=== PATIENT | male | born 1925 | race Caucasian/White ===

== ENCOUNTER 2016-10-04 18:08 | Emergency (ER) | payer MEDICARE, OTHER ==
[~2016-10-04] VITALS: Ht 182.9 cm; Wt 86.2 kg
[~2016-10-04 18:08] MED LIST: AML5T; AMLO10TA PO; ASP325T PO; CELE200C PO; CLOP75TA PO; HYDR-3816 PO; LASARTAN; LEVO125T6 PO; LEVO200T6 PO; LOSA100T7 PO; LVT.05T PO; MULT-608 PO; NTR.4SL SL; OMEG1CAP51 PO; Oxygen; SIMV40TA4 PO; TMSL.4C; TMSL.4C PO
[2016-10-04] MEDS ORDERED: CLOP75TA69 PO (18:25)
--- NOTE | 2016-10-04 18:35 | ED General ---
General Chief Complaint: Cough/Cold/Flu Symptoms Stated Complaint: COUGH/ACHING Nursing Triage Note: Ambulatory to ED 3 with reports of cough and congestion for the past several days to weeks. Nursing Sepsis Screen: No Definite Risk Source of Information: Patient, Family Exam Limitations: No Limitations History of Present Illness Time Seen by Provider: 18:10 Initial Comments This pleasant 89-year-old gentleman presents to the emergency room with 1-2 weeks of productive cough, congestion, and body aches. He denies any shortness of breath or chest pain. He has been taking Coricidin which makes him tired. He and his are concerned about this prolonged illness in the context of a surgery scheduled for early October on his knee. He has a history of coronary artery disease and CABG. He is afebrile on assessment. Irregular heartbeat is noted on auscultation. EKG demonstrated atrial fibrillation. Patient had a recent stress test in June 2016 showing no ischemia or infarct. Ejection fraction was 47 percent. No prior documentation of atrial fibrillation could be found in his chart. Prior EKGs were sinus rhythm. Allergies and Home Medications Allergies Coded Allergies: No Known Drug Allergies (Verified , 09/24/07) Home Medications Amlodipine Besylate 10 Mg Tablet 10 MG PO HS (Reported) Apixaban 2.5 Mg Tablet #60 2.5 MG PO BID Prescribed by: DELMY JOHNS on 10/04/162023 Clopidogrel Bisulfate 75 Mg Tablet 75 MG PO DAILY (Reported) Docosahexanoic Acid/Epa 1 Cap Capsule 1,000 MG PO HS (Reported) Hydrocodone/Acetaminophen 1 Each Tablet #30 1 EACH PO Q6H PRN PRN PAIN Prescribed by: NERY ESCOBAR on 06/19/15 1059 Levothyroxine Sodium 200 Mcg Tablet 200 MCG PO DAILY (Reported) TAKES ALONG WITH 50MCG TABLET Levothyroxine Sodium 50 Mcg Tablet 50 MCG PO DAILY (Reported) TAKES ALONG WITH 200MCG TABLET Losartan Potassium 100 Mg Tablet 100 MG PO HS (Reported) Multivitamins 1 Tab Tablet 1 TAB PO HS (Reported) Nitroglycerin 0.4 Mg Subl 0.4 MG SL UD PRN PRN CHEST PAIN (Reported) PLACE 1 TABLET UNDER TONGUE EVERY 5 MINUTES X 3 DOSES NEEDED FOR CHEST PAIN Simvastatin 40 Mg Tablet 20 MG PO DAILY (Reported) TAKES 1/2 (40MG) TABLET Tamsulosin Hcl 0.4 Mg Cap 0.4 MG PO HS (Reported) Constitutional: malaise EENTM: nose congestion Respiratory: see HPI Cardiovascular: see HPI Gastrointestinal: no symptoms reported Genitourinary: no symptoms reported Musculoskeletal: no symptoms reported Skin: no symptoms reported Psychiatric/Neurological: No Symptoms Reported Hematologic/Lymphatic: No Symptoms Reported Past Eojxbev-Pninlv-Ffdpbl Hx Patient Social History Alcohol Use: Denies Use Recreational Drug Use: No Smoking Status: Never a Smoker Recent Foreign Travel: No Contact w/Someone Who Travel: No Recent Infectious Disease Expo: No Recent Hopitalizations: No Physical Abuse Screen: No Sexual Abuse: No Immunizations Up To Date Tetanus Booster (TDap): Unknown PED Vaccines UTD: No Date of Pneumonia Vaccine: Jun 07, 2014 Date of Influenza Vaccine: Jun 07, 2016 Seasonal Allergies Seasonal Allergies: No Surgeries HX Surgeries: Yes (OPEN HEART SURGERY IN 1999, APPENDECTOMY HERNIA) Surgeries: Appendectomy, CABG, Joint Replacement (hip), Orthopedic (back surgery and hip replacement) Respiratory Hx Respiratory Disorders: Yes (home o2 HS) Respiratory Disorders: Sleep Apnea Cardiovascular Hx Cardiac Disorders: Yes Cardiac Disorders: Coronary Artery Disease, Hypertension Neurological Hx 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) Neurological Disorders: Stroke Reproductive System Hx Reproductive Disorders: No Sexually Transmitted Disease: No HIV/AIDS: No Genitourinary Hx Genitourinary Disorders: No Gastrointestinal Hx Gastrointestinal Disorders: No Musculoskeletal Hx Musculoskeletal Disorders: Yes Musculoskeletal Disorders: Arthritis Endocrine Hx Endocrine Disorders: Yes Endocrine Disorders: Hypothyroidsim HEENT HX ENT Disorders: Yes HEENT Disorders: Cataract Hearing Impairment: Hard of Hearing Cancer Hx Cancer: No Psychosocial Hx Psychiatric Problems: No Integumentary HX Skin/Integumentary Disorder: No Blood Transfusions Hx Blood Disorders: No Family Medical History Significant Family History: No Pertinent Family Hx Family Medial History: Prostate cancer 19 FATHER, Onset:60 years & older Physical Exam Vital Signs Vital Sign - Last 12Hours 10/04/16 18:20 Temp 98.0 Pulse 80 Resp 18 B/P 167/105 Pulse Ox 97 O2 Delivery Room Air Capillary Refill : Less Than 3 Seconds General Appearance: No Apparent Distress WD/WN HEENT: PERRL/EOMI TMs Normal Normal ENT Inspection Pharynx Normal Neck: Normal Inspection Respiratory: Lungs Clear Normal Breath Sounds No Accessory Muscle Use No Respiratory Distress Other (slightly delayed expiratory phase without wheezing) Cardiovascular: No Edema Normal Peripheral Pulses Systolic Murmur (subtle) Irregularly Irregular (with normal rate) Gastrointestinal: Non Tender Soft Extremity: Normal Inspection No Pedal Edema Neurologic/Psychiatric: Alert Oriented x3 No Motor/Sensory Deficits 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 Feldman. He requested the patient be started Eliquis 2.5 mg twice a day. Patient is presently on Plavix alone because he was having trouble with nosebleeds on aspirin and Plavix. Based on discussion with Dr. Feldman, he will be switched to aspirin 81 mg in combination with the Eliquis. Plavix will be stopped. ECG Initial ECG Impression Date: Oct 04, 2016 Initial ECG Impression Time: 18:29 Initial ECG Rate: 86 Initial ECG Rhythm: A Fib/Flutter Comment Atrial fibrillation with controlled rate. Nonspecific IVCD. No axis deviation. No ST elevation or depression. Diagnostic Imaging Diagonstic Imaging: Xray Plain Films/CT/US/NM/MRI: chest Comments Chest x-ray viewed by me and report reviewed. See report below: NAME: TRACI HARRINGTON MED REC#: [id number] PT STATUS: REG ER : 1925 PHYSICIAN: DELMY IRAHETA MD ADMIT DATE: 10/04/16/ER Draft Date of Exam:10/04/16 CHEST PA/LAT (2 VIEW) INDICATION: Cough, aching COMPARISON: December 07, 2014 TECHNIQUE: Frontal and lateral radiographs of the chest dated October 04, 2016 FINDINGS: Postsurgical changes of a CABG. Tortuosity of the thoracic aorta. The cardiac silhouette is within normal limits. No significant pulmonary vascular congestion. Background changes of chronic obstructive pulmonary disease again noted with associated pulmonary hyperinflation. The lungs, however, are clear of focal pulmonary opacity. No pleural effusion. No pneumothorax. Scattered osseous degenerative changes without acute osseous abnormality. IMPRESSION: Background changes of chronic obstructive pulmonary disease and postsurgical changes without acute cardiopulmonary abnormality. Dictated on workstation # [id number] Dict: 10/04/16 1847 Trans: 10/04/[address] [place] [address] [id number] Interpreted by: KATLYN RUIZ MD Departure Impression Impression: Primary Impression: New onset atrial fibrillation Additional Impression: Upper respiratory infection Qualified Code: J06.9 - Acute upper respiratory infection, unspecified Disposition: HOME, SELF-CARE Condition: Stable Departure-Patient Inst. Decision time for Depature: 20:00 Referrals: TARAS TITUS MD (PCP/Family) Primary Care Physician Patient Instructions: Atrial Fibrillation Add. Discharge Instructions: Start your prescription for Eliquis tomorrow morning. Follow-up with Dr. Feldman next week. Return to emergency room if you have worsening symptoms. May take Tylenol up to 1000 mg every 6 hours as needed for aches and pains. Stop Plavix (clopidogrel). Replace Plavix with aspirin EC (enteric-coated) 81 mg daily. All discharge instructions reviewed with patient and/or family. Voiced understanding. Scripts Apixaban (Eliquis)2.5 Mg Tablet2.5 Mg PO BID #60 TAB Prov:DELMY IRAHETA MD 10/04/16 Copy Copies To 1: KAJAL FELDMAN MD [facility] DELMY IRAHETA MD Oct 04, 2016 18:35 Red Cell Distribution Width 14.4 10.0-14.5 % Sodium Level 139 135-145 MMOL/L Thyroid Stimulating Hormone (TSH) 6.97 H 0.35-4.94 UIU/ML Total Bilirubin 0.6 0.1-1.0 MG/DL Total Protein 6.8 6.4-8.2 G/DL White Blood Count 11.0 4.3-11.0 10^3/uL Micro Results Microbiology 10/04/16 Influenza Types A,B Antigen (BENITO) - Final, Complete My Orders Orders-DELMY IRAHETA MD Influenza A And B Antigens (10/04/16 18:10) BNP (10/04/16 18:22) Cbc With Automated Diff (10/04/16 18:22) Comprehensive Metabolic Panel (10/04/16 18:22) Hs C Reactive Protein (10/04/16 18:22) Saline Lock/Iv-Start (10/04/16 18:22) Ekg Tracing (10/04/16 18:22) Monitor-Rhythm Ecg Trace Only (10/04/16 18:22) Thyroid Stimulating Hormone (10/04/16 18:38) Free T4 (Free Thyroxine) (10/04/16 18:38) Chest Pa/Lat (2 View) (10/04/16 ) Apixaban Tablet (Eliquis Tablet) (10/04/16 20:30) Vital Signs/I&O Vital Sign - Last 12Hours 10/04/16 10/04/16 18:20 18:20 Temp 98.0 Pulse 80 Resp 18 B/P 167/105 Pulse Ox 97 O2 Delivery Room Air Room Air Blood Pressure Mean: 125 Progress Note : Progress Note Case reviewed with Dr. Feldman. He requested the patient be started Eliquis 2.5 mg twice a day. Patient is presently on Plavix alone because he was having trouble with nosebleeds on aspirin and Plavix. Based on discussion with Dr. Feldman, he will be switched to aspirin 81 mg in combination with the Eliquis. Plavix will be stopped. ECG Initial ECG Impression Date: Oct 04, 2016 Initial ECG Impression Time: 18:29 Initial ECG Rate: 86 Initial ECG Rhythm: A Fib/Flutter Comment Atrial fibrillation with controlled rate. Nonspecific IVCD. No axis deviation. No ST elevation or depression. Diagnostic Imaging Diagonstic Imaging: Xray Plain Films/CT/US/NM/MRI: chest Comments Chest x-ray viewed by me and report reviewed. See report below: NAME: TRACI HARRINGTON [facility] REC#: [id number] PT STATUS: REG ER : 1925 PHYSICIAN: DELMY IRAHETA MD ADMIT DATE: 10/04/16/ER Draft Date of Exam:10/04/16 CHEST PA/LAT (2 VIEW) INDICATION: Cough, aching COMPARISON: December 07, 2014 TECHNIQUE: Frontal and lateral radiographs of the chest dated October 04, 2016 FINDINGS: Postsurgical changes of a CABG. Tortuosity of the thoracic aorta. The cardiac silhouette is within normal limits. No significant pulmonary vascular congestion. Background changes of chronic obstructive pulmonary disease again noted with associated pulmonary hyperinflation. The lungs, however, are clear of focal pulmonary opacity. No pleural effusion. No pneumothorax. Scattered osseous degenerative changes without acute osseous abnormality. IMPRESSION: Background changes of chronic obstructive pulmonary disease and postsurgical changes without acute cardiopulmonary abnormality. Dictated on workstation # [id number] Dict: 10/04/16 1847 Trans: 10/04/16 1852 [facility] [id number] Interpreted by: KATLYN RUIZ MD Departure Impression Impression: Primary Impression: New onset atrial fibrillation Additional Impression: Upper respiratory infection Qualified Code: J06.9 - Acute upper respiratory infection, unspecified Disposition: 01 HOME, SELF-CARE Condition: Stable Departure-Patient Inst. Decision time for Depature: 20:00 Referrals: TARAS TITUS MD (PCP/Family) Primary Care Physician Patient Instructions: Atrial Fibrillation Add. Discharge Instructions: Start your prescription for Eliquis tomorrow morning. Follow-up with Dr. Feldman next week. Return to emergency room if you have worsening symptoms. May take Tylenol up to 1000 mg every 6 hours as needed for aches and pains. Stop Plavix (clopidogrel). Replace Plavix with aspirin EC (enteric-coated) 81 mg daily. All discharge instructions reviewed with patient and/or family. Voiced understanding. Scripts Apixaban (Eliquis)2.5 Mg Tablet2.5 Mg PO BID #60 TAB Prov:DELMY IRAHETA MD 10/04/16 DELMY IRAHETA MD Oct 04, 2016 18:35
[2016-10-04 18:42] LABS: BASOPHILS # (AUTO) 0.1 10^3/uL (0.0-0.1); BASOPHILS % (AUTO) 1 % (0-10); EOSINOPHILS # (AUTO) 0.7 10^3/uL (0.0-0.3); EOSINOPHILS % (AUTO) 6 % (0-10); LYMPHOCYTES # (AUTO) 2.2 X 10^3 (1.0-4.0); LYMPHOCYTES % (AUTO) 20 % (12-44); MEAN CORPUSCULAR HEMOGLOBIN 32 PG (25-34); MEAN CORPUSCULAR HGB CONC 34 G/DL (32-36); MEAN CORPUSCULAR VOLUME 94 FL (80-99); MEAN PLATELET VOLUME 10.2 FL (7.4-10.4); MONOCYTES # (AUTO) 1.2 X 10^3 (0.0-1.0); MONOCYTES % (AUTO) 11 % (0-12); NEUTROPHILS # (AUTO) 6.9 X 10^3 (1.8-7.8); NEUTROPHILS % (AUTO) 63 % (42-75); PLATELET COUNT 287 10^3/uL (130-400); RED BLOOD COUNT 4.78 10^6/uL (4.35-5.85); RED CELL DISTRIBUTION WIDTH 14.4 % (10.0-14.5)
--- NOTE | 2016-10-04 18:52 | Diagnostic Imaging Report ---
INDICATION: Cough, aching COMPARISON: December 07, 2014 TECHNIQUE: Frontal and lateral radiographs of the chest dated October 04, 2016 FINDINGS: Postsurgical changes of a CABG. Tortuosity of the thoracic aorta. The cardiac silhouette is within normal limits. No significant pulmonary vascular congestion. Background changes of chronic obstructive pulmonary disease again noted with associated pulmonary hyperinflation. The lungs, however, are clear of focal pulmonary opacity. No pleural effusion. No pneumothorax. Scattered osseous degenerative changes without acute osseous abnormality. IMPRESSION: Background changes of chronic obstructive pulmonary disease and postsurgical changes without acute cardiopulmonary abnormality. Dictated by: Dictated on workstation # [id number]
[2016-10-04 19:04] LABS: BILIRUBIN,TOTAL 0.6 MG/DL (0.1-1.0); CALCIUM 8.7 MG/DL (8.5-10.1); CREATININE SERUM 1.23 MG/DL (0.60-1.30); POTASSIUM 4.1 MMOL/L (3.6-5.0); TOTAL PROTEIN 6.8 G/DL (6.4-8.2); hs C REACTIVE PROTEIN 1.95 MG/DL (0.00-0.50)
[2016-10-04 19:27] LABS: THYROID STIMULATING HORMONE 6.97 UIU/ML (0.35-4.94)
[2016-10-04] MEDS ORDERED: APIX2.5T PO (20:24)
[2016-10-04] MEDS ORDERED: APIXABAN 2.5 MG (ELIQUIS) TABLET PO ONE (20:30)
[2016-10-04 20:40] VITALS: BP 141/86
[2016-10-22] MEDS ORDERED: AMLO5TAB2 PO (09:04)
[2016-10-22] MEDS ORDERED: TRAM50TA2 PO (09:04)
[2016-10-22] MEDS ORDERED: SENN-140 PO (09:04)
[2016-10-22] MEDS ORDERED: FAMO20TA5 PO (09:04)
[2016-10-22] MEDS ORDERED: BETH25TA PO (09:04)
== END 2016-10-04 20:40 | disposition home or self-care (01) ==
LOC: EDUNIT# 18:08 → ER 18:11
DX: J06.9 Acute upper respiratory infection, unspecified (principal); I48.91 Unspecified atrial fibrillation; J44.9 Chronic obstructive pulmonary disease, unspecified; I10 Essential (primary) hypertension; I25.10 Atherosclerotic heart disease of native coronary artery without angina pectoris; Z79.899 Other long term (current) drug therapy; Z95.1 Presence of aortocoronary bypass graft
CPT/HCPCS: 36415; 71020; 80053; 83880; 84439; 84443; 85025; 86141; 87804; 93005; 93041

== ENCOUNTER 2016-10-11 20:39 | Inpatient (IN) | payer MEDICARE, OTHER ==
[~2016-10-11] VITALS: Ht 182.9 cm; Wt 97.7 kg
[~2016-10-11 20:39] MED LIST changes: +APIX2.5T PO; +CLOP75TA69 PO
[2016-10-11] MEDS ORDERED: ASPI-586 PO (21:01)
--- NOTE | 2016-10-11 21:03 | ED Fall/Injury ---
General Chief Complaint: Trauma-Non Activation Stated Complaint: FALL Nursing Triage Note: PT REPORTS HE WAS BENDING DOWN TO PICK SOMETHING UP AND FELL. PT REPORTS HE HIT THE BACK OF HIS HEAD ON THE DOOR. PT DENIES LOC OR HEAD/NECK PAIN. PT REPORTS L THIGH PAIN AND PELVIC PAIN. Source: patient, family (2 sons), spouse Exam Limitations: no limitations History of Present Illness Time seen by provider: 21:03 Initial Comments 89-year-old male patient presents to the emergency department with complaints of falling at home. Patient states he bent down to pick something up and fell. Patient states he hit the back of his head on the door before falling onto the left hip. Patient now complains of left hip pain and pelvic pain. Denies loss of consciousness, neck pain, head pain, or back pain. Patient states he is scheduled to have left knee replacement by Dr. Garner on November 19. Nothing by mouth since 1800. Location Injury Occurred: home Occurred: just prior to arrival Injuries/Pain Location: pelvis, lower extremity (left hip) Context: lost balance Loss of Consciousness: no loss of consciousness Modifying Factors: Improves With Immobilization, Worse With Movement Allergies and Home Medications Allergies Coded Allergies: No Known Drug Allergies (Verified , 09/24/07) Home Medications Amlodipine Besylate 10 Mg Tablet 10 MG PO HS (Reported) Apixaban 2.5 Mg Tablet #60 2.5 MG PO BID Prescribed by: DELMY JOHNS on 10/04/162023 Aspirin 81 Mg Tablet. 81 MG PO DAILY (Reported) Docosahexanoic Acid/Epa 1 Cap Capsule 1,000 MG PO HS (Reported) Levothyroxine Sodium 200 Mcg Tablet 200 MCG PO DAILY (Reported) TAKES ALONG WITH 50MCG TABLET Levothyroxine Sodium 50 Mcg Tablet 50 MCG PO DAILY (Reported) TAKES ALONG WITH 200MCG TABLET Losartan Potassium 100 Mg Tablet 100 MG PO HS (Reported) Multivitamins 1 Tab Tablet 1 TAB PO HS (Reported) Nitroglycerin 0.4 Mg Subl 0.4 MG SL UD PRN PRN CHEST PAIN (Reported) PLACE 1 TABLET UNDER TONGUE EVERY 5 MINUTES X 3 DOSES NEEDED FOR CHEST PAIN Simvastatin 40 Mg Tablet 20 MG PO DAILY (Reported) TAKES 1/2 (40MG) TABLET Tamsulosin Hcl 0.4 Mg Cap 0.4 MG PO HS (Reported) Constitutional: no symptoms reported Eyes: No Symptoms Reported Ears, Nose, Mouth, Throat: no symptoms reported Respiratory: no symptoms reported Cardiovascular: no symptoms reported Gastrointestinal: no symptoms reported Genitourinary: no symptoms reported Musculoskeletal: No back pain, joint pain (left hip)No neck pain Skin: no symptoms reported Psychiatric/Neurological: Denies Headache, Denies Numbness, Denies Paresthesia , Denies Seizure, Denies Tingling, Denies Weakness All Other Systems Reviewed Negative Unless Noted: Yes (Negative excepted noted.) Past Asfbkhk-Bmrjmz-Uqclzz Hx Patient Social History Alcohol Use: Denies Use Recreational Drug Use: No Smoking Status: Never a Smoker Recent Foreign Travel: No Contact w/Someone Who Travel: No Recent Infectious Disease Expo: No Recent Hopitalizations: No Immunizations Up To Date Tetanus Booster (TDap): Unknown PED Vaccines UTD: No Date of Pneumonia Vaccine: Jun 07, 2014 Date of Influenza Vaccine: Jun 07, 2016 Seasonal Allergies Seasonal Allergies: No Surgeries HX Surgeries: Yes (OPEN HEART SURGERY IN 1999, APPENDECTOMY HERNIA, R HIP) Surgeries: Appendectomy, CABG, Coronary Stent, Joint Replacement, Orthopedic Respiratory Hx Respiratory Disorders: Yes (home o2 HS) Respiratory Disorders: Sleep Apnea Cardiovascular Hx Cardiac Disorders: Yes Cardiac Disorders: Coronary Artery Disease, Heart Attack, Hypertension Neurological Hx 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) Neurological Disorders: Stroke Reproductive System Hx Reproductive Disorders: No Sexually Transmitted Disease: No HIV/AIDS: No Genitourinary Hx Genitourinary Disorders: No Gastrointestinal Hx Gastrointestinal Disorders: No Musculoskeletal Hx Musculoskeletal Disorders: Yes Musculoskeletal Disorders: Arthritis Endocrine Hx Endocrine Disorders: Yes Endocrine Disorders: Hypothyroidsim HEENT HX ENT Disorders: Yes HEENT Disorders: Cataract Hearing Impairment: Hard of Hearing Cancer Hx Cancer: No Psychosocial Hx Psychiatric Problems: No Integumentary HX Skin/Integumentary Disorder: No Blood Transfusions Hx Blood Disorders: No Reviewed Nursing Assessment Reviewed/Agree w Nursing PMH: Yes Family Medical History Significant Family History: No Pertinent Family Hx Family Medial History: Prostate cancer 19 FATHER, Onset:60 years & older Physical Exam Vital Signs Vital Sign - Last 12Hours 10/11/16 10/11/16 20:46 22:47 Temp 97.6 Pulse 85 Resp 18 B/P 148/87 Pulse Ox 92 O2 Delivery Room Air Capillary Refill : Less Than 3 Seconds General Appearance: WD/WN no apparent distress HEENT: PERRL/EOMI normal ENT inspection TMs normal pharynx normal Neck: non-tender full range of motion supple normal inspection Cardiovascular: normal peripheral pulses regular rate, rhythm no murmur Respiratory: lungs clear normal breath sounds no respiratory distress Gastrointestinal: normal bowel sounds non tender softNo distended Back: normal inspection no vertebral tenderness Extremities: no calf tenderness normal capillary refill pelvis stable pedal edema other (left lower extremity externally rotated and shortened. 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 no motor/sensory deficits alert normal mood/affect oriented x 3 Nikko Coma Score Best Eye Response: (4) Open Spontaneously Best Verbal Response: (5) Oriented Best Motor Response: (6) Obeys Commands [place] Total: 15 Progress/Results/Core Measures Results/Orders Lab Results Laboratory Tests Test 10/11/16 22:16 Range/Units Activated Partial Thromboplast Time 35 24-35 SEC Alanine Aminotransferase (ALT/SGPT) 23 0-55 U/L Albumin 3.4 3.2-4.5 G/DL Alkaline Phosphatase 114 40-136 U/L Anion Gap 11 5-14 MMOL/L Aspartate Amino Transf (AST/SGOT) 25 5-34 U/L BUN/Creatinine Ratio 12 Basophils # (Auto) 0.0 0.0-0.1 10^3/uL Basophils (%) (Auto) 0 0-10 % Blood Urea Nitrogen 15 7-18 MG/DL Calcium Level 8.3 L 8.5-10.1 MG/DL Carbon Dioxide Level 21 21-32 MMOL/L Chloride Level 108 H 98-107 MMOL/L Creatinine 1.26 0.60-1.30 MG/DL Eosinophils # (Auto) 0.4 H 0.0-0.3 10^3/uL Eosinophils (%) (Auto) 3 0-10 % Estimat Glomerular Filtration Rate 54 Glucose Level 131 H 70-105 MG/DL Hematocrit 41 40-54 % Hemoglobin 14.1 13.3-17.7 G/DL INR Comment 1.1 0.8-1.4 Lymphocytes # (Auto) 1.7 1.0-4.0 X 10^3 Lymphocytes (%) (Auto) 15 12-44 % Mean Corpuscular Hemoglobin 32 25-34 PG Mean Corpuscular Hemoglobin Concent 34 32-36 G/DL Mean Corpuscular Volume 93 80-99 FL Mean Platelet Volume 9.9 7.4-10.4 FL Monocytes # (Auto) 1.1 H 0.0-1.0 X 10^3 Monocytes (%) (Auto) 10 0-12 % Neutrophils # (Auto) 7.7 1.8-7.8 X 10^3 Neutrophils (%) (Auto) 71 42-75 % Platelet Count 300 130-400 10^3/uL Potassium Level 3.6 3.6-5.0 MMOL/L Prothrombin Time 13.8 12.2-14.7 SEC Red Blood Count 4.42 4.35-5.85 10^6/uL Red Cell Distribution Width 13.7 10.0-14.5 % Sodium Level 140 135-145 MMOL/L Total Bilirubin 0.5 0.1-1.0 MG/DL Total Protein 6.1 L 6.4-8.2 G/DL White Blood Count 10.9 4.3-11.0 10^3/uL My Orders Orders-BENNY AMANDA PA Ct Head Wo (10/11/16 21:23) Chest 1 View, Ap/Pa Only (10/11/16 21:23) Pelvis (10/11/16 21:23) Hip, Left, 2 Views (10/11/16 21:23) Fentanyl Injection (Sublimaze Injection (10/11/16 21:23) Cbc With Automated Diff (10/11/16 21:23) Comprehensive Metabolic Panel (10/11/16 21:23) Protime With Inr (10/11/16 21:23) Partial Thromboplastin Time (10/11/16 21:23) Ua Culture If Indicated (10/11/16 21:23) Vital Signs/I&O Vital Sign - Last 12Hours 10/11/16 10/11/16 20:46 22:47 Temp 97.6 97.6 Pulse 85 85 Resp 18 18 B/P 148/87 148/87 Pulse Ox 92 92 O2 Delivery Room Air Blood Pressure Mean: 107 Diagnostic Imaging Diagonstic Imaging: CT Plain Films/CT/US/NM/MRI: head Comments FINDINGS: Noncontrast CT scan of the head demonstrates diffuse central and cortical atrophy. 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 An old infarct is seen anteriorly in the left frontal lobe near the base. No evidence of an acute infarct is identified. There is no mass effect, midline shift, hemorrhage or extra-axial fluid collections. Bone windows demonstrate no evidence of a fracture. No fluid is seen in the paranasal sinuses or mastoid air cells. 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 No acute findings are seen. Dictated by: Dictated on workstation # [id number] Reviewed: Reviewed by Me (radiology report reviewed by me) Diagonstic Imaging: Xray Plain Films/CT/US/NM/MRI: pelvis Comments FINDINGS: AP view of the pelvis demonstrates an intertrochanteric fracture of the left hip. Postoperative changes are present in the right hip. Joint space narrowing seen in both hips. IMPRESSION: There is an intertrochanteric fracture of the left hip. Dictated by: Dictated on workstation # [id number] Reviewed: Reviewed by Me (radiology report reviewed by me) Diagonstic Imaging: Xray Plain Films/CT/US/NM/MRI: hip Comments FINDINGS: Two views of the left hip demonstrate an intertrochanteric fracture of the left hip. Joint space narrowing is present. Arteriosclerosis is seen. IMPRESSION: There is an intertrochanteric fracture of the left hip. Dictated by : Dictated on workstation # [id number] Reviewed: Reviewed by Me (radiology report reviewed by me) Diagonstic Imaging: Xray Plain Films/CT/US/NM/MRI: chest Comments FINDINGS: Frontal view of the chest demonstrates borderline cardiomegaly with coronary artery bypass graft changes. Lungs are clear. No fractures are identified. IMPRESSION: There are no acute findings. Dictated by: Dictated on workstation # [id number] Reviewed: Reviewed by Me (radiology report reviewed by me) Departure Communication Time/Spoke to Admitting Phy: 22:[address] Weaver accepts patient to her medical service for pain control and orthopedic consult. Time/Spoke to Consulting Physi: 22:29 Communication/Consulting Dr. White excepts patient to his orthopedic service, request admission to medical. Requests to hold eliquis and aspirin. Progress Notes All laboratory findings, diagnostic study findings and plan for admission discussed with the patient and family. All voiced understanding and agree with the treatment plan. Patient reports improvement in symptoms with IV fentanyl. Patient case discussed with Dr. Diane, he agrees with the plan of care. Impression Impression: Primary Impression: Closed left hip fracture Additional Impression: Fall Disposition: 09 ADMITTED INPATIENT Condition: Stable Decision to Admit Reason: Admit from ER (General) Decision to Admit/Date: Oct 11, 2016 Departure-Patient Inst. Referrals: TARAS WEAVER MD (PCP/Family) Primary Care Physician BENNY AMANDA Oct 11, 2016 21:03
[2016-10-11] MEDS ORDERED: fentaNYL INJECTION 100 MCG/2 ML AMP IVP STA (21:23)
--- NOTE | 2016-10-11 21:52 | Diagnostic Imaging Report ---
PROCEDURE: CT head without contrast. TECHNIQUE: Multiple contiguous axial images were obtained through the brain without the use of intravenous contrast. INDICATION: Fell, complaining of left hip pain. FINDINGS: Noncontrast CT scan of the head demonstrates diffuse central and cortical atrophy. 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 An old infarct is seen anteriorly in the left frontal lobe near the base. No evidence of an acute infarct is identified. There is no mass effect, midline shift, hemorrhage or extra-axial fluid collections. Bone windows demonstrate no evidence of a fracture. No fluid is seen in the paranasal sinuses or mastoid air cells. 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 No acute findings are seen. Dictated by: Dictated on workstation # [id number]
--- NOTE | 2016-10-11 22:00 | Diagnostic Imaging Report ---
INDICATION: Fell. Left hip pain. COMPARISON STUDY: Chest from October 04. FINDINGS: Frontal view of the chest demonstrates borderline cardiomegaly with coronary artery bypass graft changes. Lungs are clear. No fractures are identified. IMPRESSION: There are no acute findings. Dictated by: Dictated on workstation # [id number]
--- NOTE | 2016-10-11 22:01 | Diagnostic Imaging Report ---
INDICATION: Fell. Left hip pain. FINDINGS: Two views of the left hip demonstrate an intertrochanteric fracture of the left hip. Joint space narrowing is present. Arteriosclerosis is seen. IMPRESSION: There is an intertrochanteric fracture of the left hip. Dictated by: Dictated on workstation # [id number]
--- NOTE | 2016-10-11 22:01 | Diagnostic Imaging Report ---
INDICATION: Fell, left hip pain. FINDINGS: AP view of the pelvis demonstrates an intertrochanteric fracture of the left hip. Postoperative changes are present in the right hip. Joint space narrowing seen in both hips. IMPRESSION: There is an intertrochanteric fracture of the left hip. Dictated by: Dictated on workstation # [id number]
[2016-10-11 22:25] LABS: BASOPHILS % (AUTO) 0 % (0-10); EOSINOPHILS # (AUTO) 0.4 10^3/uL (0.0-0.3); EOSINOPHILS % (AUTO) 3 % (0-10); LYMPHOCYTES # (AUTO) 1.7 X 10^3 (1.0-4.0); LYMPHOCYTES % (AUTO) 15 % (12-44); MEAN CORPUSCULAR HEMOGLOBIN 32 PG (25-34); MEAN CORPUSCULAR HGB CONC 34 G/DL (32-36); MEAN CORPUSCULAR VOLUME 93 FL (80-99); MEAN PLATELET VOLUME 9.9 FL (7.4-10.4); MONOCYTES # (AUTO) 1.1 X 10^3 (0.0-1.0); MONOCYTES % (AUTO) 10 % (0-12); NEUTROPHILS # (AUTO) 7.7 X 10^3 (1.8-7.8); NEUTROPHILS % (AUTO) 71 % (42-75); PLATELET COUNT 300 10^3/uL (130-400); RED BLOOD COUNT 4.42 10^6/uL (4.35-5.85); RED CELL DISTRIBUTION WIDTH 13.7 % (10.0-14.5); WHITE BLOOD COUNT 10.9 10^3/uL (4.3-11.0)
[2016-10-11 22:34] LABS: INR 1.1 (0.8-1.4); PROTHROMBIN TIME PATIENT 13.8 SEC (12.2-14.7)
[2016-10-11 22:44] LABS: ALBUMIN 3.4 G/DL (3.2-4.5); BILIRUBIN,TOTAL 0.5 MG/DL (0.1-1.0); CALCIUM 8.3 MG/DL (8.5-10.1); CREATININE SERUM 1.26 MG/DL (0.60-1.30); POTASSIUM 3.6 MMOL/L (3.6-5.0); TOTAL PROTEIN 6.1 G/DL (6.4-8.2)
[2016-10-12] VITALS: BP 126/76
[2016-10-12] MEDS ORDERED: ONDANSETRON 4 MG/2 ML (SDV) Z0FRAN IV PRN (00:15)
[2016-10-12] MEDS ORDERED: CATHETER FLUSH 10 ML SYR IV PRN (00:15)
[2016-10-12] MEDS ORDERED: oxyCODONE/APAP 5/325MG (PERCOCET 5) TABLET PO PRN (00:15)
[2016-10-12] MEDS: NS IV 1000 ML 1,000 ML IV SCH ×2 (01:10→15:02)
[2016-10-12] MEDS: morphine INJ 4 MG/ML 1 ML (VIAL/SYRINGE) IV PRN ×3 (01:10→19:20)
[2016-10-12 04:00] VITALS: BP 127/81
[2016-10-12] MEDS: CATHETER FLUSH 10 ML SYR IV SCH ×3 (05:51→22:00)
[2016-10-12 06:25] LABS: BASOPHILS % (AUTO) 0 % (0-10); EOSINOPHILS # (AUTO) 0.1 10^3/uL (0.0-0.3); EOSINOPHILS % (AUTO) 1 % (0-10); LYMPHOCYTES # (AUTO) 1.2 X 10^3 (1.0-4.0); LYMPHOCYTES % (AUTO) 8 % (12-44); MEAN CORPUSCULAR HEMOGLOBIN 32 PG (25-34); MEAN CORPUSCULAR HGB CONC 34 G/DL (32-36); MEAN CORPUSCULAR VOLUME 94 FL (80-99); MEAN PLATELET VOLUME 10.4 FL (7.4-10.4); MONOCYTES # (AUTO) 1.6 X 10^3 (0.0-1.0); MONOCYTES % (AUTO) 11 % (0-12); NEUTROPHILS # (AUTO) 11.8 X 10^3 (1.8-7.8); NEUTROPHILS % (AUTO) 80 % (42-75); PLATELET COUNT 317 10^3/uL (130-400); RED BLOOD COUNT 4.29 10^6/uL (4.35-5.85); RED CELL DISTRIBUTION WIDTH 13.7 % (10.0-14.5); WHITE BLOOD COUNT 14.6 10^3/uL (4.3-11.0)
[2016-10-12 06:56] LABS: BAND NEUTROPHILS 0 %; BASOPHILS % (MANUAL) 0 %; EOSINOPHILS % (MANUAL) 0 %; LYMPHOCYTES % (MANUAL) 4 %; NEUTROPHILS % (MANUAL) 80 %; REACTIVE LYMPHOCYTES 8 %
[2016-10-12 06:57] LABS: ALBUMIN 3.5 G/DL (3.2-4.5); BILIRUBIN,TOTAL 0.7 MG/DL (0.1-1.0); CALCIUM 8.2 MG/DL (8.5-10.1); CREATININE SERUM 1.19 MG/DL (0.60-1.30); POTASSIUM 3.8 MMOL/L (3.6-5.0)
[2016-10-12 07:26] LABS: BILIRUBIN,URINE NEGATIVE (NEGATIVE); NITRITE,URINE NEGATIVE (NEGATIVE); PH,URINE 6 (5-9); UROBILINOGEN,URINE NORMAL (NORMAL)
[2016-10-12 07:28] LABS: KETONES,URINE NEGATIVE (NEGATIVE); LEUKOCYTE ESTERASE ,URINE NEGATIVE (NEGATIVE); PROTEIN,URINE NEGATIVE (NEGATIVE)
[2016-10-12 08:00] VITALS: BP 140/77
--- NOTE | 2016-10-12 09:17 | Consultation ---
History of Present Illness History of Present Illness Patient Consulted On(cathi/time) 10/12/16 09:12 Date of Admission 10/11/2016 Reason for Visit: left hip pain History of Present Illness This 89 year old male fell last night and hurt the left hip. He was seen in the ER and diagnosed with a left intertrochanteric femur fracture. He denies LOC and denies any other injury. 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 He has been on Plavix for his heart and he had some problems with it a few days ago and was prescribed Eliquis and he just started that 2 to 3 days ago according to his . His last dose was yesterday. From what I understand, he will need to be off of the Eliquis for 2 days before elective surgery. Allergies and Home Medications Allergies Coded Allergies: No Known Drug Allergies (Verified , 09/24/07) Home Medications Amlodipine Besylate 10 Mg Tablet 10 MG PO HS (Reported) Apixaban 2.5 Mg Tablet #60 2.5 MG PO BID Prescribed by: DELMY JOHNS on 10/04/162023 Aspirin 81 Mg Tablet.dr 81 MG PO DAILY (Reported) Docosahexanoic Acid/Epa 1 Cap Capsule 1,000 MG PO HS (Reported) Levothyroxine Sodium 200 Mcg Tablet 200 MCG PO DAILY (Reported) TAKES ALONG WITH 50MCG TABLET Levothyroxine Sodium 50 Mcg Tablet 50 MCG PO DAILY (Reported) TAKES ALONG WITH 200MCG TABLET Losartan Potassium 100 Mg Tablet 100 MG PO HS (Reported) Multivitamins 1 Tab Tablet 1 TAB PO HS (Reported) Nitroglycerin 0.4 Mg Subl 0.4 MG SL UD PRN PRN CHEST PAIN (Reported) PLACE 1 TABLET UNDER TONGUE EVERY 5 MINUTES X 3 DOSES NEEDED FOR CHEST PAIN Simvastatin 40 Mg Tablet 20 MG PO DAILY (Reported) TAKES 1/2 (40MG) TABLET Tamsulosin Hcl 0.4 Mg Cap 0.4 MG PO HS (Reported) Past Ylfjwyq-Qrvvyg-Kcajwe Hx Patient Social History Alcohol Use: Denies Use Recreational Drug Use: No Smoking Status: Never a Smoker Recent Foreign Travel: No Contact w/Someone Who Travel: No Recent Infectious Disease Expo: No Recent Hopitalizations: No Physical Abuse Screen: No Sexual Abuse: No Immunizations Up To Date Tetanus Booster (TDap): Unknown PED Vaccines UTD: No Date of Pneumonia Vaccine: Jun 07, 2014 Date of Influenza Vaccine: Jun 07, 2016 Seasonal Allergies Seasonal Allergies: No Surgeries HX Surgeries: Yes (OPEN HEART SURGERY IN 1999, APPENDECTOMY HERNIA, R HIP) Surgeries: Appendectomy, CABG, Coronary Stent, Joint Replacement, Orthopedic Respiratory Hx Respiratory Disorders: Yes (home o2 HS) Respiratory Disorders: Sleep Apnea, COPD Cardiovascular Hx Cardiac Disorders: Yes Cardiac Disorders: Coronary Artery Disease, Heart Attack, Hypertension Neurological Hx 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) Neurological Disorders: Stroke Reproductive System Hx Reproductive Disorders: No Sexually Transmitted Disease: No HIV/AIDS: No Genitourinary Hx Genitourinary Disorders: No Gastrointestinal Hx Gastrointestinal Disorders: No Musculoskeletal Hx Musculoskeletal Disorders: Yes Musculoskeletal Disorders: Arthritis, Fractures Endocrine Hx Endocrine Disorders: Yes Endocrine Disorders: Hypothyroidsim HEENT HX ENT Disorders: Yes HEENT Disorders: Cataract Loss of Vision: Denies Hearing Impairment: Denies Cancer Hx Cancer: No Psychosocial Hx Psychiatric Problems: No Integumentary HX Skin/Integumentary Disorder: No Blood Transfusions Hx Blood Disorders: No Adverse Reaction to a Blood Tr: No Reviewed Nursing Assessment Reviewed/Agree w Nursing PMH: Yes Family Medical History Significant Family History: No Pertinent Family Hx Family Medial History: Hypertension 19 MOTHER Prostate cancer 19 FATHER, Onset:60 years & older Physical Exam-General Problems Physical Exam Vital Signs Vital Sign - Last 12Hours 10/11/16 10/11/16 10/11/16 20:46 22:47 23:29 Temp 97.6 Pulse 85 Resp 18 B/P 148/87 Pulse Ox 92 O2 Delivery Room Air O2 Flow Rate 2 Capillary Refill : Less Than 3 SecondsLess Than 3 Seconds General Appearance: WD/WN Neck: non-tender Respiratory: chest non-tender Cardiovascular: normal peripheral pulses Back: no vertebral tenderness Extremities: no pedal edema no calf tenderness other (Left hip shortened and externally rotated. Tender over the left hip. The left knee shows arthritic enlargement and spurring with minimal effusion.) Skin: normal color warm/dry Assessment/Plan Assessment/Plan Admission Diagnosis/Plan Left intertrochanteric femur fracture-- His ASA and Eliquis are being held. I will plan on surgery on the left hip with ORIF of the hip tomorrow afternoon which should be long enough to avoid bleeding from the Eliquis. He will likely need to go to rehab after he recovers from the surgery. Clinical Quality Measures DVT/VTE Risk/Contraindication: Risk Factor Score Per Nursin RFS Level Per Nursing on Admit: 4+=Very High SHIRA VAZQUEZ MD Oct 12, 2016 09:17
--- NOTE | 2016-10-12 09:26 | History & Physicial ---
History of Present Illness History of Present Illness Reason for visit/HPI PT IS AN 89 Y/O MALE WHO IS KNOWN TO ME FROM CLINIC. THE PATIENT REPORTS THAT YESTERDAY HE WAS FEELING WELL, HAD BEEN EATING SUPPER AND WAS GETTING UP AND MOVING AROUND IN THE KITCHEN. HE WAS LEANING OVER PICKING UP SOMETHING OFF OF THE FLOOR, WHEN HE STOOD UP HE BECAME UNSTEADY, GRABBED FOR THE KITCHEN CHAIR AND IT SCOOTED AWAY FROM HIM AND HE FELL TO THE KITCHEN FLOOR. HE REPORTS THAT SOON HE FELL DOWN HE KNEW HE HAD BROKEN HIS HIP. HE DENIES ANY CHEST PAIN, SHORTNESS OF BREATH, ABDOMINAL PAIN, DIZZINESS AT THIS TIME. Date of Admission Oct 11, 2016 at 22:55 I consulted on this patient on 10/12/16 09:26 Attending Physician Taras Weaver MD Admitting Physician Taras Weaver MD Consult DR. WING Allergies and Home Medications Allergies Coded Allergies: No Known Drug Allergies (Verified , 09/24/07) Home Medications Amlodipine Besylate 10 Mg Tablet 10 MG PO HS (Reported) Apixaban 2.5 Mg Tablet #60 2.5 MG PO BID Prescribed by: DELMY JOHNS on 10/04/162023 Aspirin 81 Mg Tablet. 81 MG PO DAILY (Reported) Docosahexanoic Acid/Epa 1 Cap Capsule 1,000 MG PO HS (Reported) Levothyroxine Sodium 200 Mcg Tablet 200 MCG PO DAILY (Reported) TAKES ALONG WITH 50MCG TABLET Levothyroxine Sodium 50 Mcg Tablet 50 MCG PO DAILY (Reported) TAKES ALONG WITH 200MCG TABLET Losartan Potassium 100 Mg Tablet 100 MG PO HS (Reported) Multivitamins 1 Tab Tablet 1 TAB PO HS (Reported) Nitroglycerin 0.4 Mg Subl 0.4 MG SL UD PRN PRN CHEST PAIN (Reported) PLACE 1 TABLET UNDER TONGUE EVERY 5 MINUTES X 3 DOSES NEEDED FOR CHEST PAIN Simvastatin 40 Mg Tablet 20 MG PO DAILY (Reported) TAKES 1/2 (40MG) TABLET Tamsulosin Hcl 0.4 Mg Cap 0.4 MG PO HS (Reported) Past Mcrmxba-Aaapbm-Zpsojp Hx Patient Social History Marrital Status: Living Status: LIVES [place] [employer] Employed/Student: retired Alcohol Use: Denies Use Recreational Drug Use: No Smoking Status: Never a Smoker 2nd Hand Smoke Exposure: No Physical Abuse Screen: No Sexual Abuse: No Recent Foreign Travel: No Contact w/other who traveled: No Recent Hopitalizations: No Recent Infectious Disease Expo: No Immunizations Up To Date Tetanus Booster (TDap): Unknown Date of Pneumonia Vaccine: Jun 07, 2014 Date of Influenza Vaccine: Jun 07, 2016 Seasonal Allergies Seasonal Allergies: No Surgeries HX Surgeries: Yes (OPEN HEART SURGERY IN 1999, APPENDECTOMY HERNIA, R HIP) Surgeries: Appendectomy, CABG, Coronary Stent, Joint Replacement, Orthopedic Respiratory Hx Respiratory Disorders: Yes (home o2 HS) Cardiovascular Hx Cardiovascular Disorders: Yes Cardiac Disorders: Atrial Fibrillation, Coronary Artery Disease, Heart Attack, Hypertension Neurological Hx 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) Neurological Disorders: Stroke Reproductive System Hx Reproductive Disorders: No Sexually Transmitted Disease: No HIV/AIDS: No Genitourinary Hx Genitourinary Disorders: Yes Genitourinary Disorders: Benign Prostatic Hyperpl Gastrointestinal Hx Gastrointestinal Disorders: No Musculoskeletal Hx Musculoskeletal Disorders: Yes Musculoskeletal Disorders: Arthritis, Fractures Endocrine Hx Endocrine Disorders: Yes Endocrine Disorders: Hypothyroidsim HEENT HX ENT Disorders: Yes HEENT Disorders: Cataract Loss of Vision: Denies Hearing Impairment: Denies Cancer Hx Cancer: No Psychosocial Hx Psychiatric Problems: No Integumentary HX Skin/Integumentary Disorder: No Blood Transfusions Hx Blood Disorders: No Adverse Reaction to a Blood Tr: No Reviewed Nursing Assessment Reviewed/Agree w Nursing PMH: Yes Family Medical History Significant Family History: Heart Disease, Cancer (PROSTATE) Family Hx: Hypertension 19 MOTHER Prostate cancer 19 FATHER, Onset:60 years & older Constitutional: No chills, No diaphoresis, No fever, No malaise, No weakness EENTM: No hoarseness, No mouth pain, No throat pain Respiratory: No cough, No dyspnea on exertion, No short of breath Cardiovascular: No chest pain, No edema, No palpitations Gastrointestinal: No abdominal pain, No constipation, No diarrhea Genitourinary: other (PACE IN PLACE) Musculoskeletal: No back pain, other (PAIN IN LEFT HIP) Skin: no symptoms reported Psychiatric/Neurological: Denies Anxiety, Denies Depressed All Other Systems Reviewed Negative Unless Noted: Yes Physical Exam Vital Signs Vital Sign - Last 12Hours 10/11/16 10/11/16 10/11/16 20:46 22:47 23:29 Temp 97.6 Pulse 85 Resp 18 B/P 148/87 Pulse Ox 92 O2 Delivery Room Air O2 Flow Rate 2 Capillary Refill : Less Than 3 SecondsLess Than 3 Seconds General Appearance: No Apparent Distress WD/WN Eyes: Bilateral Eye EOMI, Bilateral Eye Normal Inspection, Bilateral Eye PERRL HEENT: PERRL/EOMI TMs Normal Normal ENT Inspection Pharynx Normal Neck: Full Range of Motion Supple Respiratory: Chest Non Tender Lungs Clear Normal Breath Sounds No Accessory Muscle Use Cardiovascular: Regular Rate, Rhythm No Edema Gastrointestinal: Normal Bowel Sounds No Organomegaly No Pulsatile Mass Non Tender Soft Rectal: Deferred Back: Normal Inspection Extremity: Normal Capillary Refill No Pedal Edema Other (TTP OVER LEFT LATERAL HIP) Neurologic/Psychiatric: Alert Oriented x3 No Motor/Sensory Deficits 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 WING - WAITING ANOTHER 48 HOURS FOR THE RISK OF SURGICAL BLEEDING TO BE DECREASED DUE TO USE OF ELIQUIS FOR AFIB. UTI - URINALYSIS SHOWED POSSIBLE UTI - WILL START ON ROCEPHIN AND MONITOR SYMPTOMS. AFIB - RESTARTED HEART RATE CONTROLLING MEDS - HOLD XARELTO AT THIS TIME. HTN - RESTARTED NORVASC AND LOSARTAN. HYPOTHYROID - RESTARTED LEVOTHYROXINE BPH - URINARY RETENTION - PACE PLACED THIS MORNING DUE TO RETENTION. Admission Diagnosis LEFT HIP FRACTURE - INTERTROCHANTERIC URINARY TRACT INFECTION AFIB CHRONIC ANTICOAGULATION USE HYPERTENSION CORONARY ARTERY DISEASE HYPOTHYROID BPH Clinical Quality Measures DVT/VTE Risk/Contraindication: Risk Factor Score Per Nursin RFS Level Per Nursing on Admit: 4+=Very High TARAS WEAVER MD Oct 12, 2016 09:26
[2016-10-12] MEDS ORDERED: NITROGLYCERIN SUBLINGUAL 0.4 MG TAB (NITROSTAT) SL PRN (09:30)
[2016-10-12] MEDS ORDERED: cefTRIAXone INJECTION 1,000 MG in NS (IVPB) 50 ML IV ONE (09:30)
[2016-10-12] MEDS: FAMOTIDINE 20 MG (PEPCID) TABLET PO SCH ×2 (09:33→20:45)
[2016-10-12 12:00] VITALS: BP 129/63
[2016-10-12 16:00] VITALS: BP 115/69
[2016-10-12] MEDS: ALFUZOSIN HCL 10 MG TAB (UROXATRAL) PO SCH (19:20)
[2016-10-12 19:31] VITALS: BP 111/68
[2016-10-12] MEDS: LOSARTAN 50 MG (COZAAR) TAB PO SCH (20:44)
[2016-10-12] MEDS: amLODIPine 10 MG (NORVASC) TAB PO SCH (20:45)
[2016-10-13] VITALS: BP 101/67
[2016-10-13] MEDS: NS IV 1000 ML 1,000 ML IV SCH ×2 (02:55→04:24)
[2016-10-13 04:00] VITALS: BP 120/59
[2016-10-13 04:40] LABS: MEAN PLATELET VOLUME 10.3 FL (7.4-10.4); RED BLOOD COUNT 3.84 10^6/uL (4.35-5.85); RED CELL DISTRIBUTION WIDTH 13.8 % (10.0-14.5); WHITE BLOOD COUNT 13.4 10^3/uL (4.3-11.0)
[2016-10-13 05:14] LABS: CALCIUM 7.9 MG/DL (8.5-10.1); CREATININE SERUM 1.14 MG/DL (0.60-1.30); POTASSIUM 4.1 MMOL/L (3.6-5.0)
[2016-10-13] MEDS: LEVOTHYROXINE 125 MCG (LEVOTHROID) TABLET PO SCH (05:43)
[2016-10-13] MEDS: CATHETER FLUSH 10 ML SYR IV SCH ×3 (05:44→22:20)
[2016-10-13] MEDS: morphine INJ 4 MG/ML 1 ML (VIAL/SYRINGE) IV PRN (05:53)
[2016-10-13 08:00] VITALS: BP 102/61
[2016-10-13] MEDS: SIMvastatin 40 MG (ZOCOR) TAB PO SCH (09:00)
[2016-10-13] MEDS ORDERED: cefTRIAXone INJECTION 1,000 MG in NS (IVPB) 50 ML IV SCH (09:00)
[2016-10-13] MEDS ORDERED: LEVOTHYROXINE SODIUM 200 MCG PO SCH (09:00)
[2016-10-13] MEDS: FAMOTIDINE 20 MG (PEPCID) TABLET PO SCH ×2 (09:00→20:26)
[2016-10-13] MEDS ORDERED: SALIVA STIMULANT MOUTH SPRAY (BIOTENE) 1.5 OZ MM PRN (10:30)
--- NOTE | 2016-10-13 10:30 | Progress Note (SOAP) ---
Subjective Subjective/Events-last exam PT REPORTS THAT HIS PAIN IS RELATIVELY WELL CONTROLLED WITH PAIN MEDICATIONS. THE PATIENT STATES THAT HE IS READY FOR HIS SURGERY. HIS MOUTH IS QUITE DRY. Review of Systems General: Fatigue HEENT: No Head Aches Pulmonary: No Dyspnea, No Cough Cardiovascular: No: Chest Pain Gastrointestinal: No: Abdominal Pain, Nausea Genitourinary: Retention (PACE IN PLACE) Neurological: : Weakness Objective Exam Vital Signs Date Time Temp Pulse Resp B/P Pulse Ox O2 Delivery O2 Flow Rate FiO2 10/13/16 08:00 95 Nasal Cannula 2.00 10/13/16 04:00 98.2 102 20 120/59 95 Nasal Cannula 2.00 10/13/16 00:00 98.0 100 16 101/67 95 Nasal Cannula 2.00 10/12/16 20:25 95 Nasal Cannula 2.00 10/12/16 19:31 98.2 85 20 111/68 92 Nasal Cannula 2.00 10/12/16 16:00 97.5 84 20 115/69 95 Nasal Cannula 2.00 10/12/16 12:00 98.6 100 18 129/63 96 Nasal Cannula 2.00 I & O 10/13/16 07:00 Intake Total 1650 ml Output Total 850 ml Balance 800 ml Capillary Refill : Less Than 3 SecondsLess Than 3 Seconds General Appearance: No Apparent Distress WD/WN HEENT: PERRL/EOMI Pharynx Normal Neck: Full Range of Motion Supple Respiratory: Chest Non Tender Lungs Clear Normal Breath Sounds Cardiovascular: Regular Rate, Rhythm No Edema Gastrointestinal: normal bowel sounds non tender soft no organomegaly no pulsatile mass Extremity: Normal Capillary Refill No Pedal Edema Neurologic/Psychiatric: Alert Oriented x3 No Motor/Sensory Deficits Normal Mood/Affect Skin: Warm/Dry Lymphatic: No Adenopathy Results Lab Laboratory Tests 10/13/16 04:20: Anion Gap 9, BUN/Creatinine Ratio 12, Blood Urea Nitrogen 14, Calcium Level 7.9L , Carbon Dioxide Level 22, Chloride Level 106, Creatinine 1.14, Estimat Glomerular Filtration Rate 60, Glucose Level 144H, Hematocrit 36L, Hemoglobin 12.1L, Mean Corpuscular Hemoglobin 32, Mean Corpuscular Hemoglobin Concent 33, Mean Corpuscular Volume 95, Mean Platelet Volume 10.3, Platelet Count 247, Potassium Level 4.1, Red Blood Count 3.84L, Red Cell Distribution Width 13.8, Sodium Level 137, White Blood Count 13.4H Microbiology 10/12/16 Urine Culture - Preliminary, Resulted NO GROWTH Assessment/Plan Assessment/Plan Assess & Plan/Chief Complaint LEFT HIP FRACTURE - INTERTROCHANTERIC AFIB CHRONIC ANTICOAGULATION USE HYPERTENSION CORONARY ARTERY DISEASE HYPOTHYROID BPH LEFT HIP FRACTURE - PLANNING ON SURGERY TODAY WITH DR. WING - UTI - URINALYSIS SHOWED POSSIBLE UTI - URINE CULTURE NEGATIVE - STOP ANTIBIOTICS AFIB - RESTARTED HEART RATE CONTROLLING MEDS - HOLD XARELTO AT THIS TIME. HTN - RESTARTED NORVASC AND LOSARTAN. HYPOTHYROID - RESTARTED LEVOTHYROXINE BPH - URINARY RETENTION - PACE PLACED DUE TO RETENTION. Diagnosis/Problems: Clinical Quality Measures DVT/VTE Risk/Contraindication: Risk Factor Score Per Nursin RFS Level Per Nursing on Admit: 4+=Very High TARAS TITUS MD Oct 13, 2016 10:30
[2016-10-13] MEDS ORDERED: LACTATED RINGERS 1,000 ML IV SCH (12:00)
[2016-10-13] MEDS ORDERED: fentaNYL INJECTION 100 MCG/2 ML AMP ONE (12:21)
[2016-10-13] MEDS ORDERED: MIDAZOLAM 2 MG/2 ML (VERSED) VIAL ONE (12:21)
[2016-10-13] MEDS ORDERED: LACTATED RINGERS 1,000 ML IV ONE ×2 (12:21→14:02)
[2016-10-13] MEDS ORDERED: LIDOCAINE PF 2% 10 ML (XYLOCAINE) AMP ONE (12:21)
[2016-10-13] MEDS ORDERED: SEVOFLURANE (ULTANE) 15 ML INHAL SOLN ONE ×4 (12:21→14:02)
[2016-10-13] MEDS ORDERED: proPOfol 200 MG/20 ML (DIPRIVAN) VIAL IV ONE (12:21)
[2016-10-13] MEDS ORDERED: morphine INJ 4 MG/ML 1 ML (VIAL/SYRINGE) IVP PRN (13:15)
[2016-10-13] MEDS ORDERED: ceFAZolin 2 GM/50 ML NS 50 ML IV ONE (13:15)
[2016-10-13] MEDS ORDERED: HYDROcodone/APAP 5 MG/325 MG (LORTAB) TAB PO PRN (13:15)
[2016-10-13] MEDS ORDERED: BISACODYL 5 MG (DULCOLAX) TABLET PO PRN (13:15)
[2016-10-13] MEDS ORDERED: ceFAZolin 1,000 MG (ANCEF) VIAL ONE (13:17)
[2016-10-13] MEDS: LACTATED RINGERS 1,000 ML IV SCH ×2 (13:48→23:25)
[2016-10-13] MEDS ORDERED: ONDANSETRON 4 MG/2 ML (SDV) Z0FRAN ONE (14:03)
--- NOTE | 2016-10-13 14:15 | Diagnostic Imaging Report ---
INDICATION: Left hip injury. FINDINGS: 44 seconds of fluoroscopy was used during internal fixation of the left hip. A series of intraoperative images show internal fixation of a comminuted intertrochanteric fracture with a gamma nail and a long femoral stem which extends to the distal femoral metaphysis. IMPRESSION: Good alignment of the left hip following internal fixation of an intertrochanteric fracture. Dictated by: Dictated on workstation # [id number]
--- NOTE | 2016-10-13 14:28 | Progress Note-Post Operative ---
Post-Operative Progess Note Warehouse Specialist Ivan Begum PA-C Pre-Operative Diagnosis Left intertrochanteric femur fracture Post-Operative Diagnosis same Post-Op Procedure Note Date of Procedure: Oct 13, 2016 Name of Procedure: ORIF left femur with TFN Procedure Note/Findings Left comminuted intertroch fracture Anesthesia Type General Packing: none Specimen(s) collected none SHIRA VAZQUEZ MD Oct 13, 2016 14:28
[2016-10-13] MEDS ORDERED: morphine INJ 10 MG/ML 1ML (SYR OR VIAL) IV PRN (15:15)
[2016-10-13] MEDS ORDERED: ONDANSETRON 4 MG/2 ML (SDV) Z0FRAN IV ONE (15:15)
[2016-10-13] MEDS ORDERED: fentaNYL INJECTION 100 MCG/2 ML AMP IV PRN (15:15)
[2016-10-13 15:45] VITALS: BP 115/62
[2016-10-13] MEDS: ALFUZOSIN HCL 10 MG TAB (UROXATRAL) PO SCH (18:24)
[2016-10-13 19:32] VITALS: BP 104/63
[2016-10-13] MEDS: APIXABAN 2.5 MG (ELIQUIS) TABLET PO SCH (20:25)
[2016-10-13] MEDS: amLODIPine 10 MG (NORVASC) TAB PO SCH (20:25)
[2016-10-13] MEDS: DOCUSATE SODIUM 100 MG (COLACE) CAP PO SCH (20:25)
[2016-10-13] MEDS: SENNOSIDES 8.6 MG (SENOKOT) TAB PO SCH (20:26)
[2016-10-13] MEDS: LOSARTAN 50 MG (COZAAR) TAB PO SCH (20:26)
[2016-10-13] MEDS ORDERED: FUROSEMIDE 40 MG/4 ML INJ (LASIX) IVP ONE (22:15)
[2016-10-13] MEDS: HYDROcodone/APAP 7.5 MG/325 MG (LORTAB, LORCET PLUS) TABLET PO PRN (23:25)
[2016-10-14 00:30] VITALS: BP 92/61
[2016-10-14 04:27] VITALS: BP 94/53
[2016-10-14] MEDS: NS IV 1000 ML 1,000 ML IV SCH ×2 (05:35→18:55)
[2016-10-14] MEDS: LEVOTHYROXINE 125 MCG (LEVOTHROID) TABLET PO SCH (05:46)
[2016-10-14] MEDS: CATHETER FLUSH 10 ML SYR IV SCH ×3 (05:49→20:47)
[2016-10-14 06:49] LABS: MEAN PLATELET VOLUME 10.4 FL (7.4-10.4); RED BLOOD COUNT 3.1 10^6/uL (4.35-5.85); RED CELL DISTRIBUTION WIDTH 13.6 % (10.0-14.5); WHITE BLOOD COUNT 12.6 10^3/uL (4.3-11.0)
[2016-10-14 07:15] LABS: ALBUMIN 2.6 G/DL (3.2-4.5); BILIRUBIN,TOTAL 0.8 MG/DL (0.1-1.0); CALCIUM 7.6 MG/DL (8.5-10.1); CREATININE SERUM 1.22 MG/DL (0.60-1.30); POTASSIUM 4.1 MMOL/L (3.6-5.0); TOTAL PROTEIN 4.6 G/DL (6.4-8.2)
[2016-10-14 08:03] VITALS: BP 98/61
--- NOTE | 2016-10-14 08:18 | Progress Note (SOAP) ---
Subjective Subjective/Events-last exam PT REPORTS THAT HE IS QUITE FATIGUED TODAY - HIS STATES THAT HE IS USUALLY SOMEWHAT CONFUSED/GROGGY FOR A WHILE RIGHT AFTER HE AWAKENS WHEN HE IS AT HOME. HE STATES THAT HIS HIP IS HURTING THIS MORNING. 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): Weakness Objective Exam Vital Signs Date Time Temp Pulse Resp B/P Pulse Ox O2 Delivery O2 Flow Rate FiO2 10/14/16 07:25 3.50 10/14/16 04:27 99.1 94 20 94/53 93 Nasal Cannula 3.00 10/14/16 00:30 99.2 91 18 92/61 94 Nasal Cannula 3.00 3.00 10/13/16 20:20 94 Nasal Cannula 3.00 10/13/16 19:32 97.9 100 20 104/63 94 Nasal Cannula 3.00 10/13/16 16:37 3.00 10/13/16 15:45 97.4 92 16 115/62 95 Nasal Cannula 3.00 I & O 10/14/16 07:00 Intake Total 2250 ml Output Total 840 ml Balance 1410 ml Capillary Refill : Less Than 3 SecondsLess Than 3 Seconds General Appearance: No Apparent Distress WD/WN HEENT: PERRL/EOMI Pharynx Normal Neck: Full Range of Motion Supple Respiratory: Chest Non Tender Lungs Clear Normal Breath Sounds Cardiovascular: Regular Rate, Rhythm Gastrointestinal: normal bowel sounds soft Extremity: Pedal Edema (TRACE AT ANKLES) Skin: Warm/Dry Lymphatic: No Adenopathy Results Lab Laboratory Tests 10/14/16 06:28: Alanine Aminotransferase (ALT/SGPT) 12, Albumin 2.6L, Alkaline Phosphatase 54, Anion Gap 6, Aspartate Amino Transf (AST/SGOT) 15, BUN/Creatinine Ratio 15, Blood Urea Nitrogen 18, Calcium Level 7.6L, Carbon Dioxide Level 24, Chloride Level 104, Creatinine 1.22, Estimat Glomerular Filtration Rate 56, Glucose Level 151H, Hematocrit 30L, Hemoglobin 9.8L, Mean Corpuscular Hemoglobin 32, Mean Corpuscular Hemoglobin Concent 33, Mean Corpuscular Volume 96, Mean Platelet Volume 10.4, Platelet Count 207, Potassium Level 4.1, Red Blood Count 3.10L, Red Cell Distribution Width 13.6, Sodium Level 134L, Total Bilirubin 0.8 , Total Protein 4.6L, White Blood Count 12.6H Microbiology 10/12/16 MRSA Screen - Final, Complete MRSA not isolated 10/12/16 Urine Culture - Preliminary, Resulted NO GROWTH Assessment/Plan Assessment/Plan Assess & Plan/Chief Complaint LEFT HIP FRACTURE - INTERTROCHANTERIC AFIB CHRONIC ANTICOAGULATION USE HYPERTENSION CORONARY ARTERY DISEASE HYPOTHYROID BPH ANEMIA LEFT HIP FRACTURE - POST-OP DAY #1 - LEFT HIP FRACTURE REPAIR WITH DR. WING - UTI - URINALYSIS SHOWED POSSIBLE UTI - URINE CULTURE NEGATIVE - STOP ANTIBIOTICS AFIB - RESTARTED HEART RATE CONTROLLING MEDS - RESTARTED ANTICOAGULANT HTN - RESTARTED NORVASC AND LOSARTAN. HYPOTHYROID - RESTARTED LEVOTHYROXINE BPH - URINARY RETENTION - PACE PLACED DUE TO RETENTION- WILL REMOVE LATER TODAY ANEMIA - CHECK H AND H TOMORROW MORNING, BLOOD TRANSFUSION IF INDICATED. Diagnosis/Problems: Clinical Quality Measures DVT/VTE Risk/Contraindication: Risk Factor Score Per Nursin RFS Level Per Nursing on Admit: 4+=Very High TARAS TITUS MD Oct 14, 2016 08:18
[2016-10-14] MEDS: APIXABAN 2.5 MG (ELIQUIS) TABLET PO SCH ×2 (08:55→20:45)
[2016-10-14] MEDS: DOCUSATE SODIUM 100 MG (COLACE) CAP PO SCH ×2 (08:56→20:45)
[2016-10-14] MEDS: ASPIRIN E.C. 81 MG (ECOTRIN) TAB PO SCH (08:56)
[2016-10-14] MEDS: HYDROcodone/APAP 7.5 MG/325 MG (LORTAB, LORCET PLUS) TABLET PO PRN (08:56)
[2016-10-14] MEDS: SENNOSIDES 8.6 MG (SENOKOT) TAB PO SCH ×2 (08:56→20:45)
[2016-10-14] MEDS: SIMvastatin 40 MG (ZOCOR) TAB PO SCH (08:56)
--- NOTE | 2016-10-14 09:52 | Occupational Therapy Eval ---
OT Evaluation-General/PLF Medical Diagnosis Admission Date Oct 11, 2016 at 22:55 Medical Diagnosis: Left comminuted intertroch fx Onset Date: Oct 11, 2016 Therapy Diagnosis Therapy Diagnosis: Weakness, Decreased ADL skills Height/Weight Height (Feet): 6 Height (Inches): 0.00 Weight (Pounds): 195 Weight (Ounces): 8.0 Precautions Precautions/Isolations: Fall Prevention, Standard Precautions Safety Interventions: Reorient-PRN Weight Bear Status Weight Bearing Restriction: Weight Bearing/Tolerated Location Restriction: R LE Referral Physician: Dr. Weaver Referral Reason: Activity Tolerance, Self Care, Evaluation/Treatment, Strengthening/ROM Medical History Pertinent Medical History: Arthritis, CABG, CAD, COPD, CVA, HTN Additional Medical History coronary stent, right hip, hypothyroidism, BPH Current History Pt. lives with spouse in [place]. Pt. fell at home. Broke left leg. Pt. had ORIF left femur with TFN. Social History Home: Single Level Current Living Status: Significant Other Entry Into Home: Stairs With Railing Steps Into Home: 3 ADL-Prior Level of Function ADL PLOF Comments Pt. was independent with daily tasks, bathing/dressing/shopping/driving previous to this fall. DME/Equipment: Shower, Tub/Shower Drive Self: Yes OT Current Status Subjective Pt. reports 10/10 pain in left hip as he begins to move. Nursing is notified. Gives pain medication while in the room. Appearance Pt. is in bed. Agrees to evaluation. States that he has not been up yet. Mental Status/Objective Patient Orientation: Unable to Assess Pt.'s spouse states that he is "confused" at this time. Attachments: Bautista Catheter, Oxygen Current Glasses/Contacts: Yes Hand Dominance: Right Upper Extremity ROM Pt. is able to flex bilateral shoulders to approximately 100 degrees today in bed. WFL in all other joints. Upper Extremity Coordination intact ADL-Treatment Functional Bledsoe Measure 0=Not Assessed/NA 4=Minimal Assistance 1=Total Assistance 5=Supervision or Setup 2=Maximal Assistance 6=Modified B[place]soe 3=Moderate Assistance 7=Complete IndependenceIRFPAI Quality Coding Scale 6 Independent with activity with or without an assistive device 5 Patient requires set up or clean up by helper. Patient completes activity by themselves 4 Supervision or touching assist (CGA). [place] provide cues , steadying assist 3 The helper provides less than half the effort to complete the activity 2 The helper provides more than half the effort to complete the activity 1 Dependent. The helper does all the effort to complete an activity 7 Patient refused to complete or attempt activity 9 The patient did not perform the activity before the current illness or injury 88 Not attempted due to Medical conditions or safety concerns Eating (FIM): 2 (Pt. has food in room. Spouse states that she has been feeding him. OT gave pt. fork and food placed in front. Unable to initiate at bite or holding fork.) Lower Body Dressing (FIM): 1 (Dependent assist to don and doff socks.) Transfers (B, C, W/C) (FIM): 1 (OT began to assist pt. to side of bed while in the room. Pt. unable to move left leg to side, and barely able to move right LE. OT attempted to transfer pt. to side of bed from supine-sit. Pt. unable to assist at all. Called for another person. Pt. required dependent assist x2 for supine-sit. Sat EOB approximately 3 minutes with min assist. Stood with max x 2 at walker. Stood approximately 2 minutes. Sat back down. Required dependent assist x 2 for sit-supine, and bed mobility.) Other Treatments Pt. unable to reach his feet seated or in bed. Unable to doff/don socks. Education OT Patient Education: Correct positioning, Modified ADL techniques, Progress toward Goal/Update tx plan, Purpose of tx/functional activities, Reviewed precautions, Transfer techniques Teaching Recipient: Patient Teaching Methods: Demonstration, Discussion Response to Teaching: Verbalize Understanding, Return Demonstration OT Short Term Goals Short Term Goals Time Frame: Oct 28, 2016 Eating(FIM): 4 Grooming(FIM): 4 Bathing(FIM): 3 Upper Body Dressing(FIM): 4 Lower Body Dressing(FIM): 3 Toileting(FIM): 3 Transfers (B,C,W/C) (FIM): 3 Toilet/Commode Transfer(FIM): 3 Shower Transfer(FIM): 3 Additional Short Term Goals: 1-Demonstrate ADL Tasks, 2-Verbalize Understanding , 3-ImproveStrength/Geovani 1=Demonstrate adherence to instructed precautions during ADL tasks. 2=Patient will verbalize/demonstrate understanding of assistive devices/ modifications for ADL. 3=Patient will improve strength/tolerance for activity to enable patient to perform ADL's. OT Mcc Goals Mcc Goals Time Frame: 4 weeks Eating (FIM): 6 Grooming(FIM): 6 Bathing(FIM): 5 Upper Body Dressing(FIM): 5 Lower Body Dressing(FIM): 5 Toileting(FIM): 5 Transfers (B,C,W/C) (FIM): 5 Toilet/Commode Transfer(FIM): 5 Shower Transfer(FIM): 5 Additional Goals: 1-Demonstrate ADL Tasks, 2-Verbalize Understanding, 3- ImproveStrength/Geovani 1=Demonstrate adherence to instructed precautions during ADL tasks. 2=Patient will verbalize/demonstrate understanding of assistive devices/ modifications for ADL. 3=Patient will improve strength/tolerance for activity to enable patient to perform ADL's. OT Education/Plan Problem List/Assessment Assessment: Decreased Activ Tolerance, Decreased Safety Aware, Decreased UE Strength, Dependent Transfers, Impaired Bed Mobility, Impaired Cognition, Impaired Coordination, Impaired Funct Balance, Impaired I ADL's, Impaired Self- Care Skills Discharge Recommendations Plan/Recommendations: Continue POC Therapy D/C Recommendations: Acute Rehab Barriers to Progress Cognition and pain level. Treatment Plan/Plan of Care Treatment,Training & Education: Yes Patient would benefit from OT for education, treatment and training to promote independence in ADL's, mobility, safety and/or upper extremity function for ADL' s. Plan of Care: ADL Retraining, Functional Mobility, UE Funct Exercise/Act Treatment Duration: Nov 04, 2016 Agreement: Yes Rehab Potential: Fair Time/GCodes Start Time: 08:40 Stop Time: 09:10 Total Time Billed (hr/min): 30 Billed Treatment Time 1, EVmod compex x 15minutes, FA x 15minutes JOSE ANTONIO YOUNG OT Oct 14, 2016 09:52
[2016-10-14 12:04] VITALS: BP_SYST 73; BP_SYST 74; BP_DIAS 38; BP_DIAS 49
--- NOTE | 2016-10-14 12:15 | Physical Therapy Evaluation ---
PT Evaluation-General Medical Diagnosis Admission Date Oct 11, 2016 at 22:55 Medical Diagnosis: Left comminuted intertroch fx Onset Date: Oct 11, 2016 Therapy Diagnosis Therapy Diagnosis: debility/weakness Height/Weight Height (Feet): 6 Height (Inches): 0.00 Weight (Pounds): 195 Weight (Ounces): 8.0 Precautions Precautions/Isolations: Fall Prevention, Standard Precautions Weight Bear Status Weight Bearing Restriction: Weight Bearing/Tolerated Location Restriction: R LE Referral Physician: Dr. Weaver Reason for Referral: Evaluation/Treatment Medical History Pertinent Medical History: Atrial Fib, Arthritis, CABG, CAD, COPD, CVA, HTN, Hypothroidism, [place] Additional Medical History left TKR 11/2015 Current History bent over to pick something up and fell hitting back of head Reviewed History: Yes Social History Home: Single Level Current Living Status: Significant Other Entry Into Home: Stairs With Railing PT Steps Into Home: 3 Prior/Core FIM Prior Level of Function Functional Sawyer Measure 0=Not Assessed/NA 4=Minimal Assistance 1=Total Assistance 5=Supervision or Setup 2=Maximal Assistance 6=Modified Sawyer 3=Moderate Assistance 7=Complete Sawyer Bed Mobility: 6 Transfers (B,C,W/C) (FIM): 6 Gait: 6 uses cane PT Evaluation-Current Subjective Patient is reluctant to participate with PT, however, agrees. Pain Numeric Pain Scale: 7 Location: Left Pain Description: Acute Objective Patient Orientation: Normal For Age Problem Solving: Fair Attachments: Oxygen, Bautista Catheter ROM/Strength ROM Lower Extremities right LE WFL; left LE limited due to edema and pain of hip, patient was in bed with left knee flexed Strenght Lower Extremities right hip flexion 3/5, knee flexion/extension 3-/5, ankle dorsi/plantarflexion 3 /5 left hip flexion NT, knee flexion/extension 2/5, ankle dorsi/plantarflexion 3-/5 Integumentary/Posture Integumentary refer to nursing notes Bladder Incontinence: Bautista Cath Posture severe flexed hip and knee posture in stand Neuromuscular (Tone, Coordination, Reflexes) severely diminished coordination; delayed reaction time with all instruction/ movement Sensory Vision: Functional Hearing: Impaired Hand Dominance: Right Sensation Right Lower Extremit: Impaired Sensation Left Lower Extremity: Impaired Transfers Functional Sawyer Measure 0=Not Assessed/NA 4=Minimal Assistance 1=Total Assistance 5=Supervision or Setup 2=Maximal Assistance 6=Modified [place]yer 3=Moderate Assistance 7=Complete [place]yer Transfers (B, C, W/C) (FIM): 1 Scootin Supine to/from Sit: 1 Sit to/from Stand: 2 bed t/f WC(FIM only if WC use): 1 Patient demonstrated retropulsion in sit and unable to maintain EOB without assistance. Patient actively participated with sit to stand to FWW, however, unable to weight shift to either right or left LE due to weakness and pain. Patient also demonstrated "melting" in stand and required dependent assist x 2 SPT bed to recliner. Gait Anticipated Mode of Locomotion: Walk Balance Sitting Static: Poor Sitting Dynamic: Poor Standing Static: Poor Standing Dynamic: Poor Assessment/Needs 89 y.o. debilitated male, will benefit from skilled PT to address functional strength and mobility to improve current LOF and to safely return to home or care facility at maximum LOF. Rehab Potential: Fair Post Rehab Potential-Barriers: age/weakness PT Short Term Goals Short Term Goals Time Frame: Oct 24, 2016 Transfers (B,C,W/C) (FIM): 3 Gait (FIM): 2 Distance (FIM): 7=098-89 ft Gait Distance Comment: 50' Gait Level of Assist: 3 Gait Assistive Device: FWW PT Halfway Goals Halfway Goals PT Halfway Goals Time Frame: Nov 04, 2016 Transfers (B,C,W/C) (FIM): 6 Gait (FIM): 4 Gait distance (FIM): 3=150 ft Distance: 150' Gait Level of Assist: 4 Gait Assistive Device: FWW Stairs (FIM): 2 # of Steps: 3 Stairs Level Of Assist: 5 PT Plan Problem List Problem List: Activity Tolerance, Functional Strength, Safety, Balance, Gait, Transfer, Bed Mobility Treatment/Plan Treatment Plan: Continue Plan of Care Treatment Plan: Bed Mobility, Education, Functional Activity Geovani, Functional Strength, Gait, Safety, Therapeutic Exercise, Transfers Treatment Duration: Nov 04, 2016 # of days/week 6 Visits Per Week: 11 Pt/Family Agrees w/Plan: Yes Safety Risks/Education Patient Education: Transfer Techniques Teaching Recipient: Patient Teaching Methods: Demonstration, Discussion Response to Teaching: Reinforcement Needed Discharge Recommendations Therapy D/C Recommendations: Shelter (TCU/NH) Time/GCodes Time In: 1131 Time Out: 1156 Total Billed Treatment Time: 25 [facility] PT Oct 14, 2016 12:15
--- NOTE | 2016-10-14 13:02 | Progress Note (SOAP) ---
Objective Exam Vital Signs Date Time Temp Pulse Resp B/P Pulse Ox O2 Delivery O2 Flow Rate FiO2 10/14/16 12:04 73/38 10/14/16 12:04 97.9 92 16 74/49 95 Nasal Cannula 3.00 3.00 10/14/16 08:03 99.1 98 18 98/61 100 Nasal Cannula 3.00 3.00 10/14/16 08:00 100 Nasal Cannula 3.00 10/14/16 07:25 3.50 10/14/16 04:27 99.1 94 20 94/53 93 Nasal Cannula 3.00 10/14/16 00:30 99.2 91 18 92/61 94 Nasal Cannula 3.00 3.00 10/13/16 20:20 94 Nasal Cannula 3.00 10/13/16 19:32 97.9 100 20 104/63 94 Nasal Cannula 3.00 10/13/16 16:37 3.00 10/13/16 15:45 97.4 92 16 115/62 95 Nasal Cannula 3.00 I & O 10/14/16 07:00 Intake Total 2250 ml Output Total 840 ml Balance 1410 ml Capillary Refill : Less Than 3 SecondsLess Than 3 Seconds General Appearance: Other (Patient is sleepy but awakes to answer question. ) HEENT: PERRL/EOMI Normal ENT Inspection Pharynx Normal Peripheral Pulses: 3+ Left Dors-Pedis (L) Skin: Normal Color Warm/Dry Other comments Dressing dry clean and intact Results Lab Laboratory Tests 10/14/16 06:28: Alanine Aminotransferase (ALT/SGPT) 12, Albumin 2.6L, Alkaline Phosphatase 54, Anion Gap 6, Aspartate Amino Transf (AST/SGOT) 15, BUN/Creatinine Ratio 15, Blood Urea Nitrogen 18, Calcium Level 7.6L, Carbon Dioxide Level 24, Chloride Level 104, Creatinine 1.22, Estimat Glomerular Filtration Rate 56, Glucose Level 151H, Hematocrit 30L, Hemoglobin 9.8L, Mean Corpuscular Hemoglobin 32, Mean Corpuscular Hemoglobin Concent 33, Mean Corpuscular Volume 96, Mean Platelet Volume 10.4, Platelet Count 207, Potassium Level 4.1, Red Blood Count 3.10L, Red Cell Distribution Width 13.6, Sodium Level 134L, Total Bilirubin 0.8 , Total Protein 4.6L, White Blood Count 12.6H Microbiology 10/12/16 MRSA Screen - Final, Complete MRSA not isolated 10/12/16 Urine Culture - Preliminary, Resulted NO GROWTH Assessment/Plan Assessment/Plan Assess & Plan/Chief Complaint left hip fracture with ORIF TFN. Hip is doing well. Patient is sleepy but awakes to answer question appropriately. He was given pain medication after PT which seem to cause his drowsiness. Will stop the lortab 7.5mg and will only given Ultram for pain hold lortab 5mg for break through pain. Diagnosis/Problems: Clinical Quality Measures DVT/VTE Risk/Contraindication: Risk Factor Score Per Nursin RFS Level Per Nursing on Admit: 4+=Very High ROSMERY RM Oct 14, 2016 13:02
--- NOTE | 2016-10-14 13:32 | Physical Therapy Daily Note ---
PT Daily Note-Current Subjective Patient is up in recliner and slightly responsive. Family present and very concerned. Appearance Vitals taken by PT in recliner 53/44 BP, 105 HR, SAO2 93% on 3.5L (RN notified) ; PT and tech performed dependent SPT recliner to bed prior to RN entering room. Patient's BP increased slightly after returning to supine with head slightly elevated. Mental Status Patient Orientation: Mumbles, Listless Attachments: Oxygen Transfers Functional White Measure 0=Not Assessed/NA 4=Minimal Assistance 1=Total Assistance 5=Supervision or Setup 2=Maximal Assistance 6=Modified White 3=Moderate Assistance 7=Complete IndependenceIRFPAI Quality Coding Scale 6 Independent with activity with or without an assistive device 5 Patient requires set up or clean up by helper. Patient completes activity by themselves 4 Supervision or touching assist (CGA). [place] provide cues , steadying assist 3 The helper provides less than half the effort to complete the activity 2 The helper provides more than half the effort to complete the activity 1 Dependent. The helper does all the effort to complete an activity 7 Patient refused to complete or attempt activity 9 The patient did not perform the activity before the current illness or injury 88 Not attempted due to Medical conditions or safety concerns Transfers (B, C, W/C) (FIM): 1 Scootin Supine to/from Sit: 1 Sit to/from Stand: 1 Bed to/from Chair: 1 see above; bilateral LE's elevated with pillows to relieve bilateral heel pressure and SCD's in place and on Weight Bearing Weight Bearing Restriction: Touch Toe Bearing Location Restriction: L LE Assessment Dr. White's PA in for assessment after patient returned to bed with O2 3.5L NC in place and BP WNL for patient, per RN report. PT to increase activity when patient tolerates. PT Short Term Goals Short Term Goals Time Frame: Oct 24, 2016 Transfers (B,C,W/C) (FIM): 3 Gait (FIM): 2 Distance (FIM): 1=229-43 ft Gait Distance Comment: 50' Gait Level of Assist: 3 Gait Assistive Device: FWW PT Longterm Goals Longterm Goals PT Longterm Goals Time Frame: Nov 04, 2016 Transfers (B,C,W/C) (FIM): 6 Gait (FIM): 4 Gait distance (FIM): 3=150 ft Distance: 150' Gait Level of Assist: 4 Gait Assistive Device: FWW Stairs (FIM): 2 # of Steps: 3 Stairs Level Of Assist: 5 PT Plan Treatment/Plan Treatment Plan: Continue Plan of Care Treatment Plan: Bed Mobility, Education, Functional Activity Geovani, Functional Strength, Gait, Safety, Therapeutic Exercise, Transfers Treatment Duration: Nov 04, 2016 Visits Per Week: 11 Time/GCodes Time In: 1300 Time Out: 1325 Total Billed Treatment Time: 25 Total Billed Treatment 1 visit FA x 2 25 min RAQUEL AYALA PT Oct 14, 2016 13:32
--- NOTE | 2016-10-14 13:38 | OPERATIVE REPORT ---
PROCEDURE PHYSICIAN: SHIRA VAZQUEZ DATE OF PROCEDURE: 10/13/2016 PREOPERATIVE DIAGNOSIS: Left intertrochanteric femoral fracture. POSTOPERATIVE DIAGNOSIS: Left intertrochanteric femoral fracture. PROCEDURE: Left hip trochanteric femoral nail. SURGEON: Christopher ASSISTING: TESS Sy. Family Member Caretaker surgeon duties: Patient positioning, retraction, use of internal fixation devices, wound closure, application sterile dressings. Use of branch assistant is medically indicated. ANESTHESIA: General. COMPLICATIONS: None. BLOOD LOSS: 200 mL INDICATIONS: This man fell and fractured the left hip 2 days ago. He had been on Eliquis. He was admitted to the hospital. His Eliquis was stopped and we waited 48 hours for the anticoagulant affect to be minimized and he was taken to surgery today for elective fracture repair. PROCEDURE IN DETAIL: After informed consent, the patient was transported to the operating room. He was placed the operative table in the supine position. General anesthesia was induced. He was positioned on the fracture table with the pubis against the peroneal post. The left foot in traction boot and the right leg in the leg suarez. C-arm was brought in. The fracture was manipulated and was well aligned. The left lower extremity was prepped with DuraPrep and draped in the sterile fashion. A starting point was made over the lateral hip proximal to the greater trochanter incising the skin and subcutaneous tissues and (s/l multiple fascia) with a 10 blade. The guidepin was drilled in the greater trochanter and down the femoral shaft. The rigid reamer was used to ream over the guidepin. Then the guidepin was removed along with the reamer and a flexible guidewire is placed down to the distal femur. I stopped at fairly above the knee joint to allow for a future total knee arthroplasty. Measured off the pin and selected a 400 mm length nail. The 12 mm shaft reamers used and then the trochanteric femoral nail was loaded on the insertion device. It was placed down the shaft of the femur down to the appropriate depth for the helical blade to go into the hip. Next, a second lateral incision was made over the thigh through the skin, subcutaneous tissues and fascia and the aiming device was used to place the drill sleeve against the lateral cortex of the femur. A guidepin then was drilled up into the center of the femoral head and neck on the AP and lateral views; it was checked on the C-arm. The lateral cortex reamer was used and then the helical blade was impacted in the femoral head for a good fit. The guidepin and drill sleeves were removed and the locking screw in the center of the nail was locked down tightly. The insertion device was removed. Hardcopy AP and lateral views were saved to the PACS system. Next, the hip was positioned for lateral view at the distal femur and through a stab incision a distal static locking screw was placed obtaining good purchase. Hardcopy C-arm images were saved to the distal femur. Wounds were thoroughly irrigated. The fascia was closed with number 1 Vicryl followed by running 2-0 Vicryl and krystyna on the skin. Bulky dressing was applied. The patient was then transported to the recovery room in stable condition. Job ID: [id number] Dictated Date: 10/13/2016 14:02:32 Interactive Marketing Strategist Date: 10/14/2016 13:23:58 / rosalind
[2016-10-14 15:32] VITALS: BP 101/52
[2016-10-14] MEDS: ALFUZOSIN HCL 10 MG TAB (UROXATRAL) PO SCH (18:11)
[2016-10-14 19:34] VITALS: BP 104/57
[2016-10-14] MEDS: LOSARTAN 50 MG (COZAAR) TAB PO SCH (20:44)
[2016-10-14] MEDS: amLODIPine 10 MG (NORVASC) TAB PO SCH (20:45)
[2016-10-14] MEDS: FAMOTIDINE 20 MG (PEPCID) TABLET PO SCH (20:45)
[2016-10-14] MEDS: BETHANECHOL 25 MG (URECHOLINE) TAB PO SCH (22:22)
[2016-10-15] VITALS (10 sets, daily range): BP systolic 90–115; BP diastolic 50–69
[2016-10-15 05:33] LABS: MEAN PLATELET VOLUME 10.8 FL (7.4-10.4); RED BLOOD COUNT 2.81 10^6/uL (4.35-5.85); RED CELL DISTRIBUTION WIDTH 13.5 % (10.0-14.5); WHITE BLOOD COUNT 15.1 10^3/uL (4.3-11.0)
[2016-10-15] MEDS: LEVOTHYROXINE 125 MCG (LEVOTHROID) TABLET PO SCH (05:46)
[2016-10-15] MEDS: NS IV 1000 ML 1,000 ML IV SCH ×2 (05:47→21:34)
[2016-10-15] MEDS: CATHETER FLUSH 10 ML SYR IV SCH ×3 (05:47→21:35)
[2016-10-15 05:56] LABS: CALCIUM 7.9 MG/DL (8.5-10.1); CREATININE SERUM 2.67 MG/DL (0.60-1.30); POTASSIUM 4.5 MMOL/L (3.6-5.0)
[2016-10-15] MEDS: SENNOSIDES 8.6 MG (SENOKOT) TAB PO SCH ×2 (08:46→21:34)
[2016-10-15] MEDS: BETHANECHOL 25 MG (URECHOLINE) TAB PO SCH ×3 (08:47→21:34)
[2016-10-15] MEDS: ASPIRIN E.C. 81 MG (ECOTRIN) TAB PO SCH (08:47)
[2016-10-15] MEDS: SIMvastatin 40 MG (ZOCOR) TAB PO SCH (08:47)
[2016-10-15] MEDS: DOCUSATE SODIUM 100 MG (COLACE) CAP PO SCH ×2 (08:47→21:34)
[2016-10-15] MEDS: APIXABAN 2.5 MG (ELIQUIS) TABLET PO SCH ×2 (08:47→21:34)
--- NOTE | 2016-10-15 09:18 | Occupational Ther Daily Note ---
OT Current Status-Daily Note Subjective Pt. reports 10/10 pain. Nursing notified and administers pain meds. Appearance Pt. is in bed. Nursing and spouse state that he had a "bad night last night." Pt. is groggy but agreeable to work with therapy. Mental Status/Objective Patient Orientation: Person Functional Bradley Measure 0=Not Assessed/NA 4=Minimal Assistance 1=Total Assistance 5=Supervision or Setup 2=Maximal Assistance 6=Modified Bradley 3=Moderate Assistance 7=Complete Bradley ADL-Treatment Transfers (B, C, W/C) (FIM): 1 (Please see note below.) Other Treatment Attempted to have pt. move legs to side of bed. Noted trace movement in left leg, but pt. overall unable to move it. Attempted to assist pt. to side of bed with HOB only slightly elevated. Pt. unable to assist at all and was retropulsive. Moved HOB to most upright position and able to use pad under him to transfer him to seated position. Put. bed flat again. Pt. still retropulsive and unable to sit on his own. With cues to lean forward and feet on floor, pt. able to sit upright with only min assist needed. Sat this way approximately 10 minutes. Able to take medication for nursing. Transferred back to bed with dependent assist x2. All needs met in room. Spouse in room and states that her blood sugar is high at 400. Nursing aware. Spouse has taken an insulin shot. OT ordered pt and spouse breakfast. Education OT Patient Education: Correct positioning, Modified ADL techniques, Progress toward Goal/Update tx plan, Purpose of tx/functional activities, Reviewed precautions, Rehab process, Transfer techniques Teaching Recipient: Patient Teaching Methods: Demonstration, Discussion Response to Teaching: Verbalize Understanding, Return Demonstration OT Short Term Goals Short Term Goals Time Frame: Oct 28, 2016 Eating(FIM): 4 Grooming(FIM): 4 Bathing(FIM): 3 Upper Body Dressing(FIM): 4 Lower Body Dressing(FIM): 3 Toileting(FIM): 3 Transfers (B,C,W/C) (FIM): 3 Toilet/Commode Transfer(FIM): 3 Shower Transfer(FIM): 3 Additional Short Term Goals: 1-Demonstrate ADL Tasks, 2-Verbalize Understanding , 3-ImproveStrength/Geovani 1=Demonstrate adherence to instructed precautions during ADL tasks. 2=Patient will verbalize/demonstrate understanding of assistive devices/ modifications for ADL. 3=Patient will improve strength/tolerance for activity to enable patient to perform ADL's. OT Chemical Strength Tester Goals Chemical Strength Tester Goals Time Frame: 4 weeks Eating (FIM): 6 Grooming(FIM): 6 Bathing(FIM): 5 Upper Body Dressing(FIM): 5 Lower Body Dressing(FIM): 5 Toileting(FIM): 5 Transfers (B,C,W/C) (FIM): 5 Toilet/Commode Transfer(FIM): 5 Shower Transfer(FIM): 5 Additional Goals: 1-Demonstrate ADL Tasks, 2-Verbalize Understanding, 3- ImproveStrength/Geovani 1=Demonstrate adherence to instructed precautions during ADL tasks. 2=Patient will verbalize/demonstrate understanding of assistive devices/ modifications for ADL. 3=Patient will improve strength/tolerance for activity to enable patient to perform ADL's. OT Education/Plan Problem List/Assessment Assessment: Decreased Activ Tolerance, Decreased Safety Aware, Decreased UE Strength, Dependent Transfers, Impaired Bed Mobility, Impaired Cognition, Impaired Coordination, Impaired Funct Balance, Impaired I ADL's, Impaired Self- Care Skills, Restricted Funct UE ROM Discharge Recommendations Plan/Recommendations: Continue POC Therapy D/C Recommendations: Acute Rehab Target Placement Pt. would benefit from acute rehab when more medically stable. Treatment Plan/Plan of Care Treatment,Training & Education: Yes Patient would benefit from OT for education, treatment and training to promote independence in ADL's, mobility, safety and/or upper extremity function for ADL' s. Plan of Care: ADL Retraining, Functional Mobility, UE Funct Exercise/Act Treatment Duration: Nov 04, 2016 Agreement: Yes Rehab Potential: Fair Time/GCodes Start Time: 08:30 Stop Time: 09:05 Total Time Billed (hr/min): 35 Billed Treatment Time 1, FA x 2 JOSE ANTONIO YOUNG OT Oct 15, 2016 09:18
--- NOTE | 2016-10-15 11:30 | Physical Therapy Daily Note ---
PT Daily Note-Current Subjective Pt lethargic but is able to be aroused with verbal and tactile stimulus. Mental Status Patient Orientation: Person, Place Attachments: Bautista Catheter Transfers Functional [place] Measure 0=Not Assessed/NA 4=Minimal Assistance 1=Total Assistance 5=Supervision or Setup 2=Maximal Assistance 6=Modified [place] 3=Moderate Assistance 7=Complete IndependenceIRFPAI Quality Coding Scale 6 Independent with activity with or without an assistive device 5 Patient requires set up or clean up by helper. Patient completes activity by themselves 4 Supervision or touching assist (CGA). [place] provide cues , steadying assist 3 The helper provides less than half the effort to complete the activity 2 The helper provides more than half the effort to complete the activity 1 Dependent. The helper does all the effort to complete an activity 7 Patient refused to complete or attempt activity 9 The patient did not perform the activity before the current illness or injury 88 Not attempted due to Medical conditions or safety concerns Exercises Supine Ex: LE Protocol Supine Reps: 10 Pt very limited with hip and knee flexion range. Worked on rolling bed mobility with education to patient and his on risk of pressure ulcers. Pt placed on his (R) side post treatment. Assessment Current Status: Fair Progress Patient more alert this session and able to provide some assist with LE exercise. He was not yet alert enough to safely be placed in a chair and left unattend. PT Short Term Goals Short Term Goals Time Frame: Oct 24, 2016 Transfers (B,C,W/C) (FIM): 3 Gait (FIM): 2 Distance (FIM): 2=024-33 ft Gait Distance Comment: 50' Gait Level of Assist: 3 Gait Assistive Device: FWW PT Care Home Goals Care Home Goals PT Care Home Goals Time Frame: Nov 04, 2016 Transfers (B,C,W/C) (FIM): 6 Gait (FIM): 4 Gait distance (FIM): 3=150 ft Distance: 150' Gait Level of Assist: 4 Gait Assistive Device: FWW Stairs (FIM): 2 # of Steps: 3 Stairs Level Of Assist: 5 PT Plan Treatment/Plan Treatment Plan: Continue Plan of Care Treatment Plan: Bed Mobility, Education, Functional Activity Geovani, Functional Strength, Gait, Safety, Therapeutic Exercise, Transfers Treatment Duration: Nov 04, 2016 Visits Per Week: 11 Time/GCodes Time In: 1100 Time Out: 1130 Total Billed Treatment Time: 30 Total Billed Treatment visit, exercise 20, FA 10 DHARA MURRAY PT Oct 15, 2016 11:30
[2016-10-15] MEDS ORDERED: NS IV 500 ML 500 ML IV SCH (11:43)
[2016-10-15] MEDS ORDERED: cefTRIAXone INJECTION 1,000 MG in NS (IVPB) 50 ML IV NR (11:45)
--- NOTE | 2016-10-15 11:51 | Progress Note (SOAP) ---
Subjective Subjective/Events-last exam PT STATES THAT HE IS FEELING VERY FATIGUED, HIS REPORTS THAT HE IS NOT STAYING AWAKE VERY WELL. HE IS NOT EATING WELL HE SHOULD BE TO KEEP UP HIS STRENGTH. Review of Systems General: Fatigue Malaise HEENT: No Head Aches Pulmonary: No Dyspnea, No Cough Cardiovascular: No: Chest Pain Gastrointestinal: No: Abdominal Pain, Nausea Genitourinary: Retention (PACE PLACED) Musculoskeletal: No: back pain Neurological: : Weakness Objective Exam Vital Signs Date Time Temp Pulse Resp B/P Pulse Ox O2 Delivery O2 Flow Rate FiO2 10/15/16 08:00 98.9 96 20 90/58 89 Nasal Cannula 4.00 10/15/16 04:10 99.1 94 18 92/55 92 Nasal Cannula 4.00 10/15/16 00:33 98.1 80 20 96/58 90 Nasal Cannula 4.00 10/14/16 20:25 93 Nasal Cannula 3.00 10/14/16 19:34 99.0 101 19 104/57 91 Nasal Cannula 3.00 3.00 10/14/16 15:32 97.0 87 16 101/52 91 Nasal Cannula 3.00 3.00 10/14/16 12:04 73/38 10/14/16 12:04 97.9 92 16 74/49 95 Nasal Cannula 3.00 3.00 I & O 10/15/16 07:00 Intake Total 2540 ml Output Total 220 ml Balance 2320 ml Capillary Refill : Less Than 3 SecondsLess Than 3 Seconds General Appearance: WD/WN Other (FATIGUED) HEENT: PERRL/EOMI Pharynx Normal Neck: Full Range of Motion Respiratory: Chest Non Tender Lungs Clear Normal Breath Sounds No Accessory Muscle Use Cardiovascular: Regular Rate, Rhythm Gastrointestinal: normal bowel sounds non tender soft Extremity: Pedal Edema (TRACE) Neurologic/Psychiatric: Oriented x3 No Motor/Sensory Deficits Normal Mood/ Affect Other (FATIGUED) Skin: Warm/Dry Lymphatic: No Adenopathy Results Lab Laboratory Tests 10/15/16 05:03: Anion Gap 11, BUN/Creatinine Ratio 12, Blood Urea Nitrogen 31H, Calcium Level 7.9L, Carbon Dioxide Level 21, Chloride Level 104, Creatinine 2.67H, Estimat Glomerular Filtration Rate 23, Glucose Level 143H, Hematocrit 27L, Hemoglobin 8.9L, Mean Corpuscular Hemoglobin 32, Mean Corpuscular Hemoglobin Concent 33, Mean Corpuscular Volume 96, Mean Platelet Volume 10.8H, Platelet Count 230, Potassium Level 4.5, Red Blood Count 2.81L, Red Cell Distribution Width 13.5, Sodium Level 136, White Blood Count 15.1H Microbiology 10/12/16 MRSA Screen - Final, Complete MRSA not isolated 10/12/16 Urine Culture - Final, Complete NO GROWTH Assessment/Plan Assessment/Plan Assess & Plan/Chief Complaint LEFT HIP FRACTURE - INTERTROCHANTERIC WEAKNESS FATIGUE HYPOTENSION ACUTE RENAL FAILURE AFIB CHRONIC ANTICOAGULATION USE HYPERTENSION CORONARY ARTERY DISEASE HYPOTHYROID BPH ANEMIA LEFT HIP FRACTURE - POST-OP DAY #2 - LEFT HIP FRACTURE REPAIR WITH DR. WING - UTI - URINE CULTURE NEGATIVE AFIB - - RESTARTED ANTICOAGULANT HYPOTENSION - HOLD NORVASC AND LOSARTAN TODAY - PT WAS GIVEN HIS NORVASC AND LOSARTAN LAST NIGHT - HE HAD AN ACUTE DROP IN HIS BLOOD PRESSURE YESTERDAY AFTERNOON - I WAS NOT CALLED WITH HIS LOW BLOOD PRESSURE THAT WAS REPORTED IN THE CHART OF 73/38. PT WAS ON IV FLUIDS POST-OP OF LACTATED RINGERS - HE HAD THIS RUNNING AT 80ML/ HR - THE NORMAL SALINE THAT HAD ORIGINALLY BEEN ORDERED ON ADMISSION TO THE HOSPITAL AT 75ML PER HOUR WAS ALSO REPORTED ON HIS ORDER LIST RUNNING. I STOPPED THE LACTATED RINGERS YESTERDAY - NOT KNOWING THAT THE PATIENT WAS NOT ALSO GETTING THE NORMAL SALINE. HE WAS WITHOUT FLUIDS YESTERDAY UNTIL IN THE EVENING WHEN THE NIGHT NURSE CALLED TO REPORT LOW URINE OUTPUT. I HAVE DISCUSSED THE MEDICAL RECORD ISSUE WITH THE PHARMACIST AND THE NEED FOR THE LIST TO BE ACCURATE FOR THE PHYSICIANS TO BE ABLE TO ACCURATELY CARE FOR THE PATIENTS. APPARENTLY THE NORMAL SALINE WAS LISTED IN THE CHART AND "NONADMINISTERED" BY NURSING STAFF. HYPOTHYROID - RESTARTED LEVOTHYROXINE BPH - URINARY RETENTION - PACE PLACED DUE TO RETENTION-AND NEED FOR ACCURATE I/ O RECORDS. I HAVE ALSO STARTED BETHANECHOL FOR RETENTION. ANEMIA - WITH DROP IN HGB, WEAKNESS, CAD, AND ACUTE RENAL FAILURE DUE TO HYPOTENSION - WILL GO AHEAD WITH A TRANSFUSION TODAY. CHECK CBC IN THE MORNING - Diagnosis/Problems: Clinical Quality Measures DVT/VTE Risk/Contraindication: Risk Factor Score Per Nursin RFS Level Per Nursing on Admit: 4+=Very High TARAS TITUS MD Oct 15, 2016 11:50
--- NOTE | 2016-10-15 12:46 | Progress Note (SOAP) ---
Subjective Subjective/Events-last exam left hip fracture with TFN fixation. Hip doing well wht SBA ambulation. Hypotensive. Objective Exam Vital Signs Date Time Temp Pulse Resp B/P Pulse Ox O2 Delivery O2 Flow Rate FiO2 10/15/16 08:00 98.9 96 20 90/58 89 Nasal Cannula 4.00 10/15/16 04:10 99.1 94 18 92/55 92 Nasal Cannula 4.00 10/15/16 00:33 98.1 80 20 96/58 90 Nasal Cannula 4.00 10/14/16 20:25 93 Nasal Cannula 3.00 10/14/16 19:34 99.0 101 19 104/57 91 Nasal Cannula 3.00 3.00 10/14/16 15:32 97.0 87 16 101/52 91 Nasal Cannula 3.00 3.00 I & O 10/15/16 07:00 Intake Total 2540 ml Output Total 220 ml Balance 2320 ml Capillary Refill : Less Than 3 SecondsLess Than 3 Seconds General Appearance: No Apparent Distress Extremity: Normal Capillary Refill Normal Inspection Non Tender No Calf Tenderness No Pedal Edema Neurologic/Psychiatric: Alert Skin: Normal Color Warm/Dry Other comments Incisions dry clean and intact. Results Lab Laboratory Tests 10/15/16 05:03: Anion Gap 11, BUN/Creatinine Ratio 12, Blood Urea Nitrogen 31H, Calcium Level 7.9L, Carbon Dioxide Level 21, Chloride Level 104, Creatinine 2.67H, Estimat Glomerular Filtration Rate 23, Glucose Level 143H, Hematocrit 27L, Hemoglobin 8.9L, Mean Corpuscular Hemoglobin 32, Mean Corpuscular Hemoglobin Concent 33, Mean Corpuscular Volume 96, Mean Platelet Volume 10.8H, Platelet Count 230, Potassium Level 4.5, Red Blood Count 2.81L, Red Cell Distribution Width 13.5, Sodium Level 136, White Blood Count 15.1H Microbiology 10/12/16 MRSA Screen - Final, Complete MRSA not isolated 10/12/16 Urine Culture - Final, Complete NO GROWTH Assessment/Plan Assessment/Plan Assess & Plan/Chief Complaint left hip fracture with ORIF TFN. Hip is doing well. Patient is awake and answers question appropriately but feels weak. Pain controlled but too weak to work with PT. He been hypotensive which is being addressed by the Hospitalist. Will get blood today and check on him tomorrow. Diagnosis/Problems: Clinical Quality Measures DVT/VTE Risk/Contraindication: Risk Factor Score Per Nursin RFS Level Per Nursing on Admit: 4+=Very High ROSMERY RM Oct 15, 2016 12:46 pm
--- NOTE | 2016-10-15 13:54 | Physical Therapy Progress Note ---
Therapy Progress Note Pt is R side lying upon arrival. Sp asleep in recliner. Pt is having difficulty staying awake and reports feeling fatigued. Pt even declined supine bed EX. PT will check back with pt in a little while to see if pt might consider supine Ex then. 1 visit, no tx (1325) Attempted pt again, pt was more awake and reported sore in low back. PT assisted pt with rolling to L side to reposition pt with pillows under R side so pt could lay more on R side. PT discussed education items such as importance of eating and keeping hydrated as well as benefit of PT. Ordered chocolate ice cream at pt's request. Sp concerned with pt getting a bath as well as getting vitals taken. Aide took temp. and was 99.9 (slightly up from earlier). Nurse reports to pt & sp that blood for transfusion is on its way from [place] and will be giving bed bath shortly (showering is deemed unsafe at this time). 1 visit, FA X2 (25m) TIFFANY GALLEGOS PTA Oct 15, 2016 13:54
--- NOTE | 2016-10-15 16:14 | Physical Therapy Daily Note ---
PT Daily Note-Current Subjective Patient in bed pre tx, very lethargic but awake, agrees to PT. [facility] also came to get him and would like for PT to leave him in a wheelchair and then call them so they can take him down. Pain Numeric Pain Scale: 7 Location: Left Location Body Site: Hip Appearance Patient in wheelchair with xray workers, has O2 and IV, also with him. Mental Status Patient Orientation: Person, Place, Situation Attachments: Oxygen, Bautista Catheter, IV Transfers Functional [place] Measure 0=Not Assessed/NA 4=Minimal Assistance 1=Total Assistance 5=Supervision or Setup 2=Maximal Assistance 6=Modified [place] 3=Moderate Assistance 7=Complete IndependenceIRFPAI Quality Coding Scale 6 Independent with activity with or without an assistive device 5 Patient requires set up or clean up by helper. Patient completes activity by themselves 4 Supervision or touching assist (CGA). [place] provide cues , steadying assist 3 The helper provides less than half the effort to complete the activity 2 The helper provides more than half the effort to complete the activity 1 Dependent. The helper does all the effort to complete an activity 7 Patient refused to complete or attempt activity 9 The patient did not perform the activity before the current illness or injury 88 Not attempted due to Medical conditions or safety concerns Transfers (B, C, W/C) (FIM): 1 Scootin Rollin Supine to/from Sit: 1 Sit to/from Stand: 2 Patient stood twice and then performed a stand pivot transfer to the wheelchair with max assist. Patient was lethargic but awake during this time. Treatments bed mobility and transfers, standing Assessment Current Status: Poor Progress poor mobility, max assist for assist. PT Short Term Goals Short Term Goals Time Frame: Oct 24, 2016 Transfers (B,C,W/C) (FIM): 3 Gait (FIM): 2 Distance (FIM): 5=438-23 ft Gait Distance Comment: 50' Gait Level of Assist: 3 Gait Assistive Device: FWW PT [facility] Goals Machine Staker Goals PT [facility] Goals Time Frame: Nov 04, 2016 Transfers (B,C,W/C) (FIM): 6 Gait (FIM): 4 Gait distance (FIM): 3=150 ft Distance: 150' Gait Level of Assist: 4 Gait Assistive Device: FWW Stairs (FIM): 2 # of Steps: 3 Stairs Level Of Assist: 5 PT Plan Problem List Problem List: Activity Tolerance, Functional Strength, Safety, Balance, Gait, Transfer, Bed Mobility, ROM Treatment/Plan Treatment Plan: Continue Plan of Care Treatment Plan: Bed Mobility, Education, Functional Activity Geovani, Functional Strength, Gait, Safety, Therapeutic Exercise, Transfers Treatment Duration: Nov 04, 2016 Visits Per Week: 11 Safety Risks/Education Patient Education: Transfer Techniques, Correct Positioning, Safety Issues Teaching Recipient: Patient Teaching Methods: Demonstration, Discussion Response to Teaching: Reinforcement Needed Time/GCodes Time In: 1540 Time Out: 1600 Total Billed Treatment Time: 20 Total Billed Treatment 1 visit FA 20 min LEBRON ROSALES PT Oct 15, 2016 16:14
--- NOTE | 2016-10-15 16:29 | Diagnostic Imaging Report ---
INDICATION: Lethargy and weakness. EXAMINATION: PA and lateral chest. 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 The heart size and pulmonary vascularity are normal. The lungs are clear. There are no effusions or pneumothoraces. IMPRESSION: Postsurgical changes. No acute abnormality is seen. Dictated by: Dictated on workstation # [id number]
[2016-10-15] MEDS: ALFUZOSIN HCL 10 MG TAB (UROXATRAL) PO SCH (18:23)
[2016-10-15] MEDS: FAMOTIDINE 20 MG (PEPCID) TABLET PO SCH (21:35)
[2016-10-15] MEDS ORDERED: FUROSEMIDE 40 MG/4 ML INJ (LASIX) IVP ONE (23:30)
[2016-10-15] MEDS: ACETAMINOPHEN 500 MG TAB (TYLENOL) PO PRN (23:50)
[2016-10-16 02:14] VITALS: BP 114/63
[2016-10-16 03:55] VITALS: BP 115/60
[2016-10-16] MEDS: CATHETER FLUSH 10 ML SYR IV SCH ×3 (06:00→22:00)
[2016-10-16] MEDS: LEVOTHYROXINE 125 MCG (LEVOTHROID) TABLET PO SCH (06:25)
[2016-10-16 07:41] LABS: MEAN PLATELET VOLUME 10.4 FL (7.4-10.4); RED BLOOD COUNT 3.01 10^6/uL (4.35-5.85); RED CELL DISTRIBUTION WIDTH 14.1 % (10.0-14.5); WHITE BLOOD COUNT 12.2 10^3/uL (4.3-11.0)
[2016-10-16 07:50] VITALS: BP 94/60
[2016-10-16 08:03] LABS: ALBUMIN 2.6 G/DL (3.2-4.5); BILIRUBIN,TOTAL 1.1 MG/DL (0.1-1.0); CALCIUM 7.8 MG/DL (8.5-10.1); CREATININE SERUM 1.98 MG/DL (0.60-1.30)
[2016-10-16] MEDS: SIMvastatin 40 MG (ZOCOR) TAB PO SCH (08:58)
[2016-10-16] MEDS: APIXABAN 2.5 MG (ELIQUIS) TABLET PO SCH ×2 (08:58→20:08)
[2016-10-16] MEDS: DOCUSATE SODIUM 100 MG (COLACE) CAP PO SCH ×3 (08:58→20:08)
[2016-10-16] MEDS: ASPIRIN E.C. 81 MG (ECOTRIN) TAB PO SCH (08:59)
[2016-10-16] MEDS: SENNOSIDES 8.6 MG (SENOKOT) TAB PO SCH ×3 (08:59→20:08)
[2016-10-16] MEDS: BETHANECHOL 25 MG (URECHOLINE) TAB PO SCH ×3 (08:59→20:08)
[2016-10-16] MEDS: cefTRIAXone INJECTION 1,000 MG in NS (IVPB) 50 ML IV SCH (08:59)
--- NOTE | 2016-10-16 09:03 | Progress Note (SOAP) ---
Subjective Subjective/Events-last exam PT WITH ACUTE RESPIRATORY DISTRESS LAST NIGHT - IMPROVED WITH HI FLOW OXYGEN, IV LASIX, AND THIS MORNING PATIENT FEELING SIGNIFICANTLY IMPROVED. DISCUSSED WITH PT AND HIS - MAY NEED TO CONSIDER SENIOR LIVING PLACEMENT INSTEAD OF INPATIENT REHAB IF HE DOES NOT IMPROVE MORE OVER THE NEXT FEW DAYS. Review of Systems General: Fatigue HEENT: No Head Aches Pulmonary: DyspneaNo Cough Cardiovascular: : EdemaNo: Chest Pain, Palpitations Gastrointestinal: No: Abdominal Pain, Nausea Musculoskeletal: No: back pain Neurological: : WeaknessNo: Confusion Objective Exam Vital Signs Date Time Temp Pulse Resp B/P Pulse Ox O2 Delivery O2 Flow Rate FiO2 10/16/16 07:50 89.5 84 22 94/60 94 High Flow NC 60.00 10.00 10/16/16 07:45 93 10.00 60 10/16/16 03:55 98.5 83 16 115/60 93 Nasal Cannula 60.00 10.00 10/16/16 02:32 93 10.00 60 10/16/16 02:14 98.7 94 16 114/63 92 Nasal Cannula 60.00 10.00 10/16/16 01:22 99.8 10/16/16 01:22 99.8 93 Nasal Cannula 60.00 10.00 10/15/16 23:57 95 10.00 60 10/15/16 23:50 100.0 10/15/16 23:45 100.0 93 16 94/57 95 High Flow NC 15.00 10/15/16 20:21 99.5 89 18 109/62 92 6.00 10/15/16 20:21 99.5 89 18 109/62 95 Nasal Cannula 6.00 10/15/16 20:20 93 Nasal Cannula 6.00 10/15/16 20:05 99.3 87 20 115/64 91 Nasal Cannula 4.00 10/15/16 18:05 98.8 95 20 93/59 93 4.00 10/15/16 17:47 98.5 85 20 99/61 90 4.00 10/15/16 16:00 98.7 111 20 99/50 94 Nasal Cannula 4.00 10/15/16 15:30 99.9 10/15/16 14:07 3.00 10/15/16 11:50 99.4 97 20 107/69 93 Nasal Cannula 4.00 I & O 10/16/16 07:00 Intake Total 2540 ml Output Total 1275 ml Balance 1265 ml Capillary Refill : Less Than 3 SecondsLess Than 3 Seconds General Appearance: No Apparent Distress WD/WN HEENT: PERRL/EOMI Pharynx Normal Neck: Full Range of Motion Supple Respiratory: Chest Non Tender Lungs Clear Normal Breath Sounds Cardiovascular: Regular Rate, Rhythm No Edema Gastrointestinal: normal bowel sounds non tender soft no organomegaly no pulsatile mass Extremity: Normal Capillary Refill Pedal Edema (TRACE) Neurologic/Psychiatric: Alert Oriented x3 No Motor/Sensory Deficits 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 Norm as Tested Skin: Normal Color Warm/Dry Lymphatic: No Adenopathy Results Lab Laboratory Tests 10/15/16 16:29: Glucometer 133H 10/16/16 07:24: Alanine Aminotransferase (ALT/SGPT) 24, Albumin 2.6L, Alkaline Phosphatase 75, Anion Gap 8, Aspartate Amino Transf (AST/SGOT) 49H, BUN/Creatinine Ratio 20, Blood Urea Nitrogen 40H, Calcium Level 7.8L, Carbon Dioxide Level 23, Chloride Level 104, Creatinine 1.98H, Estimat Glomerular Filtration Rate 32, Glucose Level 124H, Hematocrit 28L, Hemoglobin 9.4L, Mean Corpuscular Hemoglobin 31, Mean Corpuscular Hemoglobin Concent 34, Mean Corpuscular Volume 93, Mean Platelet Volume 10.4, Platelet Count 265, Potassium Level 4.0, Red Blood Count 3.01L, Red Cell Distribution Width 14.1, Sodium Level 135, Total Bilirubin 1.1H , Total Protein 5.0L, White Blood Count 12.2H Microbiology 10/12/16 MRSA Screen - Final, Complete MRSA not isolated 10/12/16 Urine Culture - Final, Complete NO GROWTH Assessment/Plan Assessment/Plan Assess & Plan/Chief Complaint LEFT HIP FRACTURE - INTERTROCHANTERIC WEAKNESS FATIGUE HYPOTENSION ACUTE RENAL FAILURE AFIB CHRONIC ANTICOAGULATION USE HYPERTENSION CORONARY ARTERY DISEASE HYPOTHYROID BPH ANEMIA LEFT HIP FRACTURE - POST-OP DAY #2 - LEFT HIP FRACTURE REPAIR WITH DR. WING - UTI - URINE CULTURE NEGATIVE AFIB - - RESTARTED ANTICOAGULANT HYPOTENSION - CONTINUE TO HOLD LOSARTAN AND NORVASC HYPOTHYROID - RESTARTED LEVOTHYROXINE BPH - URINARY RETENTION - PACE PLACED DUE TO RETENTION-AND NEED FOR ACCURATE I/ O RECORDS. I HAVE ALSO STARTED BETHANECHOL FOR RETENTION. ANEMIA - WITH DROP IN HGB, WEAKNESS, CAD, AND ACUTE RENAL FAILURE DUE TO HYPOTENSION - PT GIVEN TRANSFUSION YESTERDAY. Diagnosis/Problems: Clinical Quality Measures DVT/VTE Risk/Contraindication: Risk Factor Score Per Nursin RFS Level Per Nursing on Admit: 4+=Very High TARAS TITUS MD Oct 16, 2016 09:03
[2016-10-16] MEDS: NS IV 1000 ML 1,000 ML IV SCH ×2 (10:44→22:45)
--- NOTE | 2016-10-16 11:27 | Physical Therapy Daily Note ---
PT Daily Note-Current Subjective Pt minimally alert. He does answer questions with prompting but does not open his eyes. He expresses he does not like the thought of doing therapy. Mental Status Patient Orientation: Confused, [place] Attachments: Oxygen, IV Transfers Functional [place] Measure 0=Not Assessed/NA 4=Minimal Assistance 1=Total Assistance 5=Supervision or Setup 2=Maximal Assistance 6=Modified [place] 3=Moderate Assistance 7=Complete IndependenceIRFPAI Quality Coding Scale 6 Independent with activity with or without an assistive device 5 Patient requires set up or clean up by helper. Patient completes activity by themselves 4 Supervision or touching assist (CGA). [place] provide cues , steadying assist 3 The helper provides less than half the effort to complete the activity 2 The helper provides more than half the effort to complete the activity 1 Dependent. The helper does all the effort to complete an activity 7 Patient refused to complete or attempt activity 9 The patient did not perform the activity before the current illness or injury 88 Not attempted due to Medical conditions or safety concerns Transfers (B, C, W/C) (FIM): 1 Scootin Rollin Supine to/from Sit: 1 Sit to/from Stand: 1 two person assist to sit edge of bed. Pt very rigid in his LEs and trunk. Pt stood edge of bed max assist of 2 for 45 seconds. Exercises LE PROM for hip abduction, knee flexion, hip flexion x 10 reps as nursing assisted patient with bathing and bed change. Assessment Pt remains at a dependent level of mobility. His decreased level of alertness limits his ability to actively participate in functional mobility training. Pt will benefit from continued therapy to address ROM, strength, and mobility. PT Short Term Goals Short Term Goals Time Frame: Oct 24, 2016 Transfers (B,C,W/C) (FIM): 3 Gait (FIM): 2 Distance (FIM): 4=768-46 ft Gait Distance Comment: 50' Gait Level of Assist: 3 Gait Assistive Device: FWW PT Correction Goals Communication Signals Intelligence Goals PT Communication Signals Intelligence Goals Time Frame: Nov 04, 2016 Transfers (B,C,W/C) (FIM): 6 Gait (FIM): 4 Gait distance (FIM): 3=150 ft Distance: 150' Gait Level of Assist: 4 Gait Assistive Device: FWW Stairs (FIM): 2 # of Steps: 3 Stairs Level Of Assist: 5 PT Plan Problem List Problem List: Activity Tolerance, Functional Strength, Balance, Bed Mobility, ROM Treatment/Plan Treatment Plan: Continue Plan of Care Treatment Plan: Bed Mobility, Education, Functional Activity Geovani, Functional Strength, Gait, Safety, Therapeutic Exercise, Transfers Treatment Duration: Nov 04, 2016 Visits Per Week: 11 Time/GCodes Time In: 1030 Time Out: 1100 Total Billed Treatment Time: 30 Total Billed Treatment visit, ex 10min, FA 20 min DHARA MURRAY PT Oct 16, 2016 11:27
[2016-10-16 11:35] VITALS: BP 117/58
[2016-10-16] MEDS: ACETAMINOPHEN 500 MG TAB (TYLENOL) PO PRN (11:40)
--- NOTE | 2016-10-16 12:58 | Progress Note (SOAP) ---
Subjective Subjective/Events-last exam Left hip fracture. Patient alert and conversational. Looks better today Objective Exam Vital Signs Date Time Temp Pulse Resp B/P Pulse Ox O2 Delivery O2 Flow Rate FiO2 10/16/16 11:35 99.1 88 20 117/58 95 High Flow NC 60.00 10.00 10/16/16 10:51 95 10.00 60 10/16/16 08:50 90 High Flow NC 10.00 60 10/16/16 07:50 98.5 84 22 94/60 94 High Flow NC 60.00 10.00 10/16/16 07:45 93 10.00 60 10/16/16 03:55 98.5 83 16 115/60 93 Nasal Cannula 60.00 10.00 10/16/16 02:32 93 10.00 60 10/16/16 02:14 98.7 94 16 114/63 92 Nasal Cannula 60.00 10.00 10/16/16 01:22 99.8 10/16/16 01:22 99.8 93 Nasal Cannula 60.00 10.00 10/15/16 23:57 95 10.00 60 10/15/16 23:50 100.0 10/15/16 23:45 100.0 93 16 94/57 95 High Flow NC 15.00 10/15/16 20:21 99.5 89 18 109/62 92 6.00 10/15/16 20:21 99.5 89 18 109/62 95 Nasal Cannula 6.00 10/15/16 20:20 93 Nasal Cannula 6.00 10/15/16 20:05 99.3 87 20 115/64 91 Nasal Cannula 4.00 10/15/16 18:05 98.8 95 20 93/59 93 4.00 10/15/16 17:47 98.5 85 20 99/61 90 4.00 10/15/16 16:00 98.7 111 20 99/50 94 Nasal Cannula 4.00 10/15/16 15:30 99.9 10/15/16 14:07 3.00 I & O 10/16/16 07:00 Intake Total 2540 ml Output Total 1275 ml Balance 1265 ml Capillary Refill : Less Than 3 SecondsLess Than 3 Seconds General Appearance: No Apparent Distress Respiratory: No Respiratory Distress Extremity: Normal Capillary Refill Normal Inspection Neurologic/Psychiatric: Alert Oriented x3 Skin: Normal Color Warm/Dry Other comments Dressing dry clean and intact. Results Lab Laboratory Tests 10/15/16 16:29: Glucometer 133H 10/16/16 07:24: Alanine Aminotransferase (ALT/SGPT) 24, Albumin 2.6L, Alkaline Phosphatase 75, Anion Gap 8, Aspartate Amino Transf (AST/SGOT) 49H, BUN/Creatinine Ratio 20, Blood Urea Nitrogen 40H, Calcium Level 7.8L, Carbon Dioxide Level 23, Chloride Level 104, Creatinine 1.98H, Estimat Glomerular Filtration Rate 32, Glucose Level 124H, Hematocrit 28L, Hemoglobin 9.4L, Mean Corpuscular Hemoglobin 31, Mean Corpuscular Hemoglobin Concent 34, Mean Corpuscular Volume 93, Mean Platelet Volume 10.4, Platelet Count 265, Potassium Level 4.0, Red Blood Count 3.01L, Red Cell Distribution Width 14.1, Sodium Level 135, Total Bilirubin 1.1H , Total Protein 5.0L, White Blood Count 12.2H 10/16/16 11:42: Lab Scanned Report Transfusion Reaction Form Microbiology 10/12/16 MRSA Screen - Final, Complete MRSA not isolated 10/12/16 Urine Culture - Final, Complete NO GROWTH Assessment/Plan Assessment/Plan Assess & Plan/Chief Complaint left hip fracture with ORIF TFN. . Patient is doing much better today since getting blood. BP improved. Stood by the bedside today which made him tired, but otherwise coming along with PT. Patient may be going to 2nd floor next week. Diagnosis/Problems: Clinical Quality Measures DVT/VTE Risk/Contraindication: Risk Factor Score Per Nursin RFS Level Per Nursing on Admit: 4+=Very High ROSMERY RM Oct 16, 2016 12:58
--- NOTE | 2016-10-16 13:03 | Occupational Ther Daily Note ---
OT Current Status-Daily Note Subjective Pt. very groggy. Does not keep eyes open well. Spouse states, "I think he is doing better today." Appearance Pt. in bed. Opens eyes and talks with OT, but does keep going back to sleep. Mental Status/Objective Patient Orientation: Unable to Assess Functional [place] Measure 0=Not Assessed/NA 4=Minimal Assistance 1=Total Assistance 5=Supervision or Setup 2=Maximal Assistance 6=Modified [place] 3=Moderate Assistance 7=Complete [place] ADL-Treatment Toileting (FIM): 1 Transfers (B, C, W/C) (FIM): 1 Pt. agrees to attempt to sit on side of bed. Pt. unable to assist in any capacity. Requires dependent assistance to transfer supine-sit. Max assist to sit on side of bed. OT attempts to facilitate core muscles to hold him up. Pt. unable to do this, and continually leans to right side. Pt. also retropulsive and pushes backward. Requires max cues and assist. Pt. sits on side of bed approximately 10 minutes with max assist. Lay pt. down with dependent assist x 2 needed. Bed mobility with dependent assist. Note that pt. is incontinent of bowel. Requires dependent assist x 2 to roll back and forth and cleanse jimmie areas. Pt. unable to assist. Spouse states that she is happy that he is "finally going." All needs met and pt. repositioned onto left side. All needs met. Education OT Patient Education: Correct positioning, Modified ADL techniques, Progress toward Goal/Update tx plan, Purpose of tx/functional activities, Reviewed precautions, Rehab process, Transfer techniques Teaching Recipient: Patient, Significant Other Teaching Methods: Demonstration, Discussion Response to Teaching: Verbalize Understanding, Return Demonstration OT Short Term Goals Short Term Goals Time Frame: Oct 28, 2016 Eating(FIM): 4 Grooming(FIM): 4 Bathing(FIM): 3 Upper Body Dressing(FIM): 4 Lower Body Dressing(FIM): 3 Toileting(FIM): 3 Transfers (B,C,W/C) (FIM): 3 Toilet/Commode Transfer(FIM): 3 Shower Transfer(FIM): 3 Additional Short Term Goals: 1-Demonstrate ADL Tasks, 2-Verbalize Understanding , 3-ImproveStrength/Geovani 1=Demonstrate adherence to instructed precautions during ADL tasks. 2=Patient will verbalize/demonstrate understanding of assistive devices/ modifications for ADL. 3=Patient will improve strength/tolerance for activity to enable patient to perform ADL's. OT Fci Goals Fci Goals Eating (FIM): 6 Grooming(FIM): 6 Bathing(FIM): 5 Upper Body Dressing(FIM): 5 Lower Body Dressing(FIM): 5 Toileting(FIM): 5 Transfers (B,C,W/C) (FIM): 5 Toilet/Commode Transfer(FIM): 5 Shower Transfer(FIM): 5 Additional Goals: 1-Demonstrate ADL Tasks, 2-Verbalize Understanding, 3- ImproveStrength/Geovani 1=Demonstrate adherence to instructed precautions during ADL tasks. 2=Patient will verbalize/demonstrate understanding of assistive devices/ modifications for ADL. 3=Patient will improve strength/tolerance for activity to enable patient to perform ADL's. OT Education/Plan Problem List/Assessment Assessment: Decreased Activ Tolerance, Decreased Safety Aware, Decreased UE Strength, Dependent Transfers, Impaired Bed Mobility, Impaired Cognition, Impaired Coordination, Impaired Funct Balance, Impaired I ADL's, Impaired Self- Care Skills Discharge Recommendations Plan/Recommendations: Continue POC Therapy D/C Recommendations: 24 hr Supervision Treatment Plan/Plan of Care Treatment,Training & Education: Yes Patient would benefit from OT for education, treatment and training to promote independence in ADL's, mobility, safety and/or upper extremity function for ADL' s. Plan of Care: ADL Retraining, Functional Mobility, UE Funct Exercise/Act Treatment Duration: Nov 04, 2016 Agreement: Yes Rehab Potential: Fair Time/GCodes Start Time: 09:40 Stop Time: 10:10 Total Time Billed (hr/min): 30 Billed Treatment Time 1, FA x 15minutes, ADL x 15minutes JOSE ANTONIO YOUNG OT Oct 16, 2016 13:03
--- NOTE | 2016-10-16 15:36 | Physical Therapy Daily Note ---
PT Daily Note-Current Subjective Patient is in bed and extremely lethargic. Nursing in to cleanse patient. Pain Numeric Pain Scale: 5-Moderate Pain Location: Left Location Body Site: Hip Pain Description: Acute Comment: FLACC Mental Status Patient Orientation: Listless Attachments: SCD's, Oxygen, Bautista Catheter, IV Transfers Functional [place] Measure 0=Not Assessed/NA 4=Minimal Assistance 1=Total Assistance 5=Supervision or Setup 2=Maximal Assistance 6=Modified [place] 3=Moderate Assistance 7=Complete IndependenceIRFPAI Quality Coding Scale 6 Independent with activity with or without an assistive device 5 Patient requires set up or clean up by helper. Patient completes activity by themselves 4 Supervision or touching assist (CGA). [place] provide cues , steadying assist 3 The helper provides less than half the effort to complete the activity 2 The helper provides more than half the effort to complete the activity 1 Dependent. The helper does all the effort to complete an activity 7 Patient refused to complete or attempt activity 9 The patient did not perform the activity before the current illness or injury 88 Not attempted due to Medical conditions or safety concerns Transfers (B, C, W/C) (FIM): 1 Scootin Rollin Supine to/from Sit: 1 Patient performed rolling side to side dependent assist x 4 to cleanse after incontinence of BM; Patient sat EOB max assist to maintain upright at EOB x 10 min; patient repositioned to supine with bilateral LE's elevated with pillows to relieve heel pressure. Exercises Supine Ex: Heel Slides Assessment Patient tolerates minimal activity and continues to be very lethargic, however, answers and talks appropriately. PT to increase activity as tolerated by patient. PT Short Term Goals Short Term Goals Time Frame: Oct 24, 2016 Transfers (B,C,W/C) (FIM): 3 Gait (FIM): 2 Distance (FIM): 0=236-13 ft Gait Distance Comment: 50' Gait Level of Assist: 3 Gait Assistive Device: FWW PT Seed And Fertilizer Specialist Goals Seed And Fertilizer Specialist Goals PT Seed And Fertilizer Specialist Goals Time Frame: Nov 04, 2016 Transfers (B,C,W/C) (FIM): 6 Gait (FIM): 4 Gait distance (FIM): 3=150 ft Distance: 150' Gait Level of Assist: 4 Gait Assistive Device: FWW Stairs (FIM): 2 # of Steps: 3 Stairs Level Of Assist: 5 PT Plan Treatment/Plan Treatment Plan: Continue Plan of Care Treatment Plan: Bed Mobility, Education, Functional Activity Geovani, Functional Strength, Gait, Safety, Therapeutic Exercise, Transfers Treatment Duration: Nov 04, 2016 Visits Per Week: 11 Time/GCodes Time In: 1505 Time Out: 1528 Total Billed Treatment Time: 23 Total Billed Treatment 1 visit FA x 2 23 min RAQUEL AYALA PT Oct 16, 2016 15:36
[2016-10-16 16:40] VITALS: BP 115/67
[2016-10-16] MEDS: ALFUZOSIN HCL 10 MG TAB (UROXATRAL) PO SCH (18:15)
[2016-10-16 20:00] VITALS: BP 123/65
[2016-10-16] MEDS: FAMOTIDINE 20 MG (PEPCID) TABLET PO SCH (20:08)
[2016-10-17] VITALS: BP 127/58
[2016-10-17 04:00] VITALS: BP 111/73
[2016-10-17] MEDS: CATHETER FLUSH 10 ML SYR IV SCH (06:00)
[2016-10-17] MEDS: LEVOTHYROXINE 125 MCG (LEVOTHROID) TABLET PO SCH (06:16)
[2016-10-17 07:08] LABS: MEAN PLATELET VOLUME 10.3 FL (7.4-10.4); RED BLOOD COUNT 2.85 10^6/uL (4.35-5.85); RED CELL DISTRIBUTION WIDTH 13.5 % (10.0-14.5); WHITE BLOOD COUNT 11.3 10^3/uL (4.3-11.0)
[2016-10-17 07:28] LABS: ALBUMIN 2.5 G/DL (3.2-4.5); CALCIUM 7.9 MG/DL (8.5-10.1); CREATININE SERUM 1.23 MG/DL (0.60-1.30); POTASSIUM 3.6 MMOL/L (3.6-5.0)
[2016-10-17 08:00] VITALS: BP 134/74
[2016-10-17] MEDS: SIMvastatin 40 MG (ZOCOR) TAB PO SCH (08:27)
[2016-10-17] MEDS: cefTRIAXone INJECTION 1,000 MG in NS (IVPB) 50 ML IV SCH (08:27)
[2016-10-17] MEDS: APIXABAN 2.5 MG (ELIQUIS) TABLET PO SCH (08:27)
[2016-10-17] MEDS: ASPIRIN E.C. 81 MG (ECOTRIN) TAB PO SCH (08:27)
[2016-10-17] MEDS: BETHANECHOL 25 MG (URECHOLINE) TAB PO SCH (08:27)
[2016-10-17] MEDS: SENNOSIDES 8.6 MG (SENOKOT) TAB PO SCH (08:39)
[2016-10-17] MEDS: DOCUSATE SODIUM 100 MG (COLACE) CAP PO SCH (08:39)
--- NOTE | 2016-10-17 09:52 | Progress Note (SOAP) ---
Subjective Subjective/Events-last exam Patient looks good today. He states he has more strength today and was able to feed himself. Objective Exam Vital Signs Date Time Temp Pulse Resp B/P Pulse Ox O2 Delivery O2 Flow Rate FiO2 10/17/16 08:35 FIO2 10.00 50 10/17/16 08:00 98.9 83 22 134/74 95 High Flow NC 60.00 10.00 10/17/16 07:50 96 10.00 60 10/17/16 04:00 99.5 89 22 111/73 95 High Flow NC 60.00 10.00 10/17/16 02:41 10.00 60 10/17/16 00:00 99.1 94 24 127/58 91 High Flow NC 60.00 10.00 10/16/16 22:32 10.00 60 10/16/16 20:10 90 High Flow NC 10.00 60 10/16/16 20:00 98.5 89 18 123/65 95 High Flow NC 60.00 10.00 10/16/16 19:10 10.00 60 10/16/16 16:40 100.7 88 18 115/67 95 High Flow NC 60.00 10.00 10/16/16 14:51 93 10.00 60 10/16/16 11:35 99.1 88 20 117/58 95 High Flow NC 60.00 10.00 10/16/16 10:51 95 10.00 60 I & O 10/17/16 07:00 Intake Total 3130 ml Output Total 1750 ml Balance 1380 ml Capillary Refill : Less Than 3 SecondsLess Than 3 Seconds General Appearance: No Apparent Distress WD/WN Extremity: Normal Capillary Refill Normal Inspection Non Tender No Calf Tenderness No Pedal Edema Neurologic/Psychiatric: Alert Oriented x3 Skin: Normal Color Warm/Dry Other comments Incision dry clean and intact. N/V/M/I. Results Lab Laboratory Tests 10/16/16 11:42: Lab Scanned Report Transfusion Reaction Form 10/17/16 06:12: Alanine Aminotransferase (ALT/SGPT) 42, Albumin 2.5L, Alkaline Phosphatase 103, Anion Gap 8, Aspartate Amino Transf (AST/SGOT) 69H, BUN/Creatinine Ratio 27, Blood Urea Nitrogen 33H, Calcium Level 7.9L, Carbon Dioxide Level 22, Chloride Level 107, Creatinine 1.23, Estimat Glomerular Filtration Rate 55, Glucose Level 109H, Hematocrit 27L, Hemoglobin 8.9L, Mean Corpuscular Hemoglobin 31, Mean Corpuscular Hemoglobin Concent 34, Mean Corpuscular Volume 93, Mean Platelet Volume 10.3, Platelet Count 306, Potassium Level 3.6, Red Blood Count 2.85L, Red Cell Distribution Width 13.5, Sodium Level 137, Total Bilirubin 1.0, Total Protein 5.0L, White Blood Count 11.3H Microbiology 10/12/16 MRSA Screen - Final, Complete MRSA not isolated 10/12/16 Urine Culture - Final, Complete NO GROWTH Assessment/Plan Assessment/Plan Assess & Plan/Chief Complaint left hip fracture with ORIF TFN. . Patient continues to improve. He will be going to swing bed Thursday. Continue with weight bearing as tolerated left leg. Janet needed to be evaluated for removal POD 14. Daily dressing changes until no drainage is seen on the dressing and can leave to open air at that time. Follow up with Dr. White in 2-3 weeks. Diagnosis/Problems: Clinical Quality Measures DVT/VTE Risk/Contraindication: Risk Factor Score Per Nursin RFS Level Per Nursing on Admit: 4+=Very High ROSMERY RM Oct 17, 2016 09:52
--- NOTE | 2016-10-17 10:15 | Progress Note (SOAP) ---
Objective Exam Vital Signs Date Time Temp Pulse Resp B/P Pulse Ox O2 Delivery O2 Flow Rate FiO2 10/17/16 08:35 FIO2 10.00 50 10/17/16 08:00 98.9 83 22 134/74 95 High Flow NC 60.00 10.00 10/17/16 07:50 96 10.00 60 10/17/16 04:00 99.5 89 22 111/73 95 High Flow NC 60.00 10.00 10/17/16 02:41 10.00 60 10/17/16 00:00 99.1 94 24 127/58 91 High Flow NC 60.00 10.00 10/16/16 22:32 10.00 60 10/16/16 20:10 90 High Flow NC 10.00 60 10/16/16 20:00 98.5 89 18 123/65 95 High Flow NC 60.00 10.00 10/16/16 19:10 10.00 60 10/16/16 16:40 100.7 88 18 115/67 95 High Flow NC 60.00 10.00 10/16/16 14:51 93 10.00 60 10/16/16 11:35 99.1 88 20 117/58 95 High Flow NC 60.00 10.00 10/16/16 10:51 95 10.00 60 I & O 10/17/16 07:00 Intake Total 3130 ml Output Total 1750 ml Balance 1380 ml Capillary Refill : Less Than 3 SecondsLess Than 3 Seconds General Appearance: No Apparent Distress Results Lab Laboratory Tests 10/16/16 11:42: Lab Scanned Report Transfusion Reaction Form 10/17/16 06:12: Alanine Aminotransferase (ALT/SGPT) 42, Albumin 2.5L, Alkaline Phosphatase 103, Anion Gap 8, Aspartate Amino Transf (AST/SGOT) 69H, BUN/Creatinine Ratio 27, Blood Urea Nitrogen 33H, Calcium Level 7.9L, Carbon Dioxide Level 22, Chloride Level 107, Creatinine 1.23, Estimat Glomerular Filtration Rate 55, Glucose Level 109H, Hematocrit 27L, Hemoglobin 8.9L, Mean Corpuscular Hemoglobin 31, Mean Corpuscular Hemoglobin Concent 34, Mean Corpuscular Volume 93, Mean Platelet Volume 10.3, Platelet Count 306, Potassium Level 3.6, Red Blood Count 2.85L, Red Cell Distribution Width 13.5, Sodium Level 137, Total Bilirubin 1.0, Total Protein 5.0L, White Blood Count 11.3H Microbiology 10/12/16 MRSA Screen - Final, Complete MRSA not isolated 10/12/16 Urine Culture - Final, Complete NO GROWTH Assessment/Plan Assessment/Plan Assess & Plan/Chief Complaint LEFT HIP FRACTURE - INTERTROCHANTERIC WEAKNESS FATIGUE HYPOTENSION ACUTE RENAL FAILURE AFIB CHRONIC ANTICOAGULATION USE HYPERTENSION CORONARY ARTERY DISEASE HYPOTHYROID BPH ANEMIA LEFT HIP FRACTURE - POST-OP DAY #2 - LEFT HIP FRACTURE REPAIR WITH DR. WING - UTI - URINE CULTURE NEGATIVE AFIB - - RESTARTED ANTICOAGULANT HYPOTENSION - CONTINUE TO HOLD [place] AND NORVASC HYPOTHYROID - RESTARTED LEVOTHYROXINE BPH - URINARY RETENTION - PACE PLACED DUE TO RETENTION-AND NEED FOR ACCURATE I/ O RECORDS. I HAVE ALSO STARTED BETHANECHOL FOR RETENTION. ANEMIA - WITH DROP IN HGB, WEAKNESS, CAD, AND ACUTE RENAL FAILURE DUE TO HYPOTENSION - PT GIVEN TRANSFUSION YESTERDAY. Diagnosis/Problems: Clinical Quality Measures DVT/VTE Risk/Contraindication: Risk Factor Score Per Nursin RFS Level Per Nursing on Admit: 4+=Very High TARAS TITUS MD Oct 17, 2016 10:15
--- NOTE | 2016-10-17 10:41 | Discharge Summary ---
Diagnosis/Chief Complaint Date of Admission Oct 11, 2016 at 22:55 Date of Discharge Oct 17, 2016 at 10:19 Discharge Date: Oct 17, 2016 Discharge Time: 1020 Admission Diagnosis Admission Diagnosis LEFT HIP FRACTURE - INTERTROCHANTERIC URINARY TRACT INFECTION AFIB CHRONIC ANTICOAGULATION USE HYPERTENSION CORONARY ARTERY DISEASE HYPOTHYROID BPH Discharge Diagnosis LEFT HIP FRACTURE - INTERTROCHANTERIC URINARY TRACT INFECTION ACUTE RENAL FAILURE - DUE TO HYPOTENSIVE EVENT AFIB CHRONIC ANTICOAGULATION USE HYPERTENSION CORONARY ARTERY DISEASE HYPOTHYROID BPH Reason Hospital Visit PT IS AN 89 Y/O MALE WHO IS KNOWN TO ME FROM CLINIC. THE PATIENT REPORTS THAT YESTERDAY HE WAS FEELING WELL, HAD BEEN EATING SUPPER AND WAS GETTING UP AND MOVING AROUND IN THE KITCHEN. HE WAS LEANING OVER PICKING UP SOMETHING OFF OF THE FLOOR, WHEN HE STOOD UP HE BECAME UNSTEADY, GRABBED FOR THE KITCHEN CHAIR AND IT SCOOTED AWAY FROM HIM AND HE FELL TO THE KITCHEN FLOOR. HE REPORTS THAT SOON HE FELL DOWN HE KNEW HE HAD BROKEN HIS HIP. HE DENIES ANY CHEST PAIN, SHORTNESS OF BREATH, ABDOMINAL PAIN, DIZZINESS AT THIS TIME. Discharge Summary Consultations DR. WING Discharge Physical Examination Allergies: Coded Allergies: No Known Drug Allergies (Verified , 10/17/16) Vitals & I&Os Vital Signs Date Time Temp Pulse Resp B/P Pulse Ox O2 Delivery O2 Flow Rate FiO2 10/17/16 08:35 FIO2 10.00 50 10/17/16 08:00 98.9 83 22 134/74 95 General Appearance: Alert, Oriented X3, Cooperative HEENT: Atraumatic, PERRLA Respiratory: Clear to Auscultation Cardiovascular: Regular Rate, Other (II/ ALLAN) Abdominal: Normal Bowel Sounds, Soft, No Tenderness Extremities: Other (EDEMA OF THIGHS - SCROTAL EDEMA) Skin: Other (CLOSED SURGICAL WOUND LEFT LATERAL THIGH) Neuro: Cranial Nerves 3-12 NL Psych/Mental Status: Mental Status NL, Mood NL Hospital Course LEFT HIP FRACTURE - INTERTROCHANTERIC WEAKNESS FATIGUE HYPOTENSION ACUTE RENAL FAILURE AFIB CHRONIC ANTICOAGULATION USE HYPERTENSION CORONARY ARTERY DISEASE HYPOTHYROID BPH ANEMIA LEFT HIP FRACTURE - POST-OP DAY #2 - LEFT HIP FRACTURE REPAIR WITH DR. WING - UTI - URINE CULTURE NEGATIVE AFIB - - RESTARTED ANTICOAGULANT HYPOTENSION - WAS ON HOLD - IMPROVED PRESSURES - RESTART NORVASC AT 2.5MG DAILY. HYPOTHYROID - RESTARTED LEVOTHYROXINE BPH - URINARY RETENTION - PACE PLACED DUE TO RETENTION-AND NEED FOR ACCURATE I/ O RECORDS. I HAVE ALSO STARTED BETHANECHOL FOR RETENTION. ON TRANSFER TO SWING BED - STOP PACE CONTINUE BETHANECHOL. ANEMIA - WITH DROP IN HGB, WEAKNESS, CAD, AND ACUTE RENAL FAILURE DUE TO HYPOTENSION - PT GIVEN TRANSFUSION FEELS SIGNIFICANTLY BETTER. PT TO BE TRANSFERRED TO SWING BED STATUS - IF IMPROVES SIGNIFICANTLY - WILL THEN CONSIDER TRANSFER TO INPATIENT REHAB NEXT WEEK IF HE IMPROVES SIGNIFICANTLY. Pending Labs Discharge Condition at discharge IMPROVED Instructions to patient/family Please see electonic discharge instructions given to patient. Discharge Medications Reviewed and agree with Discharge Medication list on patient's Discharge Instruction sheet Clinical Quality Measures DVT/VTE Risk/Contraindication: Risk Factor Score Per Nursin RFS Level Per Nursing on Admit: 4+=Very High TARAS TITUS MD Oct 17, 2016 10:41
--- NOTE | 2016-10-22 15:20 | Physician Query-General Query ---
Physician Query-General Query to Physician: Dear Provider; Admit Date: 10/11/16 Discharge Date: 10/17/16 The medical record reflects the following clinical scenario: History/Risk factors: progress notes on 10/16/16 - acute respiratory distress Clinical Findings: 10/16/16: O2 sats of 86% on 8L, respirations 22 Treatment: 10/16/16: hi flow oxygen 15L, IV Lasix Question: Do you agree with the impression of Acute Respiratory Failure? Please document a response in Progress Notes or Discharge Summary. 1. Yes ___ 2. No ___ 3. Other, with explanation of clinical findings 4. Clinically undetermined, no explanation for clinical findings Please remember a lack of response to the above will prompt a phone page by CDI/ coding staff. In responding to this query, please exercise your independent professional judgment. The purpose of this communication is to more accurately reflect the complexity of your patients condition. The fact that a question is asked does not imply that any particular answer is desired or expected. Thank you for your timely response to this clarification. PHYSICIAN RESPONSE: Based on the clinical findings in the record, please respond to the query above on this document as an addendum. Possible, probable, or questionable diagnosis can be coded for INPATIENTS ONLY. Physician Response: If you have questions please contact: Material Inspector: Ext: Thank you for your time and cooperation. Clinical Graphics Programmer/Material Inspector This is a permanent part of the medical record SANDI CLEVELAND Oct 22, 2016 15:20
--- NOTE | 2016-10-28 08:08 | Physician Query-General Query ---
Physician Query-General Query to Physician: Dear Provider; Admit Date: 10/11/16 Discharge Date: 10/17/16 The medical record reflects the following clinical scenario: History/Risk factors: 10/16/16 - progress notes - acute respiratory distress Clinical Findings: 10/16/16 - O2 sats of 86% on 8L, respirations 22 Treatment: 10/16/16 - hi flow oxygen 15L, IV Lasix Question: What condition best reflects the above clinical scenario? Please document a response in the Progress notes or Discharge Summary. 1. Acute respiratory failure 2. Acute respiratory distress 3. Other , with explanation of the clinical findings 4. Clinically undetermined, no explanation for the clinical findings Please remember a lack of response to the above will prompt a phone page by CDI/ coding staff In responding to this query, please exercise your independent professional judgment. The purpose of this communication is to more accurately reflect the complexity of your patients condition. The fact that a question is asked does not imply that any particular answer is desired or expected. Thank you for your timely response to this clarification. PHYSICIAN RESPONSE: Based on the clinical findings in the record, please respond to the query above on this document as an addendum. Possible, probable, or questionable diagnosis can be coded for INPATIENTS ONLY. Physician Response: Physician Response see discharge summary If you have questions please contact: Business Continuity Coordinator: Ext: Thank you for your time and cooperation. Clinical Bar Gauger And Lubricator Tender/Business Continuity Coordinator This is a permanent part of the medical record SANDI CLEVELAND Oct 28, 2016 08:08 TARAS TITUS MD Nov 05, 2016 12:33
== END 2016-10-17 10:19 | disposition swing bed (61) | DRG 480 ==
LOC: EDUNIT# 20:39 → ER 20:42 → 4TH 22:55
PROVIDERS: ADMIT Family Medicine; ATTEND Family Medicine
PROC: 0QS706Z Reposition Left Upper Femur with Intramedullary Internal Fixation Device, Open Approach (ICD-10-PCS; principal; 2016-10-13 13:01)
DX: S72.145A Nondisplaced intertrochanteric fracture of left femur, initial encounter for closed fracture (principal); J96.00 Acute respiratory failure, unspecified whether with hypoxia or hypercapnia; N39.0 Urinary tract infection, site not specified; N17.9 Acute kidney failure, unspecified; I95.9 Hypotension, unspecified; D64.9 Anemia, unspecified; J44.9 Chronic obstructive pulmonary disease, unspecified; G47.30 Sleep apnea, unspecified; I25.10 Atherosclerotic heart disease of native coronary artery without angina pectoris; I25.2 Old myocardial infarction; I10 Essential (primary) hypertension; E03.9 Hypothyroidism, unspecified; I48.91 Unspecified atrial fibrillation; N40.1 Benign prostatic hyperplasia with lower urinary tract symptoms; R33.8 Other retention of urine; M17.12 Unilateral primary osteoarthritis, left knee; Z79.01 Long term (current) use of anticoagulants; Z99.81 Dependence on supplemental oxygen; Z95.1 Presence of aortocoronary bypass graft; Z95.5 Presence of coronary angioplasty implant and graft; Z86.73 Personal history of transient ischemic attack (TIA), and cerebral infarction without residual deficits; W18.39XA Other fall on same level, initial encounter; Y92.000 Kitchen of unspecified non-institutional (private) residence as the place of occurrence of the external cause; Y99.8 Other external cause status
CPT/HCPCS: 36415; 70450; 71010; 71020; 72170; 73502; 80048; 80053; 81000; 82962; 85007; 85025; 85027; 85610; 85730; 86850; 86900; 86901; 86920; 87081; 87088; 94664; 94760; 96374

== ENCOUNTER 2016-10-17 08:22 | Inpatient (IN) | payer MEDICARE, OTHER ==
[~2016-10-17] VITALS: Ht 182.9 cm; Wt 94.3 kg
[~2016-10-17 08:22] MED LIST changes: +ASPI-586 PO
[2016-10-17] MEDS ORDERED: amLODIPine 2.5MG (NORVASC) TAB PO NR (10:30)
[2016-10-17] MEDS ORDERED: SALIVA STIMULANT MOUTH SPRAY (BIOTENE) 1.5 OZ MM PRN (10:30)
[2016-10-17] MEDS ORDERED: CATHETER FLUSH 10 ML SYR IV PRN (10:30)
[2016-10-17] MEDS ORDERED: BISACODYL 5 MG (DULCOLAX) TABLET PO PRN (10:30)
[2016-10-17] MEDS ORDERED: ONDANSETRON 4 MG/2 ML (SDV) Z0FRAN IV PRN (10:30)
[2016-10-17] MEDS ORDERED: NITROGLYCERIN SUBLINGUAL 0.4 MG TAB (NITROSTAT) SL PRN (10:30)
--- OUTSIDE RECORDS SUMMARY | 2016-10-17 10:53 | XMS REPORT | Continuity of Care Document ---
Author Author [facility] Organization [facility] Address Unknown Phone Unavailable Allergies Active Description Code Type Severity Reaction Onset Reported/Identified Relationship to Patient Clinical Status Yes No Known Drug Allergies [id number] Drug Allergy Unknown N/ A 09/24/2007 Medications Problems Date Dx Coded Attending Type Code Diagnosis Diagnosed By 08/06/1129 TARAS TITUS MD Ot M54.9 08/06/1129 TARAS TITUS MD Ot R53.1 08/06/1129 TARAS TITUS MD Ot Z98.89 10/07/2014 ROSANA CALDWELL CLINICAL PROGRAMMER Ot 272.4 10/07/2014 ROSANA CALDWELL CLINICAL PROGRAMMER Ot 414.00 10/07/2014 ROSANA CALDWELL CLINICAL PROGRAMMER Ot 433.10 12/08/2014 CARISA GARY MD Ot 244.9 HYPOTHYROIDISM NOS 12/08/2014 CARISA GARY MD Ot 401.9 HYPERTENSION NOS 12/08/2014 CARISA GARY MD Ot 414.01 CORONARY ATHEROSCLEROSIS OF [place] CORON 12/08/2014 CARISA GARY MD Ot 728.89 MUSCLE/LIGAMENT DIS NEC 12/08/2014 CARISA GARY MD Ot E934.8 ADV EFF BLOOD AGENT NEC 04/12/2015 ROSANA CALDWELL CLINICAL PROGRAMMER Ot 272.4 06/19/2015 NERY ESCOBAR MD Ot M54.5 LOW BACK PAIN 06/19/2015 NERY ESCOBAR MD Ot S32.029A UNSP FRACTURE OF SECOND LUMBAR VERTEBRA, 06/19/2015 NERY ESCOBAR MD Ot X39.8XXA OTHER EXPOSURE TO [employer], INIT 06/19/2015 NERY ESCOBAR MD Ot Y92.[address] [facility] 06/19/2015 NERY ESCOBAR MD Ot Y99.8 OTHER EXTERNAL CAUSE STATUS 10/08/2015 Ot 288.63 10/08/2015 Ot 780.79 10/08/2015 Ot 786.2 10/08/2015 Ot 272.4 10/08/2015 Ot 401.9 10/08/2015 Ot 414.01 10/08/2015 Ot V58.69 10/08/2015 Ot 272.4 10/08/2015 Ot 401.9 10/08/2015 Ot 414.01 10/08/2015 Ot 443.9 10/08/2015 Ot V58.69 10/08/2015 Ot 354.0 10/08/2015 Ot V72.84 10/08/2015 Ot V74.8 10/08/2015 Ot 354.0 10/08/2015 Ot 786.7 10/08/2015 Ot 272.4 10/08/2015 Ot 401.9 10/08/2015 Ot 414.00 10/08/2015 Ot V58.69 10/08/2015 Ot 396.8 10/08/2015 Ot 427.89 10/08/2015 Ot 785.2 10/08/2015 Ot 272.4 10/08/2015 Ot 401.1 10/08/2015 Ot 272.4 10/08/2015 Ot 401.9 10/08/2015 Ot V58.69 10/08/2015 JASBIR LAND FACC, ALI FACP CCDS Ot 414.00 10/08/2015 [place] FACC, ALI FACP CCDS Ot V45.81 10/08/2015 ROSANA CALDWELL L CLINICAL PROGRAMMER Ot 272.4 10/08/2015 BAIJULIAN ROSANA L CLINICAL PROGRAMMER Ot V58.69 10/08/2015 [place], SHERYL Fontanez Ot 780.2 10/08/2015 [place], SHERYL Fontanez Ot 433.20 10/08/2015 SHERYL RAMON MD Ot 433.30 10/08/2015 BAIJULIAN ROSANA L CLINICAL PROGRAMMER Ot 272.4 10/08/2015 BAIJULIAN ROSANA L CLINICAL PROGRAMMER Ot 414.00 10/08/2015 [place] FACC, ALI FACP CCDS Ot 272.4 10/08/2015 [place] FACC, ALI FACP CCDS Ot 396.3 10/08/2015 [place] FACC, ALI FACP CCDS Ot 401.9 10/08/2015 [place] FACC, ALI FACP CCDS Ot 414.00 10/08/2015 JASBIR LAND [facility], ALI FACP CCDS Ot 447.9 10/08/2015 JASBIR LAND [facility], ALI FACP CCDS Ot 272.4 10/08/2015 JASBIR LAND [facility], ALI FACP CCDS Ot 401.9 10/08/2015 JASBIR LAND [facility], ALI FACP CCDS Ot 414.00 10/08/2015 JASBIR L[place] [facility], ALI FACP CCDS Ot 424.1 10/08/2015 JAS[place] L[place] [facility], ALI FACP CCDS Ot 435.9 10/08/2015 DEMIANMA ROSANA L CLINICAL PROGRAMMER Ot 272.4 10/08/2015 BAIMA, ROSANA L CLINICAL PROGRAMMER Ot 414.00 10/08/2015 BAIMA, ROSANA L CLINICAL PROGRAMMER Ot 433.10 10/08/2015 BAIMA, ROSANA L CLINICAL PROGRAMMER Ot 272.4 10/10/2015 [place] [facility], ALI FACP CCDS Ot E78.5 10/10/2015 J[place] L[place] [facility], ALI FACP CCDS Ot I25.10 11/02/2015 JASBIR L[place] [facility], ALI FACP CCDS Ot E78.5 11/02/2015 JASBIR L[place] [facility], ALI FACP CCDS Ot I25.10 12/06/2015 [place]O LAND, TARAS [place] Ot M54.9 DORSALGIA, UNSPECIFIED 12/06/2015 [place], TARAS [place] Ot R53.1 WEAKNESS 12/06/2015 T[place]O [place], TARAS [place] Ot Z98.89 OTHER SPECIFIED POSTPROCEDURAL STATES 02/21/2016 PAULETTE ROSANA L CLINICAL PROGRAMMER Ot I25.10 ATHSCL HEART DISEASE OF [place] CORONARY 02/22/2016 DEMIANMA ROSANA L CLINICAL PROGRAMMER Ot E78.5 HYPERLIPIDEMIA, UNSPECIFIED 02/22/2016 BAIMA, ROSANA L CLINICAL PROGRAMMER Ot I10 ESSENTIAL (PRIMARY) HYPERTENSION 02/22/2016 BAIMA ROSANA L CLINICAL PROGRAMMER Ot I25.10 ATHSCL HEART DISEASE OF [place] CORONARY 02/22/2016 DEMIANMA ROSANA L CLINICAL PROGRAMMER Ot 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 02/22/2016 DEMIANMA ROSANA L CLINICAL PROGRAMMER Ot I73.9 PERIPHERAL VASCULAR DISEASE, UNSPECIFIED 02/22/2016 BAIMA ROSANA L CLINICAL PROGRAMMER Ot I77.9 DISORDER OF ARTERIES AND ARTERIOLES, UNS 02/22/2016 BAIMA, ROSANA L CLINICAL PROGRAMMER Ot E78.5 HYPERLIPIDEMIA, UNSPECIFIED 02/22/2016 BAIMA, ROSANA L CLINICAL PROGRAMMER Ot I10 ESSENTIAL (PRIMARY) HYPERTENSION 02/22/2016 BAIMA, ROSANA L CLINICAL PROGRAMMER Ot I25.10 ATHSCL HEART DISEASE OF [place] CORONARY 02/22/2016 BAIMA, ROSANA L CLINICAL PROGRAMMER Ot 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 02/22/2016 BAIMA, ROSANA L CLINICAL PROGRAMMER Ot I73.9 PERIPHERAL VASCULAR DISEASE, UNSPECIFIED 02/22/2016 BAIMA, ROSANA L CLINICAL PROGRAMMER Ot I77.9 DISORDER OF ARTERIES AND ARTERIOLES, UNS 03/12/2016 BAIMA, ROSANA L CLINICAL PROGRAMMER Ot E78.5 HYPERLIPIDEMIA, UNSPECIFIED 03/12/2016 BAIMA, ROSANA L CLINICAL PROGRAMMER Ot I10 ESSENTIAL (PRIMARY) HYPERTENSION 03/12/2016 BAIMA, ROSANA L CLINICAL PROGRAMMER Ot I25.10 ATHSCL HEART DISEASE OF [place] CORONARY 03/12/2016 BAIMA, ROSANA L CLINICAL PROGRAMMER Ot 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 03/12/2016 BAIMA, ROSANA L CLINICAL PROGRAMMER Ot I73.9 PERIPHERAL VASCULAR DISEASE, UNSPECIFIED 03/12/2016 BAIMA, ROSANA L CLINICAL PROGRAMMER Ot I77.9 DISORDER OF ARTERIES AND ARTERIOLES, UNS 03/17/2016 BAIMA, ROSANA L CLINICAL PROGRAMMER Ot E78.5 HYPERLIPIDEMIA, UNSPECIFIED 03/17/2016 BAIMA, ROSANA L CLINICAL PROGRAMMER Ot I10 ESSENTIAL (PRIMARY) HYPERTENSION 03/17/2016 BAIMA, ROSANA L CLINICAL PROGRAMMER Ot I25.10 ATHSCL HEART DISEASE OF [place] CORONARY 03/17/2016 BAIMA, ROSANA L CLINICAL PROGRAMMER Ot 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 03/17/2016 BAIMA, ROSANA L CLINICAL PROGRAMMER Ot I73.9 PERIPHERAL VASCULAR DISEASE, UNSPECIFIED 03/17/2016 BAIMA, ROSANA L CLINICAL PROGRAMMER Ot I77.9 DISORDER OF ARTERIES AND ARTERIOLES, UNS 04/04/2016 LUCA LOWE DO Ot 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, LUMBA 04/04/2016 LUCA LOWE DO Ot M48.06 SPINAL STENOSIS, LUMBAR REGION 04/04/2016 LUCA LOWE DO Ot S32.010A WEDGE COMPRESSION FRACTURE OF FIRST LUMB 04/04/2016 LUCA LOWE DO Ot X58.XXXA EXPOSURE TO OTHER SPECIFIED FACTORS, INI 04/04/2016 LUCA LOWE DO Ot Y99.8 OTHER EXTERNAL CAUSE STATUS 04/07/2016 Ot 272.4 HYPERLIPIDEMIA NEC/NOS 04/07/2016 Ot 401.9 HYPERTENSION NOS 04/07/2016 Ot 414.01 CORONARY ATHEROSCLEROSIS OF [place] CORON 04/07/2016 Ot 443.9 PERIPH VASCULAR DIS NOS 04/07/2016 Ot V58.69 OTH MED,LT,CURRENT USE 04/07/2016 Ot 354.0 CARPAL TUNNEL SYNDROME 04/07/2016 Ot V72.84 EXAM PRE-OPERATIVE NOS 04/07/2016 Ot V74.8 SCREEN-BACTERIAL DIS NEC 04/07/2016 Ot 354.0 CARPAL TUNNEL SYNDROME 04/07/2016 Ot 786.7 ABNORMAL CHEST SOUNDS 04/07/2016 Ot 272.4 HYPERLIPIDEMIA NEC/NOS 04/07/2016 Ot 401.9 HYPERTENSION NOS 04/07/2016 Ot 414.00 CORON ATHEROSCLER NOS TYPE VESSEL, NATIV 04/07/2016 Ot V58.69 OTH MED,LT,CURRENT USE 04/07/2016 Ot 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 04/07/2016 Ot 427.89 CARDIAC DYSRHYTHMIAS NEC 04/07/2016 Ot 785.2 CARDIAC MURMURS NEC 04/07/2016 Ot 272.4 HYPERLIPIDEMIA NEC/NOS 04/07/2016 Ot 401.1 BENIGN HYPERTENSION 04/07/2016 Ot 272.4 HYPERLIPIDEMIA NEC/NOS 04/07/2016 Ot 401.9 HYPERTENSION NOS 04/07/2016 Ot V58.69 OTH MED,LT,CURRENT USE 04/07/2016 [place] FACMarie, ALI FACP CCDS Ot 414.00 CORON ATHEROSCLER NOS TYPE VESSEL, NATIV 04/07/2016 [place] FACMarie, ALI FACP CCDS Ot V45.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 BYPASS 04/07/2016 ROSANA CALDWELL CLINICAL PROGRAMMER Ot 272.4 HYPERLIPIDEMIA NEC/NOS 04/07/2016 ROSANA CALDWELL CLINICAL PROGRAMMER Ot V58.69 OTH MED,LT,CURRENT USE 04/07/2016 SHERYL RAMON MD Ot 780.2 SYNCOPE AND COLLAPSE 04/07/2016 SHERYL RAMON MD Ot 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 04/07/2016 [place], SHERYL Fontanez Ot 433.30 MULT BILTRAL ARTERY OCCLUSION WO CEREBRA 04/07/2016 PAULETTE ROSANA L CLINICAL PROGRAMMER Ot 272.4 HYPERLIPIDEMIA NEC/NOS 04/07/2016 BAIMA, ROSANA L CLINICAL PROGRAMMER Ot 414.00 CORON ATHEROSCLER NOS TYPE VESSEL, NATIV 04/07/2016 [place] FACC, ALI FACP CCDS Ot 272.4 HYPERLIPIDEMIA NEC/NOS 04/07/2016 JASBIR CLARKEC, ALI FACP CCDS Ot 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 04/07/2016 [place] FACC, ALI FACP CCDS Ot 401.9 HYPERTENSION NOS 04/07/2016 [place] FACC, ALI FACP CCDS Ot 414.00 CORON ATHEROSCLER NOS TYPE VESSEL, NATIV 04/07/2016 [place] FACC, ALI FACP CCDS Ot 447.9 ARTERIAL DISEASE NOS 04/07/2016 [place] FACC, ALI FACP CCDS Ot 272.4 HYPERLIPIDEMIA NEC/NOS 04/07/2016 [place] FACC, ALI FACP CCDS Ot 401.9 HYPERTENSION NOS 04/07/2016 [place] FACC, ALI FACP CCDS Ot 414.00 CORON ATHEROSCLER NOS TYPE VESSEL, NATIV 04/07/2016 [place] FACC, ALI FACP CCDS Ot 424.1 AORTIC VALVE DISORDER 04/07/2016 [place] FACC, ALI FACP CCDS Ot 435.9 TRANS CEREB ISCHEMIA NOS 04/07/2016 ROSANA CALDWELL L CLINICAL PROGRAMMER Ot 272.4 HYPERLIPIDEMIA NEC/NOS 04/07/2016 BAIJULIAN ROSANA L CLINICAL PROGRAMMER Ot 414.00 CORON ATHEROSCLER NOS TYPE VESSEL, NATIV 04/07/2016 ROSANA CALDWELL L CLINICAL PROGRAMMER Ot 433.10 CAROTID ARTERY OCCLUSION W O CEREBRAL IN 04/07/2016 ROSANA CALDWELL L CLINICAL PROGRAMMER Ot 272.4 HYPERLIPIDEMIA NEC/NOS 04/07/2016 [place] FACC, ALI FACP CCDS Ot E78.5 HYPERLIPIDEMIA, UNSPECIFIED 04/07/2016 [place] FACC, ALI FACP CCDS Ot I25.10 ATHSCL HEART DISEASE OF [place] CORONARY 04/07/2016 ROSANA CALDWELL L CLINICAL PROGRAMMER Ot E78.5 HYPERLIPIDEMIA, UNSPECIFIED 04/07/2016 ROSANA CALDWELL LISHA Ot I10 ESSENTIAL (PRIMARY) HYPERTENSION 04/07/2016 ROSANA CALDWELL CLINICAL PROGRAMMER Ot I25.10 ATHSCL HEART DISEASE OF [place] CORONARY 04/07/2016 ROSANA CALDWELL CLINICAL PROGRAMMER Ot 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 04/07/2016 ROSANA CALDWELL CLINICAL PROGRAMMER Ot I73.9 PERIPHERAL VASCULAR DISEASE, UNSPECIFIED 04/07/2016 ROSANA CALDWELL CLINICAL PROGRAMMER Ot I77.9 DISORDER OF ARTERIES AND ARTERIOLES, UNS 04/07/2016 LUCA LOWE DO Ot 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, LUMBA 04/07/2016 LUCA LOWE DO Ot M48.06 SPINAL STENOSIS, LUMBAR REGION 04/07/2016 LUCA LOWE DO Ot S32.010A WEDGE COMPRESSION FRACTURE OF FIRST LUMB 04/07/2016 LUCA LOWE DO Ot X58.XXXA EXPOSURE TO OTHER SPECIFIED FACTORS, INI 04/07/2016 LUCA LOWE DO Ot Y99.8 OTHER EXTERNAL CAUSE STATUS 04/11/2016 DELMY GILES Ot M54.5 LOW BACK PAIN 04/28/2016 LUCA LOWE DO Ot 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, LUMBA 04/28/2016 LUCA LOWE DO Ot M48.06 SPINAL STENOSIS, LUMBAR REGION 04/28/2016 LUCA LOWE DO Ot S32.010A WEDGE COMPRESSION FRACTURE OF FIRST LUMB 04/28/2016 LUCA LOWE DO Ot X58.XXXA EXPOSURE TO OTHER SPECIFIED FACTORS, INI 04/28/2016 LUCA LOWE DO Ot Y99.8 OTHER EXTERNAL CAUSE STATUS 04/29/2016 LUCA LOWE DO Ot 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, LUMBA 04/29/2016 LUCA LOWE DO Ot M48.06 SPINAL STENOSIS, LUMBAR REGION 04/29/2016 LUCA LOWE DO Ot S32.010A WEDGE COMPRESSION FRACTURE OF FIRST LUMB 04/29/2016 LUCA LOWE DO Ot X58.XXXA EXPOSURE TO OTHER SPECIFIED FACTORS, INI 04/29/2016 LUCA LOWE DO Ot Y99.8 OTHER EXTERNAL CAUSE STATUS 05/29/2016 DELMY GILES Ot M54.5 LOW BACK PAIN 06/04/2016 DELMY GILES R Ot M54.5 LOW BACK PAIN 06/05/2016 DELMY GILES Ot M54.5 LOW BACK PAIN 06/07/2016 Ot 784.7 06/10/2016 Ot 272.4 HYPERLIPIDEMIA NEC/NOS 06/10/2016 Ot 401.9 HYPERTENSION NOS 06/10/2016 Ot 414.01 CORONARY ATHEROSCLEROSIS OF [place] CORON 06/10/2016 Ot 443.9 PERIPH VASCULAR DIS NOS 06/10/2016 Ot V58.69 OTH MED,LT,CURRENT USE 06/10/2016 Ot 354.0 CARPAL TUNNEL SYNDROME 06/10/2016 Ot V72.84 EXAM PRE-OPERATIVE NOS 06/10/2016 Ot V74.8 SCREEN-BACTERIAL DIS NEC 06/10/2016 Ot 354.0 CARPAL TUNNEL SYNDROME 06/10/2016 Ot 786.7 ABNORMAL CHEST SOUNDS 06/10/2016 Ot 272.4 HYPERLIPIDEMIA NEC/NOS 06/10/2016 Ot 401.9 HYPERTENSION NOS 06/10/2016 Ot 414.00 CORON ATHEROSCLER NOS TYPE VESSEL, NATIV 06/10/2016 Ot V58.69 OTH MED,LT,CURRENT USE 06/10/2016 Ot 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 06/10/2016 Ot 427.89 CARDIAC DYSRHYTHMIAS NEC 06/10/2016 Ot 785.2 CARDIAC MURMURS NEC 06/10/2016 Ot 272.4 HYPERLIPIDEMIA NEC/NOS 06/10/2016 Ot 401.1 BENIGN HYPERTENSION 06/10/2016 Ot 272.4 HYPERLIPIDEMIA NEC/NOS 06/10/2016 Ot 401.9 HYPERTENSION NOS 06/10/2016 Ot V58.69 OTH MED,LT,CURRENT USE 06/10/2016 [place] FACMarie, ALI FACP CCDS Ot 414.00 CORON ATHEROSCLER NOS TYPE VESSEL, NATIV 06/10/2016 [place] FACMarie, ALI FACP CCDS Ot V45.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 BYPASS 06/10/2016 ROSANA CALDWELL CLINICAL PROGRAMMER Ot 272.4 HYPERLIPIDEMIA NEC/NOS 06/10/2016 ROSANA CALDWELL CLINICAL PROGRAMMER Ot V58.69 OTH MED,LT,CURRENT USE 06/10/2016 SHERYL RAMON MD Ot 780.2 SYNCOPE AND COLLAPSE 06/10/2016 SANDNESS MD, SHERYL M Ot 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 06/10/2016 [place], SHERYL Fontanez Ot 433.30 MULT BILTRAL ARTERY OCCLUSION WO CEREBRA 06/10/2016 BAIMA, ROSANA L CLINICAL PROGRAMMER Ot 272.4 HYPERLIPIDEMIA NEC/NOS 06/10/2016 BAIMA, ROSANA L CLINICAL PROGRAMMER Ot 414.00 CORON ATHEROSCLER NOS TYPE VESSEL, NATIV 06/10/2016 [place] FACC, ALI FACP CCDS Ot 272.4 HYPERLIPIDEMIA NEC/NOS 06/10/2016 [place] FACC, ALI FACP CCDS Ot 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 06/10/2016 J[place] FACC, ALI FACP CCDS Ot 401.9 HYPERTENSION NOS 06/10/2016 [place] FACMarie, ALI FACP CCDS Ot 414.00 CORON ATHEROSCLER NOS TYPE VESSEL, NATIV 06/10/2016 [place] FACC, ALI FACP CCDS Ot 447.9 ARTERIAL DISEASE NOS 06/10/2016 [place] FACC, ALI FACP CCDS Ot 272.4 HYPERLIPIDEMIA NEC/NOS 06/10/2016 [place] FACC, ALI FACP CCDS Ot 401.9 HYPERTENSION NOS 06/10/2016 [place] FACC, ALI FACP CCDS Ot 414.00 CORON ATHEROSCLER NOS TYPE VESSEL, NATIV 06/10/2016 [place] FACC, ALI FACP CCDS Ot 424.1 AORTIC VALVE DISORDER 06/10/2016 [place] FACC, ALI FACP CCDS Ot 435.9 TRANS CEREB ISCHEMIA NOS 06/10/2016 PAULETTE ROSANA L CLINICAL PROGRAMMER Ot 272.4 HYPERLIPIDEMIA NEC/NOS 06/10/2016 BAIMA, ROSANA L CLINICAL PROGRAMMER Ot 414.00 CORON ATHEROSCLER NOS TYPE VESSEL, NATIV 06/10/2016 PAULETTE ROSANA L CLINICAL PROGRAMMER Ot 433.10 CAROTID ARTERY OCCLUSION W O CEREBRAL IN 06/10/2016 PAULETTE ROSANA L CLINICAL PROGRAMMER Ot 272.4 HYPERLIPIDEMIA NEC/NOS 06/10/2016 [place] FACC, ALI FACP CCDS Ot E78.5 HYPERLIPIDEMIA, UNSPECIFIED 06/10/2016 [place] FACC, ALI FACP CCDS Ot I25.10 ATHSCL HEART DISEASE OF [place] CORONARY 06/10/2016 PAULETTE ROSANA L CLINICAL PROGRAMMER Ot E78.5 HYPERLIPIDEMIA, UNSPECIFIED 06/10/2016 BAIMA, ROSANA L CLINICAL PROGRAMMER Ot I10 ESSENTIAL (PRIMARY) HYPERTENSION 06/10/2016 ROSANA CALDWELL CLINICAL PROGRAMMER Ot I25.10 ATHSCL HEART DISEASE OF [place] CORONARY 06/10/2016 ROSANA CALDWELLP Ot 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 06/10/2016 ROSANA CALDWELL CLINICAL PROGRAMMER Ot I73.9 PERIPHERAL VASCULAR DISEASE, UNSPECIFIED 06/10/2016 ROSANA CALDWELL CLINICAL PROGRAMMER Ot I77.9 DISORDER OF ARTERIES AND ARTERIOLES, UNS 06/10/2016 LUCA LOWE DO Ot 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, LUMBA 06/10/2016 LUCA LOWE DO Ot M48.06 SPINAL STENOSIS, LUMBAR REGION 06/10/2016 LUCA LOWE DO Ot S32.010A WEDGE COMPRESSION FRACTURE OF FIRST LUMB 06/10/2016 LUCA LOWE DO Ot X58.XXXA EXPOSURE TO OTHER SPECIFIED FACTORS, INI 06/10/2016 LUCA LOWE DO Ot Y99.8 OTHER EXTERNAL CAUSE STATUS 06/11/2016 Ot 272.4 HYPERLIPIDEMIA NEC/NOS 06/11/2016 Ot 401.9 HYPERTENSION NOS 06/11/2016 Ot 414.01 CORONARY ATHEROSCLEROSIS OF [place] CORON 06/11/2016 Ot 443.9 PERIPH VASCULAR DIS NOS 06/11/2016 Ot V58.69 OT MED,LT,CURRENT USE 06/11/2016 Ot 354.0 CARPAL TUNNEL SYNDROME 06/11/2016 Ot V72.84 EXAM PRE-OPERATIVE NOS 06/11/2016 Ot V74.8 SCREEN-BACTERIAL DIS NEC 06/11/2016 Ot 354.0 CARPAL TUNNEL SYNDROME 06/11/2016 Ot 786.7 ABNORMAL CHEST SOUNDS 06/11/2016 Ot 272.4 HYPERLIPIDEMIA NEC/NOS 06/11/2016 Ot 401.9 HYPERTENSION NOS 06/11/2016 Ot 414.00 CORON ATHEROSCLER NOS TYPE VESSEL, NATIV 06/11/2016 Ot V58.69 OT MED,LT,CURRENT USE 06/11/2016 Ot 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 06/11/2016 Ot 427.89 CARDIAC DYSRHYTHMIAS NEC 06/11/2016 Ot 785.2 CARDIAC MURMURS NEC 06/11/2016 Ot 272.4 HYPERLIPIDEMIA NEC/NOS 06/11/2016 Ot 401.1 BENIGN HYPERTENSION 06/11/2016 Ot 272.4 HYPERLIPIDEMIA NEC/NOS 06/11/2016 Ot 401.9 HYPERTENSION NOS 06/11/2016 Ot V58.69 OTH MED,LT,CURRENT USE 06/11/2016 [place] FACC, ALI FACP CCDS Ot 414.00 CORON ATHEROSCLER NOS TYPE VESSEL, NATIV 06/11/2016 [place] FACC, ALI FACP CCDS Ot V45.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 BYPASS 06/11/2016 PAULETTE ROSANA L CLINICAL PROGRAMMER Ot 272.4 HYPERLIPIDEMIA NEC/NOS 06/11/2016 BAIMA ROSANA L CLINICAL PROGRAMMER Ot V58.69 OTH MED,LT,CURRENT USE 06/11/2016 SHERYL RAMON MD Ot 780.2 SYNCOPE AND COLLAPSE 06/11/2016 SHERYL RAMON MD Ot 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 06/11/2016 SHERYL RAMON MD Ot 433.30 MULT BILTRAL ARTERY OCCLUSION WO CEREBRA 06/11/2016 JONATHON CALDWELLHER L CLINICAL PROGRAMMER Ot 272.4 HYPERLIPIDEMIA NEC/NOS 06/11/2016 PAULETTE ROSANA L CLINICAL PROGRAMMER Ot 414.00 CORON ATHEROSCLER NOS TYPE VESSEL, NATIV 06/11/2016 [place] FACC, ALI FACP CCDS Ot 272.4 HYPERLIPIDEMIA NEC/NOS 06/11/2016 [place] FACC, ALI FACP CCDS Ot 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 06/11/2016 [place] FACC, ALI FACP CCDS Ot 401.9 HYPERTENSION NOS 06/11/2016 [place] FACC, ALI FACP CCDS Ot 414.00 CORON ATHEROSCLER NOS TYPE VESSEL, NATIV 06/11/2016 [place] FACC, ALI FACP CCDS Ot 447.9 ARTERIAL DISEASE NOS 06/11/2016 [place] FACC, ALI FACP CCDS Ot 272.4 HYPERLIPIDEMIA NEC/NOS 06/11/2016 [place] FACC, ALI FACP CCDS Ot 401.9 HYPERTENSION NOS 06/11/2016 [place] FACC, ALI FACP CCDS Ot 414.00 CORON ATHEROSCLER NOS TYPE VESSEL, NATIV 06/11/2016 [place] FACC, ALI FACP CCDS Ot 424.1 AORTIC VALVE DISORDER 06/11/2016 [place] FACC, ALI FACP CCDS Ot 435.9 TRANS CEREB ISCHEMIA NOS 06/11/2016 DEMIANROSANA JORDAN CLINICAL PROGRAMMER Ot 272.4 HYPERLIPIDEMIA NEC/NOS 06/11/2016 DEMIANROSANA JORDAN L CLINICAL PROGRAMMER Ot 414.00 CORON ATHEROSCLER NOS TYPE VESSEL, NATIV 06/11/2016 DEMIANJULIAN ROSANA L CLINICAL PROGRAMMER Ot 433.10 CAROTID ARTERY OCCLUSION W O CEREBRAL IN 06/11/2016 PAULETTEROSANA L CLINICAL PROGRAMMER Ot 272.4 HYPERLIPIDEMIA NEC/NOS 06/11/2016 JASBIR LAND [facility], ALI FACP CCDS Ot E78.5 HYPERLIPIDEMIA, UNSPECIFIED 06/11/2016 [place] FACC, ALI FACP CCDS Ot I25.10 ATHSCL HEART DISEASE OF [place] CORONARY 06/11/2016 PAULETTE ROSANA L CLINICAL PROGRAMMER Ot E78.5 HYPERLIPIDEMIA, UNSPECIFIED 06/11/2016 PAULETTE ROSANA L CLINICAL PROGRAMMER Ot I10 ESSENTIAL (PRIMARY) HYPERTENSION 06/11/2016 PAULETTE ROSANA L CLINICAL PROGRAMMER Ot I25.10 ATHSCL HEART DISEASE OF [place] CORONARY 06/11/2016 ROSANA CALDWELL CLINICAL PROGRAMMER Ot 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 06/11/2016 ROSANA CALDWELL L CLINICAL PROGRAMMER Ot I73.9 PERIPHERAL VASCULAR DISEASE, UNSPECIFIED 06/11/2016 PAULETTE ROSANA Cierra CLINICAL PROGRAMMER Ot I77.9 DISORDER OF ARTERIES AND ARTERIOLES, UNS 06/11/2016 LUCA LOWE DO Ot 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, LUMBA 06/11/2016 LUCA LOWE DO Ot M48.06 SPINAL STENOSIS, LUMBAR REGION 06/11/2016 LUCA LOWE DO Ot S32.010A WEDGE COMPRESSION FRACTURE OF FIRST LUMB 06/11/2016 LUCA LOWE DO Ot X58.XXXA EXPOSURE TO OTHER SPECIFIED FACTORS, INI 06/11/2016 LUCA LOWE DO Ot Y99.8 OTHER EXTERNAL CAUSE STATUS 06/11/2016 ROSANA CALDWELL L CLINICAL PROGRAMMER Ot I10 ESSENTIAL (PRIMARY) HYPERTENSION 06/11/2016 ROSANA CALDWELL L CLINICAL PROGRAMMER Ot I25.10 ATHSCL HEART DISEASE OF [place] CORONARY 07/02/2016 ROSANA CALDWELL L CLINICAL PROGRAMMER Ot I10 ESSENTIAL (PRIMARY) HYPERTENSION 07/02/2016 ROSANA CALDWELL L CLINICAL PROGRAMMER Ot I25.10 ATHSCL HEART DISEASE OF [place] CORONARY 07/03/2016 ROSANA CALDWELL CLINICAL PROGRAMMER Ot E78.5 HYPERLIPIDEMIA, UNSPECIFIED 07/03/2016 BAIMA, ROSANA L CLINICAL PROGRAMMER Ot I25.10 ATHSCL HEART DISEASE OF [place] CORONARY 07/04/2016 BAIMAJONATHONROSANA L CLINICAL PROGRAMMER Ot I10 ESSENTIAL (PRIMARY) HYPERTENSION 07/04/2016 BAIMA, ROSANA L CLINICAL PROGRAMMER Ot I25.10 ATHSCL HEART DISEASE OF [place] CORONARY 07/22/2016 BAIMAROSANA L CLINICAL PROGRAMMER Ot E78.5 HYPERLIPIDEMIA, UNSPECIFIED 07/22/2016 BAIMA, ROSANA L CLINICAL PROGRAMMER Ot I25.10 ATHSCL HEART DISEASE OF [place] CORONARY 09/07/2016 Ot 784.7 10/06/2016 ESEQU[place]EL L[place], DELMY Gomez Ot I10 ESSENTIAL (PRIMARY) HYPERTENSION 10/06/2016 ESEQU[place]EL [place], DELMY Gomez Ot I25.10 ATHSCL HEART DISEASE OF [place] CORONARY 10/06/2016 [place], DELMY Gomez Ot I48.91 UNSPECIFIED ATRIAL FIBRILLATION 10/06/2016 [place], DELMY Gomez Ot J06.9 ACUTE UPPER RESPIRATORY INFECTION, UNSPE 10/06/2016 [place], DELMY Gomez Ot J44.9 CHRONIC OBSTRUCTIVE PULMONARY DISEASE , U 10/06/2016 [place], DELMY Gomez Ot R05 COUGH 10/06/2016 [place], DELMY Gomez Ot Z79.899 OTHER RESIDENTIAL (CURRENT) DRUG THERAPY 10/06/2016 [place], DELMY Gomez Ot Z95.1 PRESENCE OF AORTOCORONARY BYPASS GRAFT 10/17/2016 TACHO L[place], TARAS Merida Ot D64.9 ANEMIA, UNSPECIFIED 10/17/2016 TARAS TITUS MD Ot E03.9 HYPOTHYROIDISM, UNSPECIFIED 10/17/2016 TARAS TITUS MD Ot G47.30 SLEEP APNEA, UNSPECIFIED 10/17/2016 TARAS TITUS MD Ot I10 ESSENTIAL (PRIMARY) HYPERTENSION 10/17/2016 TARAS TITUS MD Ot I25.10 ATHSCL HEART DISEASE OF [place] CORONARY 10/17/2016 TARAS TITUS MD Ot I25.2 OLD MYOCARDIAL INFARCTION 10/17/2016 TARAS TITUS MD Ot I48.91 UNSPECIFIED ATRIAL FIBRILLATION 10/17/2016 TARAS TITUS MD, Ot J44.9 CHRONIC OBSTRUCTIVE PULMONARY DISEASE, U 10/17/2016 TARAS TITUS MD, Ot M17.12 UNILATERAL PRIMARY OSTEOARTHRITIS, LEFT 10/17/2016 TARAS TITUS MD, Ot N39.0 URINARY TRACT INFECTION, SITE NOT SPECIF 10/17/2016 TARAS TITUS MD, Ot N40.1 BENIGN PROSTATIC HYPERPLASIA WITH LOWER 10/17/2016 TARAS TITUS MD, Ot R33.8 OTHER RETENTION OF URINE 10/17/2016 TARAS TITUS MD, Ot S72.145A NONDISPLACED INTERTROCHANTERIC FRACTURE 10/17/2016 TARAS TITUS MD, Ot W18.39XA OTHER FALL ON SAME LEVEL, INITIAL ENCOUN 10/17/2016 TARAS TITUS MD, Ot Y92.000 [facility] NON-INSTITUT (PRIVATE) R 10/17/2016 TARAS TITUS MD, Ot Z79.01 RESIDENTIAL (CURRENT) USE OF ANTICOAGULANT 10/17/2016 TARAS TITUS MD, Ot Z86.73 PRSNL HX OF TIA (TIA), AND CEREB INFRC W 10/17/2016 TARAS TITUS MD, Ot Z95.1 PRESENCE OF AORTOCORONARY BYPASS GRAFT 10/17/2016 TARAS TITUS MD, Ot Z95.5 PRESENCE OF CORONARY ANGIOPLASTY IMPLANT 10/17/2016 TARAS TITUS MD, Ot Z99.81 DEPENDENCE ON SUPPLEMENTAL OXYGEN Procedures Results Test Result Range Complete blood count (CBC) with automated white blood cell (WBC) differential - 10/04/16 18:33 Blood leukocytes automated count (number/volume) 11.0 10*3/ uL 4.3-11.0 Blood erythrocytes automated count (number/volume) 4.78 10*6 /uL 4.35-5.85 Venous blood hemoglobin measurement (mass/volume) 15.2 g/dL 13.3-17.7 Blood hematocrit (volume fraction) 45 % 40-54 Automated erythrocyte mean corpuscular volume 94 [foz_us] 80-99 Automated erythrocyte mean corpuscular hemoglobin (mass per erythrocyte) 32 pg 25-34 Automated erythrocyte mean corpuscular hemoglobin concentration measurement ( mass/volume) 34 g/dL 32-36 Automated erythrocyte distribution width ratio 14.4 % 10.0-14.5 Automated blood platelet count (count/volume) 287 10*3/uL 130-400 Automated blood platelet mean volume measurement 10.2 [foz_ us] 7.4-10.4 Automated blood neutrophils/100 leukocytes 63 % 42-75 Automated blood lymphocytes/100 leukocytes 20 % 12-44 Blood monocytes/100 leukocytes 11 % 0-12 Automated blood eosinophils/100 leukocytes 6 % 0-10 Automated blood basophils/100 leukocytes 1 % 0-10 Blood neutrophils automated count (number/volume) 6.9 10*3 1.8-7.8 Blood lymphocytes automated count (number/volume) 2.2 10*3 1.0-4.0 Blood monocytes automated count (number/volume) 1.2 10*3 0.0-1.0 Automated eosinophil count 0.7 10*3/uL 0.0-0.3 Automated blood basophil count (count/volume) 0.1 10*3/uL 0.0-0.1 Influenza virus A and B antigen detection - 10/04/16 18:33 FLU RESULT NEGATIVE FOR INFLUENZA A AND B ANTIGENS BY IA [facility] Comprehensive metabolic panel - 10/04/16 18:33 Serum or plasma sodium measurement (moles/volume) 139 mmol/ L 135-145 Serum or plasma potassium measurement (moles/volume) 4.1 mmol/L 3.6-5.0 Serum or plasma chloride measurement (moles/volume) 107 mmol /L 98-107 Carbon dioxide 23 mmol/L 21-32 Serum or plasma anion gap determination (moles/volume) 9 mmol/L 5-14 Serum or plasma urea nitrogen measurement (mass/volume) 16 mg/dL 7-18 Serum or plasma creatinine measurement (mass/volume) 1.23 mg /dL 0.60-1.30 Serum or plasma urea nitrogen/creatinine mass ratio 13 [facility] Serum or plasma creatinine measurement with calculation of estimated glomerular filtration rate 55 NR Serum or plasma glucose measurement (mass/volume) 93 mg/dL 70-105 Serum or plasma calcium measurement (mass/volume) 8.7 mg/dL 8.5-10.1 Serum or plasma total bilirubin measurement (mass/volume) 0.6 mg/dL 0.1-1.0 Serum or plasma alkaline phosphatase measurement (enzymatic activity/volume) 114 U/L 40-136 Serum or plasma aspartate aminotransferase measurement (enzymatic activity/ volume) 20 U/L 5-34 Serum or plasma alanine aminotransferase measurement (enzymatic activity/volume ) 19 U/L 0-55 Serum or plasma protein measurement (mass/volume) 6.8 g/dL 6.4-8.2 Serum or plasma albumin measurement (mass/volume) 4.0 g/dL 3.2-4.5 Serum or plasma C reactive protein measurement (mass/volume) - 10/04/16 18:33 Serum or plasma C reactive protein measurement (mass/volume) 1.95 mg/dL 0.00-0.50 Serum or plasma lithium measurement (moles/volume) - 10/04/16 18:33 BNP level 304.3 pg/mL <100.0 THYROID STIMULATING HORMONE - 10/04/16 18:33 THYROID STIMULATING HORMONE 6.97 u[iU]/mL 0.35-4.94 Serum or plasma thyroxine (T4) free measurement (mass/volume) - 10/04/16 18:33 Serum or plasma thyroxine (T4) free measurement (mass/volume) 1.28 ng/dL 0.70-1.48 Complete blood count (CBC) with automated white blood cell (WBC) differential - 10/11/16 22:16 Blood leukocytes automated count (number/volume) 10.9 10*3/ uL 4.3-11.0 Blood erythrocytes automated count (number/volume) 4.42 10*6 /uL 4.35-5.85 Venous blood hemoglobin measurement (mass/volume) 14.1 g/dL 13.3-17.7 Blood hematocrit (volume fraction) 41 % 40-54 Automated erythrocyte mean corpuscular volume 93 [foz_us] 80-99 Automated erythrocyte mean corpuscular hemoglobin (mass per erythrocyte) 32 pg 25-34 Automated erythrocyte mean corpuscular hemoglobin concentration measurement ( mass/volume) 34 g/dL 32-36 Automated erythrocyte distribution width ratio 13.7 % 10.0-14.5 Automated blood platelet count (count/volume) 300 10*3/uL 130-400 Automated blood platelet mean volume measurement 9.9 [foz_us ] 7.4-10.4 Automated blood neutrophils/100 leukocytes 71 % 42-75 Automated blood lymphocytes/100 leukocytes 15 % 12-44 Blood monocytes/100 leukocytes 10 % 0-12 Automated blood eosinophils/100 leukocytes 3 % 0-10 Automated blood basophils/100 leukocytes 0 % 0-10 Blood neutrophils automated count (number/volume) 7.7 10*3 1.8-7.8 Blood lymphocytes automated count (number/volume) 1.7 10*3 1.0-4.0 Blood monocytes automated count (number/volume) 1.1 10*3 0.0-1.0 Automated eosinophil count 0.4 10*3/uL 0.0-0.3 Automated blood basophil count (count/volume) 0.0 10*3/uL 0.0-0.1 PT panel in platelet poor plasma by coagulation assay - 10/11/16 22:16 Prothrombin time (PT) in platelet poor plasma by coagulation assay 13.8 s 12.2-14.7 INR in platelet poor plasma or blood by coagulation assay 1.1 0.8-1.4 Activated partial thromboplastin time (aPTT) in platelet poor plasma bycoagulation assay - 10/11/16 22:16 Activated partial thromboplastin time (aPTT) in platelet poor plasma bycoagulation assay 35 s 24-35 Comprehensive metabolic panel - 10/11/16 22:16 Serum or plasma sodium measurement (moles/volume) 140 mmol/ L 135-145 Serum or plasma potassium measurement (moles/volume) 3.6 mmol/L 3.6-5.0 Serum or plasma chloride measurement (moles/volume) 108 mmol /L 98-107 Carbon dioxide 21 mmol/L 21-32 Serum or plasma anion gap determination (moles/volume) 11 mmol/L 5-14 Serum or plasma urea nitrogen measurement (mass/volume) 15 mg/dL 7-18 Serum or plasma creatinine measurement (mass/volume) 1.26 mg /dL 0.60-1.30 Serum or plasma urea nitrogen/creatinine mass ratio 12 NRG Serum or plasma creatinine measurement with calculation of estimated glomerular filtration rate 54 NRG Serum or plasma glucose measurement (mass/volume) 131 mg/dL 70-105 Serum or plasma calcium measurement (mass/volume) 8.3 mg/dL 8.5-10.1 Serum or plasma total bilirubin measurement (mass/volume) 0.5 mg/dL 0.1-1.0 Serum or plasma alkaline phosphatase measurement (enzymatic activity/volume) 114 U/L 40-136 Serum or plasma aspartate aminotransferase measurement (enzymatic activity/ volume) 25 U/L 5-34 Serum or plasma alanine aminotransferase measurement (enzymatic activity/volume ) 23 U/L 0-55 Serum or plasma protein measurement (mass/volume) 6.1 g/dL 6.4-8.2 Serum or plasma albumin measurement (mass/volume) 3.4 g/dL 3.2-4.5 Complete blood count (CBC) with automated white blood cell (WBC) differential - 10/12/16 05:45 Blood leukocytes automated count (number/volume) 14.6 10*3/ uL 4.3-11.0 Blood erythrocytes automated count (number/volume) 4.29 10*6 /uL 4.35-5.85 Venous blood hemoglobin measurement (mass/volume) 13.7 g/dL 13.3-17.7 Blood hematocrit (volume fraction) 40 % 40-54 Automated erythrocyte mean corpuscular volume 94 [foz_us] 80-99 Automated erythrocyte mean corpuscular hemoglobin (mass per erythrocyte) 32 pg 25-34 Automated erythrocyte mean corpuscular hemoglobin concentration measurement ( mass/volume) 34 g/dL 32-36 Automated erythrocyte distribution width ratio 13.7 % 10.0-14.5 Automated blood platelet count (count/volume) 317 10*3/uL 130-400 Automated blood platelet mean volume measurement 10.4 [foz_ us] 7.4-10.4 Automated blood neutrophils/100 leukocytes 80 % 42-75 Automated blood lymphocytes/100 leukocytes 8 % 12-44 Blood monocytes/100 leukocytes 11 % 0-12 Automated blood eosinophils/100 leukocytes 1 % 0-10 Automated blood basophils/100 leukocytes 0 % 0-10 Blood neutrophils automated count (number/volume) 11.8 10*3 1.8-7.8 Blood lymphocytes automated count (number/volume) 1.2 10*3 1.0-4.0 Blood monocytes automated count (number/volume) 1.6 10*3 0.0-1.0 Automated eosinophil count 0.1 10*3/uL 0.0-0.3 Automated blood basophil count (count/volume) 0.0 10*3/uL 0.0-0.1 Blood manual differential performed detection - 10/12/16 05:45 Blood monocytes/100 leukocytes 8 % NRG Manual blood segmented neutrophils/100 leukocytes 80 % NRG Blood band neutrophils/100 leukocytes 0 % NRG Manual blood lymphocytes/100 leukocytes 4 % NRG Manual eosinophils/100 leukocytes in nose 0 % NRG Manual blood basophils/100 leukocytes 0 % [facility] Blood lymphocytes variant/100 leukocytes 8 % [facility] Blood erythrocyte morphology finding identification NORMAL [facility] Comprehensive metabolic panel - 10/12/16 05:45 Serum or plasma sodium measurement (moles/volume) 141 mmol/ L 135-145 Serum or plasma potassium measurement (moles/volume) 3.8 mmol/L 3.6-5.0 Serum or plasma chloride measurement (moles/volume) 107 mmol /L 98-107 Carbon dioxide 23 mmol/L 21-32 Serum or plasma anion gap determination (moles/volume) 11 mmol/L 5-14 Serum or plasma urea nitrogen measurement (mass/volume) 14 mg/dL 7-18 Serum or plasma creatinine measurement (mass/volume) 1.19 mg /dL 0.60-1.30 Serum or plasma urea nitrogen/creatinine mass ratio 12 NRG Serum or plasma creatinine measurement with calculation of estimated glomerular filtration rate 58 NR Serum or plasma glucose measurement (mass/volume) 132 mg/dL 70-105 Serum or plasma calcium measurement (mass/volume) 8.2 mg/dL 8.5-10.1 Serum or plasma total bilirubin measurement (mass/volume) 0.7 mg/dL 0.1-1.0 Serum or plasma alkaline phosphatase measurement (enzymatic activity/volume) 99 U/L 40-136 Serum or plasma aspartate aminotransferase measurement (enzymatic activity/ volume) 21 U/L 5-34 Serum or plasma alanine aminotransferase measurement (enzymatic activity/volume ) 22 U/L 0-55 Serum or plasma protein measurement (mass/volume) 6.0 g/dL 6.4-8.2 Serum or plasma albumin measurement (mass/volume) 3.5 g/dL 3.2-4.5 Complete urinalysis with reflex to culture - 10/12/16 06:50 Urine color determination YELLOW [facility] Urine clarity determination SLIGHTLY CLOUDY [facility] Urine pH measurement by test strip 6 5- 9 Specific gravity of urine by test strip 1.025 1.016-1.022 Urine protein assay by test strip, semi-quantitative NEGATIVE NEGATIVE Urine glucose detection by automated test strip NEGATIVE NEGATIVE Erythrocytes detection in urine sediment by light microscopy 3+ NEGATIVE Urine ketones detection by automated test strip NEGATIVE NEGATIVE Urine nitrite detection by test strip NEGATIVE NEGATIVE Urine total bilirubin detection by test strip NEGATIVE NEGATIVE Urine urobilinogen measurement by automated test strip (mass/volume) NORMAL NORMAL Urine leukocyte esterase detection by dipstick NEGATIVE NEGATIVE Automated urine sediment erythrocyte count by microscopy (number/high power field) [HPF] NRG Automated urine sediment leukocyte count by microscopy (number/high power field ) [HPF] NRG Bacteria detection in urine sediment by light microscopy MODERATE NRG Squamous epithelial cells detection in urine sediment by light microscopy NONE NRG Crystals detection in urine sediment by light microscopy NONE NRG Casts detection in urine sediment by light microscopy NONE NRG Mucus detection in urine sediment by light microscopy NEGATIVE NRG Complete urinalysis with reflex to culture YES NRG Bacterial urine culture - 10/12/16 06:50 Bacterial urine culture NG NRG Methicillin resistant Staphylococcus aureus (MRSA) screening culture - 15:45 Methicillin resistant Staphylococcus aureus (MRSA) screening culture NEG NRG Automated blood complete blood count (hemogram) panel - 10/13/16 04:20 Blood leukocytes automated count (number/volume) 13.4 10*3/ uL 4.3-11.0 Blood erythrocytes automated count (number/volume) 3.84 10*6 /uL 4.35-5.85 Venous blood hemoglobin measurement (mass/volume) 12.1 g/dL 13.3-17.7 Blood hematocrit (volume fraction) 36 % 40-54 Automated erythrocyte mean corpuscular volume 95 [foz_us] 80-99 Automated erythrocyte mean corpuscular hemoglobin (mass per erythrocyte) 32 pg 25-34 Automated erythrocyte mean corpuscular hemoglobin concentration measurement ( mass/volume) 33 g/dL 32-36 Automated erythrocyte distribution width ratio 13.8 % 10.0-14.5 Automated blood platelet count (count/volume) 247 10*3/uL 130-400 Automated blood platelet mean volume measurement 10.3 [foz_ us] 7.4-10.4 Whole blood basic metabolic panel - 10/13/16 04:20 Serum or plasma sodium measurement (moles/volume) 137 mmol/ L 135-145 Serum or plasma potassium measurement (moles/volume) 4.1 mmol/L 3.6-5.0 Serum or plasma chloride measurement (moles/volume) 106 mmol /L 98-107 Carbon dioxide 22 mmol/L 21-32 Serum or plasma anion gap determination (moles/volume) 9 mmol/L 5-14 Serum or plasma urea nitrogen measurement (mass/volume) 14 mg/dL 7-18 Serum or plasma creatinine measurement (mass/volume) 1.14 mg /dL 0.60-1.30 Serum or plasma urea nitrogen/creatinine mass ratio 12 NRG Serum or plasma creatinine measurement with calculation of estimated glomerular filtration rate 60 NRG Serum or plasma glucose measurement (mass/volume) 144 mg/dL 70-105 Serum or plasma calcium measurement (mass/volume) 7.9 mg/dL 8.5-10.1 Automated blood complete blood count (hemogram) panel - 10/14/16 06:28 Blood leukocytes automated count (number/volume) 12.6 10*3/ uL 4.3-11.0 Blood erythrocytes automated count (number/volume) 3.10 10*6 /uL 4.35-5.85 Venous blood hemoglobin measurement (mass/volume) 9.8 g/dL 13.3-17.7 Blood hematocrit (volume fraction) 30 % 40-54 Automated erythrocyte mean corpuscular volume 96 [foz_us] 80-99 Automated erythrocyte mean corpuscular hemoglobin (mass per erythrocyte) 32 pg 25-34 Automated erythrocyte mean corpuscular hemoglobin concentration measurement ( mass/volume) 33 g/dL 32-36 Automated erythrocyte distribution width ratio 13.6 % 10.0-14.5 Automated blood platelet count (count/volume) 207 10*3/uL 130-400 Automated blood platelet mean volume measurement 10.4 [foz_ us] 7.4-10.4 Comprehensive metabolic panel - 10/14/16 06:28 Serum or plasma sodium measurement (moles/volume) 134 mmol/ L 135-145 Serum or plasma potassium measurement (moles/volume) 4.1 mmol/L 3.6-5.0 Serum or plasma chloride measurement (moles/volume) 104 mmol /L 98-107 Carbon dioxide 24 mmol/L 21-32 Serum or plasma anion gap determination (moles/volume) 6 mmol/L 5-14 Serum or plasma urea nitrogen measurement (mass/volume) 18 mg/dL 7-18 Serum or plasma creatinine measurement (mass/volume) 1.22 mg /dL 0.60-1.30 Serum or plasma urea nitrogen/creatinine mass ratio 15 NRG Serum or plasma creatinine measurement with calculation of estimated glomerular filtration rate 56 NRG Serum or plasma glucose measurement (mass/volume) 151 mg/dL 70-105 Serum or plasma calcium measurement (mass/volume) 7.6 mg/dL 8.5-10.1 Serum or plasma total bilirubin measurement (mass/volume) 0.8 mg/dL 0.1-1.0 Serum or plasma alkaline phosphatase measurement (enzymatic activity/volume) 54 U/L 40-136 Serum or plasma aspartate aminotransferase measurement (enzymatic activity/ volume) 15 U/L 5-34 Serum or plasma alanine aminotransferase measurement (enzymatic activity/volume ) 12 U/L 0-55 Serum or plasma protein measurement (mass/volume) 4.6 g/dL 6.4-8.2 Serum or plasma albumin measurement (mass/volume) 2.6 g/dL 3.2-4.5 Automated blood complete blood count (hemogram) panel - 10/15/16 05:03 Blood leukocytes automated count (number/volume) 15.1 10*3/ uL 4.3-11.0 Blood erythrocytes automated count (number/volume) 2.81 10*6 /uL 4.35-5.85 Venous blood hemoglobin measurement (mass/volume) 8.9 g/dL 13.3-17.7 Blood hematocrit (volume fraction) 27 % 40-54 Automated erythrocyte mean corpuscular volume 96 [foz_us] 80-99 Automated erythrocyte mean corpuscular hemoglobin (mass per erythrocyte) 32 pg 25-34 Automated erythrocyte mean corpuscular hemoglobin concentration measurement ( mass/volume) 33 g/dL 32-36 Automated erythrocyte distribution width ratio 13.5 % 10.0-14.5 Automated blood platelet count (count/volume) 230 10*3/uL 130-400 Automated blood platelet mean volume measurement 10.8 [foz_ us] 7.4-10.4 Whole blood basic metabolic panel - 10/15/16 05:03 Serum or plasma sodium measurement (moles/volume) 136 mmol/ L 135-145 Serum or plasma potassium measurement (moles/volume) 4.5 mmol/L 3.6-5.0 Serum or plasma chloride measurement (moles/volume) 104 mmol /L 98-107 Carbon dioxide 21 mmol/L 21-32 Serum or plasma anion gap determination (moles/volume) 11 mmol/L 5-14 Serum or plasma urea nitrogen measurement (mass/volume) 31 mg/dL 7-18 Serum or plasma creatinine measurement (mass/volume) 2.67 mg /dL 0.60-1.30 Serum or plasma urea nitrogen/creatinine mass ratio 12 NRG Serum or plasma creatinine measurement with calculation of estimated glomerular filtration rate 23 NRG Serum or plasma glucose measurement (mass/volume) 143 mg/dL 70-105 Serum or plasma calcium measurement (mass/volume) 7.9 mg/dL 8.5-10.1 RED CELLS LEUKO REDUCED AS1 - 10/15/16 12:20 RED CELLS LEUKO REDUCED AS1 TRANSFUSED 1735 NR Blood type T Indirect antibody screen panel - 10/15/16 12:20 ABO+Rh group ON NRG Transfusion band number [id number] [facility] Blood group antibody screen NEGATIVE NRG Capillary blood glucose measurement by glucometer (mass/volume) - 10/15/16 16: 29 Capillary blood glucose measurement by glucometer (mass/volume) 133 mg/dL 70-110 Automated blood complete blood count (hemogram) panel - 10/16/16 07:24 Blood leukocytes automated count (number/volume) 12.2 10*3/ uL 4.3-11.0 Blood erythrocytes automated count (number/volume) 3.01 10*6 /uL 4.35-5.85 Venous blood hemoglobin measurement (mass/volume) 9.4 g/dL 13.3-17.7 Blood hematocrit (volume fraction) 28 % 40-54 Automated erythrocyte mean corpuscular volume 93 [foz_us] 80-99 Automated erythrocyte mean corpuscular hemoglobin (mass per erythrocyte) 31 pg 25-34 Automated erythrocyte mean corpuscular hemoglobin concentration measurement ( mass/volume) 34 g/dL 32-36 Automated erythrocyte distribution width ratio 14.1 % 10.0-14.5 Automated blood platelet count (count/volume) 265 10*3/uL 130-400 Automated blood platelet mean volume measurement 10.4 [foz_ us] 7.4-10.4 Comprehensive metabolic panel - 10/16/16 07:24 Serum or plasma sodium measurement (moles/volume) 135 mmol/ L 135-145 Serum or plasma potassium measurement (moles/volume) 4.0 mmol/L 3.6-5.0 Serum or plasma chloride measurement (moles/volume) 104 mmol /L 98-107 Carbon dioxide 23 mmol/L 21-32 Serum or plasma anion gap determination (moles/volume) 8 mmol/L 5-14 Serum or plasma urea nitrogen measurement (mass/volume) 40 mg/dL 7-18 Serum or plasma creatinine measurement (mass/volume) 1.98 mg /dL 0.60-1.30 Serum or plasma urea nitrogen/creatinine mass ratio 20 NRG Serum or plasma creatinine measurement with calculation of estimated glomerular filtration rate 32 NRG Serum or plasma glucose measurement (mass/volume) 124 mg/dL 70-105 Serum or plasma calcium measurement (mass/volume) 7.8 mg/dL 8.5-10.1 Serum or plasma total bilirubin measurement (mass/volume) 1.1 mg/dL 0.1-1.0 Serum or plasma alkaline phosphatase measurement (enzymatic activity/volume) 75 U/L 40-136 Serum or plasma aspartate aminotransferase measurement (enzymatic activity/ volume) 49 U/L 5-34 Serum or plasma alanine aminotransferase measurement (enzymatic activity/volume ) 24 U/L 0-55 Serum or plasma protein measurement (mass/volume) 5.0 g/dL 6.4-8.2 Serum or plasma albumin measurement (mass/volume) 2.6 g/dL 3.2-4.5 Automated blood complete blood count (hemogram) panel - 10/17/16 06:12 Blood leukocytes automated count (number/volume) 11.3 10*3/ uL 4.3-11.0 Blood erythrocytes automated count (number/volume) 2.85 10*6 /uL 4.35-5.85 Venous blood hemoglobin measurement (mass/volume) 8.9 g/dL 13.3-17.7 Blood hematocrit (volume fraction) 27 % 40-54 Automated erythrocyte mean corpuscular volume 93 [foz_us] 80-99 Automated erythrocyte mean corpuscular hemoglobin (mass per erythrocyte) 31 pg 25-34 Automated erythrocyte mean corpuscular hemoglobin concentration measurement ( mass/volume) 34 g/dL 32-36 Automated erythrocyte distribution width ratio 13.5 % 10.0-14.5 Automated blood platelet count (count/volume) 306 10*3/uL 130-400 Automated blood platelet mean volume measurement 10.3 [foz_ us] 7.4-10.4 Comprehensive metabolic panel - 10/17/16 06:12 Serum or plasma sodium measurement (moles/volume) 137 mmol/ L 135-145 Serum or plasma potassium measurement (moles/volume) 3.6 mmol/L 3.6-5.0 Serum or plasma chloride measurement (moles/volume) 107 mmol /L 98-107 Carbon dioxide 22 mmol/L 21-32 Serum or plasma anion gap determination (moles/volume) 8 mmol/L 5-14 Serum or plasma urea nitrogen measurement (mass/volume) 33 mg/dL 7-18 Serum or plasma creatinine measurement (mass/volume) 1.23 mg /dL 0.60-1.30 Serum or plasma urea nitrogen/creatinine mass ratio 27 NRG Serum or plasma creatinine measurement with calculation of estimated glomerular filtration rate 55 NRG Serum or plasma glucose measurement (mass/volume) 109 mg/dL 70-105 Serum or plasma calcium measurement (mass/volume) 7.9 mg/dL 8.5-10.1 Serum or plasma total bilirubin measurement (mass/volume) 1.0 mg/dL 0.1-1.0 Serum or plasma alkaline phosphatase measurement (enzymatic activity/volume) 103 U/L 40-136 Serum or plasma aspartate aminotransferase measurement (enzymatic activity/ volume) 69 U/L 5-34 Serum or plasma alanine aminotransferase measurement (enzymatic activity/volume ) 42 U/L 0-55 Serum or plasma protein measurement (mass/volume) 5.0 g/dL 6.4-8.2 Serum or plasma albumin measurement (mass/volume) 2.5 g/dL 3.2-4.5 Encounters ACCT No. Visit Date/Time Discharge Status Pt. Type Provider Facility Loc./Unit Complaint [id number] 10/11/2016 22:55:00 2016 10:19:00 DIS Inpatient TARAS TITUS MD [facility] 4TH L HIP FRACTURE [id number] 10/04/2016 18:11:00 2016 20:40:00 DIS Outpatient DELMY IRAHETA MD [facility] ER COUGH/ACHING [id number] 06/05/2016 12:58:00 2015 13:57:00 DIS Outpatient DELMY GILES [facility] REHAB BACK PAIN [id number] 12/06/2015 10:45:00 2015 11:30:00 DIS Outpatient TARAS TITUS MD [facility] REHAB BACK PAIN; S/P KYPHOPLASTY; WEAKNESS [id number] 06/19/2015 09:26:00 10/13/ 2015 11:16:00 DIS Emergency LUZ LAND, NERY D [facility] ER BACK PAIN [id number] 03/21/2015 08:49:00 2014 23:59:59 CLS Outpatient ROSANA CALDWELL L [employer]ICAL PROGRAMMER [facility] LAB HLP [id number] 12/07/2014 19:32:00 2014 17:15:00 DIS Inpatient CARISA GARY MD [facility] SURGICAL GASTROCNEMIUS MUSCLE HEMATOMA [id number] 09/06/2014 09:08:00 2013 23:59:59 CLS Outpatient ROSANA CALDWELL L CL[employer]ICAL PROGRAMMER [facility] LAB CAD,CAROTID ARTERIAL DISEASE ,HYPERLIPIDEMIA [id number] 04/20/2014 07:46:00 2013 23:59:59 CLS Outpatient JASBIR LAND FACC, ALI FACYaneth CCDS [facility] CARD PAD,HTN,HLP,CAD [id number] 04/10/2014 09:40:00 2013 23:59:59 CLS Outpatient JASBIR LAND FACC, KAJAL FACYaneth CCDS [facility] CARD PAD,HTN,HLP,CAD [id number] 02/06/2014 07:19:00 2013 23:59:59 CLS Outpatient ROSANA CALDWELL CL[employer]ICAL PROGRAMMER [facility] LAB CAD,HLP,STATIN [place] [id number] 01/16/2014 12:41:00 2013 23:59:59 CLS Outpatient SHERYL RAMON MD [facility] RAD BASILAR ARTERY INSUFFICIENCY [id number] 01/11/2014 12:31:00 2013 23:59:59 CLS Outpatient SHERYL RAMON MD [facility] RAD NEAR SYNCOPE [id number] 07/04/2013 07:20:00 2012 23:59:59 CLS Outpatient ROSANA CALDWELL L CLINICAL PROGRAMMER [facility] LAB STATIN [place],HYPERLIPIDEMIA [id number] 05/12/2013 07:16:00 2012 23:59:59 CLS Outpatient JASBIR LAND FACMarie, ALI FACYaneth CCDS [facility] RAD CAD [id number] 10/17/2016 08:22:00 WILL TTIUS MD, TARAS SNYDER [id number] 07/02/2016 08:05:00 ACT Outpatient ROSANA CALDWELL [facility] LAB CAD,HLP [id number] 06/10/2016 11:45:00 ACT Outpatient ROSANA CALDWELL CL[employer]ICAL PROGRAMMER [facility] CARD CAD,HTN [id number] 04/03/2016 11:45:00 ACT Outpatient MYNOR JAY LUCA Estee [facility] RAD SPONDYLOSIS [id number] 02/21/2016 11:42:00 ACT Outpatient ROSANA CALDWELLP [facility] CARD CAD,CAROTID ARTERIAL DISEASE,HTN,HLP,PAD [id number] 10/08/2015 08:05:00 ACT Outpatient JASBIR LAND FACC, ALI FACYaneth CCDS [facility] LAB CD,HLP [id number] 09/29/2012 07:53:00 Document Registration [id number] 03/24/2012 08:10:00 Document Registration [id number] 02/20/2012 09:10:00 Document Registration [id number] 09/03/2011 08:38:00 Document Registration [id number] 08/25/2011 16:28:00 Document Registration [id number] 07/28/2011 05:31:00 Document Registration [id number] 07/21/2011 09:30:00 Document Registration [id number] 02/13/2011 07:40:00 Document Registration [id number] 08/28/2010 08:14:00 Document Registration [id number] 07/30/2010 15:16:00 Document Registration [id number] 03/20/2009 20:38:00 Document Registration
[2016-10-17 11:20] VITALS: BP 120/70
[2016-10-17] MEDS: NS IV 1000 ML 1,000 ML IV SCH (11:26)
--- NOTE | 2016-10-17 11:58 | Physical Therapy Evaluation ---
PT Evaluation-General Medical Diagnosis Admission Date Oct 17, 2016 at 10:20 Medical Diagnosis: left hip fracture Onset Date: Oct 11, 2016 Therapy Diagnosis Therapy Diagnosis: general debility and weakness Height/Weight Height (Feet): 6 Height (Inches): 0.00 Weight (Pounds): 215 Weight (Ounces): 8.0 Precautions Precautions/Isolations: Standard Precautions Weight Bear Status Weight Bearing Restriction: Weight Bearing/Tolerated Location Restriction: L LE Referral Physician: Meg Reason for Referral: Evaluation/Treatment Medical History Pertinent Medical History: Atrial Fib, Arthritis, CABG, CAD, COPD, CVA, HTN, Hypothroidism, [place] Additional Medical History decreased BP and SAO2 after surgery Current History SWB status Reviewed History: Yes Social History Home: Single Level Current Living Status: Spouse Prior/Core FIM Prior Level of Function Functional [place] Measure 0=Not Assessed/NA 4=Minimal Assistance 1=Total Assistance 5=Supervision or Setup 2=Maximal Assistance 6=Modified [place] 3=Moderate Assistance 7=Complete [place] Bed Mobility: 6 Transfers (B,C,W/C) (FIM): 6 Gait: 6 cane for ambulation PT Evaluation-Current Subjective Patient is more alert today. Agrees to PT. Patient states, "It feels like my left leg is paralyzed." Pain Numeric Pain Scale: 8 Location: Left Location Body Site: Hip Pain Description: Pressure, Acute Objective Patient Orientation: Person, Time, Situation Problem Solving: Fair Attachments: Oxygen (5L HF NC), Bautista Catheter, IV ROM/Strength ROM Lower Extremities right LE WFL; left LE limited due to edema and pain Strenght Lower Extremities right hip flexion 3/5; knee flexion/extension 3/5; ankle dorsi/plantarflexion 3/ 5 left hip flexion 1/5; knee flexion/extension 2-/5; ankle dorsi/plantarflexion 2- /5 Integumentary/Posture Integumentary refer to nursing notes Bowel Incontinence: Yes Bladder Incontinence: Bautista Cath Posture severe hip flexion and knee flexion posture PLOF Neuromuscular (Tone, Coordination, Reflexes) severely diminished coordination with all mobility Sensory Vision: Functional Hearing: Impaired Sensation Right Lower Extremit: Impaired Sensation Left Lower Extremity: Impaired Transfers Functional [place] Measure 0=Not Assessed/NA 4=Minimal Assistance 1=Total Assistance 5=Supervision or Setup 2=Maximal Assistance 6=Modified [place] 3=Moderate Assistance 7=Complete [place] Transfers (B, C, W/C) (FIM): 1 Scootin Rollin Supine to/from Sit: 1 Sit to/from Stand: 1 bed t/f WC(FIM only if WC use): 1 Sit to Lying (QC): 1 Lying to Sitting/Side of Bed(Q: 1 Sit to Stand (QC): 1 Chair/Pfy-gv-Neywt Xfer(QC): 1 Patient continues to be dependent x 2 with all mobility and SPT; patient unable to maintain sitting EOB without max assist Gait Does the Patient Walk?: No and Walking Goal IS indicated Walk 50 ft with 2 Turns(QC): 88 Walk 150 ft (QC): 88 Wheelchair Training Does the Pt Use a Wheelchair?: No Stairs If not tested on admit;explain Patient unable to sit or stand without dependent assist Balance Sitting Static: Poor Sitting Dynamic: Poor Standing Static: Poor Standing Dynamic: Poor Treatment bilateral LE exercises AAROM 10 reps x 3 sets AP, LAQ, hip flexion Assessment/Needs 89 y.o. male, will benefit from skilled PT to address functional strength and mobility to improve current LOF and to safely return to home or care facility at maximum LOF. Patient is very limited with all mobility at this time. Rehab Potential: Fair Post Rehab Potential-Barriers: medical status PT Supervisor Parking Lot Goals Supervisor Parking Lot Goals PT Supervisor Parking Lot Goals Time Frame: Oct 31, 2016 Transfers (B,C,W/C) (FIM): 5 Sit to Lying (QC): 5 Lying-Sitting on Side/Bed(QC): 5 Sit to Stand (QC): 5 Rollin Chair/Jlm-mp-Rzfbd Xfer(QC): 5 Does the Patient Walk: No and Walking Goal IS indicated Gait (FIM): 1 Gait distance (FIM): 1=up to 49 ft Distance: 45' Gait Assistive Device: FWW PT Plan Problem List Problem List: Activity Tolerance, Functional Strength, Safety, Balance, Gait, Transfer, Bed Mobility Treatment/Plan Treatment Plan: Continue Plan of Care Treatment Plan: Bed Mobility, Education, Functional Activity Geovani, Functional Strength, Gait, Safety, Therapeutic Exercise, Transfers Treatment Duration: Oct 31, 2016 # of days/week 6 Visits Per Week: 11 Minutes/Day (M-F): 15-45 Minutes/Day (Sat/Modi): PRN Pt/Family Agrees w/Plan: Yes Safety Risks/Education Patient Education: Safety Issues Teaching Recipient: Patient, Significant Other Teaching Methods: Discussion Response to Teaching: Verbalize Understanding Time/GCodes Time In: 1115 Time Out: 1140 Total Billed Treatment Time: 25 Total Billed Treatment 1 visit EVModC 10 min EX 15 min RAQUEL AYALA PT Oct 17, 2016 11:58
[2016-10-17] MEDS: CATHETER FLUSH 10 ML SYR IV SCH ×2 (13:19→21:17)
[2016-10-17] MEDS: BETHANECHOL 25 MG (URECHOLINE) TAB PO SCH ×2 (13:22→21:17)
--- NOTE | 2016-10-17 13:35 | Occupational Therapy Eval ---
OT Evaluation-General/PLF Medical Diagnosis Admission Date Oct 17, 2016 at 10:20 Medical Diagnosis: left hip fracture Onset Date: Oct 11, 2016 Therapy Diagnosis Therapy Diagnosis: decreased self care skills Height/Weight Height (Feet): 6 Height (Inches): 0.00 Weight (Pounds): 215 Weight (Ounces): 8.0 Precautions Precautions/Isolations: Standard Precautions Weight Bear Status Weight Bearing Restriction: Weight Bearing/Tolerated Location Restriction: L LE Referral Physician: Meg Medical History Pertinent Medical History: Atrial Fib, Arthritis, CABG, CAD, COPD, CVA, HTN, Hypothroidism, [place] Current History Pt had fall at home with left hip fracture. Now s/p ORIF Reviewed History: Yes Social History Home: Single Level Current Living Status: Spouse Entry Into Home: Stairs With Railing Steps Into Home: 3 ADL-Prior Level of Function ADL PLOF Comments Pt reports being independent with basic self care prior to admission. Used a cane for mobility. DME/Equipment: Grab Bars, Shower, Tub/Shower, Toilet/Riser (available if needed ) Drive Self: Yes OT Current Status Subjective Pt sitting in chair, agrees to treatment. Pt reports 5/10 pain in left LE Mental Status/Objective Patient Orientation: Person, Place Attachments: Bautista Catheter, IV, Oxygen Current Glasses/Contacts: Yes Hearing Aids: No Dentures/Partials: No Hand Dominance: Right Upper Extremity ROM Shoulder flexion limited to 100 degrees, but the remainder WFL Upper Extremity Coordination Fair Upper Extremity Strength Grossly 4-/5 ADL-Treatment ADL-Current Pt participated in UE assessment while seated. Grooming tasks completed seated in chair. Pt washed face with set up. Brushed teeth and combed hair with minimal assistance and increased time. Pt's arrives with meal tray. Pt able to feed self roll with set up. Pt states he was able to feed self breakfast today. Pt sitting in chair with needs met, meal tray in reach, and spouse present after session. Functional [place] Measure 0=Not Assessed/NA 4=Minimal Assistance 1=Total Assistance 5=Supervision or Setup 2=Maximal Assistance 6=Modified [place] 3=Moderate Assistance 7=Complete IndependenceIRFPAI Quality Coding Scale 6 Independent with activity with or without an assistive device 5 Patient requires set up or clean up by helper. Patient completes activity by themselves 4 Supervision or touching assist (CGA). [place] provide cues , steadying assist 3 The helper provides less than half the effort to complete the activity 2 The helper provides more than half the effort to complete the activity 1 Dependent. The helper does all the effort to complete an activity 7 Patient refused to complete or attempt activity 9 The patient did not perform the activity before the current illness or injury 88 Not attempted due to Medical conditions or safety concerns Eating (FIM): 5 Eating (QC): 4 Grooming (FIM): 4 Oral Hygiene (QC): 3 Education OT Patient Education: Rehab process Teaching Recipient: Patient Teaching Methods: Discussion Response to Teaching: Verbalize Understanding OT Short Term Goals Short Term Goals 1=Demonstrate adherence to instructed precautions during ADL tasks. 2=Patient will verbalize/demonstrate understanding of assistive devices/ modifications for ADL. 3=Patient will improve strength/tolerance for activity to enable patient to perform ADL's. OT Barn And Property Manager Goals Mcc Goals Time Frame: Nov 07, 2016 Eating (FIM): 6 Eating (QC): 6 Groomin Oral Hygiene (QC): 6 Upper Body Dressing(FIM): 5 Lower Body Dressing(FIM): 5 Toileting(FIM): 5 Toileting Hygiene (QC): 4 Toilet/Commode Transfer(FIM): 5 Toilet/Commode Transfer (QC): 4 Additional Goals: 1-Demonstrate ADL Tasks, 2-Verbalize Understanding, 3- ImproveStrength/Geovani 1=Demonstrate adherence to instructed precautions during ADL tasks. 2=Patient will verbalize/demonstrate understanding of assistive devices/ modifications for ADL. 3=Patient will improve strength/tolerance for activity to enable patient to perform ADL's. OT Education/Plan Problem List/Assessment Assessment: Decreased Activ Tolerance, Decreased UE Strength, Dependent Transfers, Impaired Funct Balance, Impaired Self-Care Skills Pt s/p ORIF left hip with impaired mobility, strength, ADL functioning, and activity tolerance. Pt to benefit from skilled OT intervention for ADL training , transfers, strengthening, and safety education to improve level of function and allow safe discharge. Discharge Recommendations Plan/Recommendations: Continue POC Treatment Plan/Plan of Care Treatment,Training & Education: Yes Patient would benefit from OT for education, treatment and training to promote independence in ADL's, mobility, safety and/or upper extremity function for ADL' s. Plan of Care: ADL Retraining, Functional Mobility, UE Funct Exercise/Act Treatment Duration: Nov 07, 2016 # of days/week 5 Visits Per Week: 5 Agreement: Yes Rehab Potential: Fair Time/GCodes Start Time: 11:45 Stop Time: 12:10 Total Time Billed (hr/min): 25 Billed Treatment Time 1 visit, EVM(10minutes), ADL(15minutes) ELOISA STAUFFER OT Oct 17, 2016 13:35
--- NOTE | 2016-10-17 13:38 | Physical Therapy Daily Note ---
PT Daily Note-Current Subjective Patient is still in recliner and alert, very agreeable to participate with PT. Pain Numeric Pain Scale: 5-Moderate Pain Location: Left Location Body Site: Hip Pain Description: Acute Mental Status Patient Orientation: Person, Time, Situation Attachments: Oxygen, Bautista Catheter, IV Transfers Functional [place] Measure 0=Not Assessed/NA 4=Minimal Assistance 1=Total Assistance 5=Supervision or Setup 2=Maximal Assistance 6=Modified [place] 3=Moderate Assistance 7=Complete IndependenceIRFPAI Quality Coding Scale 6 Independent with activity with or without an assistive device 5 Patient requires set up or clean up by helper. Patient completes activity by themselves 4 Supervision or touching assist (CGA). [place] provide cues , steadying assist 3 The helper provides less than half the effort to complete the activity 2 The helper provides more than half the effort to complete the activity 1 Dependent. The helper does all the effort to complete an activity 7 Patient refused to complete or attempt activity 9 The patient did not perform the activity before the current illness or injury 88 Not attempted due to Medical conditions or safety concerns Transfers (B, C, W/C) (FIM): 1 Scootin Roll Left to Right (QC): 1 Supine to/from Sit: 1 Sit to/from Stand: 1 Sit to Lying (QC): 1 Sit to Stand (QC): 1 Chair/Pae-yb-Yopqp Xfer(QC): 1 Bed to/from Chair: 1 Patient able to assist minimally with sit to stand transfers and to reposition in bed. Patient is improving with active mobility. Patient requires time to complete all functional tasks due to weakness. Weight Bearing Weight Bearing Restriction: Weight Bearing/Tolerated Location Restriction: L LE Gait Training Does the Patient Walk?: No and Walking Goal IS indicated Exercises Supine Ex: Heel Slides (10 AROM right LE in bed with repositioning assistance) Seated Therapy Exercises: Ankle pumps, Long arc quads Seated Reps: 10 Assessment Patient is improving slowly with treatment. PT to continue to increase activity as tolerated by patient. PT Nursing Home Goals Operations Scheduler Goals PT Operations Scheduler Goals Time Frame: Oct 31, 2016 Transfers (B,C,W/C) (FIM): 5 Sit to Lying (QC): 5 Lying-Sitting on Side/Bed(QC): 5 Sit to Stand (QC): 5 Rollin Chair/Fcm-jn-Yticb Xfer(QC): 5 Does the Patient Walk: No and Walking Goal IS indicated Gait (FIM): 1 Gait distance (FIM): 1=up to 49 ft Distance: 45' Gait Assistive Device: FWW PT Plan Treatment/Plan Treatment Plan: Continue Plan of Care Treatment Plan: Bed Mobility, Education, Functional Activity Geovani, Functional Strength, Gait, Safety, Therapeutic Exercise, Transfers Treatment Duration: Oct 31, 2016 Visits Per Week: 11 Minutes/Day (M-F): 15-45 Minutes/Day (Sat/Modi): PRN Time/GCodes Time In: 1305 Time Out: 1328 Total Billed Treatment Time: 23 Total Billed Treatment 1 visit FA x 2 23 min RAQUEL AYALA PT Oct 17, 2016 13:37
[2016-10-17 17:00] VITALS: BP 155/70
[2016-10-17] MEDS: ALFUZOSIN HCL 10 MG TAB (UROXATRAL) PO SCH (17:02)
[2016-10-17 18:00] VITALS: BP 155/70
[2016-10-17] MEDS: SENNOSIDES 8.6 MG (SENOKOT) TAB PO SCH (21:00)
[2016-10-17] MEDS: DOCUSATE SODIUM 100 MG (COLACE) CAP PO SCH (21:00)
[2016-10-17] MEDS: FAMOTIDINE 20 MG (PEPCID) TABLET PO SCH (21:17)
[2016-10-17] MEDS: APIXABAN 2.5 MG (ELIQUIS) TABLET PO SCH (21:17)
[2016-10-18] VITALS: BP 124/62
[2016-10-18 05:33] LABS: MEAN PLATELET VOLUME 9.7 FL (7.4-10.4); RED BLOOD COUNT 3.09 10^6/uL (4.35-5.85); RED CELL DISTRIBUTION WIDTH 13.5 % (10.0-14.5); WHITE BLOOD COUNT 10.5 10^3/uL (4.3-11.0)
[2016-10-18] MEDS: LEVOTHYROXINE 125 MCG (LEVOTHROID) TABLET PO SCH (05:53)
[2016-10-18] MEDS: CATHETER FLUSH 10 ML SYR IV SCH ×3 (05:54→20:13)
[2016-10-18] MEDS: NS IV 1000 ML 1,000 ML IV SCH (05:54)
[2016-10-18 05:56] LABS: ALANINE AMINOTRANSFERASE 91 U/L (0-55); ALBUMIN 2.6 G/DL (3.2-4.5); ANION GAP 8 MMOL/L (5-14); ASPARTATE AMINO TRANSFERASE 114 U/L (5-34); BILIRUBIN,TOTAL 1.2 MG/DL (0.1-1.0); BLOOD UREA NITROGEN 25 MG/DL (7-18); BUN/CREATININE RATIO 26; CALCIUM 7.9 MG/DL (8.5-10.1); CARBON DIOXIDE 24 MMOL/L (21-32); CHLORIDE 106 MMOL/L (98-107); CREATININE SERUM 0.96 MG/DL (0.60-1.30); GFR ESTIMATED > 60; GLUCOSE 108 MG/DL (70-105); POTASSIUM 3.3 MMOL/L (3.6-5.0); SODIUM 138 MMOL/L (135-145); TOTAL PROTEIN 5.1 G/DL (6.4-8.2)
[2016-10-18 06:00] VITALS: BP 129/61
[2016-10-18] MEDS ORDERED: SIMvastatin 40 MG (ZOCOR) TAB PO SCH (09:00)
[2016-10-18] MEDS: amLODIPine 5 MG (NORVASC) TAB PO SCH (10:56)
[2016-10-18] MEDS: SENNOSIDES 8.6 MG (SENOKOT) TAB PO SCH ×2 (10:57→20:13)
[2016-10-18] MEDS: MAGNESIUM OXIDE (MAG-OX)400 MG TAB PO SCH ×2 (10:57→17:02)
[2016-10-18] MEDS: BETHANECHOL 25 MG (URECHOLINE) TAB PO SCH ×3 (10:57→20:13)
[2016-10-18] MEDS: KCL 20 MEQ TAB (K-DUR) PO SCH ×4 (10:57→16:04)
[2016-10-18] MEDS: ATORVASTATIN 10 MG (LIPITOR) TABLET PO SCH (10:57)
[2016-10-18] MEDS: DOCUSATE SODIUM 100 MG (COLACE) CAP PO SCH ×2 (10:57→20:13)
[2016-10-18] MEDS: ASPIRIN E.C. 81 MG (ECOTRIN) TAB PO SCH (10:57)
[2016-10-18] MEDS: cefTRIAXone INJECTION 1,000 MG in NS (IVPB) 50 ML IV SCH (10:58)
[2016-10-18] MEDS: APIXABAN 2.5 MG (ELIQUIS) TABLET PO SCH ×2 (11:02→20:13)
--- NOTE | 2016-10-18 13:38 | Physical Therapy Daily Note ---
PT Daily Note-Current Subjective Pt reports he finally feels like he is making progress. He agrees to work with therapy. Mental Status Patient Orientation: Person, Place, Time Transfers Functional [place] Measure 0=Not Assessed/NA 4=Minimal Assistance 1=Total Assistance 5=Supervision or Setup 2=Maximal Assistance 6=Modified [place] 3=Moderate Assistance 7=Complete IndependenceIRFPAI Quality Coding Scale 6 Independent with activity with or without an assistive device 5 Patient requires set up or clean up by helper. Patient completes activity by themselves 4 Supervision or touching assist (CGA). [place] provide cues , steadying assist 3 The helper provides less than half the effort to complete the activity 2 The helper provides more than half the effort to complete the activity 1 Dependent. The helper does all the effort to complete an activity 7 Patient refused to complete or attempt activity 9 The patient did not perform the activity before the current illness or injury 88 Not attempted due to Medical conditions or safety concerns Transfers (B, C, W/C) (FIM): 2 Scootin Rollin Supine to/from Sit: 3 Sit to/from Stand: 3 Bed to/from Chair: 2 Needed Max assist to come to sitting at edge of bed. Required assist for both legs and trunk. He was able to come to standing with moderate physical assist when the walker was held in place and he was allowed to pull up on it. Stand pivot transfer using FWW was completed, slowly and with Moderate assist to control the walker. Gait Training Gait (FIM): 1 Distance (FIM): 1=up to 49 ft Distance: 5 Gait Level of Assist: 2 Gait Persons Needed: 2 Gait Assistive Device: FWW Pt able to take 3 steps forward, 3 backward with a FWW and verbal cues for sequence. Exercises Performed (L) LE active assist ROM x 10 reps. Worked on sit to stand x 3 and standing balance with wt shift. Assessment Pt showed improvement in functional mobility the last 2 sessions. he is more alert and his motor planning is improving. he will benefit from continued therapy. PT Dipper And Drier Goals Dipper And Drier Goals PT [place] Goals Time Frame: Oct 31, 2016 Transfers (B,C,W/C) (FIM): 5 Gait (FIM): 1 Gait distance (FIM): 1=up to 49 ft Distance: 45' Gait Assistive Device: FWW PT Plan Treatment/Plan Treatment Plan: Continue Plan of Care Treatment Plan: Bed Mobility, Education, Functional Activity Geovani, Functional Strength, Gait, Safety, Therapeutic Exercise, Transfers Treatment Duration: Oct 31, 2016 Visits Per Week: 11 Minutes/Day (M-F): 15-45 Minutes/Day (Sat/Modi): PRN Time/GCodes Time In: 1040 Time Out: 1100 Total Billed Treatment Time: 20 Total Billed Treatment visit, functional activity 20 min DHARA MURRAY PT Oct 18, 2016 13:38
[2016-10-18] MEDS: ALFUZOSIN HCL 10 MG TAB (UROXATRAL) PO SCH (17:02)
[2016-10-18 18:00] VITALS: BP 118/58
[2016-10-18] MEDS: FAMOTIDINE 20 MG (PEPCID) TABLET PO SCH (20:13)
[2016-10-19] MEDS: NS IV 1000 ML 1,000 ML IV SCH ×2 (02:41→22:53)
[2016-10-19] MEDS: ACETAMINOPHEN 500 MG TAB (TYLENOL) PO PRN ×2 (05:53→20:52)
[2016-10-19] MEDS: KCL 20 MEQ TAB (K-DUR) PO SCH (05:54)
[2016-10-19] MEDS: LEVOTHYROXINE 125 MCG (LEVOTHROID) TABLET PO SCH (05:54)
[2016-10-19] MEDS: CATHETER FLUSH 10 ML SYR IV SCH ×3 (05:54→22:00)
[2016-10-19 05:55] LABS: ANION GAP 9 MMOL/L (5-14); BLOOD UREA NITROGEN 23 MG/DL (7-18); BUN/CREATININE RATIO 25; CALCIUM 7.7 MG/DL (8.5-10.1); CARBON DIOXIDE 23 MMOL/L (21-32); CHLORIDE 108 MMOL/L (98-107); CREATININE SERUM 0.93 MG/DL (0.60-1.30); GFR ESTIMATED > 60; GLUCOSE 102 MG/DL (70-105); MAGNESIUM 1.8 MG/DL (1.8-2.4); POTASSIUM 3.6 MMOL/L (3.6-5.0); SODIUM 140 MMOL/L (135-145)
[2016-10-19 06:00] VITALS: BP 112/67
[2016-10-19 09:25] VITALS: BP 100/58
[2016-10-19] MEDS: MAGNESIUM OXIDE (MAG-OX)400 MG TAB PO SCH ×2 (09:25→17:28)
[2016-10-19] MEDS: SENNOSIDES 8.6 MG (SENOKOT) TAB PO SCH ×2 (09:25→20:51)
[2016-10-19] MEDS: APIXABAN 2.5 MG (ELIQUIS) TABLET PO SCH ×2 (09:25→20:51)
[2016-10-19] MEDS: ATORVASTATIN 10 MG (LIPITOR) TABLET PO SCH (09:25)
[2016-10-19] MEDS: amLODIPine 5 MG (NORVASC) TAB PO SCH (09:25)
[2016-10-19] MEDS: DOCUSATE SODIUM 100 MG (COLACE) CAP PO SCH ×2 (09:25→20:51)
[2016-10-19] MEDS: ASPIRIN E.C. 81 MG (ECOTRIN) TAB PO SCH (09:25)
[2016-10-19] MEDS: BETHANECHOL 25 MG (URECHOLINE) TAB PO SCH ×3 (09:25→20:51)
[2016-10-19] MEDS: cefTRIAXone INJECTION 1,000 MG in NS (IVPB) 50 ML IV SCH (09:32)
--- NOTE | 2016-10-19 11:48 | Progress Note (SOAP) ---
Subjective Subjective/Events-last exam Patient continues to improve. Working with PT much better. No complaints today. Objective Exam Vital Signs Date Time Temp Pulse Resp B/P Pulse Ox O2 Delivery O2 Flow Rate FiO2 10/19/16 09:25 75 100/58 10/19/16 06:00 98.5 68 22 112/67 96 Nasal Cannula 4.00 10/18/16 20:00 Nasal Cannula 4.00 10/18/16 18:00 97.9 82 18 118/58 96 Nasal Cannula 4.00 I & O 10/19/16 07:00 Intake Total 2585 ml Output Total 775 ml Balance 1810 ml Capillary Refill : Less Than 3 Seconds General Appearance: No Apparent Distress WD/WN Extremity: Normal Capillary Refill Normal Inspection Normal Range of Motion Non Tender Neurologic/Psychiatric: Alert Oriented x3 Skin: Normal Color Warm/Dry Other comments Incision dry clean and intact. Results Lab Laboratory Tests 10/19/16 04:33: Anion Gap 9, BUN/Creatinine Ratio 25, Blood Urea Nitrogen 23H, Calcium Level 7.7L, Carbon Dioxide Level 23, Chloride Level 108H, Creatinine 0.93, Estimat Glomerular Filtration Rate > 60, Glucose Level 102, Magnesium Level 1.8, Potassium Level 3.6, Sodium Level 140 Assessment/Plan Assessment/Plan Assess & Plan/Chief Complaint Intertrochanteric Hip fracture with ORIF TFN He will be going to 2nd floor tomorrow for SNU. Follow up in [facility] office in 2-3 weeks. [place] to be evaluated for removal on POD 14. Daily dressing changes. Diagnosis/Problems: ROSMERY RM Oct 19, 2016 11:48
[2016-10-19] MEDS: ALFUZOSIN HCL 10 MG TAB (UROXATRAL) PO SCH (17:28)
[2016-10-19 18:00] VITALS: BP 114/57
[2016-10-19] MEDS: FAMOTIDINE 20 MG (PEPCID) TABLET PO SCH (20:52)
[2016-10-20 01:10] VITALS: BP 112/62
[2016-10-20 06:00] VITALS: BP 120/72
[2016-10-20] MEDS: CATHETER FLUSH 10 ML SYR IV SCH ×3 (06:00→20:50)
[2016-10-20] MEDS: KCL 20 MEQ TAB (K-DUR) PO SCH (06:43)
[2016-10-20] MEDS: LEVOTHYROXINE 125 MCG (LEVOTHROID) TABLET PO SCH (06:43)
--- NOTE | 2016-10-20 09:18 | Progress Note (SOAP) ---
Subjective Subjective/Events-last exam PT IS AN 89 Y/O MALE WHO HAS HIP FRACTURE AND RESPIRATORY DISTRESS. PT STATES THAT HE IS IMPROVED, FEELS MUCH LESS RESPIRATORY DISTRESS. Review of Systems General: Fatigue HEENT: No Head Aches Pulmonary: Dyspnea Cardiovascular: : Edema: PalpitationsNo: Chest Pain Gastrointestinal: No: Abdominal Pain, Nausea Genitourinary: No Dysuria Musculoskeletal: : leg pain Neurological: : WeaknessNo: Confusion Objective Exam Vital Signs Date Time Temp Pulse Resp B/P Pulse Ox O2 Delivery O2 Flow Rate FiO2 10/20/16 06:00 97.7 90 18 120/72 96 Nasal Cannula 4.00 10/20/16 01:10 97.7 72 18 112/62 95 Nasal Cannula 4.00 10/19/16 21:00 4.00 10/19/16 20:00 95 Nasal Cannula 4.00 10/19/16 18:00 96.2 88 22 114/57 96 Nasal Cannula 4.00 10/19/16 09:25 75 100/58 I & O 10/20/16 07:00 Intake Total 2170 ml Output Total 725 ml Balance 1445 ml Capillary Refill : Less Than 3 Seconds General Appearance: No Apparent Distress WD/WN HEENT: PERRL/EOMI Neck: Full Range of Motion Supple Respiratory: Chest Non Tender Decreased Breath Sounds Cardiovascular: Irregularly Irregular Gastrointestinal: normal bowel sounds non tender soft no organomegaly no pulsatile mass Extremity: Pedal Edema Neurologic/Psychiatric: Alert Oriented x3 Normal Mood/Affect Skin: Warm/Dry Assessment/Plan Assessment/Plan Assess & Plan/Chief Complaint LEFT HIP FRACTURE - INTERTROCHANTERIC WEAKNESS FATIGUE HYPOTENSION ACUTE RENAL FAILURE AFIB CHRONIC ANTICOAGULATION USE HYPERTENSION CORONARY ARTERY DISEASE HYPOTHYROID BPH ANEMIA LEFT HIP FRACTURE - POST-OP LEFT HIP FRACTURE REPAIR WITH DR. WING - UTI - URINE CULTURE NEGATIVE AFIB - - RESTARTED ANTICOAGULANT HYPOTENSION - WAS ON HOLD - IMPROVED PRESSURES - RESTART NORVASC AT 2.5MG DAILY. HYPOTHYROID - RESTARTED LEVOTHYROXINE BPH - URINARY RETENTION - PACE PLACED DUE TO RETENTION-AND NEED FOR ACCURATE I/ O RECORDS. I HAVE ALSO STARTED BETHANECHOL FOR RETENTION. ON TRANSFER TO SWING BED - STOPPED PACE CONTINUE BETHANECHOL. ANEMIA - PT STATUS POST TRANSFUSION - MONITOR H AND H PT TO BE TRANSFERRED TO SWING BED STATUS - IF IMPROVES SIGNIFICANTLY - WILL THEN CONSIDER TRANSFER TO INPATIENT REHAB NEXT WEEK. Diagnosis/Problems: TACHO,TARAS A MD Oct 20, 2016 09:18
--- NOTE | 2016-10-20 09:45 | Occupational Ther Daily Note ---
OT Current Status-Daily Note Subjective Pt. does not report any pain sitting down, but does state, "I will probably have it once you move me." OT asked for pain medication per pt's request. Appearance Pt. is up in chair. Agrees to treatment. Spouse in room. Spouse states that pt. has not had much of an appetite. Breakfast tray is in front of him. She has encouraged him to eat half. Mental Status/Objective Patient Orientation: Person, Place, Time, Situation Functional [place] Measure 0=Not Assessed/NA 4=Minimal Assistance 1=Total Assistance 5=Supervision or Setup 2=Maximal Assistance 6=Modified [place] 3=Moderate Assistance 7=Complete [place] ADL-Treatment Functional [place] Measure 0=Not Assessed/NA 4=Minimal Assistance 1=Total Assistance 5=Supervision or Setup 2=Maximal Assistance 6=Modified [place] 3=Moderate Assistance 7=Complete IndependenceIRFPAI Quality Coding Scale 6 Independent with activity with or without an assistive device 5 Patient requires set up or clean up by helper. Patient completes activity by themselves 4 Supervision or touching assist (CGA). [place] provide cues , steadying assist 3 The helper provides less than half the effort to complete the activity 2 The helper provides more than half the effort to complete the activity 1 Dependent. The helper does all the effort to complete an activity 7 Patient refused to complete or attempt activity 9 The patient did not perform the activity before the current illness or injury 88 Not attempted due to Medical conditions or safety concerns Eating (FIM): 5 Eating (QC): 4 Pt is up in chair. OT works on standing out of chair, as this is still difficult for pt. Educated him to scoot bottom forward into chair. Educated him to put his feet under his knees, and then his nose over toes. Requires cues to put hands on armrests, and sequence steps of standing up. Required full max assist for sit-stand. Once up, noted that pt. had poor center of gravity, and kept falling backward. Pt. able to find center of gravity, but then stated that he was dizzy and requested to sit back down. Pt. fell back into chair, and was unable to complete a controlled sit. Rested until he did not feel dizzy. Stood back up again with same cues to sequence the transfer. Stood with max assist. Stood approximately 2 minutes, with cues to weight shift back and forth. No dizziness reported, but pt. did request to sit back down. All needs met in room. Education OT Patient Education: Correct positioning, Progress toward Goal/Update tx plan , Purpose of tx/functional activities, Reviewed precautions, Rehab process, Transfer techniques Teaching Recipient: Patient, Significant Other Teaching Methods: Demonstration, Discussion Response to Teaching: Verbalize Understanding, Return Demonstration OT Short Term Goals Short Term Goals 1=Demonstrate adherence to instructed precautions during ADL tasks. 2=Patient will verbalize/demonstrate understanding of assistive devices/ modifications for ADL. 3=Patient will improve strength/tolerance for activity to enable patient to perform ADL's. OT Fitting Room Attendant Goals Fitting Room Attendant Goals Time Frame: Nov 07, 2016 Eating (FIM): 6 Eating (QC): 6 Groomin Oral Hygiene (QC): 6 Upper Body Dressing(FIM): 5 Lower Body Dressing(FIM): 5 Toileting(FIM): 5 Toileting Hygiene (QC): 4 Toilet/Commode Transfer(FIM): 5 Toilet/Commode Transfer (QC): 4 Additional Goals: 1-Demonstrate ADL Tasks, 2-Verbalize Understanding, 3- ImproveStrength/Geovani 1=Demonstrate adherence to instructed precautions during ADL tasks. 2=Patient will verbalize/demonstrate understanding of assistive devices/ modifications for ADL. 3=Patient will improve strength/tolerance for activity to enable patient to perform ADL's. OT Education/Plan Problem List/Assessment Assessment: Decreased Activ Tolerance, Decreased Safety Aware, Decreased UE Strength, Dependent Transfers, Impaired Bed Mobility, Impaired Cognition, Impaired Coordination, Impaired Funct Balance, Impaired I ADL's, Impaired Self- Care Skills, Restricted Funct UE ROM Pt s/p ORIF left hip with impaired mobility, strength, ADL functioning, and activity tolerance. Pt to benefit from skilled OT intervention for ADL training , transfers, strengthening, and safety education to improve level of function and allow safe discharge. Discharge Recommendations Plan/Recommendations: Continue POC Therapy D/C Recommendations: Acute Rehab Barriers to Progress Weakness Target Placement Spouse states that they plan to be on swing bed for a few days, and then transfer to rehab. Treatment Plan/Plan of Care Treatment,Training & Education: Yes Patient would benefit from OT for education, treatment and training to promote independence in ADL's, mobility, safety and/or upper extremity function for ADL' s. Plan of Care: ADL Retraining, Functional Mobility, UE Funct Exercise/Act Treatment Duration: Nov 07, 2016 Visits Per Week: 5 Agreement: Yes Rehab Potential: Fair Time/GCodes Start Time: 08:55 Stop Time: 09:20 Total Time Billed (hr/min): 25 Billed Treatment Time 1, FA x 2 JOSE ANTONIO YOUNG OT Oct 20, 2016 09:45
--- NOTE | 2016-10-20 09:56 | Physical Therapy Daily Note ---
PT Daily Note-Current Subjective Patient is up in recliner and agrees to PT. Pain Numeric Pain Scale: 5-Moderate Pain Location: Left Location Body Site: Hip Pain Description: Pressure, Acute Mental Status Patient Orientation: Normal For Age Attachments: Oxygen, IV Transfers Functional [place] Measure 0=Not Assessed/NA 4=Minimal Assistance 1=Total Assistance 5=Supervision or Setup 2=Maximal Assistance 6=Modified [place] 3=Moderate Assistance 7=Complete IndependenceIRFPAI Quality Coding Scale 6 Independent with activity with or without an assistive device 5 Patient requires set up or clean up by helper. Patient completes activity by themselves 4 Supervision or touching assist (CGA). [place] provide cues , steadying assist 3 The helper provides less than half the effort to complete the activity 2 The helper provides more than half the effort to complete the activity 1 Dependent. The helper does all the effort to complete an activity 7 Patient refused to complete or attempt activity 9 The patient did not perform the activity before the current illness or injury 88 Not attempted due to Medical conditions or safety concerns Transfers (B, C, W/C) (FIM): 4 Scootin Sit to/from Stand: 4 Sit to Stand (QC): 4 Weight Bearing Weight Bearing Restriction: Weight Bearing/Tolerated Location Restriction: L LE Gait Training Does the Patient Walk?: Yes Gait (FIM): 1 Distance (FIM): 1=up to 49 ft Distance: 25' x 2 Gait Level of Assist: 3 Gait Persons Needed: 1 Gait Assistive Device: FWW flexed hip and knee posture with FWW Exercises Supine Ex: Ankle pumps, Heel Slides Supine Reps: 15 (in recliner with bilateral LE elevated) Seated Therapy Exercises: Ankle pumps, Long arc quads, Hip flexion Seated Reps: 15 (x 2 sets) Assessment Patient progressing slowly with treatment. PT to increase activity as patient tolerates. Patient fatigues very quickly requiring recovery periods. PT Usp Goals Usp Goals PT Assembler Small Products Goals Time Frame: Oct 31, 2016 Transfers (B,C,W/C) (FIM): 5 Sit to Lying (QC): 5 Lying-Sitting on Side/Bed(QC): 5 Sit to Stand (QC): 5 Rollin Chair/Epd-uf-Csstf Xfer(QC): 5 Does the Patient Walk: No and Walking Goal IS indicated Gait (FIM): 1 Gait distance (FIM): 1=up to 49 ft Distance: 45' Gait Assistive Device: FWW PT Plan Treatment/Plan Treatment Plan: Continue Plan of Care Treatment Plan: Bed Mobility, Education, Functional Activity Geovani, Functional Strength, Gait, Safety, Therapeutic Exercise, Transfers Treatment Duration: Oct 31, 2016 Visits Per Week: 11 Minutes/Day (M-F): 15-45 Minutes/Day (Sat/Modi): PRN Time/GCodes Time In: 918 Time Out: 941 Total Billed Treatment Time: 23 Total Billed Treatment 1 visit EX 10 min GT 13 min RAQUEL AYALA PT Oct 20, 2016 09:56
[2016-10-20] MEDS: ATORVASTATIN 10 MG (LIPITOR) TABLET PO SCH (10:01)
[2016-10-20] MEDS: ASPIRIN E.C. 81 MG (ECOTRIN) TAB PO SCH (10:01)
[2016-10-20] MEDS: DOCUSATE SODIUM 100 MG (COLACE) CAP PO SCH ×2 (10:01→20:50)
[2016-10-20] MEDS: BETHANECHOL 25 MG (URECHOLINE) TAB PO SCH ×3 (10:01→20:50)
[2016-10-20] MEDS: MAGNESIUM OXIDE (MAG-OX)400 MG TAB PO SCH ×2 (10:01→17:36)
[2016-10-20] MEDS: ACETAMINOPHEN 500 MG TAB (TYLENOL) PO PRN (10:02)
[2016-10-20] MEDS: APIXABAN 2.5 MG (ELIQUIS) TABLET PO SCH ×2 (10:02→20:50)
[2016-10-20] MEDS: amLODIPine 5 MG (NORVASC) TAB PO SCH (10:02)
[2016-10-20] MEDS: SENNOSIDES 8.6 MG (SENOKOT) TAB PO SCH ×2 (10:02→20:50)
[2016-10-20] MEDS: cefTRIAXone INJECTION 1,000 MG in NS (IVPB) 50 ML IV SCH (10:10)
[2016-10-20] MEDS ORDERED: CALCIUM CARBONATE 500 MG (TUMS) TAB.CHEW PO NR (10:19)
[2016-10-20] MEDS ORDERED: CALCIUM CARBONATE 500 MG (TUMS) TAB.CHEW PO PRN (13:00)
--- NOTE | 2016-10-20 15:18 | Physical Therapy Daily Note ---
PT Daily Note-Current Subjective Patient is in bed and agrees to PT. Pain Numeric Pain Scale: 7 Location: Left Location Body Site: Hip Pain Description: Acute Appearance edema right LE Mental Status Patient Orientation: Normal For Age Attachments: Oxygen (4L HF), IV Transfers Functional [place] Measure 0=Not Assessed/NA 4=Minimal Assistance 1=Total Assistance 5=Supervision or Setup 2=Maximal Assistance 6=Modified [place] 3=Moderate Assistance 7=Complete IndependenceIRFPAI Quality Coding Scale 6 Independent with activity with or without an assistive device 5 Patient requires set up or clean up by helper. Patient completes activity by themselves 4 Supervision or touching assist (CGA). [place] provide cues , steadying assist 3 The helper provides less than half the effort to complete the activity 2 The helper provides more than half the effort to complete the activity 1 Dependent. The helper does all the effort to complete an activity 7 Patient refused to complete or attempt activity 9 The patient did not perform the activity before the current illness or injury 88 Not attempted due to Medical conditions or safety concerns Transfers (B, C, W/C) (FIM): 2 Scootin Roll Left to Right (QC): 2 Supine to/from Sit: 2 Sit to/from Stand: 3 Sit to Lying (QC): 2 Sit to Stand (QC): 3 Weight Bearing Weight Bearing Restriction: Weight Bearing/Tolerated Location Restriction: L LE Gait Training Does the Patient Walk?: Yes Gait (FIM): 1 Distance (FIM): 1=up to 49 ft Distance: 25' x 2 Gait Level of Assist: 3 Gait Persons Needed: 1 Gait Assistive Device: FWW extreme flexed knee and hip posture Exercises Supine Ex: Ankle pumps, Quad Set, Heel Slides, Straight leg raise Supine Reps: 15 (AAROM left LE) Seated Therapy Exercises: Long arc quads Seated Reps: 15 Assessment Patient tolerates minimal activity at this time, however, is improving with treatment. PT to increase activity as tolerated by patient. PT Snf Goals Cellar Worker Goals PT Cellar Worker Goals Time Frame: Oct 31, 2016 Transfers (B,C,W/C) (FIM): 5 Sit to Lying (QC): 5 Lying-Sitting on Side/Bed(QC): 5 Sit to Stand (QC): 5 Rollin Chair/Csw-to-Mwvwy Xfer(QC): 5 Does the Patient Walk: No and Walking Goal IS indicated Gait (FIM): 1 Gait distance (FIM): 1=up to 49 ft Distance: 45' Gait Assistive Device: FWW PT Plan Treatment/Plan Treatment Plan: Continue Plan of Care Treatment Plan: Bed Mobility, Education, Functional Activity Geovani, Functional Strength, Gait, Safety, Therapeutic Exercise, Transfers Treatment Duration: Oct 31, 2016 Visits Per Week: 11 Minutes/Day (M-F): 15-45 Minutes/Day (Sat/Modi): PRN Time/GCodes Time In: 1415 Time Out: 1440 Total Billed Treatment Time: 25 Total Billed Treatment 1 visit EX 10 min GT 15 min RAQUEL AYALA PT Oct 20, 2016 15:17
[2016-10-20] MEDS: ALFUZOSIN HCL 10 MG TAB (UROXATRAL) PO SCH (17:36)
[2016-10-20 18:21] VITALS: BP 111/55
[2016-10-20] MEDS: FAMOTIDINE 20 MG (PEPCID) TABLET PO SCH (20:50)
[2016-10-21] MEDS: CATHETER FLUSH 10 ML SYR IV SCH ×3 (06:43→21:02)
[2016-10-21] MEDS: KCL 20 MEQ TAB (K-DUR) PO SCH (06:43)
[2016-10-21] MEDS: LEVOTHYROXINE 125 MCG (LEVOTHROID) TABLET PO SCH (06:43)
[2016-10-21 08:00] VITALS: BP 125/59
[2016-10-21] MEDS: APIXABAN 2.5 MG (ELIQUIS) TABLET PO SCH ×2 (08:28→21:02)
[2016-10-21] MEDS: SENNOSIDES 8.6 MG (SENOKOT) TAB PO SCH ×2 (08:28→21:02)
[2016-10-21] MEDS: ASPIRIN E.C. 81 MG (ECOTRIN) TAB PO SCH (08:29)
[2016-10-21] MEDS: MAGNESIUM OXIDE (MAG-OX)400 MG TAB PO SCH ×2 (08:29→17:44)
[2016-10-21] MEDS: ATORVASTATIN 10 MG (LIPITOR) TABLET PO SCH (08:29)
[2016-10-21] MEDS: DOCUSATE SODIUM 100 MG (COLACE) CAP PO SCH ×2 (08:29→21:02)
[2016-10-21] MEDS: BETHANECHOL 25 MG (URECHOLINE) TAB PO SCH ×3 (08:29→21:02)
[2016-10-21] MEDS: amLODIPine 5 MG (NORVASC) TAB PO SCH (08:29)
[2016-10-21] MEDS: ACETAMINOPHEN 500 MG TAB (TYLENOL) PO PRN ×2 (08:29→16:06)
--- NOTE | 2016-10-21 09:20 | Occupational Ther Daily Note ---
OT Current Status-Daily Note Subjective Pt. states that he is feeling better. Appearance Pt. is getting up off toilet with nursing. OT assists with this transfer back to bed. Mental Status/Objective Patient Orientation: Person, Place Functional [place] Measure 0=Not Assessed/NA 4=Minimal Assistance 1=Total Assistance 5=Supervision or Setup 2=Maximal Assistance 6=Modified [place] 3=Moderate Assistance 7=Complete [place] ADL-Treatment Functional [place] Measure 0=Not Assessed/NA 4=Minimal Assistance 1=Total Assistance 5=Supervision or Setup 2=Maximal Assistance 6=Modified [place] 3=Moderate Assistance 7=Complete IndependenceIRFPAI Quality Coding Scale 6 Independent with activity with or without an assistive device 5 Patient requires set up or clean up by helper. Patient completes activity by themselves 4 Supervision or touching assist (CGA). [place] provide cues , steadying assist 3 The helper provides less than half the effort to complete the activity 2 The helper provides more than half the effort to complete the activity 1 Dependent. The helper does all the effort to complete an activity 7 Patient refused to complete or attempt activity 9 The patient did not perform the activity before the current illness or injury 88 Not attempted due to Medical conditions or safety concerns Pt. and nursing had already finished toileting and pulling up pants. Beginning to ambulate back to bed. Noted that walker getting too far out ahead of him. Pt. instructed to keep walker close by. Pt. able to ambulate to bed approximately 7 feet with min assist. Required cues to side step to get toward head of bed. Max assist needed for sit-supine. Dependent x 2 for bed mobility. All needs met in bed. Nursing with pt. when OT left. Pt. had had oxygen off while in bathroom. O2 sats tested after toileting and at 92-94%. Re -applied oxygen as pt. short of breath. Nursing to monitor. Will begin to taper with activity. Education OT Patient Education: Modified ADL techniques, Progress toward Goal/Update tx plan, Purpose of tx/functional activities, Reviewed precautions, Rehab process, Transfer techniques Teaching Recipient: Patient, Family Teaching Methods: Demonstration, Discussion Response to Teaching: Verbalize Understanding, Return Demonstration OT Short Term Goals Short Term Goals 1=Demonstrate adherence to instructed precautions during ADL tasks. 2=Patient will verbalize/demonstrate understanding of assistive devices/ modifications for ADL. 3=Patient will improve strength/tolerance for activity to enable patient to perform ADL's. OT Autism Teacher Goals Skilled Nursing Goals Time Frame: Nov 07, 2016 Eating (FIM): 6 Eating (QC): 6 Groomin Oral Hygiene (QC): 6 Upper Body Dressing(FIM): 5 Lower Body Dressing(FIM): 5 Toileting(FIM): 5 Toileting Hygiene (QC): 4 Toilet/Commode Transfer(FIM): 5 Toilet/Commode Transfer (QC): 4 Additional Goals: 1-Demonstrate ADL Tasks, 2-Verbalize Understanding, 3- ImproveStrength/Geovani 1=Demonstrate adherence to instructed precautions during ADL tasks. 2=Patient will verbalize/demonstrate understanding of assistive devices/ modifications for ADL. 3=Patient will improve strength/tolerance for activity to enable patient to perform ADL's. OT Education/Plan Problem List/Assessment Assessment: Decreased Activ Tolerance, Decreased Safety Aware, Decreased UE Strength, Dependent Transfers, Impaired Bed Mobility, Impaired Cognition, Impaired Coordination, Impaired Funct Balance, Impaired I ADL's, Impaired Self- Care Skills, Restricted Funct UE ROM Pt s/p ORIF left hip with impaired mobility, strength, ADL functioning, and activity tolerance. Pt to benefit from skilled OT intervention for ADL training , transfers, strengthening, and safety education to improve level of function and allow safe discharge. Discharge Recommendations Plan/Recommendations: Continue POC Therapy D/C Recommendations: Acute Rehab Treatment Plan/Plan of Care Treatment,Training & Education: Yes Patient would benefit from OT for education, treatment and training to promote independence in ADL's, mobility, safety and/or upper extremity function for ADL' s. Plan of Care: ADL Retraining, Functional Mobility, UE Funct Exercise/Act Treatment Duration: Nov 07, 2016 Visits Per Week: 5 Agreement: Yes Rehab Potential: Fair Time/GCodes Start Time: 08:50 Stop Time: 09:05 Total Time Billed (hr/min): 15 Billed Treatment Time 1, FA x 1 JOSE ANTONIO YOUNG OT Oct 21, 2016 09:20
--- NOTE | 2016-10-21 09:32 | Progress Note (SOAP) ---
Subjective Subjective/Events-last exam PT FEELING BETTER PER HIS . HE STILL HAS SOME SHORTNESS OF BREATH - HAS BEEN ABLE TO BE OFF OF BIPAP, ON HI TERENCE OXYGEN. Review of Systems General: Fatigue Malaise HEENT: No Head Aches Pulmonary: No Dyspnea, No Cough Cardiovascular: No: Chest Pain Gastrointestinal: No: Abdominal Pain, Nausea Musculoskeletal: : leg pain Neurological: : Weakness Objective Exam Vital Signs Date Time Temp Pulse Resp B/P Pulse Ox O2 Delivery O2 Flow Rate FiO2 10/21/16 08:10 4.00 10/20/16 20:30 Nasal Cannula 10/20/16 18:21 98.5 79 20 111/55 96 Nasal Cannula 4.00 10/20/16 12:59 4.00 I & O 10/21/16 07:00 Intake Total 2110 ml Output Total 1700 ml Balance 410 ml Capillary Refill : Less Than 3 Seconds General Appearance: WD/WN HEENT: PERRL/EOMI Pharynx Normal Neck: Full Range of Motion Supple Respiratory: Chest Non Tender Decreased Breath Sounds Cardiovascular: Regular Rate, Rhythm Gastrointestinal: normal bowel sounds non tender soft no organomegaly no pulsatile mass Extremity: Pedal Edema Neurologic/Psychiatric: Alert Oriented x3 No Motor/Sensory Deficits Normal Mood/Affect Skin: Warm/Dry Lymphatic: No Adenopathy Assessment/Plan Assessment/Plan Assess & Plan/Chief Complaint LEFT HIP FRACTURE - INTERTROCHANTERIC WEAKNESS FATIGUE HYPOTENSION ACUTE RENAL FAILURE AFIB CHRONIC ANTICOAGULATION USE HYPERTENSION CORONARY ARTERY DISEASE HYPOTHYROID BPH ANEMIA LEFT HIP FRACTURE - POST-OP LEFT HIP FRACTURE REPAIR WITH DR. WING - UTI - URINE CULTURE NEGATIVE AFIB - - RESTARTED ANTICOAGULANT HYPOTENSION - WAS ON HOLD - IMPROVED PRESSURES - RESTARTED NORVASC AT 2.5MG DAILY. HYPOTHYROID - RESTARTED LEVOTHYROXINE BPH CONTINUE WITH BETHANECHOL - MONITOR SYMPTOMS ANEMIA - PT STATUS POST TRANSFUSION - MONITOR H AND H PT TO BE TRANSFERRED TO SWING BED STATUS - IF IMPROVES SIGNIFICANTLY - WILL THEN CONSIDER TRANSFER TO INPATIENT REHAB ON 10/22 Diagnosis/Problems: TARAS TITUS MD Oct 21, 2016 09:32
--- NOTE | 2016-10-21 10:34 | Physical Therapy Daily Note ---
PT Daily Note-Current Subjective Patient is in bed and agrees to PT. Patient states he is very fatigued and in 10/10 left LE pain. Pain Numeric Pain Scale: 10-Worst Possible Pain Location: Left Location Body Site: Hip Pain Description: Pressure, Sharp Mental Status Patient Orientation: Normal For Age Attachments: Oxygen (2L [place] HF) Transfers Functional [place] Measure 0=Not Assessed/NA 4=Minimal Assistance 1=Total Assistance 5=Supervision or Setup 2=Maximal Assistance 6=Modified [place] 3=Moderate Assistance 7=Complete IndependenceIRFPAI Quality Coding Scale 6 Independent with activity with or without an assistive device 5 Patient requires set up or clean up by helper. Patient completes activity by themselves 4 Supervision or touching assist (CGA). [place] provide cues , steadying assist 3 The helper provides less than half the effort to complete the activity 2 The helper provides more than half the effort to complete the activity 1 Dependent. The helper does all the effort to complete an activity 7 Patient refused to complete or attempt activity 9 The patient did not perform the activity before the current illness or injury 88 Not attempted due to Medical conditions or safety concerns Transfers (B, C, W/C) (FIM): 1 Scootin Roll Left to Right (QC): 2 Supine to/from Sit: 1 Sit to/from Stand: 3 Sit to Lying (QC): 1 Sit to Stand (QC): 3 Patient is very limited with left LE MMT and assistance Weight Bearing Weight Bearing Restriction: Weight Bearing/Tolerated Location Restriction: L LE Gait Training Does the Patient Walk?: Yes Gait (FIM): 1 Distance (FIM): 1=up to 49 ft Distance: 30' x 2 Gait Level of Assist: 3 Gait Persons Needed: 1 Gait Assistive Device: FWW flexed hip and knee flexion in stand and ambulation Exercises Supine Ex: Ankle pumps, Quad Set, Heel Slides, Straight leg raise Supine Reps: 10 (AAROM left LE x 2 sets) Seated Therapy Exercises: Long arc quads Seated Reps: 15 (x 2 sets) Assessment Patient states at the end of the treatment, "This is all I can handle. I can't do any more." Patient is extremely limited with functional strength and mobility with display of extreme fatigue with minimal activity. PT Junior Analyst Goals Penitentiary Goals PT Penitentiary Goals Time Frame: Oct 31, 2016 Transfers (B,C,W/C) (FIM): 5 Sit to Lying (QC): 5 Lying-Sitting on Side/Bed(QC): 5 Sit to Stand (QC): 5 Rollin Chair/Eau-ze-Yhryi Xfer(QC): 5 Does the Patient Walk: No and Walking Goal IS indicated Gait (FIM): 1 Gait distance (FIM): 1=up to 49 ft Distance: 45' Gait Assistive Device: FWW PT Plan Treatment/Plan Treatment Plan: Continue Plan of Care Treatment Plan: Bed Mobility, Education, Functional Activity Geovani, Functional Strength, Gait, Safety, Therapeutic Exercise, Transfers Treatment Duration: Oct 31, 2016 Visits Per Week: 11 Minutes/Day (M-F): 15-45 Minutes/Day (Sat/Modi): PRN Time/GCodes Time In: 930 Time Out: 955 Total Billed Treatment Time: 25 Total Billed Treatment 1 visit EX 10 min GT 15 min RAQUEL AYALA PT Oct 21, 2016 10:34
--- NOTE | 2016-10-21 14:27 | Physical Therapy Daily Note ---
PT Daily Note-Current Subjective Patient states he is tired, but agrees to PT. Pain Numeric Pain Scale: 10-Worst Possible Pain Location: Left Location Body Site: Hip Pain Description: Pressure, Acute, Sharp Mental Status Patient Orientation: Normal For Age Attachments: Oxygen Transfers Functional [place] Measure 0=Not Assessed/NA 4=Minimal Assistance 1=Total Assistance 5=Supervision or Setup 2=Maximal Assistance 6=Modified [place] 3=Moderate Assistance 7=Complete IndependenceIRFPAI Quality Coding Scale 6 Independent with activity with or without an assistive device 5 Patient requires set up or clean up by helper. Patient completes activity by themselves 4 Supervision or touching assist (CGA). [place] provide cues , steadying assist 3 The helper provides less than half the effort to complete the activity 2 The helper provides more than half the effort to complete the activity 1 Dependent. The helper does all the effort to complete an activity 7 Patient refused to complete or attempt activity 9 The patient did not perform the activity before the current illness or injury 88 Not attempted due to Medical conditions or safety concerns Transfers (B, C, W/C) (FIM): 1 Scootin Roll Left to Right (QC): 2 Supine to/from Sit: 1 Sit to/from Stand: 3 Sit to Lying (QC): 1 Sit to Stand (QC): 3 Patient continues to be dependent with bed mobility due to pain and immobility Weight Bearing Weight Bearing Restriction: Weight Bearing/Tolerated Location Restriction: L LE Gait Training Does the Patient Walk?: Yes Gait (FIM): 1 Distance (FIM): 1=up to 49 ft Distance: 20' x 2 Gait Level of Assist: 3 Gait Persons Needed: 1 Gait Assistive Device: FWW extreme bilateral flexed hip and knee posture due to arthritis Exercises Supine Ex: Ankle pumps, Quad Set, Heel Slides, Straight leg raise Supine Reps: 15 (2 sets; AAROM left LE) Seated Therapy Exercises: Long arc quads Seated Reps: 15 (2 sets) Assessment Patient becomes agitated during treatment due to PT instruction to assist with left LE mobility with patient yelling, "I can't. If I can't do it, you all will have to do it for me." Education with patient on importance of actively participating to improve current LOF. Patient tolerates minimal activity and will cease treatment when he feels necessary. PT Animation Artist Goals Animation Artist Goals PT Intermediate Goals Time Frame: Oct 31, 2016 Transfers (B,C,W/C) (FIM): 5 Sit to Lying (QC): 5 Lying-Sitting on Side/Bed(QC): 5 Sit to Stand (QC): 5 Rollin Chair/Cof-ja-Vrwgj Xfer(QC): 5 Does the Patient Walk: No and Walking Goal IS indicated Gait (FIM): 1 Gait distance (FIM): 1=up to 49 ft Distance: 45' Gait Assistive Device: FWW PT Plan Treatment/Plan Treatment Plan: Continue Plan of Care Treatment Plan: Bed Mobility, Education, Functional Activity Geovani, Functional Strength, Gait, Safety, Therapeutic Exercise, Transfers Treatment Duration: Oct 31, 2016 Visits Per Week: 11 Minutes/Day (M-F): 15-45 Minutes/Day (Sat/Modi): PRN Safety Risks/Education Patient Education: Gait Training, Transfer Techniques, Safety Issues Teaching Recipient: Patient, Significant Other Teaching Methods: Demonstration, Discussion Response to Teaching: Reinforcement Needed Discharge Recommendations Therapy D/C Recommendations: Longterm (TCU/NH) Time/GCodes Time In: 1345 Time Out: 1408 Total Billed Treatment Time: 23 Total Billed Treatment 1 visit EX 10 min GT 13 min RAQUEL AYALA PT Oct 21, 2016 14:27
[2016-10-21 16:00] VITALS: BP 133/69
[2016-10-21] MEDS: ALFUZOSIN HCL 10 MG TAB (UROXATRAL) PO SCH (17:44)
[2016-10-21 20:50] VITALS: BP 117/74
[2016-10-21] MEDS: FAMOTIDINE 20 MG (PEPCID) TABLET PO SCH (21:01)
[2016-10-22] MEDS: ACETAMINOPHEN 500 MG TAB (TYLENOL) PO PRN ×2 (05:34→08:38)
[2016-10-22] MEDS: CATHETER FLUSH 10 ML SYR IV SCH (06:29)
[2016-10-22] MEDS: KCL 20 MEQ TAB (K-DUR) PO SCH (06:29)
[2016-10-22] MEDS: LEVOTHYROXINE 125 MCG (LEVOTHROID) TABLET PO SCH (06:29)
[2016-10-22 08:00] VITALS: BP 110/67
[2016-10-22] MEDS: BETHANECHOL 25 MG (URECHOLINE) TAB PO SCH (08:31)
[2016-10-22] MEDS: DOCUSATE SODIUM 100 MG (COLACE) CAP PO SCH (08:31)
[2016-10-22] MEDS: APIXABAN 2.5 MG (ELIQUIS) TABLET PO SCH (08:31)
[2016-10-22] MEDS: ASPIRIN E.C. 81 MG (ECOTRIN) TAB PO SCH (08:31)
[2016-10-22] MEDS: ATORVASTATIN 10 MG (LIPITOR) TABLET PO SCH (08:31)
[2016-10-22] MEDS: SENNOSIDES 8.6 MG (SENOKOT) TAB PO SCH (08:31)
[2016-10-22] MEDS: amLODIPine 5 MG (NORVASC) TAB PO SCH (08:31)
[2016-10-22] MEDS: MAGNESIUM OXIDE (MAG-OX)400 MG TAB PO SCH (08:31)
[2016-10-22] MEDS ORDERED: SENN-140 PO (09:04)
[2016-10-22] MEDS ORDERED: TRAM50TA2 PO (09:04)
[2016-10-22] MEDS ORDERED: AMLO5TAB2 PO (09:04)
[2016-10-22] MEDS ORDERED: FAMO20TA5 PO (09:04)
[2016-10-22] MEDS ORDERED: BETH25TA PO (09:04)
--- NOTE | 2016-10-22 09:06 | Discharge Summary ---
Diagnosis/Chief Complaint Date of Admission Oct 17, 2016 at 10:20 Date of Discharge Discharge Date: Oct 22, 2016 Discharge Time: 909 Admission Diagnosis Admission Diagnosis LEFT HIP FRACTURE - INTERTROCHANTERIC WEAKNESS FATIGUE HYPOTENSION ACUTE RENAL FAILURE AFIB CHRONIC ANTICOAGULATION USE HYPERTENSION CORONARY ARTERY DISEASE HYPOTHYROID BPH ANEMIA Discharge Diagnosis LEFT HIP FRACTURE - INTERTROCHANTERIC WEAKNESS FATIGUE HYPOTENSION ACUTE RENAL FAILURE AFIB CHRONIC ANTICOAGULATION USE HYPERTENSION CORONARY ARTERY DISEASE HYPOTHYROID BPH ANEMIA Reason Hospital Visit PT IS AN 89 Y/O MALE WHO IS KNOWN TO ME FROM CLINIC. THE PATIENT REPORTS THAT YESTERDAY HE WAS FEELING WELL, HAD BEEN EATING SUPPER AND WAS GETTING UP AND MOVING AROUND IN THE KITCHEN. HE WAS LEANING OVER PICKING UP SOMETHING OFF OF THE FLOOR, WHEN HE STOOD UP HE BECAME UNSTEADY, GRABBED FOR THE KITCHEN CHAIR AND IT SCOOTED AWAY FROM HIM AND HE FELL TO THE KITCHEN FLOOR. HE REPORTS THAT SOON HE FELL DOWN HE KNEW HE HAD BROKEN HIS HIP. HE DENIES ANY CHEST PAIN, SHORTNESS OF BREATH, ABDOMINAL PAIN, DIZZINESS AT THIS TIME. Discharge Summary Discharge Physical Examination Allergies: Coded Allergies: No Known Drug Allergies (Verified , 10/17/16) Vitals & I&Os General Appearance: Alert, Oriented X3, Cooperative HEENT: Atraumatic Respiratory: Other (DECREASED AIR MOVEMENT) Cardiovascular: Other (TACHYCARDIA) Abdominal: Normal Bowel Sounds, Soft Skin: No Rashes Neuro: Cranial Nerves 3-12 NL Psych/Mental Status: Mental Status NL, Mood NL Hospital Course LEFT HIP FRACTURE - INTERTROCHANTERIC WEAKNESS FATIGUE HYPOTENSION ACUTE RENAL FAILURE AFIB CHRONIC ANTICOAGULATION USE HYPERTENSION CORONARY ARTERY DISEASE HYPOTHYROID BPH ANEMIA LEFT HIP FRACTURE - POST-OP LEFT HIP FRACTURE REPAIR WITH DR. WING - UTI - URINE CULTURE NEGATIVE AFIB - - RESTARTED ANTICOAGULANT HYPOTENSION - WAS ON HOLD - IMPROVED PRESSURES - RESTART NORVASC AT 2.5MG DAILY. HYPOTHYROID - RESTARTED LEVOTHYROXINE BPH - URINARY RETENTION - CONTINUE BETHANECHOL. ANEMIA - PT STATUS POST TRANSFUSION - MONITOR H AND H PT TO BE TRANSFERRED TO INPATIENT REHAB Discharge Condition at discharge IMPROVING - TRANSFER TO INPATIENT REHAB Instructions to patient/family Please see electonic discharge instructions given to patient. Discharge Medications Reviewed and agree with Discharge Medication list on patient's Discharge Instruction sheet TARAS TITUS MD Oct 22, 2016 09:06
[2016-10-22] MEDS ORDERED: APAP 300 MG/CODEINE 30 MG (TYLENOL #3) TAB PO NR (09:41)
[2016-10-22 10:16] VITALS: BP 110/67
--- NOTE | 2016-10-22 11:53 | Therapy Team Discharge Summary ---
Therapy Discharge Summary Discharge Recommendations Date of Discharge Oct 22, 2016 at 10:16 Therapy D/C Recommendations: Acute Rehab Occupational Therapy No goals met at this time, as pt. is being transferred to acute rehab. Will continue to address same goals of achieving independence before discharging home. At this time, pt. still requires mod/max assist with transfers and mod/ max assist with bathing and dressing. Will re-evaluate on rehab. Please defer to acute rehab. PT Winch Driver Goals Winch Driver Goals PT Prison Goals Time Frame: Oct 31, 2016 Transfers (B,C,W/C) (FIM): 5 Sit to Lying (QC): 5 Lying-Sitting on Side/Bed(QC): 5 Sit to Stand (QC): 5 Rollin Chair/Qxp-tp-Knlkw Xfer(QC): 5 Does the Patient Walk: No and Walking Goal IS indicated Gait (FIM): 1 Gait distance (FIM): 1=up to 49 ft Distance: 45' Gait Assistive Device: FWW OT Winch Driver Goals Prison Goals Time Frame: Nov 07, 2016 Eating (FIM): 6 (not met) Eating (QC): 6 (not et) Groomin (not met) Oral Hygiene (QC): 6 (not met) Upper Body Dressing(FIM): 5 (not met) Lower Body Dressing(FIM): 5 (not met) Toileting(FIM): 5 (not met) Toileting Hygiene (QC): 4 Toilet/Commode Transfer(FIM): 5 (not met) Toilet/Commode Transfer (QC): 4 (not met) Additional Goals: 1-Demonstrate ADL Tasks, 2-Verbalize Understanding, 3- ImproveStrength/Geovani 1=Demonstrate adherence to instructed precautions during ADL tasks. 2=Patient will verbalize/demonstrate understanding of assistive devices/ modifications for ADL. 3=Patient will improve strength/tolerance for activity to enable patient to perform ADL's. JOSE ANTONIO YOUNG OT Oct 22, 2016 11:53
== END 2016-10-22 10:16 | DRG 561 ==
LOC: 4TH 10:20
PROVIDERS: ADMIT Family Medicine; ATTEND Family Medicine
DX: S72.145D Nondisplaced intertrochanteric fracture of left femur, subsequent encounter for closed fracture with routine healing (principal); D64.9 Anemia, unspecified; J44.9 Chronic obstructive pulmonary disease, unspecified; I25.10 Atherosclerotic heart disease of native coronary artery without angina pectoris; I10 Essential (primary) hypertension; E03.9 Hypothyroidism, unspecified; I48.91 Unspecified atrial fibrillation; N40.1 Benign prostatic hyperplasia with lower urinary tract symptoms; R33.8 Other retention of urine; G47.30 Sleep apnea, unspecified; Z99.81 Dependence on supplemental oxygen; Z95.1 Presence of aortocoronary bypass graft; Z95.5 Presence of coronary angioplasty implant and graft; Z86.73 Personal history of transient ischemic attack (TIA), and cerebral infarction without residual deficits; W18.39XD Other fall on same level, subsequent encounter
CPT/HCPCS: 36415; 80048; 80053; 83735; 85027; 94760

== ENCOUNTER 2016-10-22 10:14 | Inpatient (IN) | payer MEDICARE, OTHER ==
[~2016-10-22] VITALS: Ht 182.9 cm; Wt 93.0 kg
[~2016-10-22 10:14] MED LIST changes: +AMLO5TAB2 PO; +BETH25TA PO; +FAMO20TA5 PO; +SENN-140 PO; +TRAM50TA2 PO
[2016-10-22 10:20] VITALS: BP 133/79
[2016-10-22] MEDS ORDERED: NITROGLYCERIN SUBLINGUAL 0.4 MG TAB (NITROSTAT) SL PRN (11:15)
--- NOTE | 2016-10-22 12:52 | Physical Therapy Evaluation ---
PT Evaluation-General Medical Diagnosis Admission Date Oct 22, 2016 at 10:14 Medical Diagnosis: left hip fracture Onset Date: Oct 11, 2016 Therapy Diagnosis Therapy Diagnosis: impaired mobility, endurance, strength Height/Weight Height (Feet): 6 Height (Inches): 0.00 Weight (Pounds): 208 Weight (Ounces): 2.0 Weight Bear Status Weight Bearing Restriction: Weight Bearing/Tolerated Location Restriction: L LE Referral Physician: Ghassan Reason for Referral: Evaluation/Treatment Medical History Pertinent Medical History: Atrial Fib, Arthritis, CABG, CAD, COPD, CVA, HTN, Hypothroidism, [place] Additional Medical History decreased BP and SAO2 after surgery Reviewed History: Yes Social History Home: Single Level Current Living Status: Spouse Entry Into Home: Stairs With Railing PT Steps Into Home: 3 Prior/Core FIM Prior Level of Function Functional [place] Measure 0=Not Assessed/NA 4=Minimal Assistance 1=Total Assistance 5=Supervision or Setup 2=Maximal Assistance 6=Modified [place] 3=Moderate Assistance 7=Complete [place] Bed Mobility: 6 Transfers (B,C,W/C) (FIM): 6 Gait: 6 Patient ambulated using a single point cane, he also has a rolling walker PT Evaluation-Current Subjective Patient in wheelchair pre tx, agrees to PT, he just got through with OT. Pain Numeric Pain Scale: 8 Location: Left Location Body Site: Hip Pt/Family Goals to be able to take care of himself at home Objective Patient Orientation: Normal For Age ROM/Strength ROM Lower Extremities NT due to pain Strenght Lower Extremities NT due to pain Neuromuscular (Tone, Coordination, Reflexes) WNL Sensory Vision: Functional Hearing: Impaired Sensation Right Lower Extremit: Intact Sensation Left Lower Extremity: Intact Transfers Functional [place] Measure 0=Not Assessed/NA 4=Minimal Assistance 1=Total Assistance 5=Supervision or Setup 2=Maximal Assistance 6=Modified [place] 3=Moderate Assistance 7=Complete IndependenceIRFPAI Quality Coding Scale 6 Independent with activity with or without an assistive device 5 Patient requires set up or clean up by helper. Patient completes activity by themselves 4 Supervision or touching assist (CGA). [place] provide cues , steadying assist 3 The helper provides less than half the effort to complete the activity 2 The helper provides more than half the effort to complete the activity 1 Dependent. The helper does all the effort to complete an activity 7 Patient refused to complete or attempt activity 9 The patient did not perform the activity before the current illness or injury 88 Not attempted due to Medical conditions or safety concerns Transfers (B, C, W/C) (FIM): 3 Scootin Rollin Roll Left to Right (QC): 2 Supine to/from Sit: 3 Sit to/from Stand: 3 bed t/f WC(FIM only if WC use): 4 Sit to Lying (QC): 2 Lying to Sitting/Side of Bed(Q: 2 Sit to Stand (QC): 2 Chair/Ovp-um-Easfi Xfer(QC): 3 Car Transfer (QC): 88 bed mobility mod assist as well as sit to stand Gait Does the Patient Walk?: Yes Mode of Locomotion: Walk Anticipated Mode of Locomotion: Walk Gait (FIM): 1 Walk 10 feet (QC): 4 Walk 50 ft with 2 Turns(QC): 88 Walk 150 ft (QC): 88 Walking 10ft/uneven surface-QC: 88 Distance: 20'x2 Gait Level of Assist: 4 Gait Persons Needed: 1 Gait Assistive Device: FWW Comments/Gait Description very slow and antalgic, decreased stance time on the left, limp, poor heel strike Wheelchair Training Does the Pt Use a Wheelchair?: Yes Wheelchair (FIM): 2 Distance: 50' Wheelchair Level of Assist: 5 Wheel 50 ft with 2 turns (QC): 4 Wheel 150 ft (QC): 88 Type of Wheelchair: Manual patient fatigues quickly and cannot go 150' yet Stairs If not tested on admit;explain not attempted due to pain and poor mobility, would be fall risk Balance Sitting Static: Good Sitting Dynamic: Good Standing Static: Poor Standing Dynamic: Poor Assessment/Needs Patient has poor mobility, strength, endurance. He fatigues and gets SOB quickly and needs frequent rest breaks. He resists all movement with left leg. Rehab Potential: Fair PT Short Term Goals Short Term Goals Time Frame: Oct 29, 2016 Transfers (B,C,W/C) (FIM): 4 Gait (FIM): 2 Gait Distance Comment: 50' Gait Level of Assist: 4 Gait Assistive Device: FWW PT Pediatric Sports Medicine Specialist Goals Pediatric Sports Medicine Specialist Goals PT Snf Goals Time Frame: Nov 12, 2016 Transfers (B,C,W/C) (FIM): 4 Sit to Lying (QC): 4 Lying-Sitting on Side/Bed(QC): 4 Sit to Stand (QC): 4 Rollin Roll Left to Right (QC): 4 Chair/Zjw-hf-Ebbkh Xfer(QC): 4 Car Transfer (QC): 4 Gait (FIM): 4 Distance: 150' Walk 10 feet (QC): 4 Walk 10ft-Uneven Surface(QC): 4 Walk 50ft with 2 Turns (QC): 4 Walk 150 ft (QC): 4 Gait Level of Assist: 4 Gait Assistive Device: FWW Stairs (FIM): 2 # of Steps: 4 1 Step (curb) (QC): 4 4 Steps (QC): 4 12 Steps (QC): 88 Stairs Level Of Assist: 4 Picking up an Object (QC): 88 PT Plan Problem List Problem List: Activity Tolerance, Functional Strength, Safety, Balance, Gait, Transfer, Bed Mobility, ROM Treatment/Plan Treatment Plan: Continue Plan of Care Treatment Plan: Bed Mobility, Education, Functional Activity Geovani, Functional Strength, Group Therapy, Gait, Safety, Therapeutic Exercise, Transfers Treatment Duration: Nov 12, 2016 # of days/week 5-6 Visits Per Week: 10-11 Minutes/Day (M-F): 60-90 Minutes/Day (Sat/Modi): 15-30 Pt/Family Agrees w/Plan: Yes Safety Risks/Education Patient Education: Gait Training, Transfer Techniques, Correct Positioning, W/ C Management, Safety Issues Teaching Recipient: Patient Teaching Methods: Demonstration, Discussion Response to Teaching: Reinforcement Needed Discharge Recommendations Plan Patient will perform bed mobility and transfer training, balance and endurance training, functional strengthening, stair training, gait training, ROM, and education to improve functional mobility and independence at home. Therapy D/C Recommendations: Home w/ Family Support, [facility] (TCU/NH) Time/GCodes Time In: 1100 Time Out: 1200 Total Billed Treatment Time: 60 Total Billed Treatment 1 visit EVL 15 min GT 15 min WCH 15 min FA 15 min LEBRON ROSALES PT Oct 22, 2016 12:51
--- NOTE | 2016-10-22 13:09 | Occupational Therapy Eval ---
OT Evaluation-General/PLF Medical Diagnosis Admission Date Oct 22, 2016 at 10:14 Onset Date: Oct 11, 2016 Therapy Diagnosis Therapy Diagnosis: Weakness, Decreased ADL skills Height/Weight Height (Feet): 6 Height (Inches): 0.00 Weight (Pounds): 208 Weight (Ounces): 2.0 Weight Bear Status Weight Bearing Restriction: Weight Bearing/Tolerated Location Restriction: L LE Referral Physician: Ghassan Referral Reason: Activity Tolerance, Self Care, Evaluation/Treatment, Strengthening/ROM Medical History Pertinent Medical History: Atrial Fib, Arthritis, CABG, CAD, COPD, CVA, HTN, Hypothroidism, [place] Additional Medical History Pt. states that he was supposed to have his left knee replaced. States that he was trying to get cleared but then fractured his hip. Current History Pt. fell at home and fractured hip. Reviewed History: Yes Social History Home: Single Level Current Living Status: Spouse Entry Into Home: Stairs With Railing Steps Into Home: 3 ADL-Prior Level of Function ADL PLOF Comments Pt. and spouse states that he was independent with daily tasks. DME/Equipment: Bath Chair, Shower DME/Equipment Comments Pt. uses a cane at home. Drive Self: Yes OT Current Status Subjective Pt. does not report pain level. Appearance Pt is in chair. Agrees to treatment. OT brings pt. to therapy department via wheelchair. Mental Status/Objective Patient Orientation: Person, Place Current Glasses/Contacts: Yes Hand Dominance: Right Upper Extremity ROM Pt. is able to flex bilateral shoulders to approximately 90 degrees. Upper Extremity Coordination intact Upper Extremity Strength 3+/5 bilateral UE strength ADL-Treatment Functional [place] Measure 0=Not Assessed/NA 4=Minimal Assistance 1=Total Assistance 5=Supervision or Setup 2=Maximal Assistance 6=Modified [place] 3=Moderate Assistance 7=Complete IndependenceIRFPAI Quality Coding Scale 6 Independent with activity with or without an assistive device 5 Patient requires set up or clean up by helper. Patient completes activity by themselves 4 Supervision or touching assist (CGA). [place] provide cues , steadying assist 3 The helper provides less than half the effort to complete the activity 2 The helper provides more than half the effort to complete the activity 1 Dependent. The helper does all the effort to complete an activity 7 Patient refused to complete or attempt activity 9 The patient did not perform the activity before the current illness or injury 88 Not attempted due to Medical conditions or safety concerns Grooming (FIM): 5 (set up with combing hair.) Bathing (FIM): 2 (Pt. requires max assist to wash bilateral LE and to balance in stance to wash jimmie area. Pt. is unable to stand very long while washing jimmie area.) Shower/Bathe Self (QC): 2 Upper Body Dressing (FIM): 4 (Min assist to pull shirt down.) Upper Body Dressing (QC): 4 Lower Body Dressing (FIM): 2 (Pt. requires max assist to don socks and pants.) Lower Body Dressing (QC): 2 On/Off Footwear (QC): 1 Transfers (B, C, W/C) (FIM): 2 (Pt. requires max assist for sit-stand only.) Other Treatments Pt. requires increased time during treatment. Note that he fatigues quickly and becomes short of breath. However, has not been on oxygen during treatment and 02 sats stayed at 94%. Pt. up in wheelchair after treatment and PT to assist pt. Education OT Patient Education: Modified ADL techniques, Progress toward Goal/Update tx plan, Purpose of tx/functional activities, Reviewed precautions, Rehab process, Transfer techniques Teaching Recipient: Patient Teaching Methods: Demonstration, Discussion Response to Teaching: Verbalize Understanding, Return Demonstration OT Short Term Goals Short Term Goals Time Frame: Nov 05, 2016 Eating(FIM): 5 Grooming(FIM): 5 Bathing(FIM): 3 Upper Body Dressing(FIM): 4 Lower Body Dressing(FIM): 4 Toileting(FIM): 5 Transfers (B,C,W/C) (FIM): 4 Toilet/Commode Transfer(FIM): 4 Shower Transfer(FIM): 4 Additional Short Term Goals: 1-Demonstrate ADL Tasks, 2-Verbalize Understanding , 3-ImproveStrength/Geovani 1=Demonstrate adherence to instructed precautions during ADL tasks. 2=Patient will verbalize/demonstrate understanding of assistive devices/ modifications for ADL. 3=Patient will improve strength/tolerance for activity to enable patient to perform ADL's. OT Care Home Goals Care Home Goals Time Frame: Nov 19, 2016 Eating (FIM): 6 Eating (QC): 6 Groomin Oral Hygiene (QC): 6 Bathing(FIM): 5 Shower/Bathe Self (QC): 5 Upper Body Dressing(FIM): 5 Upper Body Dressing (QC): 5 Lower Body Dressing(FIM): 5 Lower Body Dressing (QC): 5 On/Off Footwear (QC): 5 Toileting(FIM): 6 Toileting Hygiene (QC): 6 Transfers (B,C,W/C) (FIM): 6 Toilet/Commode Transfer(FIM): 6 Toilet/Commode Transfer (QC): 6 Shower Transfer(FIM): 5 Additional Goals: 1-Demonstrate ADL Tasks, 2-Verbalize Understanding, 3- ImproveStrength/Geovani 1=Demonstrate adherence to instructed precautions during ADL tasks. 2=Patient will verbalize/demonstrate understanding of assistive devices/ modifications for ADL. 3=Patient will improve strength/tolerance for activity to enable patient to perform ADL's. OT Education/Plan Problem List/Assessment Assessment: Decreased Activ Tolerance, Decreased UE Strength, Dependent Transfers, Impaired Bed Mobility, Impaired Funct Balance, Impaired I ADL's, Impaired Self-Care Skills, Restricted Funct UE ROM Discharge Recommendations Plan/Recommendations: Continue POC Therapy D/C Recommendations: Home w/ Family Support, Occupational Therapy Home Care, Scheduled Assistance Equpiment Recommendations-D/C: Hip Kit Target Placement Home with family support. Treatment Plan/Plan of Care Treatment,Training & Education: Yes Patient would benefit from OT for education, treatment and training to promote independence in ADL's, mobility, safety and/or upper extremity function for ADL' s. Plan of Care: ADL Retraining, Functional Mobility, UE Funct Exercise/Act Treatment Duration: Nov 19, 2016 # of days/week 5-6 Visits Per Week: 10-12 Agreement: Yes Rehab Potential: Fair Time/GCodes Start Time: 10:05 Stop Time: 11:00 Total Time Billed (hr/min): 55 Billed Treatment Time 1, EVmod comp x 10minutes, ADL x 45minutes JOSE ANTONIO YOUNG OT Oct 22, 2016 13:09
[2016-10-22] MEDS ORDERED: CALCIUM CARBONATE 500 MG (TUMS) TAB.CHEW PO PRN (13:30)
--- NOTE | 2016-10-22 15:08 | ST Cognitive Linguistic Eval ---
Speech Evaluation-General Medical Diagnosis Left hip fracture Onset Date: Oct 11, 2016 Therapy Diagnosis Therapy Diagnosis: Questionable Cognitive Impairment Precautions Precautions/Isolations: Fall Prevention, Standard Precautions Referral Referring Physician: Dr. Juan C Ferrell Reason for Referral: Evaluation/Treatment Cognitive Screen Medical History Pertinent Medical History: Atrial Fib, Arthritis, CABG, CAD, COPD, CVA, HTN, Hypothroidism, [place] Reviewed History: Yes Social History Current Living Status: Spouse Speech PLF-Current Status Prior Level of Function The patient (and who was present) denied challenges with speech, cognition, or language prior to or throughout his hospitalization. Subjective The patient was recently admitted to [facility] with a diagnosis of a left hip fracture. The patient greeted the clinician appropriately and agreed to participate in the cognitive evaluation. Language Eval: Auditory Comprehends Simple Yes/No Ques: Functional Indent/Objects Multiple Stone: Functional Ident/Pics in Multiple Stone: Functional Follows 1-Step Commands: Functional Follows Complex Directions: Mild (Repetition required for increased accuracy.) Follows General Conversations: Functional Language Eval: Verbal Language Completes Spontaneous Greeting: Functional Produces Auto, Serial Info: Functional Imitates Simple Words/Phrases: Functional Word Finding: Functional Requests Basic Needs: Functional States Basic Personal Info: Functional Cognitive Patient Orientation The patient was oriented to place, location, date, month, year, and name ( independently). Objective Cognitive Domain Attention: WNL Memory: WNL Problem Solving: Functional Objective Impression The patient demonstrated cognitive linguistic skills grossly within normal limits for completion of ADL's. Communication/Social Cognition Comprehension: 5 Expression: 5 Social Interaction: 5 Problem Solvin Memory: 5 Speech Patient Assess Expression of Ideas/Wants: Exhibits (3) Understanding [place] Content: Usually Understands (3) Brief Interview-Mental Status: Yes Repetition of Three Words: Three (3) Temporal Orientation: Year: Correct (3) Temporal Orientation: Month: Accurate within 5 days(2) Temporal Orientation: Day: Incorrect or No Answer(0) Recall : Wear to say "Sock": Yes, no cue required (2) Recall : Color: Yes, no cue required (2) Recall : Bed: Yes, no cue required (2) Speech-Plan Treatment Plan Speech Therapy Treatment Plan: Discontinue ST Evaluation, only. Rehab Potential: Fair Safety Risks/Education Teaching Recipient: Patient, Significant Other Teaching Methods: Discussion Response to Teaching: Verbalize Understanding Education Topics Provided: Plan of Care Time Speech Therapy Time In: 14:14 Speech Therapy Time Out: 14:26 Total Billed Time: 12 Billed Treatment Time 1, RUBI PULIDO Oct 22, 2016 15:08
--- NOTE | 2016-10-22 16:31 | Therapy Group Daily Note ---
Therapy Daily Group Note Patient Education Topic Other List Below (Frality Syndrome & Prevention) Exercises LE Seated Exercise, UE Exercise Other/Notes Pt reported chest pain upon PT arrival. PT reported it to nursing as a precaution and nursing took vitals. All vitals were normal so pt was given a Tums and Ensure High Protein since he hadn't eaten and came to group. PT assisted maneuvering w/c to [facility] for group. Pt actively participated in OT/PT group. Group consisted of introductions (name, place living, place you'd rather be instead of here), socialization, education on Frailty Syndrome and prevention, UE/LE seated exercises with resistance and other benefits of exercise. Pt contributed to discussions appropriately and demonstrated knowledge of topic by answering verbal questions. Pt was able to complete UE/LE seated exercises. After therapy, pt sitting in w/c and maneuvered back to room for SPT back to bed to rest. All needs met. Start Time: 13:00 Stop Time: 14:10 Total Billed Treatment Time: 70 Total Billed Treatment 1, JACKLYN GALLEGOSTIFFANY ANIMAL RIDE MANAGER Oct 22, 2016 16:31
[2016-10-22] MEDS: BETHANECHOL 25 MG (URECHOLINE) TAB PO SCH (16:48)
[2016-10-22 17:34] VITALS: BP 100/66
[2016-10-22] MEDS: ALFUZOSIN HCL 10 MG TAB (UROXATRAL) PO SCH (21:12)
[2016-10-22] MEDS: APIXABAN 2.5 MG (ELIQUIS) TABLET PO SCH (21:12)
[2016-10-22] MEDS: FAMOTIDINE 20 MG (PEPCID) TABLET PO SCH (21:12)
[2016-10-22] MEDS: OMEGA 3 (FISH OIL) 1000 MG CAP PO SCH (21:12)
[2016-10-22] MEDS: SENNA W/DOCUSATE (SENOKOT S) TABLET PO SCH (21:13)
[2016-10-22] MEDS: SIMvastatin 20 MG (ZOCOR) TAB PO SCH (21:13)
[2016-10-22] MEDS: MULTIVIT W/MINERALS TAB (THERAGRAN M) PO SCH (21:13)
[2016-10-22] MEDS ORDERED: PROMETHAZINE INJ 25 MG/ML (PHENERGAN) AMP IVP PRN (21:30)
[2016-10-22] MEDS ORDERED: ONDANSETRON 4 MG (ZOFRAN) ORAL DISSOLVE TAB PO PRN (21:30)
[2016-10-23 04:13] VITALS: BP 99/69
[2016-10-23] MEDS: BETHANECHOL 25 MG (URECHOLINE) TAB PO SCH ×2 (06:46→16:33)
[2016-10-23] MEDS: LEVOTHYROXINE 150 MCG (LEVOTHROID) TAB PO SCH (06:47)
[2016-10-23] MEDS ORDERED: FUROSEMIDE 40 MG/4 ML INJ (LASIX) IVP NR (08:45)
[2016-10-23] MEDS: APIXABAN 2.5 MG (ELIQUIS) TABLET PO SCH ×2 (08:57→20:06)
[2016-10-23] MEDS: SENNA W/DOCUSATE (SENOKOT S) TABLET PO SCH ×2 (08:57→20:06)
[2016-10-23] MEDS: ASPIRIN E.C. 81 MG (ECOTRIN) TAB PO SCH (08:57)
[2016-10-23] MEDS: RT-ALBUTEROL/IPRATROPIUM 3 ML (DUONEB) VIAL INH SCH ×3 (08:58→21:28)
[2016-10-23] MEDS ORDERED: amLODIPine 5 MG (NORVASC) TAB PO SCH (09:00)
--- NOTE | 2016-10-23 10:31 | HISTORY AND PHYSICAL ---
DATE OF ADMISSION: 10/22/2016 CHIEF COMPLAINT: Difficulty walking. HISTORY OF THE PRESENT ILLNESS: The patient is an 89-year-old male who lives with his spouse in [place], [place], who lost his balance in his kitchen, fell to the floor and sustained am intertrochanteric fracture of the left hip. The patient went on to have an ORIF/TFN with orthopedics. The patient was made weight-bearing as tolerated. The patient was followed by Dr. Weaver, PCP, as well as orthopedics and was found to have a UTI, which was treated. The patient had acute renal failure, due to hypotensive event which responded to fluid resuscitation. The patient became medically stable with treatment and is now referred to Inpatient Rehabilitation Unit for ongoing orthopedic rehabilitation. His follow-up urine culture was negative. His anticoagulant was restarted for his atrial fibrillation. His Norvasc was resumed once his pressures was normalized. His levothyroxine was resumed for his hypothyroidism. The patient had postop urinary retention and bethanechol was started with good results. The patient was provided with blood transfusion for postoperative anemia with improvement. The patient did spend a brief period of time on the swing bed so he could build up his endurance prior to going to rehab. He was modified independent with a cane at home prior to this and continued to drive. Currently, he is max assist for bathing, lower body dressing, transfers. Min assist for upper body dressing, set up for grooming and eating. Speech therapy has assessed the patient and has found him to be functional for his age for cognition. He is mod to max assist for transfers with PT. His hearing is somewhat impaired, vision functional. He is min assist for ambulation short distances with a quad cane. He fatigues easily and cannot ambulate 150 feet. His standing balance, static and dynamic is poor. PAST MEDICAL HISTORY: 1. Chronic anticoagulated. 2. Atrial fibrillation. 3. Arthritis. 4. Coronary artery disease. 5. COPD. 6. Hypothyroidism. 7. Hypertension. 8. FL. PAST SURGICAL HISTORY: 1. CABG and as per above. 2. He reports also having a right hip replacement in the past for arthritis. ALLERGIES: No known medication allergies. FAMILY HISTORY: Noncontributory. SOCIAL HISTORY: Retired, lives in single level home with spouse. REVIEW OF SYSTEMS: Ten-point review of systems significant for hip pain, impaired balance, easy fatigue MEDICATIONS: 1. Amlodipine 5 mg p.o. daily. 2. ASA 81 mg p.o. daily. 3. Levothyroxine 250 mcg p.o. daily. 4. Pepcid 20 mg p.o. at bedtime. 5. Eliquis 2.5 mg p.o. b.i.d. 6. Fish oil 1000 mg p.o. at bedtime. 7. Multivitamins with minerals 1 tablet p.o. at bedtime. 8. Simvastatin 20 mg p.o. at bedtime. 9. Uroxatral 10 mg p.o. at bedtime. 10. Senokot-S 1 tablet p.o. b.i.d. 11. Urecholine 25 mg p.o. b.i.d. before meals. 12. Calcium carbonate 500 mg p.o. q.i.d. p.r.n. heartburn. 13. Tramadol 150 mg p.o. q.6 hours p.r.n. moderate pain. 14. Nitroglycerin 0.4 mg sublingual q. 5 minutes p.r.n. chest pain up to 4 doses or until chest pain relief. PHYSICAL EXAMINATION: Significant for a pleasant male somewhat hard of hearing, appearing his stated age, sitting in chair, in no acute distress. VITAL SIGNS: Blood pressure 132/79, respirations 16, pulse 92. He is afebrile. O2 sat 97% on room air. HEENT: Vision and speech are grossly intact. He has mild hearing loss. No oral lesion is noted. NECK: Supple without mass. HEART: Regular rhythm. LUNGS: Clear. ABDOMEN: Soft, nontender. Bowel sounds present. EXTREMITIES: Trace edema left ankle MUSCULOSKELETAL: He has functional active range of motion in both upper extremities. NEUROLOGICAL: Cognition functional, mild hearing loss, poor standing dynamic and static balance. Sensation is grossly intact to touch. He has functional strength right lower extremity. Left lower extremity impaired at the hip due to pain and guarding. He has arthritic changes in the left knee and reports that he was about to get medical clearance to have that replaced when he fell and broke his hip. He is right-hand dominant. Strength upper extremities is 3+/5 bilateral. He is able to actively flex his shoulders to approximately 90 degrees bilaterally. He does have some shortness of breath with activity. IMPRESSION: 1. Ambulatory dysfunction secondary to fall with left intertrochanteric hip fracture, status post repair Dr. White with TFN, and weight-bearing as tolerated. 2. UTI, treated. 3. Atrial fibrillation, controlled with medication. 4. Chronic oral anticoagulant resumed. 5. Episode of postop hypertension, resolved. 6. Postop urinary retention, resolved with medications. 7. Hypothyroidism on replacement. 8. Hypertension, controlled with medication. 9. Postoperative anemia, improved, status post transfusion. 10. 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 PLAN: The patient will have a comprehensive program of inpatient rehabilitation with a goal of maximizing level of functional dependence prior to discharge home with spouse with home health care. The patient will have PT/OT 90 minutes per day, each discipline, 5 days week for gait strengthening, conditioning, balance, ADLs, any patient/family/caregiver training necessary, any adaptive equipment and training necessary. Speech therapy has done cognitive assessment and found to be functional for his age and signed off. Rehabilitation nursing assist with bowel, bladder, skin, wound care, medication administration, pain management. social services director assist with discharge planning, community reentry. Follow-up with Dr. Weaver and Dr. White as per his schedule. Routine admission labs, therapy with cardiac and fall precautions. ESTIMATED LENGTH OF STAY: 2 to 3 weeks. PROGNOSIS: Rehab prognosis appears good for goal of discharging to home with spouse with home health care modified independent to supervision for ADLs and mobility skills. DIET: Regular. CODE STATUS: Full code. POST ADMISSION PHYSICIAN ASSESSMENT: The preadmission screen agrees with the post admission assessment that the patient is a good candidate for inpatient rehabilitation. He appears to be well motivated to participate in 3 hours of therapy a day. He should be able tolerate 3 hours of therapy a day from a medical and orthopedic standpoint. He should benefit from the 3 hours of therapy a day. He has a reasonable discharge plan, reasonable discharge rehabilitation goals and a supportive family. He has various comorbidities that need to be closely monitored with medications and treatments adjusted on a daily basis as needed. These with his postop anemia, postop urinary retention, his hypotensive episode his hypertension and his atrial fibrillation. Barriers discharge for this patient who had been modified independent with a cane prior to this are for him to be modified independent to supervision for ADLs and mobility skills prior to discharge home with spouse and home health care. Risks for this patient include: 1. Recurrent fall. 2. Fracture. 3. DVT. 4. Pulmonary embolism. 5. Skin breakdown. 6. Wound infection. 7. Contractures. 8. Poorly controlled pain. 9. Poorly controlled hypertension. 10. Poorly controlled atrial fibrillation. 11. Urinary retention. 12. Recurrent UTI. 13. Respiratory infection. 14. Aspiration. The patient will continue with Eliquis for DVT prophylaxis as well postop. Job ID: [id number] Dictated Date: 10/22/2016 18:01:45 Railroad Surveyor Date: 10/23/2016 10:05:24/rosalind COOPER
--- NOTE | 2016-10-23 11:30 | PM & R (SOAP) Progress Note ---
Subjective Subjective/Events-last exam Patient was seen in his room this AM The patients left calf is mildly swollen and tender but patient on OAC-Will monitor.The patient is mod assist for transfers Objective Exam Last Set of Vital Signs Vital Signs Date Time Temp Pulse Resp B/P Pulse Ox O2 Delivery O2 Flow Rate FiO2 10/23/16 09:35 Nasal Cannula 2.00 10/23/16 04:13 97.9 101 18 99/69 91 Capillary Refill : Less Than 3 Seconds I&O Bad tableGeneral: Alert, Oriented X3, Cooperative, No Acute Distress HEENT: Atraumatic, PERRLA, EOMI, Mucous Memb Moist/[place] Neck: Supple, No JVD Lungs: Clear to Auscultation Heart: Regular Rate Abdomen: Normal Bowel Sounds, Soft, No Tenderness Extremities: Other Neuro: Other (functional strength BUES and RLE Impaired at left hip) Assessment/Plan Assessment Fall frx left hip s/p repair Orthopedics Postop anemia s/p transfusion HTN controlled A FIB controlled OAC chronic usage OA left knee Plan Continue PT/OT Monitor swellin tenderness left calf do U/S if needed to check for DVT F/U with DR Weaver PRN Current labs noted. ESSENCE MERCHANT MD Oct 23, 2016 11:30
--- NOTE | 2016-10-23 13:20 | Occupational Ther Daily Note ---
OT Current Status-Daily Note Subjective Pt. states that he is tired today. Appearance Pt. in bed. Agrees to work with OT. Mental Status/Objective Patient Orientation: Person Functional [place] Measure 0=Not Assessed/NA 4=Minimal Assistance 1=Total Assistance 5=Supervision or Setup 2=Maximal Assistance 6=Modified [place] 3=Moderate Assistance 7=Complete [place] ADL-Treatment Functional [place] Measure 0=Not Assessed/NA 4=Minimal Assistance 1=Total Assistance 5=Supervision or Setup 2=Maximal Assistance 6=Modified [place] 3=Moderate Assistance 7=Complete IndependenceIRFPAI Quality Coding Scale 6 Independent with activity with or without an assistive device 5 Patient requires set up or clean up by helper. Patient completes activity by themselves 4 Supervision or touching assist (CGA). [place] provide cues , steadying assist 3 The helper provides less than half the effort to complete the activity 2 The helper provides more than half the effort to complete the activity 1 Dependent. The helper does all the effort to complete an activity 7 Patient refused to complete or attempt activity 9 The patient did not perform the activity before the current illness or injury 88 Not attempted due to Medical conditions or safety concerns Grooming (FIM): 2 (Max assist to comb hair.) Bathing (FIM): 3 (Mod assist overall to wash body. Utilized adaptive equipment for LE. Mod assist in stance to support self and max assist to wash jimmie area.) Upper Body (FIM): 4 (Min assist to pull shirt down over his back.) Lower Body Dressing (FIM): 3 (Pt. issued adaptive equipment today. Able to don pants and socks but required mod assist overall and assist in stance to don them over hips. Very fatigued.) Transfers (B, C, W/C) (FIM): 2 (Mod assist for supine-sit, max assist for sit- stand and transfer to chair.) Other Treatment Pt. demonstrates weakness and fatigue this date. Fatigues easily. Education OT Patient Education: Correct positioning, Modified ADL techniques, Progress toward Goal/Update tx plan, Purpose of tx/functional activities, Reviewed precautions, Rehab process, Transfer techniques, Use of adapted equipment Teaching Recipient: Patient Teaching Methods: Demonstration, Discussion Response to Teaching: Verbalize Understanding, Return Demonstration OT Short Term Goals Short Term Goals Time Frame: Nov 05, 2016 Eating(FIM): 5 Grooming(FIM): 5 Bathing(FIM): 3 Upper Body Dressing(FIM): 4 Lower Body Dressing(FIM): 4 Toileting(FIM): 5 Transfers (B,C,W/C) (FIM): 4 Toilet/Commode Transfer(FIM): 4 Shower Transfer(FIM): 4 Additional Short Term Goals: 1-Demonstrate ADL Tasks, 2-Verbalize Understanding , 3-ImproveStrength/Ge[place]ani 1=Demonstrate adherence to instructed precautions during ADL tasks. 2=Patient will verbalize/demonstrate understanding of assistive devices/ modifications for ADL. 3=Patient will improve strength/tolerance for activity to enable patient to perform ADL's. OT [facility] Goals Adult Ministries Director Goals Time Frame: Nov 19, 2016 Eating (FIM): 6 Eating (QC): 6 Groomin Oral Hygiene (QC): 6 Bathing(FIM): 5 Shower/Bathe Self (QC): 5 Upper Body Dressing(FIM): 5 Upper Body Dressing (QC): 5 Lower Body Dressing(FIM): 5 Lower Body Dressing (QC): 5 On/Off Footwear (QC): 5 Toileting(FIM): 6 Toileting Hygiene (QC): 6 Transfers (B,C,W/C) (FIM): 6 Toilet/Commode Transfer(FIM): 6 Toilet/Commode Transfer (QC): 6 Shower Transfer(FIM): 5 Additional Goals: 1-Demonstrate ADL Tasks, 2-Verbalize Understanding, 3- ImproveStrength/Geovani 1=Demonstrate adherence to instructed precautions during ADL tasks. 2=Patient will verbalize/demonstrate understanding of assistive devices/ modifications for ADL. 3=Patient will improve strength/tolerance for activity to enable patient to perform ADL's. OT Education/Plan Problem List/Assessment Assessment: Decreased Activ Tolerance, Decreased Safety Aware, Decreased UE Strength, Dependent Transfers, Impaired Bed Mobility, Impaired Cognition, Impaired Coordination, Impaired Funct Balance, Impaired I ADL's, Impaired Self- Care Skills, Restricted Funct UE ROM Discharge Recommendations Plan/Recommendations: Continue POC Therapy D/C Recommendations: 24 hr Supervision Treatment Plan/Plan of Care Treatment,Training & Education: Yes Patient would benefit from OT for education, treatment and training to promote independence in ADL's, mobility, safety and/or upper extremity function for ADL' s. Plan of Care: ADL Retraining, Functional Mobility, UE Funct Exercise/Act Treatment Duration: Nov 19, 2016 Visits Per Week: 10-12 Agreement: Yes Rehab Potential: Fair Time/GCodes Start Time: 08:15 Stop Time: 09:00 Total Time Billed (hr/min): 45 Billed Treatment Time 1, ADL x 45minutes JOSE ANTONIO YOUNG OT Oct 23, 2016 13:20
--- NOTE | 2016-10-23 13:30 | Occupational Ther Daily Note ---
OT Current Status-Daily Note Subjective No pain reported. Appearance Pt. is up in his chair. Agrees to treatment. Mental Status/Objective Patient Orientation: Person Functional [place] Measure 0=Not Assessed/NA 4=Minimal Assistance 1=Total Assistance 5=Supervision or Setup 2=Maximal Assistance 6=Modified [place] 3=Moderate Assistance 7=Complete [place] ADL-Treatment Functional [place] Measure 0=Not Assessed/NA 4=Minimal Assistance 1=Total Assistance 5=Supervision or Setup 2=Maximal Assistance 6=Modified [place] 3=Moderate Assistance 7=Complete IndependenceIRFPAI Quality Coding Scale 6 Independent with activity with or without an assistive device 5 Patient requires set up or clean up by helper. Patient completes activity by themselves 4 Supervision or touching assist (CGA). [place] provide cues , steadying assist 3 The helper provides less than half the effort to complete the activity 2 The helper provides more than half the effort to complete the activity 1 Dependent. The helper does all the effort to complete an activity 7 Patient refused to complete or attempt activity 9 The patient did not perform the activity before the current illness or injury 88 Not attempted due to Medical conditions or safety concerns Other Treatment Went to therapy gym via wheelchair. Pt. participated in series of fine motor skills and UE strengthening to increased independence with daily tasks. Required increased time to do this, as well as cues at times to sequence. Pt. very fatigued. Does not move fast gross motor [place]. Continues to wear oxygen in therapy gym. 02 sats at 95% with oxygen on. Went back to room. Transferred sit-stand with max assist and to bed with max assist. Max assist for sit-supine. All needs met in room. Education OT Patient Education: Correct positioning, Modified ADL techniques, Progress toward Goal/Update tx plan, Purpose of tx/functional activities, Reviewed precautions, Rehab process, Transfer techniques Teaching Recipient: Patient Teaching Methods: Demonstration, Discussion Response to Teaching: Verbalize Understanding, Return Demonstration OT Short Term Goals Short Term Goals Time Frame: Nov 05, 2016 Eating(FIM): 5 Grooming(FIM): 5 Bathing(FIM): 3 Upper Body Dressing(FIM): 4 Lower Body Dressing(FIM): 4 Toileting(FIM): 5 Transfers (B,C,W/C) (FIM): 4 Toilet/Commode Transfer(FIM): 4 Shower Transfer(FIM): 4 Additional Short Term Goals: 1-Demonstrate ADL Tasks, 2-Verbalize Understanding , 3-ImproveStrength/Geovani 1=Demonstrate adherence to instructed precautions during ADL tasks. 2=Patient will verbalize/demonstrate understanding of assistive devices/ modifications for ADL. 3=Patient will improve strength/tolerance for activity to enable patient to perform ADL's. OT Senior Living Goals Mission Assessment Specialist Goals Time Frame: Nov 19, 2016 Eating (FIM): 6 Eating (QC): 6 Groomin Oral Hygiene (QC): 6 Bathing(FIM): 5 Shower/Bathe Self (QC): 5 Upper Body Dressing(FIM): 5 Upper Body Dressing (QC): 5 Lower Body Dressing(FIM): 5 Lower Body Dressing (QC): 5 On/Off Footwear (QC): 5 Toileting(FIM): 6 Toileting Hygiene (QC): 6 Transfers (B,C,W/C) (FIM): 6 Toilet/Commode Transfer(FIM): 6 Toilet/Commode Transfer (QC): 6 Shower Transfer(FIM): 5 Additional Goals: 1-Demonstrate ADL Tasks, 2-Verbalize Understanding, 3- ImproveStrength/Geovani 1=Demonstrate adherence to instructed precautions during ADL tasks. 2=Patient will verbalize/demonstrate understanding of assistive devices/ modifications for ADL. 3=Patient will improve strength/tolerance for activity to enable patient to perform ADL's. OT Education/Plan Problem List/Assessment Assessment: Decreased Activ Tolerance, Decreased Safety Aware, Decreased UE Strength, Dependent Transfers, Impaired Bed Mobility, Impaired Coordination, Impaired Funct Balance, Impaired I ADL's, Impaired Self-Care Skills, Restricted Funct UE ROM Discharge Recommendations Plan/Recommendations: Continue POC Therapy D/C Recommendations: 24 hr Supervision Treatment Plan/Plan of Care Treatment,Training & Education: Yes Patient would benefit from OT for education, treatment and training to promote independence in ADL's, mobility, safety and/or upper extremity function for ADL' s. Plan of Care: ADL Retraining, Functional Mobility, UE Funct Exercise/Act Treatment Duration: Nov 19, 2016 Visits Per Week: 10-12 Agreement: Yes Rehab Potential: Fair Time/GCodes Start Time: 10:30 Stop Time: 11:15 Total Time Billed (hr/min): 45 Billed Treatment Time 1, FA x 45minutes JOSE ANTONIO YOUNG OT Oct 23, 2016 13:30
--- NOTE | 2016-10-23 14:55 | Physical Therapy Daily Note ---
PT Daily Note-Current Subjective Pt sitting in W/C upon arrival. Pt reports feeling tired and a little SOB. Pt agreed to PT. Pain Numeric Pain Scale: 8 Location: Left, Lateral Location Body Site: Hip Pain Description: Ache Mental Status Patient Orientation: Person, Place, Situation Attachments: Oxygen Transfers Functional [place] Measure 0=Not Assessed/NA 4=Minimal Assistance 1=Total Assistance 5=Supervision or Setup 2=Maximal Assistance 6=Modified [place] 3=Moderate Assistance 7=Complete IndependenceIRFPAI Quality Coding Scale 6 Independent with activity with or without an assistive device 5 Patient requires set up or clean up by helper. Patient completes activity by themselves 4 Supervision or touching assist (CGA). [place] provide cues , steadying assist 3 The helper provides less than half the effort to complete the activity 2 The helper provides more than half the effort to complete the activity 1 Dependent. The helper does all the effort to complete an activity 7 Patient refused to complete or attempt activity 9 The patient did not perform the activity before the current illness or injury 88 Not attempted due to Medical conditions or safety concerns Scootin Rollin Roll Left to Right (QC): 4 Supine to/from Sit: 4 Sit to/from Stand: 3 Sit to Lying (QC): 4 Sit to Stand (QC): 3 Chair/[id number] Xfer(QC): 3 Bed to/from Chair: 4 Weight Bearing Weight Bearing Restriction: Weight Bearing/Tolerated Location Restriction: LE Bilateral Wheelchair Training Does the Pt Use a Wheelchair?: Yes Wheelchair (FIM): 3 Wheelchair Distance: 3=150 ft Distance: 150' Wheelchair Level of Assist: 4 Wheel 50 ft with 2 turns (QC): 4 Wheel 150 ft (QC): 4 Type of Wheelchair: Manual Exercises Supine Ex: Ankle pumps, Quad Set, Rolling, Glut sets, Heel Slides, Straight leg raise, Hip abd/add Supine Reps: 15 NuStep Minutes: 2 NuStep Workload: 1 Treatments Pt assisted with wheeling to Therapy Gym then transferred to [facility] with SPT at Mod A. Pt used for 2m at Workload 1 before needing to use urinal. PT assisted pt with wheeling back to room and used urinal. Pt then again assisted pt wheel to Gym and transferred from / to mat at Mod A for supine EX. Pt completed supine EX with a few short rest breaks for fatigue. Pt then transferred back to W/C to return to room to rest. Pt helped propel W/C back towards room. Pt saw friend here to visit and wanted to remain in Therapy Commons to visit. Pt is left with all needs met at end of tx. Assessment Current Status: Fair Progress Pt continues to have spells of SOB especially during tx. PT fatigues easy and requires short rest breaks to recover. Pt currently using 3L of O2. PT Short Term Goals Short Term Goals Time Frame: Oct 29, 2016 Transfers (B,C,W/C) (FIM): 4 Gait (FIM): 2 Gait Distance Comment: 50' Gait Level of Assist: 4 Gait Assistive Device: FWW Wheelchair Distance: 50' PT [facility] Goals Fci Goals PT [facility] Goals Time Frame: Nov 12, 2016 Transfers (B,C,W/C) (FIM): 4 Rollin Gait Assistive Device: FWW Picking up an Object (QC): 88 PT Plan Problem List Problem List: Activity Tolerance, Functional Strength, Safety, Balance, Gait, Transfer, Bed Mobility Treatment/Plan Treatment Plan: Continue Plan of Care Treatment Plan: Bed Mobility, Education, Functional Activity Geovani, Functional Strength, Group Therapy, Gait, Safety, Therapeutic Exercise, Transfers Treatment Duration: Nov 12, 2016 Visits Per Week: 10-11 Minutes/Day (M-F): 60-90 Minutes/Day (Sat/Modi): 15-30 Safety Risks/Education Patient Education: Transfer Techniques, Correct Positioning, Safety Issues Teaching Recipient: Patient Teaching Methods: Discussion Response to Teaching: Verbalize Understanding Time/GCodes Time In: 900 Time Out: 1000 Total Billed Treatment Time: 60 Total Billed Treatment visit, FA X2 (30m) & EX X2 (30m) TIFFANY GALLEGOS PTA Oct 23, 2016 14:55
--- NOTE | 2016-10-23 15:54 | Physical Therapy Daily Note ---
PT Daily Note-Current Subjective Pt supine in bed finishing RT upon arrival. RT reports turning O2 back down to 2L. Pt reports feeling very fatigued but agrees to supine EX in bed. Pain Numeric Pain Scale: 7 Location: Left Location Body Site: Hip Pain Description: Ache Mental Status Patient Orientation: Person, Place, Situation Attachments: Oxygen Transfers Functional [place] Measure 0=Not Assessed/NA 4=Minimal Assistance 1=Total Assistance 5=Supervision or Setup 2=Maximal Assistance 6=Modified [place] 3=Moderate Assistance 7=Complete IndependenceIRFPAI Quality Coding Scale 6 Independent with activity with or without an assistive device 5 Patient requires set up or clean up by helper. Patient completes activity by themselves 4 Supervision or touching assist (CGA). [place] provide cues , steadying assist 3 The helper provides less than half the effort to complete the activity 2 The helper provides more than half the effort to complete the activity 1 Dependent. The helper does all the effort to complete an activity 7 Patient refused to complete or attempt activity 9 The patient did not perform the activity before the current illness or injury 88 Not attempted due to Medical conditions or safety concerns Exercises Supine Ex: Ankle pumps, Quad Set, Glut sets, Heel Slides, Straight leg raise, Hip abd/add Supine Reps: 15 Treatments Pt completes supine EX with several rest breaks in between EX. Pt reports pain in L hip with SLR & AB/ADD. Pt left supine in bed with all needs met at end of tx. SP reports feeling shaky and sweaty (she is diabetic). Nursing notified and SP blood sugar taken. It was 34 so OJ was given as well as cold water and chesse/crackers. Assessment Current Status: Fair Progress Pt is motivated to get stronger and more independent but fatigues easy and gets SOB with EX. PT Short Term Goals Short Term Goals Time Frame: Oct 29, 2016 Transfers (B,C,W/C) (FIM): 4 Gait (FIM): 2 Gait Distance Comment: 50' Gait Level of Assist: 4 Gait Assistive Device: FWW Wheelchair Distance: 150' PT Senior Living Goals Senior Living Goals PT Senior Living Goals Time Frame: Nov 12, 2016 Transfers (B,C,W/C) (FIM): 4 Rollin Gait Assistive Device: FWW Picking up an Object (QC): 88 PT Plan Problem List Problem List: Activity Tolerance, Functional Strength, Safety, Balance, Gait, Transfer, Bed Mobility Treatment/Plan Treatment Plan: Continue Plan of Care Treatment Plan: Bed Mobility, Education, Functional Activity Geovani, Functional Strength, Group Therapy, Gait, Safety, Therapeutic Exercise, Transfers Treatment Duration: Nov 12, 2016 Visits Per Week: 10-11 Minutes/Day (M-F): 60-90 Minutes/Day (Sat/Modi): 15-30 Safety Risks/Education Patient Education: Transfer Techniques, Reviewed Precautions, Correct Positioning, Safety Issues Teaching Recipient: Patient, Significant Other Teaching Methods: Discussion Response to Teaching: Verbalize Understanding Time/GCodes Time In: 1400 Time Out: 1430 Total Billed Treatment Time: 30 Total Billed Treatment visit, EX (15m) & FA (15m) TIFFANY GALLEGOS PTA Oct 23, 2016 15:54
[2016-10-23 18:28] VITALS: BP 110/71
--- NOTE | 2016-10-23 20:01 | Individualized Plan of Care ---
Individualized Plan of Care Rehab Nursing IPOC Order Admission Date Oct 22, 2016 at 10:14 Current Orders Orders-ESSENCE MERCHANT MD Admission-Acute Rehab Unit (10/22/16 10:55) Vital Signs: Routine 08,16,00 (10/22/16 10:55) Sequential Compression Device 08,20 (10/22/16 10:55) Social Service (10/22/16 10:55) Rehab Nursing Orders-Ipoc (10/22/16 10:55) Physical Therapy Rehab Orders (10/22/16 10:55) Occupational Therapy Rehab Ord (10/22/16 10:55) Speech Therapy Rehab Orders (10/22/16 10:55) General/Regular (10/22/16 Dinner) Turn And Reposition Q2HR (10/22/16 10:55) Intake & Output Shift Assessme 06,14,22 (10/22/16 10:55) Weight Bearing Status (10/22/16 10:55) Precautions (Aru) (10/22/16 10:55) Weekly Weight (Lbs) WEEK (10/22/16 10:55) Consult Physician (10/22/16 10:59) Amlodipine Tablet (Norvasc Tablet) (10/23/16 09:00) Bethanechol Tablet (Urecholine Tablet) (10/22/16 16:00) Famotidine Tablet (Pepcid Tablet) (10/22/16 21:00) Tramadol Tablet (Ultram Tablet) (10/22/16 11:15) Apixaban Tablet (Eliquis Tablet) (10/22/16 21:00) Aspirin Enteric Coated Tablet (Ecotrin T (10/23/16 09:00) [place] 3 Capsule (Fish Oil Capsule) (10/22/16 21:00) Levothyroxine Tablet (Synthroid Tablet) (10/23/16 06:30) Therapeutic Multivitamin Tab (Vitamins, (10/22/16 21:00) Nitroglycerin Sublingual (Nitrostat Sub (10/22/16 11:15) Simvastatin Tablet (Zocor Tablet) (10/22/16 21:00) Senna S Tablet (Senokot S Tablet) (10/22/16 21:00) Alfuzosin Tablet (Uroxatral Tablet) (10/22/16 21:00) Calcium Carbonate Chew Tablet (Antacid C (10/22/16 13:30) Patient Visit (10/22/16 ) Therapeutic, Group (10/22/16 ) Patient Visit (10/22/16 ) Pt Eval Low Complexity (10/22/16 ) Functional Activities, Ea 15 (10/22/16 ) Wheelchair Mgmt/Propulsn 15min (10/22/16 ) Gait Training, Ea 15 Min (10/22/16 ) Patient Visit (10/22/16 ) Speech Sound Lang Comp (10/22/16 ) Cbc With Automated Diff (10/24/16 06:00) Comprehensive Metabolic Panel (10/24/16 06:00) Patient Visit (10/23/16 ) Exercise Therap, Ea 15 Min (10/23/16 ) Functional Activities, Ea 15 (10/23/16 ) PT IPOC Problem List: Activity Tolerance, Functional Strength, Safety, Balance, Gait, Transfer, Bed Mobility Treatment Plan: Continue Plan of Care Bed Mobility, Education, Functional Activity Geovani, Functional Strength, Group Therapy, Gait, Safety, Therapeutic Exercise, Transfers Treatment Duration: Nov 12, 2016 Visits Per Week: 10-11 Minutes/Day (M-F): 60-90 Minutes/Day (Sat/Modi): 15-30 OT IPOC Problems: Decreased Activ Tolerance, Decreased Safety Aware, Decreased UE Strength, Dependent Transfers, Impaired Bed Mobility, Impaired Coordination, Impaired Funct Balance, Impaired I ADL's, Impaired Self-Care Skills, Restricted Funct UE ROM Plan of Care: ADL Retraining, Functional Mobility, UE Funct Exercise/Act Treatment Duration: Nov 19, 2016 Visits Per Week: 10-12 Minutes/Day (M-F): 60-90 Minutes/Day (Sat/Modi): 15-30 ST IPOC Speech Therapy Treatment Plan: Discontinue ST Physician IPOC Medical Issues being managed closely and that require the 24 hour availability of a physician:postop anemia Pain management Hypothyroidism Hypoalbuminemia Medical Issues: DVT Prophylaxis, Falls Precautions, Fluid/Electrolyte/ Nutrition Balance, Infection Protection, Pain Management, Wound Care, Other ( List) (as per above) Brief Synthesis of Preadmission Screen, Post-Admission Evaluation, and Therapy Evaluations: 89 yo male who lives with spouse in [place] who fellat home and sustained a left hip frx now s/p repair with ortho and WBAT Referred to [facility]U for ongoing ortho rehab prior to return home with spouse and [facility] Medical Prognosis: good Anticipated Length of Stay: 11/19/16 Rehab Goals Mod Independent to supervsion for adls and mobility skills Anticipated discharge destinat: Home with spouse and [facility] ESSENCE MERCHANT MD Oct 23, 2016 20:01
[2016-10-23] MEDS: MULTIVIT W/MINERALS TAB (THERAGRAN M) PO SCH (20:05)
[2016-10-23] MEDS: OMEGA 3 (FISH OIL) 1000 MG CAP PO SCH (20:06)
[2016-10-23] MEDS: SIMvastatin 20 MG (ZOCOR) TAB PO SCH (20:06)
[2016-10-23] MEDS: FAMOTIDINE 20 MG (PEPCID) TABLET PO SCH (20:06)
[2016-10-23] MEDS: ALFUZOSIN HCL 10 MG TAB (UROXATRAL) PO SCH (20:07)
[2016-10-24] MEDS: RT-ALBUTEROL/IPRATROPIUM 3 ML (DUONEB) VIAL INH SCH ×4 (03:32→21:18)
[2016-10-24 06:00] VITALS: BP 104/66
[2016-10-24] MEDS: BETHANECHOL 25 MG (URECHOLINE) TAB PO SCH ×2 (06:10→16:49)
[2016-10-24] MEDS: LEVOTHYROXINE 150 MCG (LEVOTHROID) TAB PO SCH (06:10)
[2016-10-24 07:32] LABS: BASOPHILS % (AUTO) 0 % (0-10); EOSINOPHILS # (AUTO) 0.1 10^3/uL (0.0-0.3); EOSINOPHILS % (AUTO) 1 % (0-10); LYMPHOCYTES # (AUTO) 1.4 X 10^3 (1.0-4.0); LYMPHOCYTES % (AUTO) 7 % (12-44); MEAN CORPUSCULAR HEMOGLOBIN 31 PG (25-34); MEAN CORPUSCULAR HGB CONC 33 G/DL (32-36); MEAN CORPUSCULAR VOLUME 96 FL (80-99); MEAN PLATELET VOLUME 9.9 FL (7.4-10.4); MONOCYTES # (AUTO) 2.8 X 10^3 (0.0-1.0); MONOCYTES % (AUTO) 13 % (0-12); NEUTROPHILS # (AUTO) 16.6 X 10^3 (1.8-7.8); NEUTROPHILS % (AUTO) 79 % (42-75); PLATELET COUNT 567 10^3/uL (130-400); RED BLOOD COUNT 3.01 10^6/uL (4.35-5.85)
[2016-10-24] MEDS: RT-ALBUTEROL/IPRATROPIUM 3 ML (DUONEB) VIAL INH PRN ×3 (07:40→18:46)
[2016-10-24 07:49] LABS: ALBUMIN 2.9 G/DL (3.2-4.5); BILIRUBIN,TOTAL 1.1 MG/DL (0.1-1.0); CALCIUM 8.3 MG/DL (8.5-10.1); CREATININE SERUM 1.2 MG/DL (0.60-1.30); POTASSIUM 4.3 MMOL/L (3.6-5.0); TOTAL PROTEIN 5.9 G/DL (6.4-8.2)
[2016-10-24 08:04] LABS: ANISOCYTOSIS SLIGHT; BAND NEUTROPHILS 0 %; BASOPHILS % (MANUAL) 1 %; EOSINOPHILS % (MANUAL) 0 %; LYMPHOCYTES % (MANUAL) 4 %; NEUTROPHILS % (MANUAL) 87 %
--- NOTE | 2016-10-24 08:13 | PM & R (SOAP) Progress Note ---
Subjective Subjective/Events-last exam Patient was seen in his room this AM Patient c/o increased SOB Rest tx helped Discussed with RN WBC count up to 21K Will check CXR and Inform PCP DR Weaver Review of Systems Pulmonary: Dyspnea Cough Objective Exam Last Set of Vital Signs Vital Signs Date Time Temp Pulse Resp B/P Pulse Ox O2 Delivery O2 Flow Rate FiO2 10/24/16 07:41 90 4.00 10/24/16 06:00 101 20 104/66 Nasal Cannula 10/23/16 18:28 98.0 Capillary Refill : Less Than 3 Seconds I&O Intake and Output 10/24/16 00:00 Intake Total 850 ml Output Total 300 ml Balance 550 ml Intake Oral 850 ml Output Urine Total 300 ml # Voids 4 General: Alert, Oriented X3, Cooperative, No Acute Distress HEENT: Atraumatic, PERRLA, EOMI, Mucous Memb Moist/[place] Neck: Supple, No JVD Lungs: Clear to Auscultation, Other (Decresed breath sounds) Heart: Regular Rate Abdomen: Normal Bowel Sounds, Soft, No Tenderness Extremities: Other Neuro: Other (functional strength BUES and RLE Impaired at left hip) Results Lab Laboratory Tests 10/24/16 07:17: Alanine Aminotransferase (ALT/SGPT) 66H, Albumin 2.9L, Alkaline Phosphatase 128 , Anion Gap 12, Anisocytosis SLIGHT, Aspartate Amino Transf (AST/SGOT) 211H, BUN /Creatinine Ratio 20, Band Neutrophils 0, Basophils # (Auto) 0.0, Basophils % ( Manual) 1, Basophils (%) (Auto) 0, Blood Urea Nitrogen 24H, Calcium Level 8.3L, Carbon Dioxide Level 23, Chloride Level 101, Creatinine 1.20, Eosinophils # ( Auto) 0.1, Eosinophils % (Manual) 0, Eosinophils (%) (Auto) 1, Estimat Glomerular Filtration Rate 57, Glucose Level 139H, Hematocrit 29L, Hemoglobin 9.4L, Lymphocytes # (Auto) 1.4, Lymphocytes % (Manual) 4, Lymphocytes (%) (Auto ) 7L, Mean Corpuscular Hemoglobin 31, Mean Corpuscular Hemoglobin Concent 33, Mean Corpuscular Volume 96, Mean Platelet Volume 9.9, Monocytes # (Auto) 2.8H, Monocytes % (Manual) 8, Monocytes (%) (Auto) 13H, Neutrophils # (Auto) 16.6H, Neutrophils % (Manual) 87, Neutrophils (%) (Auto) 79H, Platelet Count 567H, Potassium Level 4.3, Red Blood Count 3.01L, Red Cell Distribution Width 14.0, Sodium Level 136, Total Bilirubin 1.1H, Total Protein 5.9L, White Blood Count 21.0H Assessment/Plan Assessment Fall frx left hip s/p repair Orthopedics Postop anemia s/p transfusion HTN controlled A FIB controlled OAC chronic usage OA left knee COPD O2 dependent Leukocytosis R/O Pneumonia Plan Continue PT/OT Monitor swelling/ tenderness left calf do U/S if needed to check for DVT F/U with DR Weaver re Leukocytosis and increased SOB Check CXR Adjust Resp treatments and O2 as needed for symptomatic relief Current labs noted. ESSENCE MERCHANT MD Oct 24, 2016 08:13
--- NOTE | 2016-10-24 09:25 | Consultation ---
History of Present Illness History of Present Illness Patient Consulted On(cathi/time) 10/24/16 09:20 Date of Admission 10/23/16 Reason for Visit: left hip fracture History of Present Illness PT IS AN 89 Y/O MALE WHO IS KNOWN TO ME FROM CLINIC. HE PRESENTED TO THE HOSPITAL AND WAS ADMITTED WITH LEFT HIP FRACTURE, TREATMENT WAS RENDERED BY ORTHOPEDIC SURGEON AND PT HAD POST-OP SHOCK WITH HYPOTENSION. HE WAS GIVEN FLUIDS, BLOOD AND PER HIS REPORT HAD BEEN FEELING QUITE A BIT BETTER. HE HAD LABS THIS MORNING WITH ACUTE ELEVATION IN HIS WHITE BLOOD CELL COUNT. Allergies and Home Medications Allergies Coded Allergies: No Known Drug Allergies (Verified , 10/17/16) Home Medications Aspirin 81 Mg Tablet.dr 81 MG PO DAILY (Reported) Docosahexanoic Acid/Epa 1 Cap Capsule 1,000 MG PO HS (Reported) Levothyroxine Sodium 200 Mcg Tablet 200 MCG PO DAILY (Reported) TAKES ALONG WITH 50MCG TABLET Levothyroxine Sodium 50 Mcg Tablet 50 MCG PO DAILY (Reported) TAKES ALONG WITH 200MCG TABLET Multivitamins 1 Tab Tablet 1 TAB PO HS (Reported) Nitroglycerin 0.4 Mg Subl 0.4 MG SL UD PRN PRN CHEST PAIN (Reported) PLACE 1 TABLET UNDER TONGUE EVERY 5 MINUTES X 3 DOSES NEEDED FOR CHEST PAIN Simvastatin 40 Mg Tablet 20 MG PO HS (Reported) TAKES 1/2 (40MG) TABLET Tamsulosin Hcl 0.4 Mg Cap 0.4 MG PO HS (Reported) Past Oeopodw-Ilvbme-Ruidvy Hx Patient Social History Alcohol Use: Denies Use Recreational Drug Use: No Smoking Status: Never a Smoker 2nd Hand Smoke Exposure: No Recent Foreign Travel: No Contact w/Someone Who Travel: No Recent Infectious Disease Expo: No Recent Hopitalizations: Yes (Left hip fx) Physical Abuse Screen: No Sexual Abuse: No Immunizations Up To Date Tetanus Booster (TDap): Unknown PED Vaccines UTD: No Date of Pneumonia Vaccine: Jun 07, 2014 Date of Influenza Vaccine: Jun 07, 2016 Seasonal Allergies Seasonal Allergies: No Surgeries HX Surgeries: Yes (OPEN HEART SURGERY IN 1999, APPENDECTOMY HERNIA, R HIP) Surgeries: Appendectomy, CABG, Coronary Stent, Joint Replacement, Orthopedic Respiratory Hx Respiratory Disorders: Yes (home o2 HS) Respiratory Disorders: Sleep Apnea, COPD Cardiovascular Hx Cardiac Disorders: Yes Cardiac Disorders: Atrial Fibrillation, Coronary Artery Disease, Heart Attack, Hypertension Neurological Hx 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) Neurological Disorders: Stroke Reproductive System Hx Reproductive Disorders: No Sexually Transmitted Disease: No HIV/AIDS: No Genitourinary Hx Genitourinary Disorders: Yes Genitourinary Disorders: Benign Prostatic Hyperpl Gastrointestinal Hx Gastrointestinal Disorders: No Musculoskeletal Hx Musculoskeletal Disorders: Yes Musculoskeletal Disorders: Arthritis, Fractures Endocrine Hx Endocrine Disorders: Yes Endocrine Disorders: Hypothyroidsim HEENT HX ENT Disorders: Yes HEENT Disorders: Cataract Loss of Vision: Denies Hearing Impairment: Denies Cancer Hx Cancer: No Psychosocial Hx Psychiatric Problems: No Integumentary HX Skin/Integumentary Disorder: No Blood Transfusions Hx Blood Disorders: No Adverse Reaction to a Blood Tr: No Reviewed Nursing Assessment Reviewed/Agree w Nursing PMH: Yes Family Medical History Significant Family History: Heart Disease, Cancer Family Medial History: Hypertension 19 MOTHER Prostate cancer 19 FATHER, Onset:60 years & older Review of Systems-General Constitutional: No chills, No diaphoresis, No fever, malaise weakness EENTM: No hoarseness, No mouth pain, No throat pain Respiratory: No cough, dyspnea on exertion short of breathNo wheezing Cardiovascular: No chest pain, edema (LEFT LEG TO ANKLE)No palpitations Gastrointestinal: No abdominal pain, No constipation, No diarrhea Genitourinary: frequency Musculoskeletal: No back pain, joint pain (LEFT HIP) Skin: No lesions Psychiatric/Neurological: Denies Anxiety, Denies Depressed Physical Exam-General Problems Physical Exam Vital Signs Vital Sign - Last 12Hours 10/22/16 10/22/16 10/22/16 10:15 10:20 20:00 Temp 98.1 Pulse 92 Resp 16 B/P 133/79 Pulse Ox 97 O2 Delivery Room Air O2 Flow Rate 2.00 Capillary Refill : Less Than 3 Seconds General Appearance: WD/WN no apparent distress Eyes: Bilateral Eye EOMI, Bilateral Eye Normal Inspection, Bilateral Eye PERRL HEENT: PERRL/EOMI pharynx normal Neck: non-tender supple normal inspection Respiratory: chest non-tenderNo accessory muscle use, crackles (VERY FAINT IN BASES) Cardiovascular: irregularly irregular Gastrointestinal: normal bowel sounds non tender soft no organomegaly no pulsatile mass Extremities: swelling (FROM HIP TO ANKLE ON LEFT, RIGHT SIDE NO EDEMA) Neurologic/Psychiatric: traffic rate analyst II-XII nml as tested alert normal mood/affect oriented x 3 Skin: warm/dry Lymphatic: no adenopathy Assessment/Plan Assessment/Plan Admission Diagnosis/Plan LEFT HIP FRACTURE - INTERTROCHANTERIC WEAKNESS FATIGUE HYPERTENSION WITH ACUTE HYPOTENSION ACUTE RENAL FAILURE AFIB CHRONIC ANTICOAGULATION USE CORONARY ARTERY DISEASE HYPOTHYROID BPH ANEMIA LEFT HIP FRACTURE - POST-OP LEFT HIP FRACTURE REPAIR WITH DR. WING - CONTINUE WITH INPATIENT REHAB. LEFT LEG PAIN AND SWELLING - CHECK LOWER EXTREMITY ULTRASOUND. - NEGATIVE - NO EVIDENCE OF DVT ELEVATED LIVER ENZYMES - MONITOR LABS - MAY NEED TO CHECK CT OF ABDOMEN AND PELVIS IF NOT IMPROVING ON REPEAT LABS LEUKOCYTOSIS - CHECK CHEST XRAY, UA, REPEAT LABS IN MORNING, START LEVAQUIN, MONITOR SYMPTOMS AFIB - - RESTARTED ANTICOAGULANT HTN CHRONIC WITH ACUTE HYPOTENSION - STOP NORVASC, MONITOR PRESSURES. HYPOTHYROID - RESTARTED LEVOTHYROXINE BPH - URINARY RETENTION RESOLVED WITH BETHANECHOL FOR RETENTION. ANEMIA - STABLE Clinical Quality Measures DVT/VTE Risk/Contraindication: Risk Factor Score Per Nursin RFS Level Per Nursing on Admit: 4+=Very High TARAS TITUS MD Oct 24, 2016 09:25
--- NOTE | 2016-10-24 09:44 | Diagnostic Imaging Report ---
AP and lateral views of the chest. INDICATION: Shortness of breath and increased white blood cell count. FINDINGS: There is cardiomegaly with mild pulmonary vascular congestion. Small bilateral effusions are seen. Mild bibasilar atelectasis or infiltrate is seen. No pneumothorax. Sternotomy wires and post CABG changes seen. IMPRESSION: Cardiomegaly with mild pulmonary vascular congestion. Bilateral small pleural effusions and associated bibasilar infiltrates or atelectasis. Dictated by: Dictated on workstation # [id number]
[2016-10-24] MEDS ORDERED: LEVOFLOXACIN 500 MG/100 ML IV 100 ML IV NR (09:46)
[2016-10-24] MEDS: ASPIRIN E.C. 81 MG (ECOTRIN) TAB PO SCH (09:59)
[2016-10-24] MEDS: APIXABAN 2.5 MG (ELIQUIS) TABLET PO SCH ×2 (09:59→20:20)
[2016-10-24] MEDS: SENNA W/DOCUSATE (SENOKOT S) TABLET PO SCH ×2 (09:59→20:20)
--- NOTE | 2016-10-24 10:00 | Physical Therapy Daily Note ---
PT Daily Note-Current Subjective Patient in bed pre tx, agrees to PT, but he is very tired and states he has been SOB and recently got a chest xray. Left leg is fairly swollen, he is scheduled to get an ultrasound anytime. Pain Numeric Pain Scale: 7 Location: Left Location Body Site: Hip Appearance Patient in wheelchair at bedside post tx with nurse call, phone, tray, in room, all needs met. Has OT right after PT. Mental Status Patient Orientation: Normal For Age Attachments: Oxygen 4L O2 nasal canula Transfers Functional [place] Measure 0=Not Assessed/NA 4=Minimal Assistance 1=Total Assistance 5=Supervision or Setup 2=Maximal Assistance 6=Modified [place] 3=Moderate Assistance 7=Complete IndependenceIRFPAI Quality Coding Scale 6 Independent with activity with or without an assistive device 5 Patient requires set up or clean up by helper. Patient completes activity by themselves 4 Supervision or touching assist (CGA). [place] provide cues , steadying assist 3 The helper provides less than half the effort to complete the activity 2 The helper provides more than half the effort to complete the activity 1 Dependent. The helper does all the effort to complete an activity 7 Patient refused to complete or attempt activity 9 The patient did not perform the activity before the current illness or injury 88 Not attempted due to Medical conditions or safety concerns Transfers (B, C, W/C) (FIM): 3 Scootin Rollin Supine to/from Sit: 3 Sit to/from Stand: 3 Bed to/from Chair: 3 mod assist for supine to sit, cues for safety and hand placement during transfers Gait Training Gait (FIM): 1 Distance: 10'x3 Gait Level of Assist: 4 Gait Persons Needed: 1 Gait Assistive Device: FWW wheelchair follow, slow, antalgic, step-to gait pattern, patient fatigues and gets very SOB quickly Exercises Seated Therapy Exercises: Ankle pumps, Long arc quads, Hip flexion, Hamstring Curls, Hip abd/add Seated Reps: 20 Treatments bed mobility and transfers, ambulation, functional strengthening Assessment Current Status: Poor Progress Patient gets very SOB with minimal activity but O2 sats are above 95%, he required many rest breaks to catch his breath PT Short Term Goals Short Term Goals Time Frame: Oct 29, 2016 Transfers (B,C,W/C) (FIM): 4 Gait (FIM): 2 Gait Distance Comment: 50' Gait Level of Assist: 4 Gait Assistive Device: FWW Wheelchair Distance: 150' PT Fdc Goals Crime Scene Examiner Goals PT Crime Scene Examiner Goals Time Frame: Nov 12, 2016 Transfers (B,C,W/C) (FIM): 4 Rollin Gait Assistive Device: FWW Picking up an Object (QC): 88 PT Plan Problem List Problem List: Activity Tolerance, Functional Strength, Safety, Balance, Gait, Transfer, Bed Mobility, ROM Treatment/Plan Treatment Plan: Continue Plan of Care Treatment Plan: Bed Mobility, Education, Functional Activity Geovani, Functional Strength, Group Therapy, Gait, Safety, Therapeutic Exercise, Transfers Treatment Duration: Nov 12, 2016 Visits Per Week: 10-11 Minutes/Day (M-F): 60-90 Minutes/Day (Sat/Modi): 15-30 Safety Risks/Education Patient Education: Gait Training, Transfer Techniques, Safety Issues Teaching Recipient: Patient Teaching Methods: Demonstration, Discussion Response to Teaching: Reinforcement Needed Time/GCodes Time In: 900 Time Out: 1000 Total Billed Treatment Time: 60 Total Billed Treatment 1 visit GT 30 min EX 20 min FA 10 min LEBRON ROSALES PT Oct 24, 2016 10:00
--- NOTE | 2016-10-24 11:39 | Diagnostic Imaging Report ---
PROCEDURE: US left lower extremity venous. TECHNIQUE: Multiple real-time grayscale images were obtained over the left lower extremity in various projections. Additional duplex Doppler and color Doppler images were also obtained. INDICATION: Lower extremity edema. FINDINGS: The superficial femoral vein appears noncompressible on examination by the apparatus engineering technologist. There is, however, good flow demonstrated with color Doppler, and this is probably secondary to limb swelling and size with inability to evaluate with compression. The common femoral and popliteal veins are compressible and demonstrate normal color-flow. Color flow is also demonstrated in the peroneal and posterior tibial arteries in the calf. There is flow demonstrated in the greater saphenous vein. Venous waveforms appear normal with variability and augmentation seen. IMPRESSION: No evidence of DVT in the left lower extremity. Dictated by: Dictated on workstation # [id number]
[2016-10-24] MEDS ORDERED: FUROSEMIDE 40 MG/4 ML INJ (LASIX) IVP NR (12:15)
--- NOTE | 2016-10-24 13:47 | Occupational Ther Daily Note ---
OT Current Status-Daily Note Subjective Pt sitting in w/c, agrees to treatment. Pt reports 5/10 left hip pain. Mental Status/Objective Functional [place] Measure 0=Not Assessed/NA 4=Minimal Assistance 1=Total Assistance 5=Supervision or Setup 2=Maximal Assistance 6=Modified [place] 3=Moderate Assistance 7=Complete [place] ADL-Treatment Pt declined bathing today, but would like to complete grooming. Pt brushed teeth with set up and increased time. Washed face with SBA. Pt required moderate assistance to comb hair. Pt fatigues with activity, requires rest breaks. Functional [place] Measure 0=Not Assessed/NA 4=Minimal Assistance 1=Total Assistance 5=Supervision or Setup 2=Maximal Assistance 6=Modified [place] 3=Moderate Assistance 7=Complete IndependenceIRFPAI Quality Coding Scale 6 Independent with activity with or without an assistive device 5 Patient requires set up or clean up by helper. Patient completes activity by themselves 4 Supervision or touching assist (CGA). [place] provide cues , steadying assist 3 The helper provides less than half the effort to complete the activity 2 The helper provides more than half the effort to complete the activity 1 Dependent. The helper does all the effort to complete an activity 7 Patient refused to complete or attempt activity 9 The patient did not perform the activity before the current illness or injury 88 Not attempted due to Medical conditions or safety concerns Grooming (FIM): 4 Other Treatment Pt completed UE exercises while seated to promote increased strength and activity tolerance needed for ADLs and transfers. Pt performed shoulder flexion , forward press, and biceps curls x10 reps with dowel markus; no extra weight. Pt requires extended rest breaks between exercises secondary to fatigue. Pt completed fine motor activity with nuts and bolts to increase coordination/ manipulation skills. Pt required increased time to complete task. Staff arrived to complete doppler study. Pt sit to stand with moderate assistance. Transferred to EOB with moderate assistance. Pt completed sit to supine with maximal assistance. Pt in bed with needs met and staff present after session. OT Short Term Goals Short Term Goals Time Frame: Nov 05, 2016 Eating(FIM): 5 Grooming(FIM): 5 Bathing(FIM): 3 Upper Body Dressing(FIM): 4 Lower Body Dressing(FIM): 4 Toileting(FIM): 5 Transfers (B,C,W/C) (FIM): 4 Toilet/Commode Transfer(FIM): 4 Shower Transfer(FIM): 4 Additional Short Term Goals: 1-Demonstrate ADL Tasks, 2-Verbalize Understanding , 3-ImproveStrength/Geovani 1=Demonstrate adherence to instructed precautions during ADL tasks. 2=Patient will verbalize/demonstrate understanding of assistive devices/ modifications for ADL. 3=Patient will improve strength/tolerance for activity to enable patient to perform ADL's. OT [place] Setter Goals [facility] Goals Time Frame: Nov 19, 2016 Eating (FIM): 6 Eating (QC): 6 Groomin Oral Hygiene (QC): 6 Bathing(FIM): 5 Shower/Bathe Self (QC): 5 Upper Body Dressing(FIM): 5 Upper Body Dressing (QC): 5 Lower Body Dressing(FIM): 5 Lower Body Dressing (QC): 5 On/Off Footwear (QC): 5 Toileting(FIM): 6 Toileting Hygiene (QC): 6 Transfers (B,C,W/C) (FIM): 6 Toilet/Commode Transfer(FIM): 6 Toilet/Commode Transfer (QC): 6 Shower Transfer(FIM): 5 Additional Goals: 1-Demonstrate ADL Tasks, 2-Verbalize Understanding, 3- ImproveStrength/Geovani 1=Demonstrate adherence to instructed precautions during ADL tasks. 2=Patient will verbalize/demonstrate understanding of assistive devices/ modifications for ADL. 3=Patient will improve strength/tolerance for activity to enable patient to perform ADL's. OT Education/Plan Discharge Recommendations Plan/Recommendations: Continue POC Treatment Plan/Plan of Care Patient would benefit from OT for education, treatment and training to promote independence in ADL's, mobility, safety and/or upper extremity function for ADL' s. Plan of Care: ADL Retraining, Functional Mobility, UE Funct Exercise/Act Treatment Duration: Nov 19, 2016 Visits Per Week: 10-12 Minutes/Day (M-F): 60-90 Minutes/Day (Sat/Modi): 15-30 Agreement: Yes Rehab Potential: Fair Time/GCodes Start Time: 10:00 Stop Time: 10:50 Total Time Billed (hr/min): 50 Billed Treatment Time 1 visit, ADL(20minutes), EXx2(30minutes) ELOISA STAUFFER OT Oct 24, 2016 13:47
[2016-10-24 13:59] VITALS: BP 118/76
--- NOTE | 2016-10-24 14:03 | Physical Therapy Daily Note ---
PT Daily Note-Current Subjective Patient in wheelchair pre tx, just finishing up with breathing treatment. Agrees to PT, has pain of 5/10 in left hip. Appearance Patient in bed post tx, with nurse call, phone, tray, all needs met. Mental Status Patient Orientation: Normal For Age Attachments: Oxygen Transfers Functional [place] Measure 0=Not Assessed/NA 4=Minimal Assistance 1=Total Assistance 5=Supervision or Setup 2=Maximal Assistance 6=Modified [place] 3=Moderate Assistance 7=Complete IndependenceIRFPAI Quality Coding Scale 6 Independent with activity with or without an assistive device 5 Patient requires set up or clean up by helper. Patient completes activity by themselves 4 Supervision or touching assist (CGA). [place] provide cues , steadying assist 3 The helper provides less than half the effort to complete the activity 2 The helper provides more than half the effort to complete the activity 1 Dependent. The helper does all the effort to complete an activity 7 Patient refused to complete or attempt activity 9 The patient did not perform the activity before the current illness or injury 88 Not attempted due to Medical conditions or safety concerns Transfers (B, C, W/C) (FIM): 2 Scootin Rollin Supine to/from Sit: 2 Sit to/from Stand: 3 Bed to/from Chair: 2 Patient weaker and more anxious. Gait Training Gait (FIM): 1 Distance: 10'x3 Gait Level of Assist: 4 Gait Persons Needed: 1 Gait Assistive Device: FWW Patient getting very SOB quickly with any amount of activity. Treatments bed mobility and transfers, ambulation Assessment Current Status: Poor Progress Patient very SOB but recovers with rest after a few minutes. O2 levels above 95 %, bpm 80, patient states that he feels like he is going to . Nurse notified. PT Short Term Goals Short Term Goals Time Frame: Oct 29, 2016 Transfers (B,C,W/C) (FIM): 4 Gait (FIM): 2 Gait Distance Comment: 50' Gait Level of Assist: 4 Gait Assistive Device: FWW Wheelchair Distance: 150' PT Solar Electric/Photovoltaic Installer Goals Solar Electric/Photovoltaic Installer Goals PT Solar Electric/Photovoltaic Installer Goals Time Frame: Nov 12, 2016 Transfers (B,C,W/C) (FIM): 4 Rollin Gait Assistive Device: FWW Picking up an Object (QC): 88 PT Plan Problem List Problem List: Activity Tolerance, Functional Strength, Safety, Balance, Gait, Transfer, Bed Mobility, ROM Treatment/Plan Treatment Plan: Continue Plan of Care Treatment Plan: Bed Mobility, Education, Functional Activity Geovani, Functional Strength, Group Therapy, Gait, Safety, Therapeutic Exercise, Transfers Treatment Duration: Nov 12, 2016 Visits Per Week: 10-11 Minutes/Day (M-F): 60-90 Minutes/Day (Sat/Modi): 15-30 Safety Risks/Education Patient Education: Gait Training, Transfer Techniques, Safety Issues Teaching Recipient: Patient Teaching Methods: Demonstration, Discussion Response to Teaching: Reinforcement Needed Time/GCodes Time In: 1330 Time Out: 1400 Total Billed Treatment Time: 30 Total Billed Treatment 1 visit GT 20 min FA 10 min LEBRON ROSALES PT Oct 24, 2016 14:03
--- NOTE | 2016-10-24 14:22 | Occupational Ther Daily Note ---
OT Current Status-Daily Note Subjective Pt in bed, agrees to treatment. Pt reports 6/10 left hip pain. Mental Status/Objective Functional [place] Measure 0=Not Assessed/NA 4=Minimal Assistance 1=Total Assistance 5=Supervision or Setup 2=Maximal Assistance 6=Modified [place] 3=Moderate Assistance 7=Complete [place] Attachments: Oxygen ADL-Treatment Functional [place] Measure 0=Not Assessed/NA 4=Minimal Assistance 1=Total Assistance 5=Supervision or Setup 2=Maximal Assistance 6=Modified [place] 3=Moderate Assistance 7=Complete IndependenceIRFPAI Quality Coding Scale 6 Independent with activity with or without an assistive device 5 Patient requires set up or clean up by helper. Patient completes activity by themselves 4 Supervision or touching assist (CGA). [place] provide cues , steadying assist 3 The helper provides less than half the effort to complete the activity 2 The helper provides more than half the effort to complete the activity 1 Dependent. The helper does all the effort to complete an activity 7 Patient refused to complete or attempt activity 9 The patient did not perform the activity before the current illness or injury 88 Not attempted due to Medical conditions or safety concerns Other Treatment Pt supine to sit with maximal assistance. Pt is SOB with mobility and requires extended rest break to recover. Oxygen saturation was 92-93%. Sit to stand and transfer to w/c with maximal assistance using FWW. Pt requires increased time for mobility and skilled cues for safety and walker use. Pt participated in UE activity while seated. Graded clothespin activity with bilateral hands to increase early head start director/pinch strength. Pt requires increased time for activity and occasional rest breaks during task secondary to fatigue and shortness of breath. Putty activity with bilateral hands to increase strength and fine motor control. Pt able to remove small beads from putty with increased time. Pt sitting in chair with RT present for breathing treatment after session. OT Short Term Goals Short Term Goals Time Frame: Nov 05, 2016 Eating(FIM): 5 Grooming(FIM): 5 Bathing(FIM): 3 Upper Body Dressing(FIM): 4 Lower Body Dressing(FIM): 4 Toileting(FIM): 5 Transfers (B,C,W/C) (FIM): 4 Toilet/Commode Transfer(FIM): 4 Shower Transfer(FIM): 4 Additional Short Term Goals: 1-Demonstrate ADL Tasks, 2-Verbalize Understanding , 3-ImproveStrength/Geovani 1=Demonstrate adherence to instructed precautions during ADL tasks. 2=Patient will verbalize/demonstrate understanding of assistive devices/ modifications for ADL. 3=Patient will improve strength/tolerance for activity to enable patient to perform ADL's. OT Recreational Resort Manager Goals Care Home Goals Time Frame: Nov 19, 2016 Eating (FIM): 6 Eating (QC): 6 Groomin Oral Hygiene (QC): 6 Bathing(FIM): 5 Shower/Bathe Self (QC): 5 Upper Body Dressing(FIM): 5 Upper Body Dressing (QC): 5 Lower Body Dressing(FIM): 5 Lower Body Dressing (QC): 5 On/Off Footwear (QC): 5 Toileting(FIM): 6 Toileting Hygiene (QC): 6 Transfers (B,C,W/C) (FIM): 6 Toilet/Commode Transfer(FIM): 6 Toilet/Commode Transfer (QC): 6 Shower Transfer(FIM): 5 Additional Goals: 1-Demonstrate ADL Tasks, 2-Verbalize Understanding, 3- ImproveStrength/Geovani 1=Demonstrate adherence to instructed precautions during ADL tasks. 2=Patient will verbalize/demonstrate understanding of assistive devices/ modifications for ADL. 3=Patient will improve strength/tolerance for activity to enable patient to perform ADL's. OT Education/Plan Discharge Recommendations Plan/Recommendations: Continue POC Treatment Plan/Plan of Care Patient would benefit from OT for education, treatment and training to promote independence in ADL's, mobility, safety and/or upper extremity function for ADL' s. Plan of Care: ADL Retraining, Functional Mobility, UE Funct Exercise/Act Treatment Duration: Nov 19, 2016 Visits Per Week: 10-12 Minutes/Day (M-F): 60-90 Minutes/Day (Sat/Modi): 15-30 Agreement: Yes Rehab Potential: Fair Time/GCodes Start Time: 12:50 Stop Time: 13:30 Total Time Billed (hr/min): 40 Billed Treatment Time 1 visit, FA(15minutes), EXx2(25minutes) ELOISA STAUFFER OT Oct 24, 2016 14:22
[2016-10-24 15:09] LABS: BILIRUBIN,URINE NEGATIVE (NEGATIVE); KETONES,URINE NEGATIVE (NEGATIVE); LEUKOCYTE ESTERASE ,URINE 1+ (NEGATIVE); NITRITE,URINE NEGATIVE (NEGATIVE); PH,URINE 5 (5-9); PROTEIN,URINE 1+ (NEGATIVE); UROBILINOGEN,URINE NORMAL (NORMAL)
[2016-10-24] MEDS ORDERED: KETOROLAC 15 MG/ML VIAL IVP ONE (15:30)
[2016-10-24 18:46] VITALS: BP 103/62
[2016-10-24] MEDS: FAMOTIDINE 20 MG (PEPCID) TABLET PO SCH (20:20)
[2016-10-24] MEDS: SIMvastatin 20 MG (ZOCOR) TAB PO SCH (20:20)
[2016-10-24] MEDS: OMEGA 3 (FISH OIL) 1000 MG CAP PO SCH (20:20)
[2016-10-24] MEDS: MULTIVIT W/MINERALS TAB (THERAGRAN M) PO SCH (20:20)
[2016-10-24] MEDS: ALFUZOSIN HCL 10 MG TAB (UROXATRAL) PO SCH (20:20)
[2016-10-25] MEDS: RT-ALBUTEROL/IPRATROPIUM 3 ML (DUONEB) VIAL INH SCH ×4 (01:17→21:51)
[2016-10-25 05:14] VITALS: BP 106/59
[2016-10-25] MEDS: BETHANECHOL 25 MG (URECHOLINE) TAB PO SCH ×2 (06:02→14:45)
[2016-10-25 06:41] LABS: MEAN PLATELET VOLUME 9.8 FL (7.4-10.4); RED BLOOD COUNT 2.93 10^6/uL (4.35-5.85); RED CELL DISTRIBUTION WIDTH 14.3 % (10.0-14.5); WHITE BLOOD COUNT 20.2 10^3/uL (4.3-11.0)
[2016-10-25 07:02] LABS: BILIRUBIN,TOTAL 1.2 MG/DL (0.1-1.0); CALCIUM 8.1 MG/DL (8.5-10.1); CREATININE SERUM 1.57 MG/DL (0.60-1.30); POTASSIUM 4.4 MMOL/L (3.6-5.0); TOTAL PROTEIN 5.6 G/DL (6.4-8.2)
[2016-10-25] MEDS: LEVOTHYROXINE 125 MCG (LEVOTHROID) TABLET PO SCH (07:32)
[2016-10-25] MEDS ORDERED: methylPREDNISolone 125 MG (Solu-MEDROL) VIAL IM ONE (07:45)
[2016-10-25] MEDS ORDERED: FUROSEMIDE 40 MG/4 ML INJ (LASIX) IVP ONE ×2 (07:45→16:15)
[2016-10-25] MEDS ORDERED: methylPREDNISolone 125 MG (Solu-MEDROL) VIAL IVP ONE (08:00)
[2016-10-25] MEDS ORDERED: methylPREDNISolone 125 MG (Solu-MEDROL) VIAL ONE (08:21)
[2016-10-25] MEDS: APIXABAN 2.5 MG (ELIQUIS) TABLET PO SCH ×2 (08:33→21:04)
[2016-10-25] MEDS: SENNA W/DOCUSATE (SENOKOT S) TABLET PO SCH ×2 (08:33→21:00)
[2016-10-25] MEDS: LEVOFLOXACIN 250 MG/50 ML IVPB 50 ML IV SCH (08:33)
[2016-10-25] MEDS: ASPIRIN E.C. 81 MG (ECOTRIN) TAB PO SCH (08:33)
[2016-10-25] MEDS: RT-ALBUTEROL/IPRATROPIUM 3 ML (DUONEB) VIAL INH PRN ×2 (09:16→15:52)
[2016-10-25] MEDS ORDERED: CEFEPIME INJECTION 2,000 MG in NS (IVPB) 50 ML IV ONE (13:30)
--- NOTE | 2016-10-25 13:43 | Progress Note (SOAP) ---
Subjective Subjective/Events-last exam Fwup pneumonia, left intertrochanteric hip fracture, acute renal insufficiency, weakness. Was short of air with wheezing so given IV solumedrol and lasix. Feeling better this afternoon. Objective Exam Vital Signs Date Time Temp Pulse Resp B/P Pulse Ox O2 Delivery O2 Flow Rate FiO2 10/25/16 09:16 90 6.00 10/25/16 06:20 86 4.00 10/25/16 05:14 97.8 106 18 106/59 92 Nasal Cannula 4.00 10/25/16 01:37 4.00 10/25/16 01:18 92 4.00 10/24/16 21:18 93 4.00 10/24/16 21:00 Nasal Cannula 4.00 10/24/16 18:46 98.5 110 20 103/62 90 Nasal Cannula 4.00 10/24/16 18:46 87 4.00 10/24/16 15:47 92 4.00 10/24/16 13:59 98.0 98 20 118/76 94 Nasal Cannula 4.00 I & O 10/25/16 07:00 Intake Total 1340 ml Output Total 800 ml Balance 540 ml Capillary Refill : Less Than 3 Seconds General Appearance: No Apparent Distress HEENT: Pharynx Normal Neck: Supple Respiratory: Decreased Breath Sounds (bases) Cardiovascular: Systolic Murmur Irregularly Irregular Gastrointestinal: normal bowel sounds non tender soft Neurologic/Psychiatric: Alert Oriented x3 Results Lab Laboratory Tests 10/24/16 14:53: Urine Amorphous Sediment RARE MARIBEL URATESH, Urine Bacteria NONE, Urine Bilirubin NEGATIVE, Urine Casts NONE, Urine Clarity CLEAR, Urine Color YELLOW, Urine Crystals PRESENTH, Urine Culture Indicated NO, Urine Glucose (UA) NEGATIVE , Urine Ketones NEGATIVE, Urine Leukocyte Esterase 1+H, Urine Mucus MODERATEH, Urine Nitrite NEGATIVE, Urine Protein 1+H, Urine RBC NONE, Urine RBC (Auto) NEGATIVE, Urine Specific [place] 1.020, Urine Urobilinogen NORMAL, Urine WBC 2-5 , Urine pH 5 10/24/16 15:41: Uric Acid 5.6 10/25/16 06:30: Alanine Aminotransferase (ALT/SGPT) 54, Albumin 3.0L, Alkaline Phosphatase 141H , Anion Gap 15H, Aspartate Amino Transf (AST/SGOT) 122H, BUN/Creatinine Ratio 20 , Blood Urea Nitrogen 31H, Calcium Level 8.1L, Carbon Dioxide Level 22, Chloride Level 99, Creatinine 1.57H, Estimat Glomerular Filtration Rate 42, Glucose Level 145H, Hematocrit 28L, Hemoglobin 9.1L, Mean Corpuscular Hemoglobin 31, Mean Corpuscular Hemoglobin Concent 32, Mean Corpuscular Volume 97, Mean Platelet Volume 9.8, Platelet Count 576H, Potassium Level 4.4, Red Blood Count 2.93L, Red Cell Distribution Width 14.3, Sodium Level 136, Total Bilirubin 1.2H, Total Protein 5.6L, White Blood Count 20.2H Assessment/Plan Assessment/Plan Assess & Plan/Chief Complaint 1. Acute Pneumonia--on levaquin but will add maxipime and solumedrol 2. Acute Renal Insufficiency--given IV lasix this AM so will recheck Chemistry in AM 3. Left intertrochanteric hip fx--holding therapy today to let him rest 4. Weakness--on PT/OT Diagnosis/Problems: Clinical Quality Measures DVT/VTE Risk/Contraindication: Risk Factor Score Per Nursin RFS Level Per Nursing on Admit: 4+=Very High JOLLY GALVAN DO Oct 25, 2016 13:42
[2016-10-25] MEDS: methylPREDNISolone 40 MG/ML (Solu-MEDROL) VIAL IV SCH ×2 (14:45→20:58)
--- NOTE | 2016-10-25 15:01 | Diagnostic Imaging Report ---
INDICATION: Shortness of breath. Elevated white count. Comparison with 10/24/2016. FINDINGS: AP and lateral sitting views. Increasing bilateral pleural effusions as well as bibasilar atelectasis has occurred when compared with previous exam. The heart is enlarged. Pulmonary vasculature is increasing in prominence as well. Median sternotomy changes are present. IMPRESSION: 1. Findings are consistent with congestive failure with increasing pulmonary edema and pleural effusion since previous exam. Dictated by: Dictated on workstation # [id number]
[2016-10-25 15:45] VITALS: BP 113/76
[2016-10-25 18:00] VITALS: BP 113/74
[2016-10-25] MEDS: RT-BUDESONIDE NEBS 0.5 MG/2ML (PULMICORT) AMP INH SCH (20:03)
[2016-10-25] MEDS: FAMOTIDINE 20 MG (PEPCID) TABLET PO SCH (21:03)
[2016-10-25] MEDS: ALFUZOSIN HCL 10 MG TAB (UROXATRAL) PO SCH (21:03)
[2016-10-25] MEDS: OMEGA 3 (FISH OIL) 1000 MG CAP PO SCH (21:04)
[2016-10-25] MEDS: SIMvastatin 20 MG (ZOCOR) TAB PO SCH (21:04)
[2016-10-25] MEDS: MULTIVIT W/MINERALS TAB (THERAGRAN M) PO SCH (21:04)
[2016-10-26] MEDS: RT-ALBUTEROL/IPRATROPIUM 3 ML (DUONEB) VIAL INH SCH ×6 (02:03→22:29)
[2016-10-26] MEDS: methylPREDNISolone 40 MG/ML (Solu-MEDROL) VIAL IV SCH ×4 (02:06→20:33)
[2016-10-26 04:52] VITALS: BP 100/59
[2016-10-26] MEDS: RT-BUDESONIDE NEBS 0.5 MG/2ML (PULMICORT) AMP INH SCH ×3 (06:18→19:48)
[2016-10-26] MEDS: BETHANECHOL 25 MG (URECHOLINE) TAB PO SCH ×2 (06:18→16:26)
[2016-10-26] MEDS: LEVOTHYROXINE 125 MCG (LEVOTHROID) TABLET PO SCH (06:18)
[2016-10-26 07:39] LABS: MEAN PLATELET VOLUME 10.2 FL (7.4-10.4); RED BLOOD COUNT 2.89 10^6/uL (4.35-5.85); RED CELL DISTRIBUTION WIDTH 14.4 % (10.0-14.5)
[2016-10-26 08:00] LABS: ALBUMIN 2.9 G/DL (3.2-4.5); CALCIUM 8.2 MG/DL (8.5-10.1); CREATININE SERUM 1.64 MG/DL (0.60-1.30); POTASSIUM 4.3 MMOL/L (3.6-5.0)
[2016-10-26] MEDS: APIXABAN 2.5 MG (ELIQUIS) TABLET PO SCH ×2 (09:04→20:33)
[2016-10-26] MEDS: LEVOFLOXACIN 250 MG/50 ML IVPB 50 ML IV SCH (09:04)
[2016-10-26] MEDS: ASPIRIN E.C. 81 MG (ECOTRIN) TAB PO SCH (09:04)
[2016-10-26] MEDS: SENNA W/DOCUSATE (SENOKOT S) TABLET PO SCH ×2 (09:04→20:33)
[2016-10-26] MEDS ORDERED: FUROSEMIDE 40 MG (LASIX) TAB PO ONE (10:15)
[2016-10-26] MEDS: CEFEPIME INJECTION 2,000 MG in NS (IVPB) 50 ML IV SCH (13:28)
[2016-10-26 17:31] VITALS: BP 100/70
[2016-10-26] MEDS: ALFUZOSIN HCL 10 MG TAB (UROXATRAL) PO SCH (20:33)
[2016-10-26] MEDS: OMEGA 3 (FISH OIL) 1000 MG CAP PO SCH (20:33)
[2016-10-26] MEDS: SIMvastatin 20 MG (ZOCOR) TAB PO SCH (20:33)
[2016-10-26] MEDS: FAMOTIDINE 20 MG (PEPCID) TABLET PO SCH (20:33)
[2016-10-26] MEDS: MULTIVIT W/MINERALS TAB (THERAGRAN M) PO SCH (20:34)
[2016-10-27] MEDS: methylPREDNISolone 40 MG/ML (Solu-MEDROL) VIAL IV SCH ×4 (01:50→20:12)
[2016-10-27] MEDS: RT-ALBUTEROL/IPRATROPIUM 3 ML (DUONEB) VIAL INH SCH ×5 (02:49→18:25)
[2016-10-27 03:49] VITALS: BP 101/59
[2016-10-27] MEDS: BETHANECHOL 25 MG (URECHOLINE) TAB PO SCH ×2 (06:02→16:01)
[2016-10-27] MEDS: LEVOTHYROXINE 125 MCG (LEVOTHROID) TABLET PO SCH (06:02)
[2016-10-27 06:12] LABS: MEAN PLATELET VOLUME 10.4 FL (7.4-10.4); RED BLOOD COUNT 2.9 10^6/uL (4.35-5.85); RED CELL DISTRIBUTION WIDTH 14.3 % (10.0-14.5); WHITE BLOOD COUNT 17.6 10^3/uL (4.3-11.0)
[2016-10-27] MEDS: RT-BUDESONIDE NEBS 0.5 MG/2ML (PULMICORT) AMP INH SCH ×2 (06:27→18:26)
[2016-10-27 06:53] LABS: CREATININE SERUM 1.96 MG/DL (0.60-1.30); POTASSIUM 4.3 MMOL/L (3.6-5.0); TOTAL PROTEIN 5.9 G/DL (6.4-8.2)
[2016-10-27] MEDS ORDERED: FUROSEMIDE 40 MG (LASIX) TAB PO SCH (09:00)
--- NOTE | 2016-10-27 09:11 | Progress Note (SOAP) ---
Subjective Subjective/Events-last exam PT HAD ROUGH WEEKEND - HIS STATES THAT ON THURSDAY HE WAS HAVING INCREASED SHORTNESS OF BREATH. RESPIRATORY THERAPY STAFF REPORTS PT PLACED ON BIPAP AND HAS NOT BEEN ABLE TO BE WEANED OFF OF BIPAP. Review of Systems Cardiovascular: : Edema (LEFRT LEG)No: Chest Pain Gastrointestinal: No: Abdominal Pain, Nausea Genitourinary: No Dysuria Musculoskeletal: No: back pain Neurological: : WeaknessNo: Confusion Objective Exam Vital Signs Date Time Temp Pulse Resp B/P Pulse Ox O2 Delivery O2 Flow Rate FiO2 10/27/16 06:27 94 50 10/27/16 06:19 80 20 94 50.00 10/27/16 04:10 54 15 94 50.00 10/27/16 03:49 97.0 104 20 101/59 95 NIV/Bilevel 10/27/16 02:49 86 15 92 50.00 10/27/16 00:16 96 20 92 50.00 10/26/16 22:29 98 18 92 50.00 10/26/16 20:10 NIV/Bilevel 10/26/16 20:05 102 19 92 50.00 10/26/16 19:49 102 19 92 50.00 10/26/16 17:31 97.6 85 20 100/70 93 NIV/Bilevel 60.00 10/26/16 16:20 60 21 97 50.00 10/26/16 13:54 92 20 92 50.00 10/26/16 13:00 132 19 92 50.00 10/26/16 10:07 99 18 92 50.00 I & O 10/27/16 07:00 Intake Total 830 ml Output Total 100 ml Balance 730 ml Capillary Refill : Less Than 3 Seconds General Appearance: WD/WN Mild Distress (WITH BREATHING) HEENT: PERRL/EOMI Pharynx Normal Neck: Full Range of Motion Supple Respiratory: Chest Non Tender Decreased Breath Sounds Cardiovascular: Tachycardia Gastrointestinal: normal bowel sounds non tender soft no organomegaly no pulsatile mass Neurologic/Psychiatric: Alert Oriented x3 No Motor/Sensory Deficits Lymphatic: No Adenopathy Results Lab Laboratory Tests 10/27/16 06:01: Alanine Aminotransferase (ALT/SGPT) 45, Albumin 3.0L, Alkaline Phosphatase 131, Anion Gap 15H, Aspartate Amino Transf (AST/SGOT) 39H, BUN/Creatinine Ratio 32, Blood Urea Nitrogen 63H, Calcium Level 8.0L, Carbon Dioxide Level 21, Chloride Level 97L, Creatinine 1.96H, Estimat Glomerular Filtration Rate 32, Glucose Level 193H, Hematocrit 28L, Hemoglobin 8.8L, Mean Corpuscular Hemoglobin 30, Mean Corpuscular Hemoglobin Concent 32, Mean Corpuscular Volume 95, Mean Platelet Volume 10.4, Platelet Count 667H, Potassium Level 4.3, Red Blood Count 2.90L, Red Cell Distribution Width 14.3, Sodium Level 133L, Total Bilirubin 1.0 , Total Protein 5.9L, White Blood Count 17.6H Assessment/Plan Assessment/Plan Assess & Plan/Chief Complaint LEFT HIP FRACTURE - INTERTROCHANTERIC DYSPNEA - RESPIRATORY DISTRESS WEAKNESS FATIGUE HYPERTENSION WITH ACUTE HYPOTENSION ACUTE RENAL FAILURE AFIB CHRONIC ANTICOAGULATION USE CORONARY ARTERY DISEASE HYPOTHYROID BPH ANEMIA LEFT HIP FRACTURE - POST-OP LEFT HIP FRACTURE REPAIR WITH DR. WING - CONTINUE WITH INPATIENT REHAB.- HOWEVER DUE TO RESPIRATORY DISTRESS TODAY - HE CANNOT PARTICIPATE IN 3 HOURS OF THERAPY TODAY - HOPEFULLY PT WILL BE ABLE TO PARTICIPATE IN THERAPY IN BED TODAY - AND THEN ONCE PULMONARY DISTRESS IMPROVES WILL PARTICIPATE IN FULL REHAB LATER THIS WEEK. RESPIRATORY DISTRESS - PT ON BIPAP - CONTINUE WITH BIPAP AT THIS TIME, CONSULT PLACED TO DR. LEHMAN. LEFT LEG PAIN AND SWELLING - CHECK LOWER EXTREMITY ULTRASOUND. - NEGATIVE - NO EVIDENCE OF DVT ELEVATED LIVER ENZYMES - MONITOR LABS - MAY NEED TO CHECK CT OF ABDOMEN AND PELVIS IF NOT IMPROVING ON REPEAT LABS LEUKOCYTOSIS - CHECK CHEST XRAY, UA, REPEAT LABS IN MORNING, START LEVAQUIN, MONITOR SYMPTOMS AFIB - - RESTARTED ANTICOAGULANT HTN CHRONIC WITH ACUTE HYPOTENSION - STOP NORVASC, MONITOR PRESSURES. HYPOTHYROID - RESTARTED LEVOTHYROXINE BPH - URINARY RETENTION RESOLVED WITH BETHANECHOL FOR RETENTION. ANEMIA - STABLE Diagnosis/Problems: Clinical Quality Measures DVT/VTE Risk/Contraindication: Risk Factor Score Per Nursin RFS Level Per Nursing on Admit: 4+=Very High TARAS TITUS MD Oct 27, 2016 09:10
[2016-10-27] MEDS: APIXABAN 2.5 MG (ELIQUIS) TABLET PO SCH (09:15)
[2016-10-27] MEDS: ASPIRIN E.C. 81 MG (ECOTRIN) TAB PO SCH (09:15)
[2016-10-27] MEDS: LEVOFLOXACIN 250 MG/50 ML IVPB 50 ML IV SCH (09:15)
[2016-10-27] MEDS: SENNA W/DOCUSATE (SENOKOT S) TABLET PO SCH (09:15)
[2016-10-27 09:33] LABS: ABG BASE EXCESS 0.1 MMOL/L (-2.5-2.5); ABG HCO3 23 MMOL/L (23-27); ABG OXYGEN SATURATION 95 % (94-100); ABG PCO2 29 MMHG (35-45); ABG PH 7.51 (7.37-7.43); ABG PO2 65 MMHG (79-93); ABG TCO2 23.8 MMOL/L (21.0-31.0)
[2016-10-27 09:34] LABS: ALLENS TEST YES-POS; PATIENT TEMP 97.5
--- NOTE | 2016-10-27 10:09 | Pulmonary Progress Note ---
Subjective Subjective/Events-last exam still c/o of dyspnea Exam Exam Vital Signs Date Time Temp Pulse Resp B/P Pulse Ox O2 Delivery O2 Flow Rate FiO2 10/27/16 09:26 76 18 91 50.00 10/27/16 06:27 94 50 10/27/16 06:19 80 20 94 50.00 10/27/16 04:10 54 15 94 50.00 10/27/16 03:49 97.0 104 20 101/59 95 NIV/Bilevel 10/27/16 02:49 86 15 92 50.00 10/27/16 00:16 96 20 92 50.00 10/26/16 22:29 98 18 92 50.00 10/26/16 20:10 NIV/Bilevel 10/26/16 20:05 102 19 92 50.00 10/26/16 19:49 102 19 92 50.00 10/26/16 17:31 97.6 85 20 100/70 93 NIV/Bilevel 60.00 10/26/16 16:20 60 21 97 50.00 10/26/16 13:54 92 20 92 50.00 10/26/16 13:00 132 19 92 50.00 10/26/16 10:07 99 18 92 50.00 I & O 10/27/16 07:00 Intake Total 830 ml Output Total 100 ml Balance 730 ml General Appearance: WD/WN, Mild Distress HEENT: PERRL/EOMI, Pharynx Normal Neck: Full Range of Motion, Supple Respiratory: Chest Non Tender, Decreased Breath Sounds Cardiovascular: Tachycardia Gastrointestinal: normal bowel sounds, non tender, soft, no organomegaly, no pulsatile mass Neurologic/Psychiatric: Alert, Oriented x3, No Motor/Sensory Deficits Lymphatic: No Adenopathy Results Lab Laboratory Tests 10/26/16 07:25 10/27/16 06:01 Assessment/Plan Assessment/Plan Dyspnea probably secondary to pulmonary edema -Continue lasix and check BNP -Pt has been requiring BiPAP -will trial off BIPAP after ABG -Oxygen solumedrol -SVNS Left hip fracture Clinical Quality Measures DVT/VTE Risk/Contraindication: Risk Factor Score Per Nursin RFS Level Per Nursing on Admit: 4+=Very High HEIDI LEHMAN DO Oct 27, 2016 10:09
--- NOTE | 2016-10-27 10:45 | Diagnostic Imaging Report ---
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 There is a small left pleural effusion. There is some atelectasis at both lung bases. IMPRESSION: Bibasilar atelectasis and left pleural effusion. There's been some interval improvement in the pulmonary vascular congestion since 10/25/2016. Dictated by: Dictated on workstation # [id number]
--- NOTE | 2016-10-27 11:38 | Occupational Ther Daily Note ---
OT Current Status-Daily Note Subjective Spoke with RN prior to treatment. Pt has had respiratory issues and is currently on Bi-pap. RN reports physician would like pt to have therapy today, able to participate at bed level. Pt in bed, agrees to treatment. Pt reports 4/ 10 headache. RN notified and provided pain medication. Mental Status/Objective Functional [place] Measure 0=Not Assessed/NA 4=Minimal Assistance 1=Total Assistance 5=Supervision or Setup 2=Maximal Assistance 6=Modified Stamps 3=Moderate Assistance 7=Complete [place]amps ADL-Treatment Spouse present with pt and requests he be able to change shirt this morning. Pt in bed with HOB elevated. Pt able to lean forward slightly to doff and don shirt. Pt requires max assist to complete task. Pt sponge bathed upper body with max assist. Pt states he has been getting cleaned up after using urinal and having bowel movement, so declined assist with lower body bathing at this time. Pt fatigues quickly with activity and requires rest breaks during ADL tasks. Functional [place] Measure 0=Not Assessed/NA 4=Minimal Assistance 1=Total Assistance 5=Supervision or Setup 2=Maximal Assistance 6=Modified [place] 3=Moderate Assistance 7=Complete IndependenceIRFPAI Quality Coding Scale 6 Independent with activity with or without an assistive device 5 Patient requires set up or clean up by helper. Patient completes activity by themselves 4 Supervision or touching assist (CGA). [place] provide cues , steadying assist 3 The helper provides less than half the effort to complete the activity 2 The helper provides more than half the effort to complete the activity 1 Dependent. The helper does all the effort to complete an activity 7 Patient refused to complete or attempt activity 9 The patient did not perform the activity before the current illness or injury 88 Not attempted due to Medical conditions or safety concerns Other Treatment Pt performed bilateral UE exercises while in bed to promote increased strength and activity tolerance needed for ADLs and transfers. Pt performed AROM x10 reps at shoulder, elbow, forearm, wrist, and hands. Pt short of breath with activity and extended rest breaks between exercises. RT entered room and switched pt from Bi-pap to high flow Oxygen; O2 sats 93%. Bilateral hand solar energy technician exercises x20 reps with moderate resistance therapy foam. Pt completed resistance putty activity with bilateral hands to increase solar energy technician strength. Pt in bed with needs met after session. OT Short Term Goals Short Term Goals Time Frame: Nov 05, 2016 Eating(FIM): 5 Grooming(FIM): 5 Bathing(FIM): 3 Upper Body Dressing(FIM): 4 Lower Body Dressing(FIM): 4 Toileting(FIM): 5 Transfers (B,C,W/C) (FIM): 4 Toilet/Commode Transfer(FIM): 4 Shower Transfer(FIM): 4 Additional Short Term Goals: 1-Demonstrate ADL Tasks, 2-Verbalize Understanding , 3-ImproveStrength/Geovani 1=Demonstrate adherence to instructed precautions during ADL tasks. 2=Patient will verbalize/demonstrate understanding of assistive devices/ modifications for ADL. 3=Patient will improve strength/tolerance for activity to enable patient to perform ADL's. OT Fdc Goals Fdc Goals Time Frame: Nov 19, 2016 Eating (FIM): 6 Eating (QC): 6 Groomin Oral Hygiene (QC): 6 Bathing(FIM): 5 Shower/Bathe Self (QC): 5 Upper Body Dressing(FIM): 5 Upper Body Dressing (QC): 5 Lower Body Dressing(FIM): 5 Lower Body Dressing (QC): 5 On/Off Footwear (QC): 5 Toileting(FIM): 6 Toileting Hygiene (QC): 6 Transfers (B,C,W/C) (FIM): 6 Toilet/Commode Transfer(FIM): 6 Toilet/Commode Transfer (QC): 6 Shower Transfer(FIM): 5 Additional Goals: 1-Demonstrate ADL Tasks, 2-Verbalize Understanding, 3- ImproveStrength/Geovani 1=Demonstrate adherence to instructed precautions during ADL tasks. 2=Patient will verbalize/demonstrate understanding of assistive devices/ modifications for ADL. 3=Patient will improve strength/tolerance for activity to enable patient to perform ADL's. OT Education/Plan Discharge Recommendations Plan/Recommendations: Continue POC Treatment Plan/Plan of Care Patient would benefit from OT for education, treatment and training to promote independence in ADL's, mobility, safety and/or upper extremity function for ADL' s. Plan of Care: ADL Retraining, Functional Mobility, UE Funct Exercise/Act Treatment Duration: Nov 19, 2016 Visits Per Week: 10-12 Minutes/Day (M-F): 60-90 Minutes/Day (Sat/Omdi): 15-30 Agreement: Yes Rehab Potential: Fair Time/GCodes Start Time: 09:35 Stop Time: 10:25 Total Time Billed (hr/min): 50 Billed Treatment Time 1 visit, ADL(20minutes), EXx2(30minutes) ELOISA STAUFFER OT Oct 27, 2016 11:38
--- NOTE | 2016-10-27 13:08 | Physical Therapy Daily Note ---
PT Daily Note-Current Subjective Patient reluctantly agrees to PT. Family is present. Pain Numeric Pain Scale: 5-Moderate Pain Location: Left Location Body Site: Hip Appearance currently on BiPap Mental Status Patient Orientation: Normal For Age Transfers Functional [place] Measure 0=Not Assessed/NA 4=Minimal Assistance 1=Total Assistance 5=Supervision or Setup 2=Maximal Assistance 6=Modified [place] 3=Moderate Assistance 7=Complete IndependenceIRFPAI Quality Coding Scale 6 Independent with activity with or without an assistive device 5 Patient requires set up or clean up by helper. Patient completes activity by themselves 4 Supervision or touching assist (CGA). [place] provide cues , steadying assist 3 The helper provides less than half the effort to complete the activity 2 The helper provides more than half the effort to complete the activity 1 Dependent. The helper does all the effort to complete an activity 7 Patient refused to complete or attempt activity 9 The patient did not perform the activity before the current illness or injury 88 Not attempted due to Medical conditions or safety concerns Transfers (B, C, W/C) (FIM): 1 Scootin Supine to/from Sit: 1 Sit to/from Stand: 2 Sit to Stand (QC): 2 Chair/Acg-cv-Ivfth Xfer(QC): 2 Bed to/from Chair: 2 Patient requires dependent assist with all bed mobility and requires assistance to maintain sitting EOB Gait Training Does the Patient Walk?: Yes Gait (FIM): 1 Distance (FIM): 1=up to 49 ft Distance: 3 steps Gait Level of Assist: 2 Gait Persons Needed: 2 patient is retropulsive in stand with with attempting to take steps. Exercises Seated Therapy Exercises: Ankle pumps, Long arc quads Seated Reps: 10 Assessment Patient requires time to complete all functional tasks due to weakness and inability to fully participate due to medical status. PT to increase activity as tolerated by patient. PT Short Term Goals Short Term Goals Time Frame: Oct 29, 2016 Transfers (B,C,W/C) (FIM): 4 Gait (FIM): 2 Gait Distance Comment: 50' Gait Level of Assist: 4 Gait Assistive Device: FWW Wheelchair Distance: 150' PT Care Home Goals Care Home Goals PT Irrigation System Operator Goals Time Frame: Nov 12, 2016 Transfers (B,C,W/C) (FIM): 4 Rollin Gait Assistive Device: FWW Picking up an Object (QC): 88 PT Plan Treatment/Plan Treatment Plan: Continue Plan of Care Treatment Plan: Bed Mobility, Education, Functional Activity Geovani, Functional Strength, Group Therapy, Gait, Safety, Therapeutic Exercise, Transfers Treatment Duration: Nov 12, 2016 Visits Per Week: 10-11 Minutes/Day (M-F): 60-90 Minutes/Day (Sat/Modi): 15-30 Time/GCodes Time In: 1240 Time Out: 1305 Total Billed Treatment Time: 25 Total Billed Treatment 1 visit FA x 2 25 min RAQUEL AYALA PT Oct 27, 2016 13:08
[2016-10-27] MEDS: CEFEPIME INJECTION 2,000 MG in NS (IVPB) 50 ML IV SCH (13:18)
--- NOTE | 2016-10-27 14:04 | Occupational Ther Daily Note ---
OT Current Status-Daily Note Subjective Pt on BiPap sitting in recliner. Family present in room. Pt initially did not want to complete OT. OT encouraged pt to complete hand exercises. Pt agreed. Mental Status/Objective Functional [place] Measure 0=Not Assessed/NA 4=Minimal Assistance 1=Total Assistance 5=Supervision or Setup 2=Maximal Assistance 6=Modified [place] 3=Moderate Assistance 7=Complete [place] Attachments: IV BiPap ADL-Treatment Functional [place] Measure 0=Not Assessed/NA 4=Minimal Assistance 1=Total Assistance 5=Supervision or Setup 2=Maximal Assistance 6=Modified [place] 3=Moderate Assistance 7=Complete IndependenceIRFPAI Quality Coding Scale 6 Independent with activity with or without an assistive device 5 Patient requires set up or clean up by helper. Patient completes activity by themselves 4 Supervision or touching assist (CGA). [place] provide cues , steadying assist 3 The helper provides less than half the effort to complete the activity 2 The helper provides more than half the effort to complete the activity 1 Dependent. The helper does all the effort to complete an activity 7 Patient refused to complete or attempt activity 9 The patient did not perform the activity before the current illness or injury 88 Not attempted due to Medical conditions or safety concerns Other Treatment Pt completed medium resistance therapy foam 3 sets 10 reps to increase gross lead electrical controls engineer strength and pinch strength for daily functional tasks. Pt falling asleep while completing exercises and kept doing them as his eyes being closed. Pt asked to take a nap when last exercise completed. Pt sitting in recliner with family present. Call light/phone in reach. All needs met in room. OT Short Term Goals Short Term Goals Time Frame: Nov 05, 2016 Eating(FIM): 5 Grooming(FIM): 5 Bathing(FIM): 3 Upper Body Dressing(FIM): 4 Lower Body Dressing(FIM): 4 Toileting(FIM): 5 Transfers (B,C,W/C) (FIM): 4 Toilet/Commode Transfer(FIM): 4 Shower Transfer(FIM): 4 Additional Short Term Goals: 1-Demonstrate ADL Tasks, 2-Verbalize Understanding , 3-ImproveStrength/Geovani 1=Demonstrate adherence to instructed precautions during ADL tasks. 2=Patient will verbalize/demonstrate understanding of assistive devices/ modifications for ADL. 3=Patient will improve strength/tolerance for activity to enable patient to perform ADL's. OT Nursing Home Goals National Secretary Goals Time Frame: Nov 19, 2016 Eating (FIM): 6 Eating (QC): 6 Groomin Oral Hygiene (QC): 6 Bathing(FIM): 5 Shower/Bathe Self (QC): 5 Upper Body Dressing(FIM): 5 Upper Body Dressing (QC): 5 Lower Body Dressing(FIM): 5 Lower Body Dressing (QC): 5 On/Off Footwear (QC): 5 Toileting(FIM): 6 Toileting Hygiene (QC): 6 Transfers (B,C,W/C) (FIM): 6 Toilet/Commode Transfer(FIM): 6 Toilet/Commode Transfer (QC): 6 Shower Transfer(FIM): 5 Additional Goals: 1-Demonstrate ADL Tasks, 2-Verbalize Understanding, 3- ImproveStrength/Geovani 1=Demonstrate adherence to instructed precautions during ADL tasks. 2=Patient will verbalize/demonstrate understanding of assistive devices/ modifications for ADL. 3=Patient will improve strength/tolerance for activity to enable patient to perform ADL's. OT Education/Plan Discharge Recommendations Plan/Recommendations: Continue POC Treatment Plan/Plan of Care Patient would benefit from OT for education, treatment and training to promote independence in ADL's, mobility, safety and/or upper extremity function for ADL' s. Plan of Care: ADL Retraining, Functional Mobility, UE Funct Exercise/Act Treatment Duration: Nov 19, 2016 Visits Per Week: 10-12 Minutes/Day (M-F): 60-90 Minutes/Day (Sat/Modi): 15-30 Agreement: Yes Rehab Potential: Fair Time/GCodes Start Time: 13:50 Stop Time: 14:00 Total Time Billed (hr/min): 10 Billed Treatment Time 1 visit-EX 1 (10 min) KARLY ENGLE Oct 27, 2016 14:04
--- NOTE | 2016-10-27 14:55 | Physician Query-General Query ---
Physician Query-General Query to Physician: Dear Provider; Admit Date:10/22/16 Discharge Date: The medical record reflects the following clinical scenario: History/Risk factors: COPD, HTN Clinical Findings: respiratory distress, dyspnea; 10/25 xray states; "Findings are consistent with congestive failure with increasing pulmonary edema and pleural effusion since previous exam". Treatment: lasix, Bipap Question: Can you further specify pulmonary edema per the clinical indicators above? Please document a response in the Progress Notes or Discharge Summary. 1. CHF (also include if acute, chronic or acute on chronic and also systolic, diastolic or systolic and diastolic) 2. Pulmonary edema (please specify if acute or chronic) 3. Other, with explanation of clinical findings 4. Clinically undetermined, no explanation for clinical findings Please remember a lack of response to the above will prompt a phone page by CDI/ coding staff. In responding to this query, please exercise your independent professional judgment. The purpose of this communication is to more accurately reflect the complexity of your patients condition. The fact that a question is asked does not imply that any particular answer is desired or expected. Thank you for your timely response to this clarification PHYSICIAN RESPONSE: Based on the clinical findings in the record, please respond to the query above on this document as an addendum. Possible, probable, or questionable diagnosis can be coded for INPATIENTS ONLY. Physician Response: Physician Response acute pulmonary edema If you have questions please contact: Shop Lead: Adilene Ext: [phone] Thank you for your time and cooperation. Clinical Hospital Social Worker/Shop Lead This is a permanent part of the medical record ADILENE MONTEZ Oct 27, 2016 14:55 ESSENCE MERCHANT MD Oct 29, 2016 10:24 HEIDI LEHMAN DO Dec 02, 2016 09:21
[2016-10-27 17:53] VITALS: BP 100/63
--- NOTE | 2016-10-27 19:08 | PM & R (SOAP) Progress Note ---
Subjective Subjective/Events-last exam Patient was seen in in his room earlier today requires BIPAP to maintain sats > 90% with 50%02.Appreciate therapy and DR Shah notes and orders RN informs me that Dr Ortiz has ordered transfer of patient to ICU this evening due to declininmg Medical status.Discussed case with PT earlier today Patient unable to tolerate therapies today for most part due to a decline in Medical status. Review of Systems General: Fatigue Pulmonary: Dyspnea Objective Exam Last Set of Vital Signs Vital Signs Date Time Temp Pulse Resp B/P Pulse Ox O2 Delivery O2 Flow Rate FiO2 10/27/16 18:33 92 60 10/27/16 18:25 90 26 60.00 10/27/16 17:53 97.4 100/63 NIV/Bilevel Capillary Refill : Less Than 3 Seconds I&O Intake and Output 10/26/16 23:59 Intake Total 930 ml Output Total 200 ml Balance 730 ml Intake Oral 930 ml Output Urine Total 200 ml # Voids 5 # Bowel Movements 2 General: Alert, Oriented X3, Cooperative, No Acute Distress HEENT: Atraumatic, PERRLA, EOMI, Mucous Memb Moist/[place] Neck: Supple, No JVD Lungs: Clear to Auscultation, Other (Decresed breath sounds) Heart: Regular Rate Abdomen: Normal Bowel Sounds, Soft, No Tenderness Extremities: Other Neuro: Other (functional strength BUES and RLE Impaired at left hip) Results Lab Laboratory Tests 10/25/16 06:30: Alanine Aminotransferase (ALT/SGPT) 54, Albumin 3.0L, Alkaline Phosphatase 141H , Anion Gap 15H, Aspartate Amino Transf (AST/SGOT) 122H, BUN/Creatinine Ratio 20 , Blood Urea Nitrogen 31H, Calcium Level 8.1L, Carbon Dioxide Level 22, Chloride Level 99, Creatinine 1.57H, Estimat Glomerular Filtration Rate 42, Glucose Level 145H, Hematocrit 28L, Hemoglobin 9.1L, Mean Corpuscular Hemoglobin 31, Mean Corpuscular Hemoglobin Concent 32, Mean Corpuscular Volume 97, Mean Platelet Volume 9.8, Platelet Count 576H, Potassium Level 4.4, Red Blood Count 2.93L, Red Cell Distribution Width 14.3, Sodium Level 136, Total Bilirubin 1.2H, Total Protein 5.6L, White Blood Count 20.2H 10/26/16 07:25: Alanine Aminotransferase (ALT/SGPT) 54, Albumin 2.9L, Alkaline Phosphatase 133, Anion Gap 14, Aspartate Amino Transf (AST/SGOT) 72H, BUN/Creatinine Ratio 26, Blood Urea Nitrogen 43H, Calcium Level 8.2L, Carbon Dioxide Level 23, Chloride Level 97L, Creatinine 1.64H, Estimat Glomerular Filtration Rate 40, Glucose Level 181H, Hematocrit 28L, Hemoglobin 9.0L, Mean Corpuscular Hemoglobin 31, Mean Corpuscular Hemoglobin Concent 33, Mean Corpuscular Volume 96, Mean Platelet Volume 10.2, Platelet Count 599H, Potassium Level 4.3, Red Blood Count 2.89L, Red Cell Distribution Width 14.4, Sodium Level 134L, Total Bilirubin 1.0 , Total Protein 6.0L, White Blood Count 18.0H 10/27/16 06:01: Alanine Aminotransferase (ALT/SGPT) 45, Albumin 3.0L, Alkaline Phosphatase 131, Anion Gap 15H, Aspartate Amino Transf (AST/SGOT) 39H, BUN/Creatinine Ratio 32, Blood Urea Nitrogen 63H, Calcium Level 8.0L, Carbon Dioxide Level 21, Chloride Level 97L, Creatinine 1.96H, Estimat Glomerular Filtration Rate 32, Glucose Level 193H, Hematocrit 28L, Hemoglobin 8.8L, Mean Corpuscular Hemoglobin 30, Mean Corpuscular Hemoglobin Concent 32, Mean Corpuscular Volume 95, Mean Platelet Volume 10.4, Platelet Count 667H, Potassium Level 4.3, Red Blood Count 2.90L, Red Cell Distribution Width 14.3, Sodium Level 133L, Total Bilirubin 1.0 , Total Protein 5.9L, White Blood Count 17.6H, B-Type Natriuretic Peptide 825.4H 10/27/16 09:24: Octavio Test YES-POS, Arterial Blood Base Excess 0.1, Arterial Blood HCO3 23, Arterial Blood Oxygen Saturation 95, Arterial Blood Partial Pressure CO2 29L, Arterial Blood Partial Pressure O2 65L, Arterial Blood Total CO2 23.8, Arterial Blood pH 7.51H, Blood Gas Inspired Oxygen 50% BIPAP, Blood Gas Patient Temperature 97.5, Blood Gas Puncture Site RT RADIAL, Blood Gas Ventilator Setting NO Assessment/Plan Assessment Fall frx left hip s/p repair Orthopedics Postop anemia s/p transfusion HTN controlled A FIB controlled OAC chronic usage OA left knee COPD O2 dependent Leukocytosis associated with Abnormal CXR -suggestive of CHF IV lasix given along with IV Solumedrol and BIPAP Plan Transfer to ICU to DR Shaw and Elvia care On an interrrupted stay from IRU F/U with IRU staff tomorrow re patients progress and possibility of return to IRU once Medically improved. ESSENCE MERCHANT MD Oct 27, 2016 19:08
--- NOTE | 2016-10-28 08:22 | Therapy Team Discharge Summary ---
Therapy Discharge Summary Discharge Recommendations Date of Discharge Therapy D/C Recommendations: 24 hr Supervision Occupational Therapy Pt. has been seen on acute rehab to increase overall strength and independence with daily tasks. Pt. has had a steady decline in progress due to increased medical issues. Pt. requires max/dependent assist at this time due to respiratory issues and bipap management. Pt. discharged to ICU setting where this OT will re-evaluate this date. PT Detention Goals Wood Machine Carver Goals PT Detention Goals Time Frame: Nov 12, 2016 Transfers (B,C,W/C) (FIM): 4 Gait Assistive Device: FWW Picking up an Object (QC): 88 OT Wood Machine Carver Goals Detention Goals Time Frame: Nov 19, 2016 Eating (FIM): 6 (not met) Eating (QC): 6 (not met) Oral Hygiene (QC): 6 (not met) Grooming(FIM): 6 (not met) Bathing(FIM): 5 (not met) Shower/Bathe Self (QC): 5 (not met) Upper Body Dressing(FIM): 5 (not met) Upper Body Dressing (QC): 5 (not met) Lower Body Dressing(FIM): 5 (not met) Lower Body Dressing (QC): 5 (not met) On/Off Footwear (QC): 5 (not met) Toileting(FIM): 6 (not met) Toileting Hygiene (QC): 6 (not met) Transfers (B,C,W/C) (FIM): 6 (not) Toilet/Commode Transfer(FIM): 6 (not met) Toilet/Commode Transfer (QC): 6 (not met) Shower Transfer(FIM): 5 Additional Goals: 1-Demonstrate ADL Tasks, 2-Verbalize Understanding, 3- ImproveStrength/Geovani 1=Demonstrate adherence to instructed precautions during ADL tasks. 2=Patient will verbalize/demonstrate understanding of assistive devices/ modifications for ADL. 3=Patient will improve strength/tolerance for activity to enable patient to perform ADL's. JOSE ANTONIO YOUNG OT Oct 28, 2016 08:22
--- NOTE | 2016-10-28 10:52 | Therapy Team Discharge Summary ---
Therapy Discharge Summary Discharge Recommendations Date of Discharge Therapy D/C Recommendations: 24 hr Supervision Physical Therapy Patient came to rehab following a left hip fracture. Upon evaluation patient performed bed mobility and transfers with mod to max assist, ambulated 20' with a rolling walker with min assist, and was able to propel a wheelchair 50' with min assist. Patient has been performing bed mobility and transfer training, balance and endurance training, functional strengthening, gait training, and education. Patient was making fair progress and got to where he performed bed mobility and transfers mod to min assist but has since had medical complications and was transferred to the ICU. He has not met any residential goals. Patient will be discharged from rehab at this time. 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 Member Goals Fdc Goals 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 Member Goals Time Frame: Nov 12, 2016 Transfers (B,C,W/C) (FIM): 4 Gait Assistive Device: FWW Picking up an Object (QC): 88 OT Fdc Goals Fdc Goals Time Frame: Nov 19, 2016 Eating (FIM): 6 (not met) Eating (QC): 6 (not met) Oral Hygiene (QC): 6 (not met) Grooming(FIM): 6 (not met) Bathing(FIM): 5 (not met) Shower/Bathe Self (QC): 5 (not met) Upper Body Dressing(FIM): 5 (not met) Upper Body Dressing (QC): 5 (not met) Lower Body Dressing(FIM): 5 (not met) Lower Body Dressing (QC): 5 (not met) On/Off Footwear (QC): 5 (not met) Toileting(FIM): 6 (not met) Toileting Hygiene (QC): 6 (not met) Transfers (B,C,W/C) (FIM): 6 (not) Toilet/Commode Transfer(FIM): 6 (not met) Toilet/Commode Transfer (QC): 6 (not met) Shower Transfer(FIM): 5 Additional Goals: 1-Demonstrate ADL Tasks, 2-Verbalize Understanding, 3- ImproveStrength/Geovani 1=Demonstrate adherence to instructed precautions during ADL tasks. 2=Patient will verbalize/demonstrate understanding of assistive devices/ modifications for ADL. 3=Patient will improve strength/tolerance for activity to enable patient to perform ADL's. LEBRON ROSALES PT Oct 28, 2016 10:52
--- NOTE | 2016-10-30 10:15 | DISCHARGE SUMMARY ---
DATE OF ADMISSION: 10/22/2016 DATE OF DISCHARGE: 10/28/2016 HISTORY OF PRESENT ILLNESS: The patient is an 89-year-old male who lives with his spouse in [place], [place] who lost his balance in his kitchen, fell to the floor and sustained an intertrochanteric fracture of the left hip. The patient when on to have an ORIF/TFN with orthopedics. The patient was made weight-bearing as tolerated. The patient was followed by Dr. Weaver as well, PCP. The patient was found to have a UTI, which was treated. The patient had acute renal failure due to hypotensive event which responded to fluid resuscitation. The patient became medically stable with treatment and was referred to Inpatient Rehabilitation Unit for ongoing orthopedic rehabilitation. Follow-up urine culture was negative. PAST MEDICAL HISTORY: 1. The patient had stress test in June 2016 showing no ischemia or infarct but ejection fraction of 47%, Dr. Feldman. 2. The patient had an assessment with ED on 10/04 revealing atrial fibrillation. Medications were adjusted. 3. The patient is chronically anticoagulated on OAC. 4. History of arthritis. 5. Coronary artery disease with a CABG. 6. COPD. 7. Hypothyroidism. 8. Hypertension. 9. [place]. 10. He has had a right hip replacement in the past for arthritis as well. SOCIAL HISTORY: He is retired and lives in a single level home with spouse. MEDICAL COURSE: The patient was followed by Dr. Ferrell and Dr. Weaver while on rehab unit. On the morning of , he was noted to have a leukocytosis of 21,000. Dr. Ferrell discussed the case with Dr. Weaver. Chest x-ray revealed infiltrate, CHF, pulmonary edema. The patient was started on IV antibiotics for presumed pneumonia and also provided with diuresis. The patient was seen by Dr. Ortiz. The patient had worsening respiratory failure requiring BiPAP over the weekend and had a decline in his function level with therapies. Dr. Ortiz ordered the patient be transferred to ICU for further management and treatment. Thus, he was not able to sustain or meet all his inpatient rehabilitation goals. CBC on 10/27 showed WBC 10.6, down from 21 on 10/24. H&H was 8.8/28, platelet count 667,000. Blood gas on 10/27 showed a pH of 7.51, CO2 29, 02 65 on 50% BiPAP. Chemistry on 10/27 showed serum sodium 133, which was a decline. Chloride 97, BUN elevated at 63, creatinine 1.96, anion gap 15, calcium 8, AST 39, albumin of 3, total protein 5.9. BNP of 825.4 elevated. Urine culture was negative on 10/24. Venous Doppler study on 10/24 was negative of the leg. Follow-up chest x-ray on 10/27 showed bibasilar atelectasis and left pleural effusion. There has been improvement in the pulmonary vascular congestion. REHABILITATION COURSE: The patient was making some progress with therapies and has progressed from max assist for transfers and mid to mod assist for transfers was not able to sustain these gains due to his medical decline. Similar results were obtained with OT functional level. Speech therapy to do cognitive assessment upon admission to rehab unit and found him to be functional for his age and signed off. DISCHARGE INSTRUCTIONS: The patient is transferred to the ICU as per Dr. Ortiz's orders. Would follow-up with Dr. Ortiz and Dr. Weaver, pulmonology and PCP respectively and orthopedics when needed. Continue current diet as tolerated. Continue BiPAP and respiratory support. DISCHARGE MEDICATIONS: 1. Medications at the time of transfer: small volume nebulizer treatments as per Dr. Ortiz. 2. IV Solu-Medrol q.[address] Ortiz. 3. Cefepime IV daily at noon. 4. Furosemide IV as per Dr. Ortiz and Dr. Weaver. 5. Levothyroxine 250 mcg p.o. daily. 6. Pepcid 20 mg p.o. at bedtime. 7. ASA 81 mg p.o. daily. 8. Amlodipine 5 mg p.o. daily. 9. Eliquis 2.5 mg p.o. b.i.d. 10. Fish oil 1000 mg p.o. daily. 11. Multivitamins with minerals 1 tablet p.o. daily. 12. Simvastatin 20 mg p.o. at bedtime. 13. Uroxatral 10 mg at bedtime. 14. Senokot-S 1 tablet p.o. b.i.d. 15. Urecholine 25 mg p.o. b.i.d. before meals. 16. Calcium carbonate 500 mg p.o. q.i.d. p.r.n. heartburn. 17. Tramadol 50 mg p.o. q.4 hours p.r.n. moderate pain. 18. Nitroglycerin 0.4 mg sublingual q. 5 minutes p.r.n. chest pain up to 4 doses until chest pain relieved. DISCHARGE DIAGNOSES: 1. Rehabilitation ambulatory dysfunction, secondary to fall with left intertrochanteric hip fracture, status post repair Dr. White with TFN and weight-bearing as tolerated. 2. UTI, treated. 3. Hospital acquired pneumonia, under treatment associated respiratory failure. 4. Acute on chronic systolic congestive heart failure presumed from a stress test done by Dr. Feldman, June 2016 showing ejection fraction 47% associated with pulmonary edema and pleural effusions, improving with diuresis. 5. Atrial fibrillation, controlled with medication. 6. Chronic oral anticoagulant. 7. Episode of postop hypotension resolved. 8. Postop urinary retention, resolved with medications. 9. Hypothyroidism on replacement. 10. Hypertension, controlled with medication. 11. Postoperative anemia, improved, status post transfusion. 12. Osteoarthritis left knee, and prior right hip replacement, remote. CONDITION AT DISCHARGE: Unimproved, but stable for transfer. PROGNOSIS: Rehab prognosis appears fair for some continued improvement once medically stabilized. However, due to his age, multiple comorbidities and his acute illness he may benefit from a intermediate unit placement for less intensive therapy once medically stabilized. Job ID: [id number] Dictated Date: 10/29/2016 10:23:43 Curriculum Facilitator Date: 10/30/2016 09:52:07/rosalind COOPER
== END 2016-10-28 13:35 | disposition short-term general hospital (02) | DRG 559 ==
PROVIDERS: ADMIT Physical Medicine & Rehabilitation; ATTEND Physical Medicine & Rehabilitation
DX: S72.142D Displaced intertrochanteric fracture of left femur, subsequent encounter for closed fracture with routine healing (principal); N17.9 Acute kidney failure, unspecified; I50.23 Acute on chronic systolic (congestive) heart failure; J18.9 Pneumonia, unspecified organism; J96.90 Respiratory failure, unspecified, unspecified whether with hypoxia or hypercapnia; N40.1 Benign prostatic hyperplasia with lower urinary tract symptoms; R33.9 Retention of urine, unspecified; I10 Essential (primary) hypertension; E03.9 Hypothyroidism, unspecified; J44.9 Chronic obstructive pulmonary disease, unspecified; M17.12 Unilateral primary osteoarthritis, left knee; I25.10 Atherosclerotic heart disease of native coronary artery without angina pectoris; D64.9 Anemia, unspecified; G47.30 Sleep apnea, unspecified; Z99.81 Dependence on supplemental oxygen; Z79.01 Long term (current) use of anticoagulants; W19.XXXD Unspecified fall, subsequent encounter; Y92.010 Kitchen of single-family (private) house as the place of occurrence of the external cause; I48.91 Unspecified atrial fibrillation
CPT/HCPCS: 36415; 71010; 71020; 80053; 81000; 82805; 83880; 84550; 85007; 85027; 94640; 94660; 94664; 94760

== ENCOUNTER 2016-10-27 19:02 | Inpatient (IN) | payer MEDICARE, OTHER ==
[~2016-10-27] VITALS: Ht 182.9 cm; Wt 95.9 kg
[2016-10-27] VITALS (9 sets, daily range): BP systolic 80–95; BP diastolic 54–79
--- OUTSIDE RECORDS SUMMARY | 2016-10-27 22:20 | XMS REPORT | Continuity of Care Document ---
Author Author [facility] Organization [facility] Address Unknown Phone Unavailable Allergies Active Description Code Type Severity Reaction Onset Reported/Identified Relationship to Patient Clinical Status Yes No Known Drug Allergies [id number] Drug Allergy Unknown N/ A 10/17/2016 Medications Problems Date Dx Coded Attending Type Code Diagnosis Diagnosed By 08/06/1129 TARAS TITUS MD Ot M54.9 08/06/1129 TARAS TITUS MD Ot R53.1 08/06/1129 TARAS TITUS MD Ot Z98.89 10/07/2014 ROSANA CALDWELL CUT OFF TENDER GLASS Ot 272.4 10/07/2014 ROSANA CALDWELL CUT OFF TENDER GLASS Ot 414.00 10/07/2014 ROSANA CALDWELL CUT OFF TENDER GLASS Ot 433.10 12/08/2014 CARISA GARY MD Ot 244.9 HYPOTHYROIDISM NOS 12/08/2014 CARISA GARY MD Ot 401.9 HYPERTENSION NOS 12/08/2014 CARISA GARY MD Ot 414.01 CORONARY ATHEROSCLEROSIS OF [place] CORON 12/08/2014 CARISA GARY MD Ot 728.89 MUSCLE/LIGAMENT DIS NEC 12/08/2014 CARISA GARY MD Ot E934.8 ADV EFF BLOOD AGENT NEC 04/12/2015 ROSANA CALDWELL CUT OFF TENDER GLASS Ot 272.4 06/19/2015 NERY ESCOBAR MD Ot M54.5 LOW BACK PAIN 06/19/2015 NERY ESCOBAR MD Ot S32.029A UNSP FRACTURE OF SECOND LUMBAR VERTEBRA, 06/19/2015 NERY ESCOBAR MD Ot X39.8XXA OTHER EXPOSURE TO FORCES OF NATURE, INIT 06/19/2015 NERY ESCOBAR MD Ot Y92.[address] [facility] ( PRIVATE 06/19/2015 NERY ESCOBAR MD [...] CCDS Ot V45.81 10/08/2015 ROSANA CALDWELL L CUT OFF TENDER GLASS Ot 272.4 10/08/2015 BAIJULIAN ROSANA L CUT OFF TENDER GLASS Ot V58.69 10/08/2015 [place], SHERYL Fontanez Ot 780.2 10/08/2015 [place], SHERYL Fontanez Ot 433.20 10/08/2015 SHERYL RAMON MD Ot 433.30 10/08/2015 BAIJULIAN ROSANA L CUT OFF TENDER GLASS Ot 272.4 10/08/2015 BAIJULIAN ROSANA L CUT OFF TENDER GLASS Ot 414.00 10/08/2015 JAS[place]IR [place] FACC, ALI FACP CCDS Ot 272.4 10/08/2015 [place] FACC, ALI FACP CCDS Ot 396.3 10/08/2015 [place] FACC, ALI FACP CCDS Ot 401.9 10/08/2015 [place] FACC, ALI FACP CCDS Ot 414.00 10/08/2015 JASBIR LAND [facility], ALI FACP CCDS Ot 447.9 10/08/2015 JASBIR LAND [facility], ALI FACP CCDS Ot 272.4 10/08/2015 JASBIR LAND [facility], ALI FACP CCDS Ot 401.9 10/08/2015 JASBIR LAND [facility], ALI FACP CCDS Ot 414.00 10/08/2015 JASBIR LAND [facility], ALI FACP CCDS Ot 424.1 10/08/2015 JAS[place]IR LAND [facility], ALI FACP CCDS Ot 435.9 10/08/2015 DEMIANMA ROSANA L CUT OFF TENDER GLASS Ot 272.4 10/08/2015 BAIMA, ROSANA L CUT OFF TENDER GLASS Ot 414.00 10/08/2015 BAIMA, ROSANA L CUT OFF TENDER GLASS Ot 433.10 10/08/2015 BAIMA, ROSANA L CUT OFF TENDER GLASS Ot 272.4 10/10/2015 JASBIR LAND [facility], ALI FACP CCDS Ot E78.5 10/10/2015 JAS[place] L[place] [facility], ALI FACP CCDS Ot I25.10 11/02/2015 JAS[place] L[place] [facility], ALI FACP CCDS Ot E78.5 11/02/2015 JAS[place] L[place] [facility], ALI FACP CCDS Ot I25.10 12/06/2015 T[place]O L[place], TARAS Merida Ot M54.9 DORSALGIA, UNSPECIFIED 12/06/2015 [place]O [place], TARAS Merida Ot R53.1 WEAKNESS 12/06/2015 [place]O [place], TARAS Merida Ot Z98.89 OTHER SPECIFIED POSTPROCEDURAL STATES 02/21/2016 PAULETTE ROSANA L CUT OFF TENDER GLASS Ot I25.10 ATHSCL HEART DISEASE OF [place] CORONARY 02/22/2016 DEMIANMA ROSANA L CUT OFF TENDER GLASS Ot E78.5 HYPERLIPIDEMIA, UNSPECIFIED 02/22/2016 BAIMA, ROSANA L CUT OFF TENDER GLASS Ot I10 ESSENTIAL (PRIMARY) HYPERTENSION 02/22/2016 BAIMA ROSANA L CUT OFF TENDER GLASS Ot I25.10 ATHSCL HEART DISEASE OF [place] CORONARY 02/22/2016 DEMIANMA ROSANA L CUT OFF TENDER GLASS Ot 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 02/22/2016 DEMIANMA ROSANA L CUT OFF TENDER GLASS Ot I73.9 PERIPHERAL VASCULAR DISEASE, UNSPECIFIED 02/22/2016 BAIMA ROSANA L CUT OFF TENDER GLASS Ot I77.9 DISORDER OF ARTERIES AND ARTERIOLES, UNS 02/22/2016 BAIMA, ROSANA L CUT OFF TENDER GLASS Ot E78.5 HYPERLIPIDEMIA, UNSPECIFIED 02/22/2016 BAIMA, ROSANA L CUT OFF TENDER GLASS Ot I10 ESSENTIAL (PRIMARY) HYPERTENSION 02/22/2016 BAIMA, ROSANA L CUT OFF TENDER GLASS Ot I25.10 ATHSCL HEART DISEASE OF [place] CORONARY 02/22/2016 BAIMA, ROSANA L CUT OFF TENDER GLASS Ot 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 02/22/2016 BAIMA, ROSANA L CUT OFF TENDER GLASS Ot I73.9 PERIPHERAL VASCULAR DISEASE, UNSPECIFIED 02/22/2016 BAIMA, ROSANA L CUT OFF TENDER GLASS Ot I77.9 DISORDER OF ARTERIES AND ARTERIOLES, UNS 03/12/2016 BAIMA, ROSANA L CUT OFF TENDER GLASS Ot E78.5 HYPERLIPIDEMIA, UNSPECIFIED 03/12/2016 BAIMA, ROSANA L CUT OFF TENDER GLASS Ot I10 ESSENTIAL (PRIMARY) HYPERTENSION 03/12/2016 BAIMA, ROSANA L CUT OFF TENDER GLASS Ot I25.10 ATHSCL HEART DISEASE OF [place] CORONARY 03/12/2016 BAIMA, ROSANA L CUT OFF TENDER GLASS Ot 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 03/12/2016 BAIMA, ROSANA L CUT OFF TENDER GLASS Ot I73.9 PERIPHERAL VASCULAR DISEASE, UNSPECIFIED 03/12/2016 BAIMA, ROSANA L CUT OFF TENDER GLASS Ot I77.9 DISORDER OF ARTERIES AND ARTERIOLES, UNS 03/17/2016 BAIMA, ROSANA L CUT OFF TENDER GLASS Ot E78.5 HYPERLIPIDEMIA, UNSPECIFIED 03/17/2016 BAIMA, ROSANA L CUT OFF TENDER GLASS Ot I10 ESSENTIAL (PRIMARY) HYPERTENSION 03/17/2016 BAIMA, ROSANA L CUT OFF TENDER GLASS Ot I25.10 ATHSCL HEART DISEASE OF [place] CORONARY 03/17/2016 BAIMA, ROSANA L CUT OFF TENDER GLASS Ot 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 03/17/2016 BAIMA, ROSANA L CUT OFF TENDER GLASS Ot I73.9 PERIPHERAL VASCULAR DISEASE, UNSPECIFIED 03/17/2016 BAIMA, ROSANA L CUT OFF TENDER GLASS Ot I77.9 DISORDER OF ARTERIES AND ARTERIOLES, [...] NOS 04/07/2016 Ot 414.01 CORONARY ATHEROSCLEROSIS OF [place] CORON 04/07/2016 Ot 443.9 PERIPH VASCULAR DIS [...] Ot V45.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 BYPASS 04/07/2016 ROSANA CALDWELL CUT OFF TENDER GLASS Ot 272.4 HYPERLIPIDEMIA NEC/NOS 04/07/2016 ROSANA CALDWELL CUT OFF TENDER GLASS Ot V58.69 OTH MED,LT,CURRENT USE 04/07/2016 SHERYL RAMON MD Ot 780.2 SYNCOPE AND COLLAPSE 04/07/2016 SHERYL RAMON MD Ot 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 04/07/2016 [place], SHERYL Fontanez Ot 433.30 MULT BILTRAL ARTERY OCCLUSION WO CEREBRA 04/07/2016 PAULETTE ROSANA L CUT OFF TENDER GLASS Ot 272.4 HYPERLIPIDEMIA NEC/NOS 04/07/2016 BAIMA, ROSANA L CUT OFF TENDER GLASS Ot 414.00 CORON ATHEROSCLER NOS TYPE VESSEL, [...] CEREB ISCHEMIA NOS 04/07/2016 ROSANA CALDWELL L CUT OFF TENDER GLASS Ot 272.4 HYPERLIPIDEMIA NEC/NOS 04/07/2016 BAIJULIAN ROSANA L CUT OFF TENDER GLASS Ot 414.00 CORON ATHEROSCLER NOS TYPE VESSEL, NATIV 04/07/2016 ROSANA CALDWELL L CUT OFF TENDER GLASS Ot 433.10 CAROTID ARTERY OCCLUSION W O CEREBRAL IN 04/07/2016 ROSANA CALDWELL L CUT OFF TENDER GLASS Ot 272.4 HYPERLIPIDEMIA NEC/NOS 04/07/2016 [place] FACC, ALI FACP CCDS Ot E78.5 HYPERLIPIDEMIA, UNSPECIFIED 04/07/2016 [place] FACC, ALI FACP CCDS Ot I25.10 ATHSCL HEART DISEASE OF [place] CORONARY 04/07/2016 ROSANA CALDWELL L CUT OFF TENDER GLASS Ot E78.5 HYPERLIPIDEMIA, UNSPECIFIED 04/07/2016 ROSANA CALDWELL LISHA Ot I10 ESSENTIAL (PRIMARY) HYPERTENSION 04/07/2016 ROSANA CALDWELL CUT OFF TENDER GLASS Ot I25.10 ATHSCL HEART DISEASE OF [place] CORONARY 04/07/2016 ROSANA CALDWELL CUT OFF TENDER GLASS Ot 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 04/07/2016 ROSANA CALDWELL CUT OFF TENDER GLASS Ot I73.9 PERIPHERAL VASCULAR DISEASE, UNSPECIFIED 04/07/2016 ROSANA CALDWELL CUT OFF TENDER GLASS Ot I77.9 DISORDER OF ARTERIES AND ARTERIOLES, [...] M48.06 SPINAL STENOSIS, LUMBAR REGION 04/28/2016 LUCA OLWE DO Ot S32.010A WEDGE COMPRESSION FRACTURE OF [...] EXPOSURE TO OTHER SPECIFIED FACTORS, INI 04/29/2016 ULCA LOWE DO Ot Y99.8 OTHER EXTERNAL CAUSE STATUS 05/29/2016 DELMY GILES Ot M54.5 LOW BACK PAIN 06/04/2016 DELMY GILES R Ot M54.5 LOW BACK PAIN 06/05/2016 DELMY GILES Ot M54.5 LOW BACK PAIN 06/07/2016 Ot 784.7 06/10/2016 Ot 272.4 HYPERLIPIDEMIA NEC/NOS 06/10/2016 Ot 401.9 HYPERTENSION NOS 06/10/2016 Ot 414.01 CORONARY ATHEROSCLEROSIS OF [place] CORON 06/10/2016 Ot 443.9 PERIPH VASCULAR DIS [...] Ot V45.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 BYPASS 06/10/2016 ROSANA CALDWELL CUT OFF TENDER GLASS Ot 272.4 HYPERLIPIDEMIA NEC/NOS 06/10/2016 ROSANA CALDWELL CUT OFF TENDER GLASS Ot V58.69 OTH MED,LT,CURRENT USE 06/10/2016 SHERYL RAMON MD Ot 780.2 SYNCOPE AND COLLAPSE 06/10/2016 SANDNESS MD, SHERYL M Ot 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 06/10/2016 [place], SHERYL Fontanez Ot 433.30 MULT BILTRAL ARTERY OCCLUSION WO CEREBRA 06/10/2016 BAIMA, ROSANA L CUT OFF TENDER GLASS Ot 272.4 HYPERLIPIDEMIA NEC/NOS 06/10/2016 BAIMA, ROSANA L CUT OFF TENDER GLASS Ot 414.00 CORON ATHEROSCLER NOS TYPE VESSEL, [...] CEREB ISCHEMIA NOS 06/10/2016 PAULETTE ROSANA L CUT OFF TENDER GLASS Ot 272.4 HYPERLIPIDEMIA NEC/NOS 06/10/2016 BAIMA, ROSANA L CUT OFF TENDER GLASS Ot 414.00 CORON ATHEROSCLER NOS TYPE VESSEL, NATIV 06/10/2016 PAULETTE ROSANA L CUT OFF TENDER GLASS Ot 433.10 CAROTID ARTERY OCCLUSION W O CEREBRAL IN 06/10/2016 PAULETTE ROSANA L CUT OFF TENDER GLASS Ot 272.4 HYPERLIPIDEMIA NEC/NOS 06/10/2016 [place] FACC, ALI FACP CCDS Ot E78.5 HYPERLIPIDEMIA, UNSPECIFIED 06/10/2016 [place] FACC, ALI FACP CCDS Ot I25.10 ATHSCL HEART DISEASE OF [place] CORONARY 06/10/2016 PAULETTE ROSANA L CUT OFF TENDER GLASS Ot E78.5 HYPERLIPIDEMIA, UNSPECIFIED 06/10/2016 BAIMA, ROSANA L CUT OFF TENDER GLASS Ot I10 ESSENTIAL (PRIMARY) HYPERTENSION 06/10/2016 ROSANA CALDWELL CUT OFF TENDER GLASS Ot I25.10 ATHSCL HEART DISEASE OF [place] CORONARY 06/10/2016 ROSANA CALDWELLP Ot 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 06/10/2016 ROSANA CALDWELL CUT OFF TENDER GLASS Ot I73.9 PERIPHERAL VASCULAR DISEASE, UNSPECIFIED 06/10/2016 ROSANA CALDWELL CUT OFF TENDER GLASS Ot I77.9 DISORDER OF ARTERIES AND ARTERIOLES, [...] NOS 06/11/2016 Ot 414.01 CORONARY ATHEROSCLEROSIS OF [place] CORON 06/11/2016 Ot 443.9 PERIPH VASCULAR DIS [...] V45.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 BYPASS 06/11/2016 PAULETTE ROSANA L CUT OFF TENDER GLASS Ot 272.4 HYPERLIPIDEMIA NEC/NOS 06/11/2016 BAIMA ROSANA L CUT OFF TENDER GLASS Ot V58.69 OTH MED,LT,CURRENT USE 06/11/2016 SHERYL RAMON MD Ot 780.2 SYNCOPE AND COLLAPSE 06/11/2016 SHERYL RAMON MD Ot 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 06/11/2016 SHERYL RAMON MD Ot 433.30 MULT BILTRAL ARTERY OCCLUSION WO CEREBRA 06/11/2016 JONATHON CALDWELLHER L CUT OFF TENDER GLASS Ot 272.4 HYPERLIPIDEMIA NEC/NOS 06/11/2016 PAULETTE ROSANA L CUT OFF TENDER GLASS Ot 414.00 CORON ATHEROSCLER NOS TYPE VESSEL, [...] TRANS CEREB ISCHEMIA NOS 06/11/2016 DEMIANROSANA JORDAN CUT OFF TENDER GLASS Ot 272.4 HYPERLIPIDEMIA NEC/NOS 06/11/2016 DEMIANROSANA JORDAN L CUT OFF TENDER GLASS Ot 414.00 CORON ATHEROSCLER NOS TYPE VESSEL, NATIV 06/11/2016 DEMIANJULIAN ROSANA L CUT OFF TENDER GLASS Ot 433.10 CAROTID ARTERY OCCLUSION W O CEREBRAL IN 06/11/2016 PAULETTEROSANA L CUT OFF TENDER GLASS Ot 272.4 HYPERLIPIDEMIA NEC/NOS 06/11/2016 JASBIR LAND [facility], ALI FACP CCDS Ot E78.5 HYPERLIPIDEMIA, UNSPECIFIED 06/11/2016 [place] FACC, ALI FACP CCDS Ot I25.10 ATHSCL HEART DISEASE OF [place] CORONARY 06/11/2016 PAULETTE ROSANA L CUT OFF TENDER GLASS Ot E78.5 HYPERLIPIDEMIA, UNSPECIFIED 06/11/2016 PAULETTE ROSANA L CUT OFF TENDER GLASS Ot I10 ESSENTIAL (PRIMARY) HYPERTENSION 06/11/2016 PAULETTE ROSANA L CUT OFF TENDER GLASS Ot I25.10 ATHSCL HEART DISEASE OF [place] CORONARY 06/11/2016 ROSANA CALDWELL CUT OFF TENDER GLASS Ot 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 06/11/2016 ROSANA CALDWELL L CUT OFF TENDER GLASS Ot I73.9 PERIPHERAL VASCULAR DISEASE, UNSPECIFIED 06/11/2016 PAULETTE ROSANA Cierra CUT OFF TENDER GLASS Ot I77.9 DISORDER OF ARTERIES AND ARTERIOLES, [...] EXTERNAL CAUSE STATUS 06/11/2016 ROSANA CALDWELL L CUT OFF TENDER GLASS Ot I10 ESSENTIAL (PRIMARY) HYPERTENSION 06/11/2016 ROSANA CALDWELL L CUT OFF TENDER GLASS Ot I25.10 ATHSCL HEART DISEASE OF [place] CORONARY 07/02/2016 ROSANA CALDWELL L CUT OFF TENDER GLASS Ot I10 ESSENTIAL (PRIMARY) HYPERTENSION 07/02/2016 ROSANA CALDWELL L CUT OFF TENDER GLASS Ot I25.10 ATHSCL HEART DISEASE OF [place] CORONARY 07/03/2016 ROSANA CALDWELL CUT OFF TENDER GLASS Ot E78.5 HYPERLIPIDEMIA, UNSPECIFIED 07/03/2016 BAIMA, ROSANA L CUT OFF TENDER GLASS Ot I25.10 ATHSCL HEART DISEASE OF [place] CORONARY 07/04/2016 BAIMAJONATHONROSANA L CUT OFF TENDER GLASS Ot I10 ESSENTIAL (PRIMARY) HYPERTENSION 07/04/2016 BAIMA, ROSANA L CUT OFF TENDER GLASS Ot I25.10 ATHSCL HEART DISEASE OF [place] CORONARY 07/22/2016 BAIMAROSANA L CUT OFF TENDER GLASS Ot E78.5 HYPERLIPIDEMIA, UNSPECIFIED 07/22/2016 BAIMA, ROSANA L CUT OFF TENDER GLASS Ot I25.10 ATHSCL HEART DISEASE OF [place] CORONARY 09/07/2016 Ot 784.7 10/06/2016 ESEQUIEL L[place], DELMY Gomez Ot I10 ESSENTIAL (PRIMARY) HYPERTENSION 10/06/2016 ESEQU[place]EL [place], DELMY Gomez Ot I25.10 ATHSCL HEART DISEASE OF [place] CORONARY 10/06/2016 E[place], DELMY Gomez Ot I48.91 UNSPECIFIED ATRIAL FIBRILLATION 10/06/2016 [place], DELMY Gomez Ot J06.9 ACUTE UPPER RESPIRATORY INFECTION, UNSPE 10/06/2016 E[place], DELMY Gomez Ot J44.9 CHRONIC OBSTRUCTIVE PULMONARY DISEASE , U 10/06/2016 ESEQU[place], DELMY Gomez Ot R05 COUGH 10/06/2016 [place], DELMY Gomez Ot Z79.899 OTHER LONGTERM (CURRENT) DRUG THERAPY 10/06/2016 ESEQU[place]EL [place], DELMY Gomez Ot Z95.1 PRESENCE OF AORTOCORONARY BYPASS GRAFT 10/17/2016 T[place]O [place], TARAS Merida Ot D64.9 ANEMIA, UNSPECIFIED 10/17/2016 TARAS TITUS MD Ot E03.9 HYPOTHYROIDISM, UNSPECIFIED 10/17/2016 TARAS TITUS MD Ot G47.30 SLEEP APNEA, UNSPECIFIED 10/17/2016 TARAS TITUS MD Ot I10 ESSENTIAL (PRIMARY) HYPERTENSION 10/17/2016 TARAS TITUS MD Ot I25.10 ATHSCL HEART DISEASE OF [place] CORONARY 10/17/2016 TARAS TITUS MD Ot I25.2 [...] PROSTATIC HYPERPLASIA WITH LOWER 10/17/2016 TARAS TITUS MD Ot R33.8 OTHER RETENTION OF URINE 10/17/2016 TARAS TITUS MD, Ot S72.145A NONDISPLACED INTERTROCHANTERIC FRACTURE 10/17/2016 TARAS TITUS MD Ot W18.39XA OTHER FALL ON SAME LEVEL, INITIAL ENCOUN 10/17/2016 TARAS TITUS MD, Ot Y92.000 KITCHEN OF [facility] NON-INSTITUT (PRIVATE) R 10/17/2016 TARAS TITUS MD, Ot Z79.01 LONGTERM (CURRENT) USE OF ANTICOAGULANT 10/17/2016 TARAS TITUS MD, Ot Z86.73 PRSNL HX OF TIA (TIA), AND CEREB INFRC W 10/17/2016 TARAS TITUS MD, Ot Z95.1 PRESENCE OF AORTOCORONARY BYPASS GRAFT 10/17/2016 TARAS TITUS MD Ot Z95.5 PRESENCE OF CORONARY ANGIOPLASTY IMPLANT 10/17/2016 TARAS TITUS MD Ot Z99.81 DEPENDENCE ON SUPPLEMENTAL OXYGEN 10/17/2016 TARAS TITUS MD Ot D64.9 ANEMIA, UNSPECIFIED 10/17/2016 TARAS TITUS MD Ot E03.9 HYPOTHYROIDISM, UNSPECIFIED 10/17/2016 TARAS TITUS MD, Ot G47.30 SLEEP APNEA, UNSPECIFIED 10/17/2016 TARAS TITUS MD, Ot I10 ESSENTIAL (PRIMARY) HYPERTENSION 10/17/2016 TARAS TITUS MD, Ot I25.10 ATHSCL HEART DISEASE OF [place] CORONARY 10/17/2016 TARAS TITUS MD, Ot I25.2 OLD MYOCARDIAL INFARCTION 10/17/2016 TARAS TITUS MD, Ot I48.91 UNSPECIFIED ATRIAL FIBRILLATION 10/17/2016 TARAS TITUS MD, Ot J44.9 CHRONIC OBSTRUCTIVE PULMONARY DISEASE, U 10/17/2016 TARAS TITUS MD Ot M17.12 UNILATERAL PRIMARY OSTEOARTHRITIS, LEFT 10/17/2016 TARAS TITUS MD Ot N39.0 URINARY TRACT INFECTION, SITE NOT SPECIF 10/17/2016 TARAS TITUS MD, Ot N40.1 BENIGN PROSTATIC HYPERPLASIA WITH LOWER 10/17/2016 TARAS TITUS MD, Ot R33.8 OTHER RETENTION OF URINE 10/17/2016 TARAS TITUS MD, Ot S72.145A NONDISPLACED INTERTROCHANTERIC FRACTURE 10/17/2016 TARAS TITUS MD Ot W18.39XA OTHER FALL ON SAME LEVEL, INITIAL ENCOUN 10/17/2016 TARAS TITUS MD Ot Y92.000 KITCHEN OF [facility] NON-INSTITUT (PRIVATE) R 10/17/2016 TARAS TITUS MD Ot Z79.01 LONGTERM (CURRENT) USE OF ANTICOAGULANT 10/17/2016 TARAS TITUS MD, Ot Z86.73 PRSNL HX OF TIA (TIA), AND CEREB INFRC W 10/17/2016 TARAS TITUS MD Ot Z95.1 PRESENCE OF AORTOCORONARY BYPASS GRAFT 10/17/2016 TARAS TITUS MD Ot Z95.5 PRESENCE OF CORONARY ANGIOPLASTY IMPLANT 10/17/2016 TARAS TITUS MD Ot Z99.81 DEPENDENCE ON SUPPLEMENTAL OXYGEN 10/22/2016 TARAS TITUS MD Ot D64.9 ANEMIA, UNSPECIFIED 10/22/2016 TARAS TITUS MD Ot E03.9 HYPOTHYROIDISM, UNSPECIFIED 10/22/2016 TARAS TITUS MD, Ot G47.30 SLEEP APNEA, UNSPECIFIED 10/22/2016 TARAS TITUS MD Ot I10 ESSENTIAL (PRIMARY) HYPERTENSION 10/22/2016 TARAS TITUS MD, Ot I25.10 ATHSCL HEART DISEASE OF [place] CORONARY 10/22/2016 TARAS TITUS MD Ot I48.91 UNSPECIFIED ATRIAL FIBRILLATION 10/22/2016 TARAS TITUS MD, Ot J44.9 CHRONIC OBSTRUCTIVE PULMONARY DISEASE, U 10/22/2016 TARAS TITUS MD, Ot N40.1 BENIGN PROSTATIC HYPERPLASIA WITH LOWER 10/22/2016 TARAS TITUS MD Ot R33.8 OTHER RETENTION OF URINE 10/22/2016 TACHO MD, TARAS A Ot S72.145D NONDISP INTERTROCH FX L FEMUR, SUBS FOR 10/22/2016 TARAS TITUS MD Ot W18.39XD OTHER FALL ON SAME LEVEL, SUBSEQUENT ENC 10/22/2016 TARAS TITUS MD, Ot Z86.73 PRSNL HX OF TIA (TIA), AND CEREB INFRC W 10/22/2016 TARAS TITUS MD Ot Z95.1 PRESENCE OF AORTOCORONARY BYPASS GRAFT 10/22/2016 TRAAS TITUS MD Ot Z95.5 PRESENCE OF CORONARY ANGIOPLASTY IMPLANT 10/22/2016 TARAS TITUS MD Ot Z99.81 DEPENDENCE ON SUPPLEMENTAL OXYGEN 10/22/2016 TARAS TITUS MD Ot D64.9 ANEMIA, UNSPECIFIED 10/22/2016 TARAS TITUS MD Ot E03.9 HYPOTHYROIDISM, UNSPECIFIED 10/22/2016 TARAS TITUS MD Ot G47.30 SLEEP APNEA, UNSPECIFIED 10/22/2016 TARAS TITUS MD Ot I10 ESSENTIAL (PRIMARY) HYPERTENSION 10/22/2016 TARAS TITUS MD Ot I25.10 ATHSCL HEART DISEASE OF [place] CORONARY 10/22/2016 TARAS TITUS MD Ot I48.91 UNSPECIFIED ATRIAL FIBRILLATION 10/22/2016 TARAS TITUS MD, Ot J44.9 CHRONIC OBSTRUCTIVE PULMONARY DISEASE, U 10/22/2016 TARAS TITUS MD, Ot N40.1 BENIGN PROSTATIC HYPERPLASIA WITH LOWER 10/22/2016 TARAS TITUS MD Ot R33.8 OTHER RETENTION OF URINE 10/22/2016 TARAS TITUS MD, Ot S72.145D NONDISP INTERTROCH FX L FEMUR, SUBS FOR 10/22/2016 TARAS TITUS MD, Ot W18.39XD OTHER FALL ON SAME LEVEL, SUBSEQUENT ENC 10/22/2016 TARAS TITUS MD, Ot Z86.73 PRSNL HX OF TIA (TIA), AND CEREB INFRC W 10/22/2016 TARAS TITUS MD Ot Z95.1 PRESENCE OF AORTOCORONARY BYPASS GRAFT 10/22/2016 TARAS TITUS MD Ot Z95.5 PRESENCE OF CORONARY ANGIOPLASTY IMPLANT 10/22/2016 TARAS TITUS MD Ot Z99.81 DEPENDENCE ON SUPPLEMENTAL OXYGEN 10/22/2016 TARAS TITUS MD, Ot D64.9 ANEMIA, UNSPECIFIED 10/22/2016 TARAS TITUS MD, Ot E03.9 HYPOTHYROIDISM, UNSPECIFIED 10/22/2016 TARAS TITUS MD, Ot G47.30 SLEEP APNEA, UNSPECIFIED 10/22/2016 TARAS TITUS MD Ot I10 ESSENTIAL (PRIMARY) HYPERTENSION 10/22/2016 TARAS TITUS MD, Ot I25.10 ATHSCL HEART DISEASE OF [place] CORONARY 10/22/2016 TARAS TITUS MD Ot I48.91 UNSPECIFIED ATRIAL FIBRILLATION 10/22/2016 TARAS TITUS MD, Ot J44.9 CHRONIC OBSTRUCTIVE PULMONARY DISEASE, U 10/22/2016 TARAS TITUS MD, Ot N40.1 BENIGN PROSTATIC HYPERPLASIA WITH LOWER 10/22/2016 TARAS TITUS MD Ot R33.8 OTHER RETENTION OF URINE 10/22/2016 TARAS TITUS MD, Ot S72.145D NONDISP INTERTROCH FX L FEMUR, SUBS FOR 10/22/2016 TARAS TITUS MD Ot W18.39XD OTHER FALL ON SAME LEVEL, SUBSEQUENT ENC 10/22/2016 TARAS TITUS MD Ot Z86.73 PRSNL HX OF TIA (TIA), AND CEREB INFRC W 10/22/2016 TARAS TITUS MD, Ot Z95.1 PRESENCE OF AORTOCORONARY BYPASS GRAFT 10/22/2016 TARAS TITUS MD Ot Z95.5 PRESENCE OF CORONARY ANGIOPLASTY IMPLANT 10/22/2016 TARAS TITUS MD, Ot Z99.81 DEPENDENCE ON [...] INFLUENZA A AND B ANTIGENS BY IA [facility] Comprehensive metabolic panel - 10/04/16 18:33 Serum [...] or plasma urea nitrogen/creatinine mass ratio 13 NR Serum or plasma creatinine measurement with calculation [...] NRG Blood band neutrophils/100 leukocytes 0 % NR Manual blood lymphocytes/100 leukocytes 4 % NR Manual eosinophils/100 leukocytes in nose 0 % NR Manual blood basophils/100 leukocytes 0 % NR Blood lymphocytes variant/100 leukocytes 8 % NR Blood erythrocyte morphology finding identification NORMAL [facility] Comprehensive metabolic panel - 10/12/16 05:45 Serum [...] calculation of estimated glomerular filtration rate 58 NRG Serum or plasma glucose measurement (mass/volume) 132 [...] - 10/12/16 06:50 Urine color determination YELLOW NRG Urine clarity determination SLIGHTLY CLOUDY [facility] Urine pH measurement by test strip 6 [...] ABO+Rh group ON NRG Transfusion band number [id number] NR Blood group antibody screen NEGATIVE NRG Capillary [...] plasma albumin measurement (mass/volume) 2.5 g/dL 3.2-4.5 Automated blood complete blood count (hemogram) panel - 10/18/16 05:23 Blood leukocytes automated count (number/volume) 10.5 10*3/ uL 4.3-11.0 Blood erythrocytes automated count (number/volume) 3.09 10*6 /uL 4.35-5.85 Venous blood hemoglobin measurement (mass/volume) 9.6 g/dL 13.3-17.7 Blood hematocrit (volume fraction) 29 % 40-54 Automated erythrocyte mean corpuscular volume 94 [foz_us] 80-99 Automated erythrocyte mean corpuscular hemoglobin (mass per erythrocyte) 31 pg 25-34 Automated erythrocyte mean corpuscular hemoglobin concentration measurement ( mass/volume) 33 g/dL 32-36 Automated erythrocyte distribution width ratio 13.5 % 10.0-14.5 Automated blood platelet count (count/volume) 332 10*3/uL 130-400 Automated blood platelet mean volume measurement 9.7 [foz_us ] 7.4-10.4 Comprehensive metabolic panel - 10/18/16 05:23 Serum or plasma sodium measurement (moles/volume) 138 mmol/ L 135-145 Serum or plasma potassium measurement (moles/volume) 3.3 mmol/L 3.6-5.0 Serum or plasma chloride measurement (moles/volume) 106 mmol /L 98-107 Carbon dioxide 24 mmol/L 21-32 Serum or plasma anion gap determination (moles/volume) 8 mmol/L 5-14 Serum or plasma urea nitrogen measurement (mass/volume) 25 mg/dL 7-18 Serum or plasma creatinine measurement (mass/volume) 0.96 mg /dL 0.60-1.30 Serum or plasma urea nitrogen/creatinine mass ratio 26 NRG Serum or plasma creatinine measurement with calculation of estimated glomerular filtration rate > NRG Serum or plasma glucose measurement (mass/volume) 108 mg/dL 70-105 Serum or plasma calcium measurement (mass/volume) 7.9 mg/dL 8.5-10.1 Serum or plasma total bilirubin measurement (mass/volume) 1.2 mg/dL 0.1-1.0 Serum or plasma alkaline phosphatase measurement (enzymatic activity/volume) 106 U/L 40-136 Serum or plasma aspartate aminotransferase measurement (enzymatic activity/ volume) 114 U/L 5-34 Serum or plasma alanine aminotransferase measurement (enzymatic activity/volume ) 91 U/L 0-55 Serum or plasma protein measurement (mass/volume) 5.1 g/dL 6.4-8.2 Serum or plasma albumin measurement (mass/volume) 2.6 g/dL 3.2-4.5 Whole blood basic metabolic panel - 10/19/16 04:33 Serum or plasma sodium measurement (moles/volume) 140 mmol/ L 135-145 Serum or plasma potassium measurement (moles/volume) 3.6 mmol/L 3.6-5.0 Serum or plasma chloride measurement (moles/volume) 108 mmol /L 98-107 Carbon dioxide 23 mmol/L 21-32 Serum or plasma anion gap determination (moles/volume) 9 mmol/L 5-14 Serum or plasma urea nitrogen measurement (mass/volume) 23 mg/dL 7-18 Serum or plasma creatinine measurement (mass/volume) 0.93 mg /dL 0.60-1.30 Serum or plasma urea nitrogen/creatinine mass ratio 25 NRG Serum or plasma creatinine measurement with calculation of estimated glomerular filtration rate > NRG Serum or plasma glucose measurement (mass/volume) 102 mg/dL 70-105 Serum or plasma calcium measurement (mass/volume) 7.7 mg/dL 8.5-10.1 Magnesium - 10/19/16 04:33 Magnesium 1.8 mg/dL 1.8-2.4 Complete blood count (CBC) with automated white blood cell (WBC) differential - 10/24/16 07:17 Blood leukocytes automated count (number/volume) 21.0 10*3/ uL 4.3-11.0 Blood erythrocytes automated count (number/volume) 3.01 10*6 /uL 4.35-5.85 Venous blood hemoglobin measurement (mass/volume) 9.4 g/dL 13.3-17.7 Blood hematocrit (volume fraction) 29 % 40-54 Automated erythrocyte mean corpuscular volume 96 [foz_us] 80-99 Automated erythrocyte mean corpuscular hemoglobin (mass per erythrocyte) 31 pg 25-34 Automated erythrocyte mean corpuscular hemoglobin concentration measurement ( mass/volume) 33 g/dL 32-36 Automated erythrocyte distribution width ratio 14.0 % 10.0-14.5 Automated blood platelet count (count/volume) 567 10*3/uL 130-400 Automated blood platelet mean volume measurement 9.9 [foz_us ] 7.4-10.4 Automated blood neutrophils/100 leukocytes 79 % 42-75 Automated blood lymphocytes/100 leukocytes 7 % 12-44 Blood monocytes/100 leukocytes 13 % 0-12 Automated blood eosinophils/100 leukocytes 1 % 0-10 Automated blood basophils/100 leukocytes 0 % 0-10 Blood neutrophils automated count (number/volume) 16.6 10*3 1.8-7.8 Blood lymphocytes automated count (number/volume) 1.4 10*3 1.0-4.0 Blood monocytes automated count (number/volume) 2.8 10*3 0.0-1.0 Automated eosinophil count 0.1 10*3/uL 0.0-0.3 Automated blood basophil count (count/volume) 0.0 10*3/uL 0.0-0.1 Comprehensive metabolic panel - 10/24/16 07:17 Serum or plasma sodium measurement (moles/volume) 136 mmol/ L 135-145 Serum or plasma potassium measurement (moles/volume) 4.3 mmol/L 3.6-5.0 Serum or plasma chloride measurement (moles/volume) 101 mmol /L 98-107 Carbon dioxide 23 mmol/L 21-32 Serum or plasma anion gap determination (moles/volume) 12 mmol/L 5-14 Serum or plasma urea nitrogen measurement (mass/volume) 24 mg/dL 7-18 Serum or plasma creatinine measurement (mass/volume) 1.20 mg /dL 0.60-1.30 Serum or plasma urea nitrogen/creatinine mass ratio 20 NRG Serum or plasma creatinine measurement with calculation of estimated glomerular filtration rate 57 NRG Serum or plasma glucose measurement (mass/volume) 139 mg/dL 70-105 Serum or plasma calcium measurement (mass/volume) 8.3 mg/dL 8.5-10.1 Serum or plasma total bilirubin measurement (mass/volume) 1.1 mg/dL 0.1-1.0 Serum or plasma alkaline phosphatase measurement (enzymatic activity/volume) 128 U/L 40-136 Serum or plasma aspartate aminotransferase measurement (enzymatic activity/ volume) 211 U/L 5-34 Serum or plasma alanine aminotransferase measurement (enzymatic activity/volume ) 66 U/L 0-55 Serum or plasma protein measurement (mass/volume) 5.9 g/dL 6.4-8.2 Serum or plasma albumin measurement (mass/volume) 2.9 g/dL 3.2-4.5 Blood manual differential performed detection - 10/24/16 07:17 Blood monocytes/100 leukocytes 8 % NRG Manual blood segmented neutrophils/100 leukocytes 87 % NRG Blood band neutrophils/100 leukocytes 0 % NRG Manual blood lymphocytes/100 leukocytes 4 % NRG Manual eosinophils/100 leukocytes in nose 0 % NRG Manual blood basophils/100 leukocytes 1 % NRG Blood anisocytosis detection by light microscopy SLIGHT NRG Complete urinalysis with reflex to culture - 10/24/16 14:53 Urine color determination YELLOW NRG Urine clarity determination CLEAR NRG Urine pH measurement by test strip 5 5- 9 Specific gravity of urine by test strip 1.020 1.016-1.022 Urine protein assay by test strip, semi-quantitative 1+ NEGATIVE Urine glucose detection by automated test strip NEGATIVE NEGATIVE Erythrocytes detection in urine sediment by light microscopy NEGATIVE NEGATIVE Urine ketones detection by automated test strip NEGATIVE NEGATIVE Urine nitrite detection by test strip NEGATIVE NEGATIVE Urine total bilirubin detection by test strip NEGATIVE NEGATIVE Urine urobilinogen measurement by automated test strip (mass/volume) NORMAL NORMAL Urine leukocyte esterase detection by dipstick 1+ NEGATIVE Automated urine sediment erythrocyte count by microscopy (number/high power field) NONE NRG Automated urine sediment leukocyte count by microscopy (number/high power field ) [HPF] NRG Bacteria detection in urine sediment by light microscopy NONE NRG Crystals detection in urine sediment by light microscopy PRESENT NRG Casts detection in urine sediment by light microscopy NONE NRG Mucus detection in urine sediment by light microscopy MODERATE NRG Complete urinalysis with reflex to culture NO NRG Amorphous sediment detection in urine sediment by light microscopy RARE MARIBEL URATES NRG Serum or plasma uric acid measurement (mass/volume) - 10/24/16 15:41 Serum or plasma uric acid measurement (mass/volume) 5.6 mg/ dL 2.6-7.2 Automated blood complete blood count (hemogram) panel - 10/25/16 06:30 Blood leukocytes automated count (number/volume) 20.2 10*3/ uL 4.3-11.0 Blood erythrocytes automated count (number/volume) 2.93 10*6 /uL 4.35-5.85 Venous blood hemoglobin measurement (mass/volume) 9.1 g/dL 13.3-17.7 Blood hematocrit (volume fraction) 28 % 40-54 Automated erythrocyte mean corpuscular volume 97 [foz_us] 80-99 Automated erythrocyte mean corpuscular hemoglobin (mass per erythrocyte) 31 pg 25-34 Automated erythrocyte mean corpuscular hemoglobin concentration measurement ( mass/volume) 32 g/dL 32-36 Automated erythrocyte distribution width ratio 14.3 % 10.0-14.5 Automated blood platelet count (count/volume) 576 10*3/uL 130-400 Automated blood platelet mean volume measurement 9.8 [foz_us ] 7.4-10.4 Comprehensive metabolic panel - 10/25/16 06:30 Serum or plasma sodium measurement (moles/volume) 136 mmol/ L 135-145 Serum or plasma potassium measurement (moles/volume) 4.4 mmol/L 3.6-5.0 Serum or plasma chloride measurement (moles/volume) 99 mmol/ L 98-107 Carbon dioxide 22 mmol/L 21-32 Serum or plasma anion gap determination (moles/volume) 15 mmol/L 5-14 Serum or plasma urea nitrogen measurement (mass/volume) 31 mg/dL 7-18 Serum or plasma creatinine measurement (mass/volume) 1.57 mg /dL 0.60-1.30 Serum or plasma urea nitrogen/creatinine mass ratio 20 NRG Serum or plasma creatinine measurement with calculation of estimated glomerular filtration rate 42 NRG Serum or plasma glucose measurement (mass/volume) 145 mg/dL 70-105 Serum or plasma calcium measurement (mass/volume) 8.1 mg/dL 8.5-10.1 Serum or plasma total bilirubin measurement (mass/volume) 1.2 mg/dL 0.1-1.0 Serum or plasma alkaline phosphatase measurement (enzymatic activity/volume) 141 U/L 40-136 Serum or plasma aspartate aminotransferase measurement (enzymatic activity/ volume) 122 U/L 5-34 Serum or plasma alanine aminotransferase measurement (enzymatic activity/volume ) 54 U/L 0-55 Serum or plasma protein measurement (mass/volume) 5.6 g/dL 6.4-8.2 Serum or plasma albumin measurement (mass/volume) 3.0 g/dL 3.2-4.5 Encounters ACCT No. Visit Date/Time Discharge Status Pt. Type Provider Facility Loc./Unit Complaint [id number] 10/17/2016 10:20:00 2016 10:16:00 DIS Outpatient TARAS TITUS MD [facility] 4TH SWB-LT HIP FRACTURE,WEAKNESS, HYPOTENSION [id number] 10/11/2016 22:55:00 2016 10:19:00 DIS Inpatient TARAS TITUS MD [facility] 4TH L HIP FRACTURE [id number] 10/04/2016 18:11:00 2016 20:40:00 DIS Outpatient DELMY IRAHETA MD [facility] ER COUGH/ACHING [id number] 06/05/2016 12:58:00 2015 13:57:00 DIS Outpatient DELMY GILES [facility] REHAB BACK PAIN [id number] 12/06/2015 10:45:00 2015 11:30:00 DIS Outpatient TARAS TITUS MD [facility] REHAB BACK PAIN; S/P KYPHOPLASTY; WEAKNESS [id number] 06/19/2015 09:26:00 2014 11:16:00 DIS Emergency LZU LAND, NERY Matamoros [facility] ER BACK PAIN [id number] 03/21/2015 08:49:00 2014 23:59:59 CLS Outpatient ROSANA CALDWELL [facility] LAB HLP [id number] 12/07/2014 19:32:00 2014 17:15:00 DIS Inpatient CARISA GARY MD [facility] SURGICAL GASTROCNEMIUS MUSCLE HEMATOMA [id number] 09/06/2014 09:08:00 2013 23:59:59 CLS Outpatient BAIROSANA JORDAN CUT OFF TENDER GLASS [facility] LAB CAD,CAROTID ARTERIAL DISEASE ,HYPERLIPIDEMIA [id number] 04/20/2014 07:46:00 2013 23:59:59 CLS Outpatient JASBIR LAND FACC, KAJAL FACYaneth CCDS [facility] CARD PAD,HTN,HLP,CAD [id number] 04/10/2014 09:40:00 2013 23:59:59 CLS Outpatient JASBIR LAND FACC, KAJAL BASSETT CCDS [facility] CARD PAD,HTN,HLP,CAD [id number] 02/06/2014 07:19:00 2013 23:59:59 CLS Outpatient BAIROSANA JORDAN [facility] LAB CAD,HLP,STATIN [place] [id number] 01/16/2014 12:41:00 2013 23:59:59 CLS Outpatient SHERYL RAMON MD [facility] RAD BASILAR ARTERY INSUFFICIENCY [id number] 01/11/2014 12:31:00 2013 23:59:59 CLS Outpatient SHERYL RAMON MD [facility] RAD NEAR SYNCOPE [id number] 07/04/2013 07:20:00 2012 23:59:59 CLS Outpatient BAIROSANA JORDAN CUT OFF TENDER GLASS [facility] LAB STATIN [place],HYPERLIPIDEMIA [id number] 05/12/2013 07:16:00 2012 23:59:59 CLS Outpatient JASBIR LAND FACC, KAJAL BASSETT CCDS [facility] RAD CAD [id number] 10/22/2016 10:14:00 ACT Inpatient ESSENCE MERCHANT MD [facility] IRF LT HIP FRACTURE,WEAKNESS,HYPOTENSION [id number] 07/02/2016 08:05:00 ACT Outpatient ROSANA CALDWELL L CUT OFF TENDER GLASS [facility] LAB CAD,HLP [id number] 06/10/2016 11:45:00 ACT Outpatient BAIJULIAN ROSANA L CUT OFF TENDER GLASS [facility] CARD CAD,HTN [id number] 04/03/2016 11:45:00 ACT Outpatient LUCA LOWE DO [facility] RAD SPONDYLOSIS [id number] 02/21/2016 11:42:00 ACT Outpatient ROSANA CALDWELL L CUT OFF TENDER GLASS [facility] CARD CAD,CAROTID ARTERIAL DISEASE,HTN,HLP,PAD [id number] 10/08/2015 08:05:00 ACT Outpatient JASBIR LAND FACC, KAJAL BASSETT CCDS [facility] LAB CD,HLP [id number] 09/29/2012 07:53:00 Document Registration [id number] 03/24/2012 08:10:00 Document Registration [id number] 02/20/2012 09:10:00 Document Registration [id number] 09/03/2011 08:38:00 Document Registration [id number] 08/25/2011 16:28:00 Document Registration [id number] 07/28/2011 05:31:00 Document Registration [id number] 07/21/2011 09:30:00 Document Registration [id number] 02/13/2011 07:40:00 Document Registration [id number] 08/28/2010 08:14:00 Document Registration [id number] 07/30/2010 15:16:00 Document Registration [id number] 03/20/2009 20:38:00 Document Registration
[2016-10-27] MEDS ORDERED: ONDANSETRON 4 MG (ZOFRAN) ORAL DISSOLVE TAB PO PRN (23:00)
[2016-10-27] MEDS ORDERED: CALCIUM CARBONATE 500 MG (TUMS) TAB.CHEW PO PRN (23:00)
[2016-10-27] MEDS ORDERED: NITROGLYCERIN SUBLINGUAL 0.4 MG TAB (NITROSTAT) SL PRN (23:00)
[2016-10-27] MEDS: RT-ALBUTEROL/IPRATROPIUM 3 ML (DUONEB) VIAL INH SCH (23:00)
[2016-10-27] MEDS ORDERED: PROMETHAZINE INJ 25 MG/ML (PHENERGAN) AMP IVP PRN (23:00)
[2016-10-28] VITALS (28 sets, daily range): BP systolic 85–111; BP diastolic 59–84
[2016-10-28] MEDS ORDERED: methylPREDNISolone 40 MG/ML (Solu-MEDROL) VIAL IV SCH (02:00)
[2016-10-28] MEDS: RT-ALBUTEROL/IPRATROPIUM 3 ML (DUONEB) VIAL INH SCH ×6 (02:43→21:42)
[2016-10-28 04:25] LABS: BASOPHILS % (AUTO) 0 % (0-10); EOSINOPHILS % (AUTO) 0 % (0-10); LYMPHOCYTES # (AUTO) 0.9 X 10^3 (1.0-4.0); LYMPHOCYTES % (AUTO) 7 % (12-44); MEAN CORPUSCULAR HEMOGLOBIN 31 PG (25-34); MEAN CORPUSCULAR HGB CONC 32 G/DL (32-36); MEAN CORPUSCULAR VOLUME 96 FL (80-99); MEAN PLATELET VOLUME 10.5 FL (7.4-10.4); MONOCYTES # (AUTO) 0.8 X 10^3 (0.0-1.0); MONOCYTES % (AUTO) 6 % (0-12); NEUTROPHILS # (AUTO) 12.4 X 10^3 (1.8-7.8); NEUTROPHILS % (AUTO) 88 % (42-75); PLATELET COUNT 673 10^3/uL (130-400); RED BLOOD COUNT 2.94 10^6/uL (4.35-5.85); RED CELL DISTRIBUTION WIDTH 14.3 % (10.0-14.5); WHITE BLOOD COUNT 14.2 10^3/uL (4.3-11.0)
[2016-10-28 05:05] LABS: CALCIUM 8.2 MG/DL (8.5-10.1); CREATININE SERUM 2.16 MG/DL (0.60-1.30); MAGNESIUM 2.8 MG/DL (1.8-2.4); PHOSPHORUS 5.7 MG/DL (2.3-4.7); POTASSIUM 4.4 MMOL/L (3.6-5.0)
[2016-10-28] MEDS: KCL 20 MEQ TAB (K-DUR) PO SCH (05:30)
[2016-10-28] MEDS: MAGNESIUM 1 GM/100 ML IVPB 100 ML IV SCH (05:30)
[2016-10-28] MEDS: POTASSIUM CL 10MEQ/50ML IVPB 50 ML IV SCH (05:30)
[2016-10-28] MEDS ORDERED: MAGNESIUM 1 GM/100 ML IVPB 100 ML IV SCH (06:00)
[2016-10-28] MEDS ORDERED: POTASSIUM CL 10MEQ/50ML IVPB 50 ML IV SCH (06:00)
[2016-10-28] MEDS ORDERED: BETHANECHOL 25 MG (URECHOLINE) TAB PO SCH (06:00)
[2016-10-28] MEDS ORDERED: RT-BUDESONIDE NEBS 0.5 MG/2ML (PULMICORT) AMP ONE (06:09)
[2016-10-28] MEDS: RT-BUDESONIDE NEBS 0.5 MG/2ML (PULMICORT) AMP INH SCH ×2 (06:15→18:43)
[2016-10-28] MEDS ORDERED: LEVOTHYROXINE 150 MCG (LEVOTHROID) TAB PO SCH (06:30)
--- NOTE | 2016-10-28 06:35 | Pulmonary Progress Note ---
Subjective Subjective/Events-last exam Pt had to be transferred to ICU from rehab last night secondary to persistent hypoxia while on BiPAP. He has been doing better since transferred back to ICU. Exam Exam Vital Signs Date Time Temp Pulse Resp B/P Pulse Ox O2 Delivery O2 Flow Rate FiO2 10/28/16 06:26 97 50 10/28/16 06:24 83 15 98 NIV Bilevel 50.00 10/28/16 06:15 90 19 99 60.00 10/28/16 06:00 89 16 94/71 99 NIV Bilevel 60.00 10/28/16 05:00 101 18 102/65 99 NIV Bilevel 60.00 10/28/16 04:17 103 20 95 60.00 10/28/16 04:13 97.8 10/28/16 04:00 96 60.00 10/28/16 04:00 94 18 95/68 97 NIV Bilevel 60.00 10/28/16 03:00 88 18 96/66 98 NIV Bilevel 60.00 10/28/16 02:44 90 17 97 60.00 10/28/16 02:00 102 20 96/60 97 NIV Bilevel 60.00 10/28/16 01:00 89 10/28/16 01:00 89 18 95/71 96 NIV Bilevel 60.00 10/28/16 00:33 90 19 97 60.00 10/28/16 00:00 96 60.00 10/28/16 00:00 93 16 88/60 96 NIV Bilevel 60.00 10/27/16 23:45 97 16 87/67 97 NIV Bilevel 60.00 10/27/16 23:30 60 10/27/16 23:30 85 17 85/59 95 NIV Bilevel 60.00 10/27/16 23:15 80 15 86/60 96 NIV Bilevel 60.00 10/27/16 23:01 90 24 96 60.00 10/27/16 23:00 100 18 80/54 96 NIV Bilevel 60.00 10/27/16 22:45 92 17 82/59 95 NIV Bilevel 60.00 10/27/16 22:30 87 18 95/79 97 NIV Bilevel 60.00 10/27/16 22:15 98.9 NIV Bilevel 60.00 10/27/16 22:15 90 17 84/70 96 NIV Bilevel 60.00 10/27/16 22:08 97 10/27/16 22:05 112 19 90/63 97 NIV Bilevel 60.00 I & O 10/28/16 07:00 Intake Total 0 ml Output Total 150 ml Balance -150 ml General Appearance: Mild Distress Respiratory: Decreased Breath Sounds Cardiovascular: Regular Rate, Rhythm No Edema No Gallop Capillary Refill: Less Than 3 Seconds Neurologic/Psychiatric: Alert Oriented x3 Skin: Normal Color Warm/Dry Lymphatic: No Adenopathy Results Lab Laboratory Tests 10/28/16 03:50 Assessment/Plan Assessment/Plan Dyspnea probably secondary to pulmonary edema -Continue lasix -Pt has been requiring BiPAP -Will trial off BiPAP this morning and see how he does. -Oxygen solumedrol -SVNS Left hip fracture Pt is doing much better now. He was transferred to ICU from rehab secondary to persistent hypoxia even on BiPAP. Pt is now doing much better currently on BiPAP. After discussion with patient and (RN at bedside) pt wants to be a DNR. I fully explained DNR status and he states he would not want any heroic measures. I will make him a DNR. Clinical Quality Measures DVT/VTE Risk/Contraindication: Risk Factor Score Per Nursin RFS Level Per Nursing on Admit: 4+=Very High HEIDI LEHMAN DO Oct 28, 2016 06:35
--- NOTE | 2016-10-28 07:54 | History & Physicial ---
History of Present Illness History of Present Illness Reason for visit/HPI PT IS AN 89 Y/O MALE WHO IS KNOWN TO ME FROM CLINIC. HE PRESENTED TO THE HOSPITAL INITIALLY WITH LEFT HIP FRACTURE - HAD TREATMENT - SURGICALLY WITH DR. WING - HAD RESPIRATORY DISTRESS A FEW DAYS POST-OP AND CONTINUED TO HAVE SLOW IMPROVEMENT IN HIS SYMPTOMS - WAS TRANSFERRED TO INPATIENT REHAB AFTER BLOOD TRANSFUSION IMPROVED SYMPTOMS TREMENDOUSLY. THE PATIENT THEN HAD A ROUGH WEEKEND, WITH INCREASED DYSPNEA - AND LAST NIGHT HE WAS TRANSFERRED UP TO THE ICU DUE TO WORSENING RESPIRATORY DISTRESS. THIS MORNING, MR. MAX CONTINUES TO HAVE SHORTNESS OF BREATH, INCREASED WORK OF BREATHING - WAS TAKEN OFF OF BIPAP TO ALLOW HIM TO TAKE HIS MORNING MEDS, HE WILL BE TRANSITIONED OFF OF BIPAP THIS AFTERNOON TO VAPOTHERM. Date of Admission Oct 27, 2016 at 22:14 I consulted on this patient on 10/28/16 07:50 Attending Physician Taras Weaver MD Admitting Physician Taras Weaver MD Consult HEIDI LEHMAN DO - MECHANICAL APPRENTICE Allergies and Home Medications Allergies Coded Allergies: No Known Drug Allergies (Verified , 10/17/16) Home Medications Aspirin 81 Mg Tablet.dr 81 MG PO DAILY (Reported) Docosahexanoic Acid/Epa 1 Cap Capsule 1,000 MG PO HS (Reported) Levothyroxine Sodium 200 Mcg Tablet 200 MCG PO DAILY (Reported) TAKES ALONG WITH 50MCG TABLET Levothyroxine Sodium 50 Mcg Tablet 50 MCG PO DAILY (Reported) TAKES ALONG WITH 200MCG TABLET Multivitamins 1 Tab Tablet 1 TAB PO HS (Reported) Nitroglycerin 0.4 Mg Subl 0.4 MG SL UD PRN PRN CHEST PAIN (Reported) PLACE 1 TABLET UNDER TONGUE EVERY 5 MINUTES X 3 DOSES NEEDED FOR CHEST PAIN Simvastatin 40 Mg Tablet 20 MG PO HS (Reported) TAKES 1/2 (40MG) TABLET Tamsulosin Hcl 0.4 Mg Cap 0.4 MG PO HS (Reported) Past Ldwhqdp-Pbmzmb-Fmioff Hx Patient Social History Marrital Status: Living Status: LIVES AT HOME WITH SPOUSE OF 68 YEARS Employed/Student: retired Alcohol Use: Denies Use Recreational Drug Use: No 2nd Hand Smoke Exposure: No Physical Abuse Screen: No Sexual Abuse: No Recent Foreign Travel: No Contact w/other who traveled: No Recent Hopitalizations: Yes (Left hip fx) Recent Infectious Disease Expo: No Immunizations Up To Date Tetanus Booster (TDap): Unknown Date of Pneumonia Vaccine: Jun 07, 2014 Date of Influenza Vaccine: Jun 07, 2016 Seasonal Allergies Seasonal Allergies: No Surgeries HX Surgeries: Yes (OPEN HEART SURGERY IN 1999, APPENDECTOMY HERNIA, R HIP) Surgeries: Appendectomy, CABG, Coronary Stent, Joint Replacement, Orthopedic Respiratory Hx Respiratory Disorders: Yes (home o2 HS) Cardiovascular Hx Cardiovascular Disorders: Yes Cardiac Disorders: Atrial Fibrillation, Coronary Artery Disease, Heart Attack, Hypertension Neurological Hx 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) Neurological Disorders: Stroke Reproductive System Hx Reproductive Disorders: No Sexually Transmitted Disease: No HIV/AIDS: No Genitourinary Hx Genitourinary Disorders: Yes Genitourinary Disorders: Benign Prostatic Hyperpl Gastrointestinal Hx Gastrointestinal Disorders: No Musculoskeletal Hx Musculoskeletal Disorders: Yes Musculoskeletal Disorders: Arthritis, Fractures Endocrine Hx Endocrine Disorders: Yes Endocrine Disorders: Hypothyroidsim HEENT HX ENT Disorders: Yes HEENT Disorders: Cataract Loss of Vision: Denies Hearing Impairment: Denies Cancer Hx Cancer: No Psychosocial Hx Psychiatric Problems: No Integumentary HX Skin/Integumentary Disorder: No Blood Transfusions Hx Blood Disorders: No Adverse Reaction to a Blood Tr: No Reviewed Nursing Assessment Reviewed/Agree w Nursing PMH: Yes Family Medical History Significant Family History: Heart Disease, Cancer Family Hx: Hypertension 19 MOTHER Prostate cancer 19 FATHER, Onset:60 years & older Constitutional: No chills, No diaphoresis, No fever, malaise weakness EENTM: No hoarseness, No nose pain, No throat pain Respiratory: No cough, dyspnea on exertion short of breath Cardiovascular: edema (LEFT LEG) Gastrointestinal: No abdominal pain, No constipation, No diarrhea, No nausea Genitourinary: other (URINARY RETENTION IMPROVED ON BETHANOCHOL) Musculoskeletal: other (LEFT HIP PAIN) Skin: No lesions, No rash Psychiatric/Neurological: Anxiety (OVER SHORTNESS OF BREATH) All Other Systems Reviewed Negative Unless Noted: Yes Physical Exam Vital Signs Vital Sign - Last 12Hours 10/27/16 10/27/16 10/27/16 22:05 22:15 23:30 Temp 98.9 Pulse 112 Resp 19 B/P 90/63 Pulse Ox 97 O2 Delivery NIV Bilevel O2 Flow Rate 60.00 FiO2 60 Capillary Refill : Less Than 3 Seconds General Appearance: WD/WN Moderate Distress (WITH INCREASED WORK OF BREATHING) Eyes: Bilateral Eye EOMI, Bilateral Eye Normal Inspection, Bilateral Eye PERRL HEENT: PERRL/EOMI Other (SKIN ABRASION AT BRIDGE OF NOSE FROM BIPAP) Neck: Supple Respiratory: Chest Non Tender Decreased Breath Sounds Cardiovascular: Tachycardia Gastrointestinal: Normal Bowel Sounds No Organomegaly No Pulsatile Mass Non Tender Soft Rectal: Deferred Back: Normal Inspection Extremity: Normal Capillary Refill Pedal Edema Other (LEFT LATERAL HIP INCISION C/D/I) Neurologic/Psychiatric: Alert Oriented x3 Normal Mood/Affect Skin: Warm/Dry Assessment/Plan Assessment and Plan PNEUMONIA LEFT HIP FRACTURE - INTERTROCHANTERIC WEAKNESS FATIGUE HYPERTENSION WITH ACUTE HYPOTENSION ACUTE RENAL FAILURE AFIB CHRONIC ANTICOAGULATION USE CORONARY ARTERY DISEASE HYPOTHYROID BPH ANEMIA LEFT HIP FRACTURE - POST-OP LEFT HIP FRACTURE REPAIR WITH DR. WING - CONTINUE WITH INPATIENT REHAB [facility] WHEN PT ABLE ACUTE RENAL FAILURE - DUE TO HYPOTENSION, SUPPORTIVE CARE, BUN ELEVATED, MONITOR I/O CLOSELY. SUPPORT PRESSURE TO PREVENT RENAL SHOCK. ELEVATED LIVER ENZYMES - MONITOR LABS - MAY NEED TO CHECK CT OF ABDOMEN AND PELVIS IF NOT IMPROVING ON REPEAT LABS PNEUMONIA - RESPIRATORY DISTRESS - PULMONARY EDEMA - DR. LEHMAN CONSULTED - IV ANTIBIOTICS INITIATED, PT ON BIPAP, CONTINUE WITH SUPPORTIVE CARE - DR. LEHMAN HAS DISCUSSED VAPOTHERM TRIAL INSTEAD OF BIPAP WITH RESPIRATORY THERAPY. AFIB - - CONTINUE ANTICOAGULANT HTN CHRONIC WITH ACUTE HYPOTENSION - SUPPORTIVE CARE - MONITOR BLOOD PRESSURE CLOSELY HYPOTHYROID - RESTARTED LEVOTHYROXINE BPH - URINARY RETENTION RESOLVED WITH BETHANECHOL FOR RETENTION. ANEMIA - SLIGHTLY WORSENING - MONITOR CBC IN MORNING. Admission Diagnosis PNEUMONIA LEFT HIP FRACTURE - INTERTROCHANTERIC WEAKNESS FATIGUE HYPERTENSION WITH ACUTE HYPOTENSION ACUTE RENAL FAILURE AFIB CHRONIC ANTICOAGULATION USE CORONARY ARTERY DISEASE HYPOTHYROID BPH ANEMIA Clinical Quality Measures DVT/VTE Risk/Contraindication: Risk Factor Score Per Nursin RFS Level Per Nursing on Admit: 4+=Very High TARAS WEAVER MD Oct 28, 2016 07:54
[2016-10-28] MEDS: ASPIRIN 81 MG CHEW (CHILDREN'S ASA) PO SCH (07:57)
[2016-10-28] MEDS: APIXABAN 2.5 MG (ELIQUIS) TABLET PO SCH ×2 (07:57→20:05)
[2016-10-28] MEDS: SENNA W/DOCUSATE (SENOKOT S) TABLET PO SCH ×2 (07:57→20:06)
[2016-10-28] MEDS: LEVOFLOXACIN 250 MG/50 ML IVPB 50 ML IV SCH (07:59)
[2016-10-28] MEDS: methylPREDNISolone 40 MG/ML (Solu-MEDROL) VIAL IV SCH ×3 (07:59→20:18)
--- NOTE | 2016-10-28 08:41 | Diagnostic Imaging Report ---
INDICATION: Shortness of air, dyspnea.. TECHNIQUE: Single-view chest 5:19 AM. CORRELATION STUDY: 10/27/2016. FINDINGS: Prior sternotomy changes. Stable severity cardiac enlargement. Pulmonary vasculature is slightly diminished from prior study. Atelectasis or infiltrate along with effusion in the left lung base generally stable. Some improvement in overall aeration of the right lung base. IMPRESSION: 1. Bibasilar atelectasis and/ or infiltrate along with left pleural effusion overall slightly improved. 2. Stable cardiac enlargement. Pulmonary vasculature improved and near normal on followup. Dictated by: Dictated on workstation # [id number]
[2016-10-28] MEDS: FUROSEMIDE 40 MG/4 ML INJ (LASIX) IVP SCH ×2 (08:50→16:06)
[2016-10-28] MEDS ORDERED: FUROSEMIDE 40 MG (LASIX) TAB PO SCH (09:00)
--- NOTE | 2016-10-28 09:39 | Diagnostic Imaging Report ---
PROCEDURE: CT chest without contrast. TECHNIQUE: Multiple contiguous axial images were obtained through the chest without the use of intravenous contrast. INDICATION: Pneumonia, hypoxia. The chest exam performed on 10/28/2016, noted left lower lobe pneumonia/atelectasis and a left pleural effusion as well as a small amount of atelectasis/infiltrate and fluid involving the right lung base. On this exam there is atelectasis/infiltrate in each lower lobe, particularly on the left. Furthermore, there are also bilateral pleural effusions. The pleural fluid in each lung base measures approximately 6 cm in maximum depth. In addition, there appears to be a soft tissue density about the left hilum. This soft tissue density was not clearly evident on the previous CT chest exam of 09/25/2007, and the possibility that this is neoplastic in nature should be considered. Bronchoscopy would be recommended for further evaluation. The upper lungs are generally clear. The heart size is borderline enlarged, and there are extensive coronary artery calcifications evident. The sternotomy wires are also noted. The aorta is not abnormally dilated. There is no significant mediastinal adenopathy. The thyroid gland was not well visualized. The sections through the upper abdomen failed to show any sign of an acute abnormality. The bone windows show no sign of a fracture or of a destructive lesion. There has been a prior kyphoplasty procedure of L1. IMPRESSION: 1. There is bibasilar pneumonia/atelectasis and bilateral pleural effusions with somewhat greater involvement on the left. The abnormal density about the infrahilar region on the left is worrisome for a neoplastic mass. Bronchoscopy would be recommended for further evaluation. 2. There is no acute cardiopulmonary abnormality noted otherwise. 3. There is borderline cardiomegaly, evidence of prior cardiac surgery, and extensive coronary artery disease. Dictated by: Dictated on workstation # [id number]
[2016-10-28] MEDS: BETHANECHOL 25 MG (URECHOLINE) TAB PO SCH ×2 (10:19→15:44)
--- NOTE | 2016-10-28 10:26 | Physical Therapy Progress Note ---
Therapy Progress Note Patient adamantly declined PT intervention at this time stating, "I'm done." PT will attempt later today. RN notified. 1 ref RAQUEL AYALA PT Oct 28, 2016 10:26
--- NOTE | 2016-10-28 11:32 | Occ Therapy Progress Note ---
Therapy Progress Note OT order received. Chart reviewed. Went in to evaluate pt. Pt. in bed. Had just had a bed bath and shave. Spouse in room. States that pt. may be in ICU another night, and then may go back to rehab, or swing bed. OT verbalized that swing bed would be a good option, as pt. was unable to fully tolerate acute rehab when he was there. Pt. verbalizes that he is unsure that he will be able to tolerate 3 hours again of therapy right out of ICU. Pt. states, "I really thought I was a goner." OT encourages pt. to participate this date, and to sit on side of bed. Pt. declines, stating that he would like OT to come back in morning. OT encourages pt. again. Pt. adamant that he does not feel like getting up at this time. [id number] 1, visit Declined no charge JOSE ANTONIO YOUNG OT Oct 28, 2016 11:32
[2016-10-28] MEDS: CEFEPIME INJECTION 2,000 MG in NS (IVPB) 50 ML IV SCH (12:17)
--- NOTE | 2016-10-28 14:02 | Physical Therapy Progress Note ---
Therapy Progress Note Patient is back on BiPap due to inability to tolerated thermaflow O2. Per RN, No PT this p.m. due to decline in medical status. PT to check in a.RAQUEL Brandon PT Oct 28, 2016 14:02
--- NOTE | 2016-10-28 17:56 | Progress Note (SOAP) ---
Subjective Subjective/Events-last exam FAMILY MEETING - DISCUSSED PATIENT'S STATUS WITH HIS FAMILY. PLANNING TO KEEP PATIENT IN THE HOSPITAL UNTIL IMPROVED SYMPTOMS - PLANNING ON EVAL BY [facility] FOR POSSIBLE DISCHARGE WHEN PT IS IMPROVED ENOUGH TO BE DISCHARGED TO SWING BED OR SENIOR CARE. Objective Exam Vital Signs Date Time Temp Pulse Resp B/P Pulse Ox O2 Delivery O2 Flow Rate FiO2 10/28/16 16:44 121 20 91 50.00 10/28/16 16:00 96.2 93 18 95/73 92 NIV Bilevel 50.00 10/28/16 13:30 NIV Bilevel 40.00 10/28/16 13:08 118 21 89 50.00 10/28/16 13:00 99 10/28/16 11:55 96.3 106 20 95/75 95 Vapotherm 100.00 40.00 10/28/16 11:55 94 40.00 100 10/28/16 11:00 101 9 93/65 97 Vapotherm 100.00 40.00 10/28/16 10:45 95 Vapotherm 100.00 40.00 10/28/16 10:38 90 40.00 100 10/28/16 10:30 91 Vapotherm 75.00 40.00 10/28/16 10:20 90 Vapotherm 60.00 40.00 10/28/16 10:10 90 Vapotherm 50.00 30.00 10/28/16 10:08 93 40.00 60 10/28/16 10:00 107 10 99/67 91 NIV Bilevel 30.00 10/28/16 09:00 89 19 94/69 89 NIV Bilevel 30.00 10/28/16 08:10 96.3 118 17 93/59 92 NIV Bilevel 30.00 10/28/16 08:08 107 18 90 30.00 10/28/16 08:05 90 30 10/28/16 07:38 94 15.00 10/28/16 07:00 104 20 95/72 94 NIV Bilevel 30.00 10/28/16 07:00 91 10/28/16 06:26 97 50 10/28/16 06:24 83 15 98 NIV Bilevel 50.00 10/28/16 06:15 90 19 99 60.00 10/28/16 06:00 89 16 94/71 99 NIV Bilevel 60.00 10/28/16 05:00 101 18 102/65 99 NIV Bilevel 60.00 10/28/16 04:17 103 20 95 60.00 10/28/16 04:13 97.8 10/28/16 04:00 96 60.00 10/28/16 04:00 94 18 95/68 97 NIV Bilevel 60.00 10/28/16 03:00 88 18 96/66 98 NIV Bilevel 60.00 10/28/16 02:44 90 17 97 60.00 10/28/16 02:00 102 20 96/60 97 NIV Bilevel 60.00 10/28/16 01:00 89 10/28/16 01:00 89 18 95/71 96 NIV Bilevel 60.00 10/28/16 00:33 90 19 97 60.00 10/28/16 00:00 96 60.00 10/28/16 00:00 93 16 88/60 96 NIV Bilevel 60.00 10/27/16 23:45 97 16 87/67 97 NIV Bilevel 60.00 10/27/16 23:30 60 10/27/16 23:30 85 17 85/59 95 NIV Bilevel 60.00 10/27/16 23:15 80 15 86/60 96 NIV Bilevel 60.00 10/27/16 23:01 90 24 96 60.00 10/27/16 23:00 100 18 80/54 96 NIV Bilevel 60.00 10/27/16 22:45 92 17 82/59 95 NIV Bilevel 60.00 10/27/16 22:30 87 18 95/79 97 NIV Bilevel 60.00 10/27/16 22:15 98.9 NIV Bilevel 60.00 10/27/16 22:15 90 17 84/70 96 NIV Bilevel 60.00 10/27/16 22:08 97 10/27/16 22:05 112 19 90/63 97 NIV Bilevel 60.00 I & O 10/28/16 07:00 Intake Total 0 ml Output Total 400 ml Balance -400 ml Capillary Refill : Less Than 3 Seconds General Appearance: Moderate Distress Results Lab Laboratory Tests 10/28/16 03:50: Alanine Aminotransferase (ALT/SGPT) 42, Albumin 3.0L, Alkaline Phosphatase 127, Anion Gap 14, Aspartate Amino Transf (AST/SGOT) 29, B-Type Natriuretic Peptide 888.3H, BUN/Creatinine Ratio 36, Basophils # (Auto) 0.0, Basophils (%) (Auto) 0 , Blood Urea Nitrogen 77H, Calcium Level 8.2L, Carbon Dioxide Level 22, Chloride Level 97L, Creatinine 2.16H, Eosinophils # (Auto) 0.0, Eosinophils (%) (Auto) 0, Estimat Glomerular Filtration Rate 29, Glucose Level 197H, Hematocrit 28L, Hemoglobin 9.1L, Lymphocytes # (Auto) 0.9L, Lymphocytes (%) (Auto) 7L, Magnesium Level 2.8H, Mean Corpuscular Hemoglobin 31, Mean Corpuscular Hemoglobin Concent 32, Mean Corpuscular Volume 96, Mean Platelet Volume 10.5H, Monocytes # (Auto) 0.8, Monocytes (%) (Auto) 6, Neutrophils # (Auto) 12.4H, Neutrophils (%) (Auto) 88H, Phosphorus Level 5.7H, Platelet Count 673H, Potassium Level 4.4, Red Blood Count 2.94L, Red Cell Distribution Width 14.3, Sodium Level 133L, Total Bilirubin 1.0, Total Protein 6.0L, White Blood Count 14.2H Assessment/Plan Assessment/Plan Assess & Plan/Chief Complaint FAMILY MEETING WILL GIVE ANXIOLYTICS, MONITOR SYMPTOMS TONIGHT, MAY END UP GIVING BLOOD TOMORROW. Diagnosis/Problems: Clinical Quality Measures DVT/VTE Risk/Contraindication: Risk Factor Score Per Nursin RFS Level Per Nursing on Admit: 4+=Very High TARAS TITUS MD Oct 28, 2016 17:56
[2016-10-28] MEDS: LORazepam INJ 2 MG/ML (ATIVAN) VIAL IVP PRN (18:31)
[2016-10-28] MEDS: ALFUZOSIN HCL 10 MG TAB (UROXATRAL) PO SCH (20:06)
[2016-10-28] MEDS: FAMOTIDINE 20MG/2ML IV (PEPCID) IVP SCH (20:18)
[2016-10-28] MEDS: SALIVA STIMULANT MOUTH SPRAY (BIOTENE) 1.5 OZ MM PRN (20:19)
[2016-10-28] MEDS ORDERED: MULTIVIT W/MINERALS TAB (THERAGRAN M) PO SCH (21:00)
[2016-10-28] MEDS ORDERED: OMEGA 3 (FISH OIL) 1000 MG CAP PO ONE (21:00)
[2016-10-28] MEDS ORDERED: SIMvastatin 20 MG (ZOCOR) TAB PO SCH (21:00)
[2016-10-29] VITALS (26 sets, daily range): BP systolic 81–108; BP diastolic 51–80
[2016-10-29] MEDS: methylPREDNISolone 40 MG/ML (Solu-MEDROL) VIAL IV SCH ×4 (02:32→20:02)
[2016-10-29] MEDS: RT-ALBUTEROL/IPRATROPIUM 3 ML (DUONEB) VIAL INH SCH ×6 (02:32→22:03)
[2016-10-29 04:19] LABS: BASOPHILS % (AUTO) 0 % (0-10); EOSINOPHILS % (AUTO) 0 % (0-10); LYMPHOCYTES % (AUTO) 7 % (12-44); MEAN CORPUSCULAR HEMOGLOBIN 31 PG (25-34); MEAN CORPUSCULAR HGB CONC 32 G/DL (32-36); MEAN CORPUSCULAR VOLUME 96 FL (80-99); MEAN PLATELET VOLUME 10.6 FL (7.4-10.4); MONOCYTES % (AUTO) 7 % (0-12); NEUTROPHILS # (AUTO) 11.9 X 10^3 (1.8-7.8); NEUTROPHILS % (AUTO) 86 % (42-75); PLATELET COUNT 748 10^3/uL (130-400); RED CELL DISTRIBUTION WIDTH 14.3 % (10.0-14.5); WHITE BLOOD COUNT 13.8 10^3/uL (4.3-11.0)
[2016-10-29 04:36] LABS: CALCIUM 8.3 MG/DL (8.5-10.1); CREATININE SERUM 1.99 MG/DL (0.60-1.30); POTASSIUM 3.9 MMOL/L (3.6-5.0)
[2016-10-29] MEDS: MAGNESIUM 1 GM/100 ML IVPB 100 ML IV SCH (05:48)
[2016-10-29] MEDS: KCL 20 MEQ TAB (K-DUR) PO SCH (05:48)
[2016-10-29] MEDS: POTASSIUM CL 10MEQ/50ML IVPB 50 ML IV SCH (05:48)
[2016-10-29] MEDS: BETHANECHOL 25 MG (URECHOLINE) TAB PO SCH ×2 (06:07→17:21)
[2016-10-29] MEDS: FUROSEMIDE 40 MG/4 ML INJ (LASIX) IVP SCH ×2 (06:07→08:16)
[2016-10-29] MEDS: LEVOTHYROXINE 125 MCG (LEVOTHROID) TABLET PO SCH (06:08)
--- NOTE | 2016-10-29 06:17 | Pulmonary Progress Note ---
Subjective Subjective/Events-last exam Pt appears slightly improved Exam Exam Vital Signs Date Time Temp Pulse Resp B/P Pulse Ox O2 Delivery O2 Flow Rate FiO2 10/29/16 04:28 97.4 10/29/16 04:00 93 25.00 80 10/29/16 02:32 96 19 96 60.00 10/29/16 02:00 77 18 102/63 95 NIV Bilevel 60.00 10/29/16 01:00 80 10/29/16 01:00 71 16 95/68 97 NIV Bilevel 60.00 10/29/16 00:30 90 18 97 60.00 10/29/16 00:30 98.6 10/29/16 00:00 93 60 10/29/16 00:00 79 16 81/65 96 NIV Bilevel 60.00 10/28/16 23:00 78 21 86/61 95 NIV Bilevel 60.00 10/28/16 22:00 84 17 92/62 97 NIV Bilevel 60.00 10/28/16 21:42 95 17 97 60.00 10/28/16 21:00 89 14 111/68 90 NIV Bilevel 50.00 10/28/16 20:00 91 50 10/28/16 20:00 98 19 102/84 93 NIV Bilevel 50.00 10/28/16 19:00 109 10/28/16 19:00 96.7 NIV Bilevel 50.00 10/28/16 19:00 101 17 89/59 91 NIV Bilevel 50.00 10/28/16 18:40 98 18 90 50.00 10/28/16 18:40 98 18 90 50.00 10/28/16 16:44 121 20 91 50.00 10/28/16 16:08 96.4 9 NIV Bilevel 50.00 10/28/16 16:08 93 50 10/28/16 16:00 96.2 93 18 95/73 92 NIV Bilevel 50.00 10/28/16 13:30 NIV Bilevel 40.00 10/28/16 13:08 118 21 89 50.00 10/28/16 13:00 99 10/28/16 11:55 96.3 106 20 95/75 95 Vapotherm 100.00 40.00 10/28/16 11:55 94 40.00 100 10/28/16 11:00 101 9 93/65 97 Vapotherm 100.00 40.00 10/28/16 10:45 95 Vapotherm 100.00 40.00 10/28/16 10:38 90 40.00 100 10/28/16 10:30 91 Vapotherm 75.00 40.00 10/28/16 10:20 90 Vapotherm 60.00 40.00 10/28/16 10:10 90 Vapotherm 50.00 30.00 10/28/16 10:08 93 40.00 60 10/28/16 10:00 107 10 99/67 91 NIV Bilevel 30.00 10/28/16 09:00 89 19 94/69 89 NIV Bilevel 30.00 10/28/16 08:10 96.3 118 17 93/59 92 NIV Bilevel 30.00 10/28/16 08:08 107 18 90 30.00 10/28/16 08:05 90 30 10/28/16 07:38 94 15.00 10/28/16 07:00 104 20 95/72 94 NIV Bilevel 30.00 10/28/16 07:00 91 10/28/16 06:26 97 50 10/28/16 06:24 83 15 98 NIV Bilevel 50.00 10/28/16 06:15 90 19 99 60.00 I & O 10/29/16 07:00 Intake Total 450 ml Output Total 725 ml Balance -275 ml General Appearance: Moderate Distress HEENT: PERRL/EOMI Other (SKIN ABRASION AT BRIDGE OF NOSE FROM BIPAP) Neck: Supple Respiratory: Chest Non Tender Decreased Breath Sounds Cardiovascular: Tachycardia Capillary Refill: Less Than 3 Seconds Extremity: Normal Capillary Refill Pedal Edema Other (LEFT LATERAL HIP INCISION C/D/I) Neurologic/Psychiatric: Alert Oriented x3 Normal Mood/Affect Skin: Warm/Dry Lymphatic: No Adenopathy Results Lab Laboratory Tests 10/28/16 03:50 10/29/16 03:42 Assessment/Plan Assessment/Plan Dyspnea probably secondary to pulmonary edema -Continue lasix 20mg BID -Pt has been requiring BiPAP -Will trial off BiPAP this morning and see how he does. -Oxygen solumedrol -SVNS Pneumonia -Continue Levaquin and cefepime Left hip fracture ARF -Monitor Clinical Quality Measures DVT/VTE Risk/Contraindication: Risk Factor Score Per Nursin RFS Level Per Nursing on Admit: 4+=Very High HEIDI LEHMAN DO Oct 29, 2016 06:17
[2016-10-29] MEDS: RT-BUDESONIDE NEBS 0.5 MG/2ML (PULMICORT) AMP INH SCH ×2 (06:28→19:31)
[2016-10-29] MEDS: LEVOFLOXACIN 250 MG/50 ML IVPB 50 ML IV SCH (08:16)
[2016-10-29] MEDS: APIXABAN 2.5 MG (ELIQUIS) TABLET PO SCH ×2 (08:16→20:02)
[2016-10-29] MEDS: ASPIRIN 81 MG CHEW (CHILDREN'S ASA) PO SCH (08:16)
[2016-10-29] MEDS: SENNA W/DOCUSATE (SENOKOT S) TABLET PO SCH ×2 (08:17→20:03)
--- NOTE | 2016-10-29 08:20 | Progress Note (SOAP) ---
Subjective Subjective/Events-last exam PT REPORTS FEELING A LITTLE BETTER TODAY - HIS REPORTS THAT HE HAD A FEW EPISODES OF WHAT SHE THOUGHT MIGHT HAVE BEEN PANIC EVENTS. MR. HARRINGTON STATES THAT HE IS FEELING "A LITTLE" BETTER, BUT STILL EXTREMELY FATIGUED Review of Systems General: Fatigue Malaise HEENT: No Head Aches Pulmonary: Dyspnea Cardiovascular: No: Chest Pain Gastrointestinal: No: Abdominal Pain, Nausea Genitourinary: Other (PACE IN PLACE) Musculoskeletal: : leg pain Neurological: : WeaknessNo: Confusion Objective Exam Vital Signs Date Time Temp Pulse Resp B/P Pulse Ox O2 Delivery O2 Flow Rate FiO2 10/29/16 06:29 92 25.00 80 10/29/16 06:20 92 25.00 80 10/29/16 06:00 106 16 101/70 92 High Flow N/C 80.00 25.00 10/29/16 05:00 92 16 93/66 91 High Flow N/C 80.00 25.00 10/29/16 04:28 97.4 10/29/16 04:00 93 25.00 80 10/29/16 04:00 95 20 92/56 92 High Flow N/C 80.00 25.00 10/29/16 03:00 74 15 94/72 96 NIV Bilevel 60.00 10/29/16 02:32 96 19 96 60.00 10/29/16 02:00 77 18 102/63 95 NIV Bilevel 60.00 10/29/16 01:00 80 10/29/16 01:00 71 16 95/68 97 NIV Bilevel 60.00 10/29/16 00:30 90 18 97 60.00 10/29/16 00:30 98.6 10/29/16 00:00 93 60 10/29/16 00:00 79 16 81/65 96 NIV Bilevel 60.00 10/28/16 23:00 78 21 86/61 95 NIV Bilevel 60.00 10/28/16 22:00 84 17 92/62 97 NIV Bilevel 60.00 10/28/16 21:42 95 17 97 60.00 10/28/16 21:00 89 14 111/68 90 NIV Bilevel 50.00 10/28/16 20:00 91 50 10/28/16 20:00 98 19 102/84 93 NIV Bilevel 50.00 10/28/16 19:00 109 10/28/16 19:00 96.7 NIV Bilevel 50.00 10/28/16 19:00 101 17 89/59 91 NIV Bilevel 50.00 10/28/16 18:40 98 18 90 50.00 10/28/16 18:40 98 18 90 50.00 10/28/16 16:44 121 20 91 50.00 10/28/16 16:08 96.4 9 NIV Bilevel 50.00 10/28/16 16:08 93 50 10/28/16 16:00 96.2 93 18 95/73 92 NIV Bilevel 50.00 10/28/16 13:30 NIV Bilevel 40.00 10/28/16 13:08 118 21 89 50.00 10/28/16 13:00 99 10/28/16 11:55 96.3 106 20 95/75 95 Vapotherm 100.00 40.00 10/28/16 11:55 94 40.00 100 10/28/16 11:00 101 9 93/65 97 Vapotherm 100.00 40.00 10/28/16 10:45 95 Vapotherm 100.00 40.00 10/28/16 10:38 90 40.00 100 10/28/16 10:30 91 Vapotherm 75.00 40.00 10/28/16 10:20 90 Vapotherm 60.00 40.00 10/28/16 10:10 90 Vapotherm 50.00 30.00 10/28/16 10:08 93 40.00 60 10/28/16 10:00 107 10 99/67 91 NIV Bilevel 30.00 10/28/16 09:00 89 19 94/69 89 NIV Bilevel 30.00 I & O 10/29/16 07:00 Intake Total 600 ml Output Total 900 ml Balance -300 ml Capillary Refill : Less Than 3 Seconds General Appearance: WD/WN Mild Distress Neck: Full Range of Motion Respiratory: Chest Non Tender Decreased Breath Sounds Cardiovascular: Irregularly Irregular Gastrointestinal: normal bowel sounds non tender soft no organomegaly no pulsatile mass Extremity: No Pedal Edema Neurologic/Psychiatric: Alert Oriented x3 Skin: Warm/Dry Lymphatic: No Adenopathy Results Lab Laboratory Tests 10/29/16 03:42: Anion Gap 16H, BUN/Creatinine Ratio 39, Basophils # (Auto) 0.0, Basophils (%) ( Auto) 0, Blood Urea Nitrogen 78H, Calcium Level 8.3L, Carbon Dioxide Level 22, Chloride Level 97L, Creatinine 1.99H, Eosinophils # (Auto) 0.0, Eosinophils (%) (Auto) 0, Estimat Glomerular Filtration Rate 32, Glucose Level 219H, Hematocrit 31L, Hemoglobin 9.8L, Lymphocytes # (Auto) 1.0, Lymphocytes (%) (Auto) 7L, Magnesium Level 3.0H, Mean Corpuscular Hemoglobin 31, Mean Corpuscular Hemoglobin Concent 32, Mean Corpuscular Volume 96, Mean Platelet Volume 10.6H, Monocytes # (Auto) 1.0, Monocytes (%) (Auto) 7, Neutrophils # (Auto) 11.9H, Neutrophils (%) (Auto) 86H, Phosphorus Level 5.0H, Platelet Count 748H, Potassium Level 3.9, Red Blood Count 3.20L, Red Cell Distribution Width 14.3, Sodium Level 135, White Blood Count 13.8H Assessment/Plan Assessment/Plan Assess & Plan/Chief Complaint LEFT HIP FRACTURE - INTERTROCHANTERIC - POST-OP SURGICAL REPAIR WEAKNESS FATIGUE HYPERTENSION WITH ACUTE HYPOTENSION ACUTE RENAL FAILURE AFIB CHRONIC ANTICOAGULATION USE CORONARY ARTERY DISEASE HYPOTHYROID BPH ANEMIA CHF LEFT HIP FRACTURE - POST-OP LEFT HIP FRACTURE REPAIR WITH DR. WING - CONTINUE WITH SWING BED [facility] WHEN PT ABLE ACUTE RENAL FAILURE - DUE TO HYPOTENSION, SUPPORTIVE CARE, BUN ELEVATED, MONITOR I/O CLOSELY. SUPPORT PRESSURE TO PREVENT RENAL SHOCK. - LABS IMPROVED ELEVATED LIVER ENZYMES - RESOLVED PNEUMONIA - RESPIRATORY DISTRESS - PULMONARY EDEMA - DR. LEHMAN CONSULTED - IV ANTIBIOTICS INITIATED, PT ON BIPAP INTERMITTENTLY - PT ON VAPOTHERM NOW, CONTINUE WITH SUPPORTIVE CARE AFIB - - CONTINUE ANTICOAGULANT HTN CHRONIC WITH ACUTE HYPOTENSION - SUPPORTIVE CARE - MONITOR BLOOD PRESSURE CLOSELY HYPOTHYROID - RESTARTED LEVOTHYROXINE BPH - URINARY RETENTION RESOLVED WITH BETHANECHOL FOR RETENTION - INITIALLY - HAD TO PLACE PACE DUE TO FATIGUE WITH ACTIVITY AND INABILITY FOR PT TO USE URINAL AND NEED FOR ACCURATE I/O ANEMIA - SLIGHTLY IMPROVED THIS MORNING - MONITOR CBC IN MORNING. ANXIETY - PT GIVEN LOW DOSE OF ATIVAN LAST NIGHT - SLEPT BETTER Diagnosis/Problems: Clinical Quality Measures DVT/VTE Risk/Contraindication: Risk Factor Score Per Nursin RFS Level Per Nursing on Admit: 4+=Very High TARAS TITUS MD Oct 29, 2016 08:20
[2016-10-29] MEDS: LORazepam INJ 2 MG/ML (ATIVAN) VIAL IVP PRN ×2 (08:30→20:02)
[2016-10-29] MEDS: SALIVA STIMULANT MOUTH SPRAY (BIOTENE) 1.5 OZ MM PRN ×2 (08:30→20:09)
--- NOTE | 2016-10-29 09:15 | Diagnostic Imaging Report ---
EXAMINATION: Portable erect AP chest at 0525 hours. INDICATION: Respiratory distress. FINDINGS: The appearance of the chest has worsened since the prior exam of 10/28/2016 as there does seem to be greater involvement of the left lung base by pneumonia/atelectasis and fluid. The density in the right lung base may be somewhat greater as well. The upper lungs remain clear. The heart is enlarged but stable when compared to the prior exam. The sternotomy wires and surgical clips noted previously are again visualized and no different. The central pulmonary vascularity remains prominent and there may be an element of pulmonary congestion present as well. The mediastinum is not widened. The osseous structures are intact. IMPRESSION: The appearance of the chest has worsened since the prior study as there is greater involvement of both lung bases by atelectasis/infiltrate and fluid, particularly in the left lung base. Dictated by: Dictated on workstation # [id number]
[2016-10-29] MEDS ORDERED: FUROSEMIDE 40 MG/4 ML INJ (LASIX) IVP ONE (09:30)
--- NOTE | 2016-10-29 09:45 | Physical Therapy Progress Note ---
Therapy Progress Note Patient in bed awake but a family member is currently coaching him on breathing and calming down. He off the bipap but is having a lot of trouble breathing just laying there. I asked the patient if he would like to try to sit up or perform bed exercises and he refused. Will try again in the afternoon. LEBRON ROSALES PT Oct 29, 2016 09:45
[2016-10-29] MEDS: CEFEPIME INJECTION 2,000 MG in NS (IVPB) 50 ML IV SCH (12:14)
--- NOTE | 2016-10-29 13:17 | Occupational Therapy Eval ---
OT Evaluation-General/PLF Medical Diagnosis Admission Date Oct 27, 2016 at 22:14 Medical Diagnosis: Left hip fx. Acute renal failure Onset Date: Oct 27, 2016 Therapy Diagnosis Therapy Diagnosis: weakness, decreased ADL skills Height/Weight Height (Feet): 6 Height (Inches): 0.00 Weight (Pounds): 207 Weight (Ounces): 1.6 Precautions Precautions/Isolations: Fall Prevention, Standard Precautions, Pressure Ulcer Safety Interventions: None Weight Bear Status Weight Bearing Restriction: Weight Bearing/Tolerated Referral Physician: Dr. Ortiz Referral Reason: Activity Tolerance, Self Care, Evaluation/Treatment, Strengthening/ROM Medical History Pertinent Medical History: Atrial Fib, Arthritis, CABG, CAD, COPD, CVA, HTN, Hypothroidism, [place] Additional Medical History joint replacement Current History Pt. was on rehab recovering from a hip surgery. Declined in medical status. Transferred to ICU. Reviewed History: Yes Social History Home: Single Level Current Living Status: Significant Other Entry Into Home: Stairs With Railing Steps Into Home: 3 ADL-Prior Level of Function ADL PLOF Comments Previous to first hospitalization, pt. was independent with daily tasks. DME/Equipment: Bath Chair, Shower Drive Self: Yes OT Current Status Subjective Pt. does not report pain, but states that he is very tired. Appearance Pt. is in bed. Keeps eyes closed. Family in room. Pt. does agree to sit on side of bed. Pt. is encouraged to open his eyes. Mental Status/Objective Patient Orientation: Person, Place ADL-Treatment Functional [place] Measure 0=Not Assessed/NA 4=Minimal Assistance 1=Total Assistance 5=Supervision or Setup 2=Maximal Assistance 6=Modified [place] 3=Moderate Assistance 7=Complete IndependenceIRFPAI Quality Coding Scale 6 Independent with activity with or without an assistive device 5 Patient requires set up or clean up by helper. Patient completes activity by themselves 4 Supervision or touching assist (CGA). [place] provide cues , steadying assist 3 The helper provides less than half the effort to complete the activity 2 The helper provides more than half the effort to complete the activity 1 Dependent. The helper does all the effort to complete an activity 7 Patient refused to complete or attempt activity 9 The patient did not perform the activity before the current illness or injury 88 Not attempted due to Medical conditions or safety concerns Lower Body Dressing (FIM): 1 (Pt. dependent with LE dressing.) Other Treatments Pt. in bed with eyes closed. Requires Max x 2 for supine-sit. Max assist to scoot to edge of bed. Pt. is able to sit on side of bed with mod assist. Able to tolerated this approximately 1 minute and then requests to lay back down. Attempts to lay down on the opposite end of bed, as pt. keeps eyes closed. Required max x 2 for sit-supine. Dependent x 2 for bed mobility. Pt. positioned in bed. Education OT Patient Education: Correct positioning, Modified ADL techniques, Progress toward Goal/Update tx plan, Purpose of tx/functional activities, Reviewed precautions, Rehab process, Transfer techniques Teaching Recipient: Patient, Family Teaching Methods: Demonstration, Discussion Response to Teaching: Verbalize Understanding, Return Demonstration OT Short Term Goals Short Term Goals Time Frame: Nov 12, 2016 Eating(FIM): 5 Grooming(FIM): 5 Bathing(FIM): 3 Upper Body Dressing(FIM): 4 Lower Body Dressing(FIM): 4 Toileting(FIM): 4 Transfers (B,C,W/C) (FIM): 4 Toilet/Commode Transfer(FIM): 4 Additional Short Term Goals: 1-Demonstrate ADL Tasks, 2-Verbalize Understanding , 3-ImproveStrength/Geovani 1=Demonstrate adherence to instructed precautions during ADL tasks. 2=Patient will verbalize/demonstrate understanding of assistive devices/ modifications for ADL. 3=Patient will improve strength/tolerance for activity to enable patient to perform ADL's. OT [employer]sp Goals [employer] Goals Time Frame: Nov 26, 2016 Eating (FIM): 6 Grooming(FIM): 6 Bathing(FIM): 5 Upper Body Dressing(FIM): 5 Lower Body Dressing(FIM): 5 Toileting(FIM): 5 Transfers (B,C,W/C) (FIM): 6 Toilet/Commode Transfer(FIM): 6 Additional Goals: 1-Demonstrate ADL Tasks, 2-Verbalize Understanding, 3- ImproveStrength/Geovani 1=Demonstrate adherence to instructed precautions during ADL tasks. 2=Patient will verbalize/demonstrate understanding of assistive devices/ modifications for ADL. 3=Patient will improve strength/tolerance for activity to enable patient to perform ADL's. OT Education/Plan Problem List/Assessment Assessment: Decreased Activ Tolerance, Decreased UE Strength, Dependent Transfers, Impaired Bed Mobility, Impaired Cognition, Impaired Funct Balance, Impaired I ADL's, Impaired Self-Care Skills, Restricted Funct UE ROM Discharge Recommendations Plan/Recommendations: Continue POC Therapy D/C Recommendations: 24 hr Supervision Barriers to Progress Fatigue, medical issues Target Placement At this time, pt. requires 24 hour care. Treatment Plan/Plan of Care Treatment,Training & Education: Yes Patient would benefit from OT for education, treatment and training to promote independence in ADL's, mobility, safety and/or upper extremity function for ADL' s. Plan of Care: ADL Retraining, Caregiver Training, Functional Mobility, UE Funct Exercise/Act Treatment Duration: Nov 26, 2016 # of days/week 5-6 Visits Per Week: 5-6 Agreement: Yes Rehab Potential: Guarded Time/GCodes Start Time: 10:15 Stop Time: 10:30 Total Time Billed (hr/min): 15 Billed Treatment Time 1, FA x 1 JOSE ANTONIO YOUNG OT Oct 29, 2016 13:16
--- NOTE | 2016-10-29 14:36 | Physical Therapy Progress Note ---
Therapy Progress Note Patient's refused for him this afternoon. She states patient is very worn out and was able to just get to sleep. She says he has had an exhausting day and would like him to not perform PT at this time. Will try back in the morning. LEBRON ROSALES PT Oct 29, 2016 14:36
[2016-10-29] MEDS: FAMOTIDINE 20MG/2ML IV (PEPCID) IVP SCH (20:02)
[2016-10-29] MEDS: ALFUZOSIN HCL 10 MG TAB (UROXATRAL) PO SCH (20:02)
[2016-10-30] VITALS (11 sets, daily range): BP systolic 85–108; BP diastolic 51–76
[2016-10-30] MEDS: RT-ALBUTEROL/IPRATROPIUM 3 ML (DUONEB) VIAL INH SCH ×6 (02:10→22:27)
[2016-10-30] MEDS: methylPREDNISolone 40 MG/ML (Solu-MEDROL) VIAL IV SCH ×3 (02:50→22:47)
[2016-10-30 04:05] LABS: BASOPHILS % (AUTO) 0 % (0-10); EOSINOPHILS % (AUTO) 0 % (0-10); LYMPHOCYTES # (AUTO) 0.6 X 10^3 (1.0-4.0); LYMPHOCYTES % (AUTO) 5 % (12-44); MEAN CORPUSCULAR HEMOGLOBIN 31 PG (25-34); MEAN CORPUSCULAR HGB CONC 32 G/DL (32-36); MEAN CORPUSCULAR VOLUME 95 FL (80-99); MEAN PLATELET VOLUME 10.5 FL (7.4-10.4); MONOCYTES # (AUTO) 0.9 X 10^3 (0.0-1.0); MONOCYTES % (AUTO) 7 % (0-12); NEUTROPHILS # (AUTO) 11.7 X 10^3 (1.8-7.8); NEUTROPHILS % (AUTO) 88 % (42-75); PLATELET COUNT 695 10^3/uL (130-400); RED BLOOD COUNT 3.06 10^6/uL (4.35-5.85); RED CELL DISTRIBUTION WIDTH 14.6 % (10.0-14.5); WHITE BLOOD COUNT 13.2 10^3/uL (4.3-11.0)
[2016-10-30 04:20] LABS: CREATININE SERUM 1.95 MG/DL (0.60-1.30); MAGNESIUM 2.8 MG/DL (1.8-2.4); PHOSPHORUS 4.5 MG/DL (2.3-4.7); POTASSIUM 3.8 MMOL/L (3.6-5.0)
[2016-10-30] MEDS: MAGNESIUM 1 GM/100 ML IVPB 100 ML IV SCH (04:25)
[2016-10-30] MEDS: POTASSIUM CL 10MEQ/50ML IVPB 50 ML IV SCH (04:25)
[2016-10-30] MEDS: KCL 20 MEQ TAB (K-DUR) PO SCH (04:25)
[2016-10-30 04:48] LABS: BAND NEUTROPHILS 0 %; BASOPHILS % (MANUAL) 0 %; EOSINOPHILS % (MANUAL) 0 %; LYMPHOCYTES % (MANUAL) 3 %; NEUTROPHILS % (MANUAL) 89 %
[2016-10-30 04:49] LABS: ANISOCYTOSIS SLIGHT; HYPOCHROMASIA SLIGHT; POIKILOCYTOSIS SLIGHT; POLYCHROMASIA SLIGHT
[2016-10-30] MEDS: FUROSEMIDE 40 MG/4 ML INJ (LASIX) IVP SCH ×3 (05:48→16:35)
[2016-10-30] MEDS: BETHANECHOL 25 MG (URECHOLINE) TAB PO SCH ×2 (05:49→16:58)
[2016-10-30] MEDS: LEVOTHYROXINE 125 MCG (LEVOTHROID) TABLET PO SCH (05:49)
--- NOTE | 2016-10-30 06:40 | Pulmonary Progress Note ---
Subjective Subjective/Events-last exam PT appears to be improving. is at bedside. Exam Exam Vital Signs Date Time Temp Pulse Resp B/P Pulse Ox O2 Delivery O2 Flow Rate FiO2 10/30/16 06:00 92 19 108/67 96 Vapotherm 100.00 30.00 10/30/16 05:00 92 18 101/54 96 Vapotherm 100.00 30.00 10/30/16 04:03 97.8 10/30/16 04:00 87 23 94/58 93 Vapotherm 100.00 30.00 10/30/16 04:00 93 30.00 100 10/30/16 03:00 93 20 85/59 93 Vapotherm 100.00 30.00 10/30/16 02:11 95 30.00 100 10/30/16 02:00 74 17 87/66 95 Vapotherm 100.00 30.00 10/30/16 01:00 74 10/30/16 01:00 96 23 98/63 96 Vapotherm 100.00 30.00 10/30/16 00:00 93 30.00 100 10/30/16 00:00 98.3 10/30/16 00:00 78 19 91/59 94 Vapotherm 100.00 30.00 10/29/16 23:00 80 18 87/52 94 Vapotherm 100.00 30.00 10/29/16 22:03 95 30.00 100 10/29/16 22:00 93 18 87/51 94 Vapotherm 100.00 30.00 10/29/16 21:00 80 17 83/60 96 Vapotherm 100.00 30.00 10/29/16 20:00 97.9 Vapotherm 100.00 30.00 10/29/16 20:00 91 30.00 100 10/29/16 20:00 81 25 91/54 93 Vapotherm 100.00 30.00 10/29/16 19:32 97 30.00 100 10/29/16 19:00 85 10/29/16 19:00 85 23 100/66 95 Vapotherm 100.00 30.00 10/29/16 18:54 95 30.00 100 10/29/16 18:00 98 21 104/68 94 Vapotherm 100.00 30.00 10/29/16 17:19 97.2 89 26 102/74 96 Vapotherm 100.00 30.00 10/29/16 16:00 92 29 103/80 92 Vapotherm 100.00 30.00 10/29/16 16:00 91 30.00 100 10/29/16 15:00 84 27 102/72 93 Vapotherm 100.00 30.00 10/29/16 14:39 93 30.00 100 10/29/16 14:00 98 26 93/72 91 Vapotherm 100.00 30.00 10/29/16 13:00 96 21 105/65 92 Vapotherm 100.00 30.00 10/29/16 13:00 109 10/29/16 12:45 91 30.00 100 10/29/16 12:45 96.0 10/29/16 12:00 96 23 97/62 90 Vapotherm 100.00 30.00 10/29/16 11:20 90 30.00 100 10/29/16 11:00 110 28 98/66 90 Vapotherm 100.00 30.00 10/29/16 10:00 112 24 99/71 95 Vapotherm 100.00 30.00 10/29/16 09:00 101 20 108/76 90 Vapotherm 100.00 30.00 10/29/16 08:20 97.4 104 25 102/66 92 Vapotherm 100.00 30.00 10/29/16 08:15 90 30.00 100 10/29/16 07:00 98 24 106/68 88 Vapotherm 80.00 25.00 10/29/16 07:00 101 I & O 10/30/16 07:00 Intake Total 1000 ml Output Total 2650 ml Balance -1650 ml General Appearance: No Apparent Distress HEENT: PERRL/EOMI Other (SKIN ABRASION AT BRIDGE OF NOSE FROM BIPAP) Neck: Supple Respiratory: Chest Non Tender Decreased Breath Sounds Cardiovascular: Tachycardia Capillary Refill: Less Than 3 Seconds Extremity: Normal Capillary Refill Pedal Edema Other (LEFT LATERAL HIP INCISION C/D/I) Neurologic/Psychiatric: Alert Oriented x3 Normal Mood/Affect Skin: Warm/Dry Lymphatic: No Adenopathy Results Lab Laboratory Tests 10/29/16 03:42 10/30/16 03:46 Assessment/Plan Assessment/Plan Dyspnea probably secondary to pulmonary edema -Continue lasix 20mg BID -Pt has been requiring BiPAP -Will trial off BiPAP this morning and see how he does. -Oxygen solumedrol - decrease to BID -SVNS Bilateral pleural effusion -increase lasix to BID 40mg -Pt is on anticoagulation. Thoracentesis can be done however anticoagulation will have to be stopped for 48hrs. -- Will increase lasix and continue to monitor. Pt appears improved and CXR lags behind clinical appearance. Renal function is actually improving while on lasix. Pneumonia -Continue Levaquin and cefepime Left hip fracture ARF -Monitor Pt is doing much better will transfer to 4th floor. Clinical Quality Measures DVT/VTE Risk/Contraindication: Risk Factor Score Per Nursin RFS Level Per Nursing on Admit: 4+=Very High HEIDI LEHMAN DO Oct 30, 2016 06:40
[2016-10-30] MEDS: RT-BUDESONIDE NEBS 0.5 MG/2ML (PULMICORT) AMP INH SCH ×2 (07:00→20:30)
--- NOTE | 2016-10-30 07:07 | Diagnostic Imaging Report ---
INDICATION: Shortness of breath. Portable chest 4:41 AM FINDINGS: There are postop changes from CABG surgery. There are bilateral lower lobe infiltrates. There is a moderate-sized left pleural effusion. IMPRESSION: Bilateral basilar infiltrates and left pleural effusion. I have no appreciable change since previous day. Dictated by: Dictated on workstation # [id number]
--- NOTE | 2016-10-30 08:30 | Progress Note (SOAP) ---
Subjective Subjective/Events-last exam PT MORE INTERACTIVE THIS MORNING, HE STATES THAT HE IS STILL VERY WEAK AND FATIGUED, BUT IS FEELING LIKE HE HAS IMPROVED. HIS REPORTS ANOTHER EPISODE THIS MORNING OF MR. HARRINGTON HAVING A PANIC ATTACK LIKE EVENT SHORTLY AFTER HE WOKE UP, BUT HE IS MORE LUCID NOW, AND ONCE SHE TALKED TO HIM HE CALMED RIGHT DOWN. THE STAFF STATES THAT HE HAS BEEN EATING BETTER TODAY. Review of Systems General: Fatigue Malaise HEENT: No Head Aches, No Dysphasia, No Sore Throat Pulmonary: Dyspnea Cardiovascular: : Edema (IMPROVED PER STAFF REPORT)No: Chest Pain Gastrointestinal: No: Abdominal Pain, Nausea Genitourinary: Other (PACE) Musculoskeletal: : leg pain Neurological: : Confusion (VERY FEW EPISODES): Weakness Objective Exam Vital Signs Date Time Temp Pulse Resp B/P Pulse Ox O2 Delivery O2 Flow Rate FiO2 10/30/16 08:00 96.0 91 18 104/61 94 Vapotherm 10/30/16 07:05 93 30.00 75 10/30/16 07:01 93 30.00 75 10/30/16 06:00 92 19 108/67 96 Vapotherm 100.00 30.00 10/30/16 05:00 92 18 101/54 96 Vapotherm 100.00 30.00 10/30/16 04:03 97.8 10/30/16 04:00 87 23 94/58 93 Vapotherm 100.00 30.00 10/30/16 04:00 93 30.00 100 10/30/16 03:00 93 20 85/59 93 Vapotherm 100.00 30.00 10/30/16 02:11 95 30.00 100 10/30/16 02:00 74 17 87/66 95 Vapotherm 100.00 30.00 10/30/16 01:00 74 10/30/16 01:00 96 23 98/63 96 Vapotherm 100.00 30.00 10/30/16 00:00 93 30.00 100 10/30/16 00:00 98.3 10/30/16 00:00 78 19 91/59 94 Vapotherm 100.00 30.00 10/29/16 23:00 80 18 87/52 94 Vapotherm 100.00 30.00 10/29/16 22:03 95 30.00 100 10/29/16 22:00 93 18 87/51 94 Vapotherm 100.00 30.00 10/29/16 21:00 80 17 83/60 96 Vapotherm 100.00 30.00 10/29/16 20:00 97.9 Vapotherm 100.00 30.00 10/29/16 20:00 91 30.00 100 10/29/16 20:00 81 25 91/54 93 Vapotherm 100.00 30.00 10/29/16 19:32 97 30.00 100 10/29/16 19:00 85 10/29/16 19:00 85 23 100/66 95 Vapotherm 100.00 30.00 10/29/16 18:54 95 30.00 100 10/29/16 18:00 98 21 104/68 94 Vapotherm 100.00 30.00 10/29/16 17:19 97.2 89 26 102/74 96 Vapotherm 100.00 30.00 10/29/16 16:00 92 29 103/80 92 Vapotherm 100.00 30.00 10/29/16 16:00 91 30.00 100 10/29/16 15:00 84 27 102/72 93 Vapotherm 100.00 30.00 10/29/16 14:39 93 30.00 100 10/29/16 14:00 98 26 93/72 91 Vapotherm 100.00 30.00 10/29/16 13:00 96 21 105/65 92 Vapotherm 100.00 30.00 10/29/16 13:00 109 10/29/16 12:45 91 30.00 100 10/29/16 12:45 96.0 10/29/16 12:00 96 23 97/62 90 Vapotherm 100.00 30.00 10/29/16 11:20 90 30.00 100 10/29/16 11:00 110 28 98/66 90 Vapotherm 100.00 30.00 10/29/16 10:00 112 24 99/71 95 Vapotherm 100.00 30.00 10/29/16 09:00 101 20 108/76 90 Vapotherm 100.00 30.00 I & O 10/30/16 07:00 Intake Total 1000 ml Output Total 2650 ml Balance -1650 ml Capillary Refill : Less Than 3 Seconds General Appearance: WD/WN Mild Distress HEENT: PERRL/EOMI Neck: Supple Respiratory: Chest Non Tender Crackles (FAINT IN BASES) Cardiovascular: Irregularly Irregular Tachycardia Gastrointestinal: normal bowel sounds non tender soft Extremity: Pedal Edema (IMPROVING ON LEFT CALF) Neurologic/Psychiatric: Alert Oriented x3 Normal Mood/Affect Skin: Warm/Dry Lymphatic: No Adenopathy Results Lab Laboratory Tests 10/30/16 03:46: Anion Gap 15H, Anisocytosis SLIGHT, BUN/Creatinine Ratio 43, Band Neutrophils 0 , Basophils # (Auto) 0.0, Basophils % (Manual) 0, Basophils (%) (Auto) 0, Blood Urea Nitrogen 83H, Calcium Level 8.0L, Carbon Dioxide Level 22, Chloride Level 99, Creatinine 1.95H, Eosinophils # (Auto) 0.0, Eosinophils % (Manual) 0, Eosinophils (%) (Auto) 0, Estimat Glomerular Filtration Rate 33, Glucose Level 272H, Hematocrit 29L, Hemoglobin 9.4L, Hypochromasia SLIGHT, Lymphocytes # (Auto ) 0.6L, Lymphocytes % (Manual) 3, Lymphocytes (%) (Auto) 5L, Magnesium Level 2.8H, Mean Corpuscular Hemoglobin 31, Mean Corpuscular Hemoglobin Concent 32, Mean Corpuscular Volume 95, Mean Platelet Volume 10.5H, Monocytes # (Auto) 0.9, Monocytes % (Manual) 8, Monocytes (%) (Auto) 7, Neutrophils # (Auto) 11.7H, Neutrophils % (Manual) 89, Neutrophils (%) (Auto) 88H, Nucleated Red Blood Cells 3, Phosphorus Level 4.5, Platelet Count 695H, Poikilocytosis SLIGHT, Polychromasia SLIGHT, Potassium Level 3.8, Red Blood Count 3.06L, Red Cell Distribution Width 14.6H, Sodium Level 136, White Blood Count 13.2H Assessment/Plan Assessment/Plan Assess & Plan/Chief Complaint LEFT HIP FRACTURE - INTERTROCHANTERIC - POST-OP SURGICAL REPAIR WEAKNESS FATIGUE HYPERTENSION WITH ACUTE HYPOTENSION ACUTE RENAL FAILURE AFIB CHRONIC ANTICOAGULATION USE CORONARY ARTERY DISEASE HYPOTHYROID BPH ANEMIA CHF LEFT HIP FRACTURE - POST-OP LEFT HIP FRACTURE REPAIR WITH DR. WING - CONTINUE WITH SWING BED [facility] WHEN PT ABLE ACUTE RENAL FAILURE - DUE TO HYPOTENSION, SUPPORTIVE CARE, BUN ELEVATED, MONITOR I/O CLOSELY. SUPPORT PRESSURE TO PREVENT RENAL SHOCK. - STABLE CREATININE ELEVATED LIVER ENZYMES - RESOLVED PNEUMONIA - RESPIRATORY DISTRESS - PULMONARY EDEMA - DR. LEHMAN CONSULTED - IV ANTIBIOTICS INITIATED, - PT ON VAPOTHERM NOW, CONTINUE WITH SUPPORTIVE CARE AFIB - - CONTINUE ANTICOAGULANT HTN CHRONIC WITH ACUTE HYPOTENSION - SUPPORTIVE CARE - MONITOR BLOOD PRESSURE CLOSELY HYPOTHYROID - RESTARTED LEVOTHYROXINE BPH - URINARY RETENTION RESOLVED WITH BETHANECHOL FOR RETENTION - INITIALLY - PACE IN PLACE, WILL LEAVE IN FOR ANOTHER 24-48 HOURS DEPENDING ON PT'S STRENGTH - DISCUSSED THIS WITH PT AND . ANEMIA - STABLE ANXIETY - PT GIVEN LOW DOSE OF ATIVAN - PANIC EVENTS IMPROVED. DISCUSSED AGAIN WITH AND PT - WILL KEEP IN A STEP-DOWN STATUS WHEN PT ABLE TO BE DISCHARGED FROM ICU STATUS AND WILL CONSIDER SWING BED IN HOSPITAL FOR SHORT TIME BEFORE DECIDING ON [facility] Diagnosis/Problems: Clinical Quality Measures DVT/VTE Risk/Contraindication: Risk Factor Score Per Nursin RFS Level Per Nursing on Admit: 4+=Very High TARAS TITUS MD Oct 30, 2016 08:30
[2016-10-30] MEDS: APIXABAN 2.5 MG (ELIQUIS) TABLET PO SCH ×2 (08:34→22:47)
[2016-10-30] MEDS: ASPIRIN 81 MG CHEW (CHILDREN'S ASA) PO SCH (08:34)
[2016-10-30] MEDS: SENNA W/DOCUSATE (SENOKOT S) TABLET PO SCH ×2 (08:34→22:47)
[2016-10-30] MEDS: LEVOFLOXACIN 250 MG/50 ML IVPB 50 ML IV SCH (08:35)
--- NOTE | 2016-10-30 09:27 | Consultation-Cardiology ---
HPI-Cardiology Cardiology Consultation: Date of Consultation 10/30/16 Date of Admission 10/27/16 Attending Physician Isabel Weaver MD Admitting Physician Isabel Weaver MD Consulting Physician KAJAL MARTELL MD, FACP, FACC, FSCAI, CCDS HPI: Chief Complaint: Shortness of breath 89 yo admitted initially on 10/13/16 with L hip facture (nonsyncopal fall) for which he underwent surgery and was subsequently in Rehab where he began to have increasing shortness of breath and was transferred to ICU on 10/27/16 for shortness of breath and confusion. He says this is gradually improving. Denies cp or palp or syncope or significant leg edema Review of Systems-Cardiology Review of Systems Constitutional: malaise tirednessNo weight loss, No weight gain Eyes: No vision change Ears/Nose/Throat: No ear discharge, No nasal drainage, No recent hearing loss Respiratory: As described under HPI Cardiovascular: As described under HPI Gastrointestinal: No constipation, No diarrhea, No nausea, No vomiting Genitourinary: No dysuria, No hematuria Musculoskeletal: back pain (chronic) Skin: No rash, No ulcerations Psychiatric/Neurological: No focal weakness, No syncope Hematologic: No bleeding abnormalities All Other Systems Reviewed Negative Unless Noted: Yes GYE-Cjtajw-Gmfjby Hx Patient Social History Marrital Status: Living Status: LIVES AT HOME WITH SPOUSE OF 68 YEARS Employed/Student: retired Alcohol Use: Denies Use Recreational Drug Use: No 2nd Hand Smoke Exposure: No Recent Foreign Travel: No Recent Infectious Disease Expo: No Physical Abuse Screen: No Sexual Abuse: No Immunizations Up To Date Tetanus Booster (TDap): Unknown Date of Pneumonia Vaccine: Jun 07, 2014 Date of Influenza Vaccine: Jun 07, 2016 Past Medical History PMH As described under Assessment. Family Medical History Family History: Hypertension 19 MOTHER Prostate cancer 19 FATHER, Onset:60 years & older Allergies and Home Medications Allergies Coded Allergies: No Known Drug Allergies (Verified , 10/17/16) Home Medications Aspirin 81 Mg Tablet.dr 81 MG PO DAILY (Reported) Docosahexanoic Acid/Epa 1 Cap Capsule 1,000 MG PO HS (Reported) Levothyroxine Sodium 200 Mcg Tablet 200 MCG PO DAILY (Reported) TAKES ALONG WITH 50MCG TABLET Levothyroxine Sodium 50 Mcg Tablet 50 MCG PO DAILY (Reported) TAKES ALONG WITH 200MCG TABLET Multivitamins 1 Tab Tablet 1 TAB PO HS (Reported) Nitroglycerin 0.4 Mg Subl 0.4 MG SL UD PRN PRN CHEST PAIN (Reported) PLACE 1 TABLET UNDER TONGUE EVERY 5 MINUTES X 3 DOSES NEEDED FOR CHEST PAIN Simvastatin 40 Mg Tablet 20 MG PO HS (Reported) TAKES 1/2 (40MG) TABLET Tamsulosin Hcl 0.4 Mg Cap 0.4 MG PO HS (Reported) Physical Exam-Cardiology Physical Exam Vital Signs/I&O Vital Sign - Last 12Hours 10/29/16 10/29/16 10/29/16 10/30/16 22:00 22:03 23:00 00:00 Pulse 93 80 78 Resp 18 18 19 B/P 87/51 87/52 91/59 Pulse Ox 94 95 94 94 O2 Delivery Vapotherm Vapotherm Vapotherm O2 Flow Rate 100.00 30.00 100.00 100.00 30.00 30.00 30.00 FiO2 100 10/30/16 10/30/16 10/30/16 10/30/16 00:00 00:00 01:00 01:00 Temp 98.3 Pulse 96 74 Resp 23 B/P 98/63 Pulse Ox 93 96 O2 Delivery Vapotherm O2 Flow Rate 30.00 100.00 30.00 FiO2 100 10/30/16 10/30/16 10/30/16 10/30/16 02:00 02:11 03:00 04:00 Pulse 74 93 Resp 17 20 B/P 87/66 85/59 Pulse Ox 95 95 93 93 O2 Delivery Vapotherm Vapotherm O2 Flow Rate 100.00 30.00 100.00 30.00 30.00 30.00 FiO2 100 100 10/30/16 10/30/16 10/30/16 10/30/16 04:00 04:03 05:00 06:00 Temp 97.8 Pulse 87 92 92 Resp 23 18 19 B/P 94/58 101/54 108/67 Pulse Ox 93 96 96 O2 Delivery Vapotherm Vapotherm Vapotherm O2 Flow Rate 100.00 100.00 100.00 30.00 30.00 30.00 10/30/16 10/30/16 10/30/16 10/30/16 07:00 07:01 07:05 08:00 Temp 96.0 Pulse 98 91 Resp 18 B/P 104/61 Pulse Ox 93 93 94 O2 Delivery Vapotherm O2 Flow Rate 30.00 30.00 FiO2 75 75 Intake and Output 10/29/16 23:59 Intake Total 680 ml Output Total 1300 ml Balance -620 ml Capillary Refill : Less Than 3 Seconds Constitutional: AAO x 3 well-developed well-nourished HEENT: PERRL EOMINo xanthelasmas are seen Neck: carotid pulses are 2 + bilaterally with good upstrokes Respiratory: No accessory muscle use, other (Fair air entry, diminished at the bases, basal coarse and fine crackles) Cardiovascular: irregularly irregular S1 and S2 systolic murmur (soft ALLAN at card base) Gastrointestinal: No tender, softNo guarding, No rebound, audible bowel sounds Extremities: swelling (mild bilat leg edema, more on L (post L hip surgery)) No clubbing, No cyanosis Neurologic/Psychiatric: grossly intact power is 5/5 both on sides Skin: No rash on exposed areas, No ulcerations on exposed areas Data Review Labs Laboratory Tests 10/30/16 03:46: Anion Gap 15H, Anisocytosis SLIGHT, BUN/Creatinine Ratio 43, Band Neutrophils 0 , Basophils # (Auto) 0.0, Basophils % (Manual) 0, Basophils (%) (Auto) 0, Blood Urea Nitrogen 83H, Calcium Level 8.0L, Carbon Dioxide Level 22, Chloride Level 99, Creatinine 1.95H, Eosinophils # (Auto) 0.0, Eosinophils % (Manual) 0, Eosinophils (%) (Auto) 0, Estimat Glomerular Filtration Rate 33, Glucose Level 272H, Hematocrit 29L, Hemoglobin 9.4L, Hypochromasia SLIGHT, Lymphocytes # (Auto ) 0.6L, Lymphocytes % (Manual) 3, Lymphocytes (%) (Auto) 5L, Magnesium Level 2.8H, Mean Corpuscular Hemoglobin 31, Mean Corpuscular Hemoglobin Concent 32, Mean Corpuscular Volume 95, Mean Platelet Volume 10.5H, Monocytes # (Auto) 0.9, Monocytes % (Manual) 8, Monocytes (%) (Auto) 7, Neutrophils # (Auto) 11.7H, Neutrophils % (Manual) 89, Neutrophils (%) (Auto) 88H, Nucleated Red Blood Cells 3, Phosphorus Level 4.5, Platelet Count 695H, Poikilocytosis SLIGHT, Polychromasia SLIGHT, Potassium Level 3.8, Red Blood Count 3.06L, Red Cell Distribution Width 14.6H, Sodium Level 136, White Blood Count 13.2H Laboratory Tests 10/29/16 03:42 10/30/16 03:46 A/P-Cardiology Assessment/Admission Diagnosis Multifactorial dyspnea (see below) Post-op pneumonia A Fib with RVR (A Fib first diagnosed in early 2016) Ac diastolic CHF S/p L hip surgery on 10/13/16 (after hip fracture after nonsyncopal fall) Coronary artery disease with history of coronary artery bypass surgery. Last cardiac catheterization was in September [address] Jhaveri and the patient had patent left internal mammary artery graft to left anterior descending, patent vein graft to a diagonal, patient vein graft to an obtuse marginal, and patent vein graft to the right coronary. Myocardial perfusion imaging carried out on February 2016 showed no evidence of ischemia or infarction Peripheral arterial disease. Angiography of August 2009 showed moderate disease of the right superficial femoral, moderately severe disease of the right knee femoral, two-vessel run off in the right leg, severe disease in the distal left leg with one-vessel run off. He is reporting bilateral claudication , more on right. This is being followed by Dr Nunez's office Aortic stenosis. Last echo of February 2016 showed LVEF 60%. Mod aortic stenosis with a peark pressure gradient across the aortic valve of approx 40mmHg and a calculated aortic valve area of approx 1.2 cm sq. Midl MR and TR. 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 He has had complete resolution of symptoms. History of sinus arrhythmia. He was seen by Dr. Sam of the Electrophysiology Service at [facility] after a Holter Monitor Study in 2007 showed brief ventricular asystolic pauses and brief runs of wide complex tachycardia. No further workup was advised. Last Holter Monitor was by Dr. Lilly in April 2008 and did not show any ventricular asystolic pauses. OAC with Eliquis for stroke prophylaxis Intolerance to beta blockers on account of marked bradycardia. Hyperlipidemia being treated with simvastatin. Hypertension under fair to good control. Apparently had had hypotension and amlodipine was reduced by Dr Lilly in January 2014 Degenerative joint disease. Mild carotid arterial disease being followed by Dr. Inman office. 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 Spontaneous left calf bleed in March 2015 for which he is followed with Dr. Main - this has resolved Depression Discussion and Recomendations * Long-acting dilt for vent rate control * Age- and creatinine-adjusted apixaban for stroke prophylaxis * Diuretics as needed for CHF * Pneumonia treatment as directed by the Med Svce * I spoke with him and his in detail and answered questions Clinical Quality Measures DVT/VTE Risk/Contraindication: Risk Factor Score Per Nursin RFS Level Per Nursing on Admit: 4+=Very High KAJAL MARTELL MD FACP FAC CCDS Oct 30, 2016 09:27
--- NOTE | 2016-10-30 11:02 | Physical Therapy Evaluation ---
PT Evaluation-General Medical Diagnosis Admission Date Oct 27, 2016 at 22:14 Medical Diagnosis: Left hip fx. Acute renal failure Onset Date: Oct 27, 2016 Therapy Diagnosis Therapy Diagnosis: severe debility/weakness Height/Weight Height (Feet): 6 Height (Inches): 0.00 Weight (Pounds): 202 Weight (Ounces): 1.6 Precautions Precautions/Isolations: Fall Prevention, Standard Precautions, Pressure Ulcer Weight Bear Status Weight Bearing Restriction: Weight Bearing/Tolerated Referral Physician: Dr. Ortiz Reason for Referral: Evaluation/Treatment Medical History Pertinent Medical History: Atrial Fib, Arthritis, CABG, CAD, COPD, CVA, HTN, Hypothroidism, [place], Renal Insufficiency Additional Medical History persistent hypoxia Current History persistent hypoxia and on thermaflow O2; pulmonary edema Reviewed History: Yes Social History Home: Single Level Current Living Status: Significant Other Entry Into Home: Stairs With Railing PT Steps Into Home: 3 Prior/Core FIM Prior Level of Function Functional Whit[place] Measure 0=Not Assessed/NA 4=Minimal Assistance 1=Total Assistance 5=Supervision or Setup 2=Maximal Assistance 6=Modified [place] 3=Moderate Assistance 7=Complete [place] Bed Mobility: 6 Transfers (B,C,W/C) (FIM): 6 Gait: 6 modified independent at home prior to fall; dependent assist since hip surgery PT Evaluation-Current Subjective Patient is in bed on thermaflow and agrees to PT. Pain Numeric Pain Scale: 7 Location: Left Location Body Site: Hip Pain Description: Ache, Pressure Objective Patient Orientation: Person, Time, Situation Problem Solving: Fair Attachments: Oxygen, Bautista Catheter, IV ROM/Strength ROM Lower Extremities left LE decreased flexion/extension AROM; PROM WFL right LE decreased flexion/extension AROM; PROM WFL Strenght Lower Extremities left knee flexion/extension 2-/5; hip flexion 1/5; ankle dorsi/plantarflexion 2- /5 right knee flexion/extension 2-/5; hip flexion1+/5; ankle dorsi/plantarflexion 2 -/5 Integumentary/Posture Integumentary refer to nursing notes. Bladder Incontinence: Bautista Cath Posture hip flexed/knee flexed posture Neuromuscular (Tone, Coordination, Reflexes) severely diminished coordination Sensory Vision: Functional Hearing: Impaired Sensation Right Lower Extremit: Impaired Sensation Left Lower Extremity: Impaired Transfers Functional Whitman Measure 0=Not Assessed/NA 4=Minimal Assistance 1=Total Assistance 5=Supervision or Setup 2=Maximal Assistance 6=Modified Whitman 3=Moderate Assistance 7=Complete Whitman Transfers (B, C, W/C) (FIM): 1 Scootin Rollin Supine to/from Sit: 1 bed t/f WC(FIM only if WC use): 1 Patient unable to assist with mobility due to extreme weakness; patient unable to maintain sitting EOB without assistance Gait Mode of Locomotion: Wheelchair Anticipated Mode of Locomotion: Both Balance Sitting Static: Poor Sitting Dynamic: Poor Standing Static: Poor Standing Dynamic: Poor Assessment/Needs 89 y.o. male, will benefit from skilled PT to address functional strength and mobility to improve current LOF. From a PT standpoint, patient will require LTCF to allow patient to recover at a pace suitable for him. Patient has been receiving skilled therapies since surgery and has been unable to tolerate extended time therapies. Rehab Potential: Guarded PT Short Term Goals Short Term Goals Transfers (B,C,W/C) (FIM): 4 PT Skilled Nursing Goals Cutting Table Operator Goals PT Cutting Table Operator Goals Time Frame: Nov 07, 2016 Transfers (B,C,W/C) (FIM): 2 Gait (FIM): 1 Gait distance (FIM): 1=up to 49 ft Distance: 5' Gait Level of Assist: 2 Gait Assistive Device: FWW PT Plan Problem List Problem List: Activity Tolerance, Functional Strength, Balance, Gait, Transfer , Bed Mobility Treatment/Plan Treatment Plan: Continue Plan of Care Treatment Plan: Bed Mobility, Education, Functional Activity Geovani, Functional Strength, Gait, Safety, Therapeutic Exercise, Transfers Treatment Duration: Nov 07, 2016 # of days/week 6 Visits Per Week: 6-11 Pt/Family Agrees w/Plan: Yes Safety Risks/Education Patient Education: Disease Process, Safety Issues Teaching Recipient: Patient, Significant Other Teaching Methods: Discussion Response to Teaching: Verbalize Understanding Discharge Recommendations Therapy D/C Recommendations: Half-Way Placement, Long Term (TCU/NH) Time/GCodes Time In: 940 Time Out: 1010 Total Billed Treatment Time: 30 Total Billed Treatment 1 visit EVModC 30 min RAQUEL AYALA PT Oct 30, 2016 11:02
[2016-10-30] MEDS: CEFEPIME INJECTION 2,000 MG in NS (IVPB) 50 ML IV SCH (12:22)
[2016-10-30] MEDS: DILTIAZEM 120 MG (CARDIZEM CD) CAP PO SCH (12:22)
--- NOTE | 2016-10-30 13:35 | Occupational Ther Daily Note ---
OT Current Status-Daily Note Subjective Pt just returning to bed with nrsg. Transfer and bed mobility x2, per nrsg. Pt attempted to decline OT. OT encouraged pt to do UE exercises. Pt agreed to therapy. Mental Status/Objective Patient Orientation: Person, Unable to Assess Functional [place] Measure 0=Not Assessed/NA 4=Minimal Assistance 1=Total Assistance 5=Supervision or Setup 2=Maximal Assistance 6=Modified [place] 3=Moderate Assistance 7=Complete [place] Attachments: Bautista Catheter, IV, Oxygen, Telemetry Other Treatment Assist x2 for bed mobility, per nrsg. Pt kept eyes closed during UE exercises. Pt required assistance to complete full ROM with shldr flexion (10x), assist to decrease resistance for elbow flex/ext and horizontal shldr int/ext rotation (10x). Pt's O2 sats would fluctuate between 80 and 95 during exercises and HR would fluctuate between 88 and 118 during exercises. With short recovery breaks pt was able to get to normal O2 and HR. After therapy, pt stated that his head was hurting, OT reported to nrsg. Call light/phone in reach. All needs met in room. OT Short Term Goals Short Term Goals Time Frame: Nov 12, 2016 Eating(FIM): 5 Grooming(FIM): 5 Bathing(FIM): 3 Upper Body Dressing(FIM): 4 Lower Body Dressing(FIM): 4 Toileting(FIM): 4 Transfers (B,C,W/C) (FIM): 4 Toilet/Commode Transfer(FIM): 4 Additional Short Term Goals: 1-Demonstrate ADL Tasks, 2-Verbalize Understanding , 3-ImproveStrength/Geovani 1=Demonstrate adherence to instructed precautions during ADL tasks. 2=Patient will verbalize/demonstrate understanding of assistive devices/ modifications for ADL. 3=Patient will improve strength/tolerance for activity to enable patient to perform ADL's. OT Auxiliary Powerplant Operator Goals Auxiliary Powerplant Operator Goals Time Frame: Nov 26, 2016 Eating (FIM): 6 Grooming(FIM): 6 Bathing(FIM): 5 Upper Body Dressing(FIM): 5 Lower Body Dressing(FIM): 5 Toileting(FIM): 5 Transfers (B,C,W/C) (FIM): 6 Toilet/Commode Transfer(FIM): 6 Additional Goals: 1-Demonstrate ADL Tasks, 2-Verbalize Understanding, 3- ImproveStrength/Geovani 1=Demonstrate adherence to instructed precautions during ADL tasks. 2=Patient will verbalize/demonstrate understanding of assistive devices/ modifications for ADL. 3=Patient will improve strength/tolerance for activity to enable patient to perform ADL's. OT Education/Plan Discharge Recommendations Plan/Recommendations: Continue POC Treatment Plan/Plan of Care Patient would benefit from OT for education, treatment and training to promote independence in ADL's, mobility, safety and/or upper extremity function for ADL' s. Plan of Care: ADL Retraining, Caregiver Training, Functional Mobility, UE Funct Exercise/Act Treatment Duration: Nov 26, 2016 Visits Per Week: 5-6 Agreement: Yes Rehab Potential: Guarded Time/GCodes Start Time: 13:05 Stop Time: 13:15 Total Time Billed (hr/min): 10 Billed Treatment Time 1 visit-EX 1 (10 min) KARLY ENGLE Oct 30, 2016 13:35
[2016-10-30] MEDS: FAMOTIDINE 20MG/2ML IV (PEPCID) IVP SCH (22:47)
[2016-10-30] MEDS: ALFUZOSIN HCL 10 MG TAB (UROXATRAL) PO SCH (22:47)
[2016-10-31] VITALS: BP 100/73
[2016-10-31] MEDS: RT-ALBUTEROL/IPRATROPIUM 3 ML (DUONEB) VIAL INH SCH ×6 (02:21→22:15)
[2016-10-31 04:00] VITALS: BP 100/61
[2016-10-31 04:22] LABS: BASOPHILS % (AUTO) 0 % (0-10); EOSINOPHILS % (AUTO) 0 % (0-10); LYMPHOCYTES # (AUTO) 0.5 X 10^3 (1.0-4.0); LYMPHOCYTES % (AUTO) 4 % (12-44); MEAN CORPUSCULAR HEMOGLOBIN 31 PG (25-34); MEAN CORPUSCULAR HGB CONC 32 G/DL (32-36); MEAN CORPUSCULAR VOLUME 96 FL (80-99); MEAN PLATELET VOLUME 10.4 FL (7.4-10.4); MONOCYTES # (AUTO) 1.1 X 10^3 (0.0-1.0); MONOCYTES % (AUTO) 8 % (0-12); NEUTROPHILS # (AUTO) 13.1 X 10^3 (1.8-7.8); NEUTROPHILS % (AUTO) 89 % (42-75); PLATELET COUNT 612 10^3/uL (130-400); RED BLOOD COUNT 3.11 10^6/uL (4.35-5.85); RED CELL DISTRIBUTION WIDTH 15.1 % (10.0-14.5); WHITE BLOOD COUNT 14.7 10^3/uL (4.3-11.0)
[2016-10-31 04:44] LABS: CALCIUM 8.1 MG/DL (8.5-10.1); CREATININE SERUM 2.05 MG/DL (0.60-1.30); MAGNESIUM 2.7 MG/DL (1.8-2.4); PHOSPHORUS 3.9 MG/DL (2.3-4.7); POTASSIUM 3.7 MMOL/L (3.6-5.0)
--- NOTE | 2016-10-31 06:29 | Pulmonary Progress Note ---
Subjective Subjective/Events-last exam Pt is doing about the same as yesterday. Exam Exam Vital Signs Date Time Temp Pulse Resp B/P Pulse Ox O2 Delivery O2 Flow Rate FiO2 10/31/16 04:00 87 17 100/61 93 Vapotherm 60.00 15.00 10/31/16 02:21 92 15.00 60 10/31/16 01:00 77 10/31/16 00:00 98 21 100/73 89 Vapotherm 60.00 15.00 10/31/16 00:00 97.2 Vapotherm 60.00 15.00 10/30/16 22:27 91 15.00 60 10/30/16 20:30 93 15.00 60 10/30/16 20:00 96.6 Vapotherm 60.00 15.00 10/30/16 20:00 93 16 97/64 90 Vapotherm 60.00 15.00 10/30/16 20:00 93 15.00 60 10/30/16 19:00 78 10/30/16 18:29 90 15.00 60 10/30/16 16:11 73 22 86/51 92 Vapotherm 15.00 15.00 10/30/16 14:33 94 15.00 60 10/30/16 13:00 89 10/30/16 12:00 96.4 96 18 91/76 93 Vapotherm 10/30/16 11:03 96 20.00 65 10/30/16 08:00 90 30.00 10/30/16 08:00 96.0 91 18 104/61 94 Vapotherm 10/30/16 07:05 93 30.00 75 10/30/16 07:01 93 30.00 75 10/30/16 07:00 98 I & O 10/31/16 07:00 Output Total 580 ml Balance -580 ml General Appearance: No Apparent Distress HEENT: PERRL/EOMI Other (SKIN ABRASION AT BRIDGE OF NOSE FROM BIPAP) Neck: Supple Respiratory: Chest Non Tender Decreased Breath Sounds Cardiovascular: Tachycardia Capillary Refill: Less Than 3 Seconds Extremity: Normal Capillary Refill Pedal Edema Other (LEFT LATERAL HIP INCISION C/D/I) Neurologic/Psychiatric: Alert Oriented x3 Normal Mood/Affect Skin: Warm/Dry Lymphatic: No Adenopathy Results Lab Laboratory Tests 10/30/16 03:46 10/31/16 04:10 Assessment/Plan Assessment/Plan Dyspnea probably secondary to pulmonary edema -Continue lasix 20mg BID -Pt has been requiring BiPAP -Will trial off BiPAP this morning and see how he does. -Oxygen solumedrol - decrease to BID -SVNS Bilateral pleural effusion -Pt is on anticoagulation. Thoracentesis can be done however anticoagulation will have to be stopped for 48hrs. -- Will increase lasix and continue to monitor. Pt appears improved and CXR lags behind clinical appearance. Renal function is actually improving while on lasix. -Check echocardiogram Pneumonia -Continue Levaquin and cefepime Left hip fracture ARF -Monitor Clinical Quality Measures DVT/VTE Risk/Contraindication: Risk Factor Score Per Nursin RFS Level Per Nursing on Admit: 4+=Very High HEIDI LEHMAN DO Oct 31, 2016 06:29
[2016-10-31] MEDS: LEVOTHYROXINE 125 MCG (LEVOTHROID) TABLET PO SCH (06:43)
[2016-10-31] MEDS: BETHANECHOL 25 MG (URECHOLINE) TAB PO SCH ×2 (06:43→15:19)
[2016-10-31] MEDS: RT-BUDESONIDE NEBS 0.5 MG/2ML (PULMICORT) AMP INH SCH ×2 (06:49→19:00)
[2016-10-31] MEDS ORDERED: FUROSEMIDE 40 MG/4 ML INJ (LASIX) IVP SCH (07:00)
[2016-10-31 08:00] VITALS: BP 107/61
--- NOTE | 2016-10-31 08:49 | Progress Note (SOAP) ---
Subjective Subjective/Events-last exam PT REPORTS THAT HE IS FEELING FATIGUED TODAY - HE WAS PLACED ON LOWER AMOUNT OF OXYGEN AND LOWER FLOW RATE ON THE VAPOTHERM - HE REPORTS THAT HE IS JUST WORN OUT THIS MORNING. Review of Systems General: Fatigue HEENT: No Head Aches Pulmonary: Dyspnea Cardiovascular: No: Chest Pain, Edema Gastrointestinal: No: Nausea Genitourinary: Other (PACE IN PLACE) Neurological: : WeaknessNo: Confusion Objective Exam Vital Signs Date Time Temp Pulse Resp B/P Pulse Ox O2 Delivery O2 Flow Rate FiO2 10/31/16 07:00 99 10/31/16 06:53 90 16.00 63 10/31/16 06:52 92 16.00 63 10/31/16 04:00 87 17 100/61 93 Vapotherm 60.00 15.00 10/31/16 02:21 92 15.00 60 10/31/16 01:00 77 10/31/16 00:00 98 21 100/73 89 Vapotherm 60.00 15.00 10/31/16 00:00 97.2 Vapotherm 60.00 15.00 10/30/16 22:27 91 15.00 60 10/30/16 20:30 93 15.00 60 10/30/16 20:00 96.6 Vapotherm 60.00 15.00 10/30/16 20:00 93 16 97/64 90 Vapotherm 60.00 15.00 10/30/16 20:00 93 15.00 60 10/30/16 19:00 78 10/30/16 18:29 90 15.00 60 10/30/16 16:11 73 22 86/51 92 Vapotherm 15.00 15.00 10/30/16 14:33 94 15.00 60 10/30/16 13:00 89 10/30/16 12:00 96.4 96 18 91/76 93 Vapotherm 10/30/16 11:03 96 20.00 65 I & O 10/31/16 07:00 Intake Total 300 ml Output Total 905 ml Balance -605 ml Capillary Refill : Less Than 3 Seconds General Appearance: No Apparent Distress WD/WN HEENT: PERRL/EOMI Pharynx Normal Neck: Full Range of Motion Supple Respiratory: Chest Non Tender Crackles Decreased Breath Sounds Cardiovascular: Regular Rate, Rhythm Gastrointestinal: normal bowel sounds non tender soft Extremity: Normal Capillary Refill Pedal Edema Neurologic/Psychiatric: Alert Oriented x3 No Motor/Sensory Deficits Normal Mood/Affect Skin: Normal Color Lymphatic: No Adenopathy Results Lab Laboratory Tests 10/31/16 04:10: Anion Gap 14, BUN/Creatinine Ratio 43, Basophils # (Auto) 0.0, Basophils (%) ( Auto) 0, Blood Urea Nitrogen 89H, Calcium Level 8.1L, Carbon Dioxide Level 24, Chloride Level 97L, Creatinine 2.05H, Eosinophils # (Auto) 0.0, Eosinophils (%) (Auto) 0, Estimat Glomerular Filtration Rate 31, Glucose Level 316H, Hematocrit 30L, Hemoglobin 9.6L, Lymphocytes # (Auto) 0.5L, Lymphocytes (%) (Auto) 4L, Magnesium Level 2.7H, Mean Corpuscular Hemoglobin 31, Mean Corpuscular Hemoglobin Concent 32, Mean Corpuscular Volume 96, Mean Platelet Volume 10.4, Monocytes # (Auto) 1.1H, Monocytes (%) (Auto) 8, Neutrophils # (Auto) 13.1H, Neutrophils (%) (Auto) 89H, Phosphorus Level 3.9, Platelet Count 612H, Potassium Level 3.7, Red Blood Count 3.11L, Red Cell Distribution Width 15.1H, Sodium Level 135, White Blood Count 14.7H Assessment/Plan Assessment/Plan Assess & Plan/Chief Complaint LEFT HIP FRACTURE - INTERTROCHANTERIC - POST-OP SURGICAL REPAIR WEAKNESS FATIGUE HYPERTENSION WITH ACUTE HYPOTENSION ACUTE RENAL FAILURE AFIB CHRONIC ANTICOAGULATION USE CORONARY ARTERY DISEASE HYPOTHYROID BPH ANEMIA CHF LEFT HIP FRACTURE - POST-OP LEFT HIP FRACTURE REPAIR WITH DR. WING - CONTINUE WITH SWING BED [facility] WHEN PT ABLE ACUTE RENAL FAILURE - DUE TO HYPOTENSION, SUPPORTIVE CARE, BUN ELEVATED, MONITOR I/O CLOSELY. SUPPORT PRESSURE TO PREVENT RENAL SHOCK. - STABLE CREATININE ELEVATED LIVER ENZYMES - RESOLVED PNEUMONIA - RESPIRATORY DISTRESS - PULMONARY EDEMA - DR. LEHMAN CONSULTED - IV ANTIBIOTICS INITIATED, - PT ON VAPOTHERM NOW, CONTINUE WITH SUPPORTIVE CARE AFIB - - CONTINUE ANTICOAGULANT - DEFER TREATMENT TO DR. MARTELL HTN CHRONIC WITH ACUTE HYPOTENSION - SUPPORTIVE CARE - MONITOR BLOOD PRESSURE CLOSELY HYPOTHYROID - RESTARTED LEVOTHYROXINE BPH - URINARY RETENTION RESOLVED WITH BETHANECHOL FOR RETENTION - INITIALLY - PACE IN PLACE, WILL LEAVE IN FOR ANOTHER 24-48 HOURS DEPENDING ON PT'S STRENGTH - DISCUSSED THIS WITH PT AND . ANEMIA - STABLE ANXIETY - PT GIVEN LOW DOSE OF ATIVAN - PANIC EVENTS IMPROVED. DISCUSSED AGAIN WITH AND PT - WILL KEEP IN A STEP-DOWN STATUS WHEN PT ABLE TO BE DISCHARGED FROM ICU STATUS AND WILL CONSIDER SWING BED IN HOSPITAL FOR SHORT TIME BEFORE DECIDING ON SKILLED NURSING [facility] Diagnosis/Problems: Clinical Quality Measures DVT/VTE Risk/Contraindication: Risk Factor Score Per Nursin RFS Level Per Nursing on Admit: 4+=Very High TARAS TITUS MD Oct 31, 2016 08:49
--- NOTE | 2016-10-31 09:10 | Physical Therapy Progress Note ---
Therapy Progress Note Patient adamantly declined PT stating, "I feel terrible." PT attempted to encourage patient to be up in recliner or exercise to increase strength, however , patient continued to declined PT intervention. PT will attempt later today. 1 ref RAQUEL AYALA PT Oct 31, 2016 09:10
[2016-10-31 10:00] VITALS: BP 101/57
[2016-10-31] MEDS: APIXABAN 2.5 MG (ELIQUIS) TABLET PO SCH ×2 (10:21→21:00)
[2016-10-31] MEDS: DILTIAZEM 120 MG (CARDIZEM CD) CAP PO SCH (10:21)
[2016-10-31] MEDS: LEVOFLOXACIN 250 MG/50 ML IVPB 50 ML IV SCH (10:21)
[2016-10-31] MEDS: SENNA W/DOCUSATE (SENOKOT S) TABLET PO SCH ×2 (10:21→21:00)
[2016-10-31] MEDS: ASPIRIN 81 MG CHEW (CHILDREN'S ASA) PO SCH (10:21)
[2016-10-31] MEDS: methylPREDNISolone 40 MG/ML (Solu-MEDROL) VIAL IV SCH ×2 (10:21→21:00)
[2016-10-31] MEDS: inSUlin (REGULAR) HUMAN 1 UNIT/0.01 ML (CHARGE PER UNIT) SC SCH ×3 (10:36→21:00)
[2016-10-31] MEDS: RT-ADVAIR HFA 115/21 MCG PER PUFF IH SCH ×2 (10:41→22:15)
--- NOTE | 2016-10-31 10:59 | Occ Therapy Progress Note ---
Therapy Progress Note Pt lying in bed and awake. present in room. Pt was getting testing completed in bed. OT encouraged pt to complete UE exercises and to move a bit, pt declined. Pt stated that he does not feel good. stated that he hasn't been up today and wanted him to get into the recliner. OT to check back later today. 1 ref KARLY ENGLE Oct 31, 2016 10:59
--- NOTE | 2016-10-31 11:05 | Physical Therapy Progress Note ---
Therapy Progress Note Patient refused therapy for a second time this morning. Patient and his state that he has had testing all morning. Patient states "they put me through the works and I just can't do it this morning". Will try back this afternoon. LEBRON ROSALES PT Oct 31, 2016 11:05
--- NOTE | 2016-10-31 11:10 | Diagnostic Imaging Report ---
INDICATION: Dyspnea. Comparison with 10/30/2016. FINDINGS: There continues to be cardiomegaly. Pulmonary venous congestion with dense bilateral basilar alveolar infiltrates and pleural effusions. No pneumothorax. Median sternotomy changes are again noted. IMPRESSION: Findings again consistent with congestive failure with dense bibasilar infiltrate. No appreciable change since previous exam. Dictated by: Dictated on workstation # [id number]
--- NOTE | 2016-10-31 12:28 | Progress Note-Cardiology ---
Cardiology SOAP Progress Note Subjective: Feels weak and tired Denies cp or palp or syncope Objective: I&O/Vital Signs Vital Sign - Last 12Hours 10/31/16 10/31/16 10/31/16 10/31/16 01:00 02:21 04:00 06:52 Pulse 77 87 Resp 17 B/P 100/61 Pulse Ox 92 93 92 O2 Delivery Vapotherm O2 Flow Rate 15.00 60.00 16.00 15.00 FiO2 60 63 10/31/16 10/31/16 10/31/16 10/31/16 06:53 07:00 10:42 10:43 Pulse 99 Pulse Ox 90 91 O2 Flow Rate 16.00 20.00 20.00 FiO2 63 75 75 Intake and Output 10/31/16 00:00 Output Total 280 ml Balance -280 ml Weight (Pounds): 201 Weight (Ounces): 1.6 Weight (Calculated Kilograms): [id number] Constitutional: AAO x 3 well-developed well-nourished Respiratory: No accessory muscle use, other (Fair air entry, diminished at the bases, basal coarse and fine crackles) Cardiovascular: irregularly irregular S1 and S2 systolic murmur (soft ALLAN at card base) Gastrointestional: No tender, softNo guarding, No rebound, audible bowel sounds Extremities: swelling (mild bilat leg edema, more on L (post L hip surgery)) No clubbing, No cyanosis Neurologic/Psychiatric: grossly intact power is 5/5 both on sides Skin: No rash on exposed areas, No ulcerations on exposed areas Results/Procedures: Labs Laboratory Tests 10/31/16 04:10: Anion Gap 14, BUN/Creatinine Ratio 43, Basophils # (Auto) 0.0, Basophils (%) ( Auto) 0, Blood Urea Nitrogen 89H, Calcium Level 8.1L, Carbon Dioxide Level 24, Chloride Level 97L, Creatinine 2.05H, Eosinophils # (Auto) 0.0, Eosinophils (%) (Auto) 0, Estimat Glomerular Filtration Rate 31, Glucose Level 316H, Hematocrit 30L, Hemoglobin 9.6L, Lymphocytes # (Auto) 0.5L, Lymphocytes (%) (Auto) 4L, Magnesium Level 2.7H, Mean Corpuscular Hemoglobin 31, Mean Corpuscular Hemoglobin Concent 32, Mean Corpuscular Volume 96, Mean Platelet Volume 10.4, Monocytes # (Auto) 1.1H, Monocytes (%) (Auto) 8, Neutrophils # (Auto) 13.1H, Neutrophils (%) (Auto) 89H, Phosphorus Level 3.9, Platelet Count 612H, Potassium Level 3.7, Red Blood Count 3.11L, Red Cell Distribution Width 15.1H, Sodium Level 135, White Blood Count 14.7H 10/31/16 10:30: Glucometer 366H Laboratory Tests 10/30/16 03:46 10/31/16 04:10 A/P: Assessment: Acute on chronic renal failure. Acute component likely due to vol depletion ( excessive diuresis) Multifactorial dyspnea (see below) Post-op pneumonia A Fib with RVR (A Fib first diagnosed in early 2016) Ac diastolic CHF, currently clinically compensated S/p L hip surgery on 10/13/16 (after hip fracture after nonsyncopal fall) Coronary artery disease with history of coronary artery bypass surgery. Last cardiac catheterization was in September [address] Jhaveri and the patient had patent left internal mammary artery graft to left anterior descending, patent vein graft to a diagonal, patient vein graft to an obtuse marginal, and patent vein graft to the right coronary. Myocardial perfusion imaging carried out on February 2016 showed no evidence of ischemia or infarction Peripheral arterial disease. Angiography of August 2009 showed moderate disease of the right superficial femoral, moderately severe disease of the right knee femoral, two-vessel run off in the right leg, severe disease in the distal left leg with one-vessel run off. He is reporting bilateral claudication , more on right. This is being followed by Dr Nunez's office Aortic stenosis. Last echo of February 2016 showed LVEF 60%. Mod aortic stenosis with a peark pressure gradient across the aortic valve of approx 40mmHg and a calculated aortic valve area of approx 1.2 cm sq. Midl MR and TR. 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 He has had complete resolution of symptoms. History of sinus arrhythmia. He was seen by Dr. Sam of the Electrophysiology Service at [facility] after a Holter Monitor Study in 2007 showed brief ventricular asystolic pauses and brief runs of wide complex tachycardia. No further workup was advised. Last Holter Monitor was by Dr. Lilly in April 2008 and did not show any ventricular asystolic pauses. OAC with Eliquis for stroke prophylaxis Intolerance to beta blockers on account of marked bradycardia. Hyperlipidemia being treated with simvastatin. Hypertension under fair to good control. Apparently had had hypotension and amlodipine was reduced by Dr Lilly in January 2014 Degenerative joint disease. Mild carotid arterial disease being followed by Dr. Inman office. 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 Spontaneous left calf bleed in March 2015 for which he is followed with Dr. Main - this has resolved Depression Plan: * Add iv fluids * Reduce diuretics * Monitor labs * Long-acting dilt for vent rate control * Age- and creatinine-adjusted apixaban for stroke prophylaxis * Diuretics as needed for CHF * Pneumonia treatment as directed by the Med Svce * I spoke with him and his in detail and answered questions KAJAL MARTELL MD FACP FACC CCDS Oct 31, 2016 12:28
--- NOTE | 2016-10-31 13:30 | Occ Therapy Progress Note ---
Therapy Progress Note Pt alert, lying in bed. Pt declined therapy stating that he is done in and has nothing left, he stated he was tired. Check on pt on Thursday. 2 ref KARLY ENGLE Oct 31, 2016 13:30
--- NOTE | 2016-10-31 13:51 | Physical Therapy Progress Note ---
Therapy Progress Note PT attempted treatment, however, patient states, "I have nothing. I am done and I'm ready to go home." This PT respects patient's wishes. Will attempt in a.m. 1 ref RAQUEL AYALA PT Oct 31, 2016 13:51
[2016-10-31 14:00] VITALS: BP 102/70
[2016-10-31] MEDS: CEFEPIME INJECTION 2,000 MG in NS (IVPB) 50 ML IV SCH (15:19)
[2016-10-31] MEDS: NS IV 1000 ML 1,000 ML IV SCH (15:19)
[2016-10-31 16:00] VITALS: BP 115/70
[2016-10-31] MEDS: ALFUZOSIN HCL 10 MG TAB (UROXATRAL) PO SCH (21:00)
[2016-10-31] MEDS: FAMOTIDINE 20MG/2ML IV (PEPCID) IVP SCH (21:00)
[2016-11-01] VITALS (12 sets, daily range): BP systolic 96–129; BP diastolic 64–91
[2016-11-01] MEDS: NS IV 1000 ML 1,000 ML IV SCH ×4 (01:33→23:32)
[2016-11-01] MEDS: RT-ALBUTEROL/IPRATROPIUM 3 ML (DUONEB) VIAL INH SCH ×6 (02:09→21:44)
[2016-11-01 03:52] LABS: BASOPHILS % (AUTO) 0 % (0-10); EOSINOPHILS % (AUTO) 0 % (0-10); LYMPHOCYTES # (AUTO) 1.3 X 10^3 (1.0-4.0); LYMPHOCYTES % (AUTO) 6 % (12-44); MEAN CORPUSCULAR HEMOGLOBIN 31 PG (25-34); MEAN CORPUSCULAR HGB CONC 32 G/DL (32-36); MEAN CORPUSCULAR VOLUME 96 FL (80-99); MEAN PLATELET VOLUME 10.6 FL (7.4-10.4); MONOCYTES # (AUTO) 1.2 X 10^3 (0.0-1.0); MONOCYTES % (AUTO) 6 % (0-12); NEUTROPHILS # (AUTO) 18.7 X 10^3 (1.8-7.8); NEUTROPHILS % (AUTO) 88 % (42-75); PLATELET COUNT 655 10^3/uL (130-400); RED BLOOD COUNT 3.25 10^6/uL (4.35-5.85); RED CELL DISTRIBUTION WIDTH 15.4 % (10.0-14.5); WHITE BLOOD COUNT 21.3 10^3/uL (4.3-11.0)
[2016-11-01 04:06] LABS: CREATININE SERUM 1.84 MG/DL (0.60-1.30); MAGNESIUM 2.5 MG/DL (1.8-2.4); PHOSPHORUS 4.1 MG/DL (2.3-4.7); POTASSIUM 3.9 MMOL/L (3.6-5.0)
[2016-11-01] MEDS: BETHANECHOL 25 MG (URECHOLINE) TAB PO SCH ×2 (06:36→17:03)
[2016-11-01] MEDS: inSUlin (REGULAR) HUMAN 1 UNIT/0.01 ML (CHARGE PER UNIT) SC SCH ×4 (06:36→21:00)
[2016-11-01] MEDS: LEVOTHYROXINE 125 MCG (LEVOTHROID) TABLET PO SCH (06:36)
[2016-11-01] MEDS: RT-BUDESONIDE NEBS 0.5 MG/2ML (PULMICORT) AMP INH SCH ×2 (07:25→19:00)
[2016-11-01] MEDS: FUROSEMIDE 40 MG/4 ML INJ (LASIX) IVP SCH (07:53)
--- NOTE | 2016-11-01 08:01 | Progress Note (SOAP) ---
Subjective Subjective/Events-last exam patient had episode of short of the year this morning and willing to go on BiPAP. Patient's wound healed well. Remove every other staple today. states he feels patient is starting to give up. Pneumonia. Left hip fracture. Hypertension. Acute renal failure. A. fib. Coronary artery disease Objective Exam Vital Signs Date Time Temp Pulse Resp B/P Pulse Ox O2 Delivery O2 Flow Rate FiO2 11/01/16 07:25 88 20.00 75 11/01/16 04:00 98 17 97/64 89 Vapotherm 60.00 15.00 11/01/16 02:10 90 20.00 75 11/01/16 01:01 95 11/01/16 00:00 97.6 82 17 113/82 92 Vapotherm 60.00 15.00 10/31/16 22:16 20.00 75 10/31/16 22:15 90 20.00 75 10/31/16 20:00 93 15.00 60 10/31/16 19:27 86 10/31/16 19:04 20.00 75 10/31/16 19:00 91 20.00 75 10/31/16 18:40 97.2 10/31/16 16:00 92 23 115/70 91 Vapotherm 60.00 15.00 10/31/16 14:42 92 20.00 75 10/31/16 14:00 93 26 102/70 99 Vapotherm 60.00 15.00 10/31/16 13:00 91 10/31/16 10:43 20.00 75 10/31/16 10:42 91 20.00 75 10/31/16 10:00 87 22 101/57 92 Vapotherm 60.00 15.00 10/31/16 08:00 93 15.00 60 10/31/16 08:00 85 20 107/61 91 Vapotherm 60.00 15.00 I & O 11/01/16 07:00 Intake Total 1250 ml Output Total 1490 ml Balance -240 ml Capillary Refill : Less Than 3 Seconds General Appearance: WD/WN Mild Distress HEENT: Normal ENT Inspection Neck: Normal Inspection Respiratory: Other (congestion and chest) Cardiovascular: Irregularly Irregular Gastrointestinal: non tender soft Results Lab Laboratory Tests 11/01/16 03:35 Laboratory Tests 10/31/16 10:30: Glucometer 366H 10/31/16 15:16: Glucometer 302H 11/01/16 03:35: Anion Gap 15H, BUN/Creatinine Ratio 45, Basophils # (Auto) 0.0, Basophils (%) ( Auto) 0, Blood Urea Nitrogen 82H, Calcium Level 8.0L, Carbon Dioxide Level 21, Chloride Level 98, Creatinine 1.84H, Eosinophils # (Auto) 0.0, Eosinophils (%) ( Auto) 0, Estimat Glomerular Filtration Rate 35, Glucose Level 220H, Hematocrit 31L, Hemoglobin 10.0L, Lymphocytes # (Auto) 1.3, Lymphocytes (%) (Auto) 6L, Magnesium Level 2.5H, Mean Corpuscular Hemoglobin 31, Mean Corpuscular Hemoglobin Concent 32, Mean Corpuscular Volume 96, Mean Platelet Volume 10.6H, Monocytes # (Auto) 1.2H, Monocytes (%) (Auto) 6, Neutrophils # (Auto) 18.7H, Neutrophils (%) (Auto) 88H, Phosphorus Level 4.1, Platelet Count 655H, Potassium Level 3.9, Red Blood Count 3.25L, Red Cell Distribution Width 15.4H, Sodium Level 134L, White Blood Count 21.3H Assessment/Plan Assessment/Plan Assess & Plan/Chief Complaint patient giving up. Pneumonia. Left hip fracture. Wound healed well have krystyna removed. Hypertension. Acute renal failure. Congestive heart failure. Coronary artery disease. A. fib Diagnosis/Problems: Clinical Quality Measures DVT/VTE Risk/Contraindication: Risk Factor Score Per Nursin RFS Level Per Nursing on Admit: 4+=Very High LUIS ALBERTO GALLO DO Nov 01, 2016 08:01
[2016-11-01] MEDS: methylPREDNISolone 40 MG/ML (Solu-MEDROL) VIAL IV SCH ×2 (08:38→20:56)
[2016-11-01] MEDS: LEVOFLOXACIN 250 MG/50 ML IVPB 50 ML IV SCH (08:40)
--- NOTE | 2016-11-01 09:39 | Diagnostic Imaging Report ---
INDICATION: Dyspnea. Comparison made with prior examination from 10/31/16. FINDINGS: There's cardiomegaly. There is moderate congestive failure. There are bibasal infiltrates left greater than right. There is a left pleural effusion. There is no pneumothorax. The mediastinum is unremarkable. There has been a previous median sternotomy and coronary bypass graft. IMPRESSION: Cardiomegaly and moderate congestive failure. Bibasal infiltrate left greater than right with a left pleural effusion. Dictated by: Dictated on workstation # [id number]
--- NOTE | 2016-11-01 09:54 | Physical Therapy Progress Note ---
Therapy Progress Note Pt in bed, on Bi-Pap, granddaughter in room. Nursing reports Pt placed on Bi- Pap this AM due to difficulty breathing but improved now, okay with PT to attempt treatment. Pt declined to participate with PT. JOE MOTA DPT Nov 01, 2016 09:54
[2016-11-01] MEDS: CEFEPIME INJECTION 2,000 MG in NS (IVPB) 50 ML IV SCH (12:36)
[2016-11-01] MEDS: RT-ADVAIR HFA 115/21 MCG PER PUFF IH SCH ×2 (14:26→19:00)
[2016-11-01] MEDS: SENNA W/DOCUSATE (SENOKOT S) TABLET PO SCH ×2 (14:58→20:56)
[2016-11-01] MEDS: DILTIAZEM 120 MG (CARDIZEM CD) CAP PO SCH (14:58)
[2016-11-01] MEDS: APIXABAN 2.5 MG (ELIQUIS) TABLET PO SCH ×2 (14:58→20:56)
[2016-11-01] MEDS: ASPIRIN 81 MG CHEW (CHILDREN'S ASA) PO SCH (14:58)
[2016-11-01] MEDS: ALFUZOSIN HCL 10 MG TAB (UROXATRAL) PO SCH (20:56)
[2016-11-01] MEDS: FAMOTIDINE 20MG/2ML IV (PEPCID) IVP SCH (20:57)
[2016-11-02] VITALS (7 sets, daily range): BP systolic 91–115; BP diastolic 64–77
[2016-11-02] MEDS: RT-ALBUTEROL/IPRATROPIUM 3 ML (DUONEB) VIAL INH SCH ×6 (02:18→21:25)
[2016-11-02 04:26] LABS: BASOPHILS % (AUTO) 0 % (0-10); EOSINOPHILS % (AUTO) 0 % (0-10); LYMPHOCYTES # (AUTO) 0.4 X 10^3 (1.0-4.0); LYMPHOCYTES % (AUTO) 3 % (12-44); MEAN CORPUSCULAR HEMOGLOBIN 31 PG (25-34); MEAN CORPUSCULAR HGB CONC 32 G/DL (32-36); MEAN CORPUSCULAR VOLUME 97 FL (80-99); MEAN PLATELET VOLUME 10.6 FL (7.4-10.4); MONOCYTES % (AUTO) 7 % (0-12); NEUTROPHILS # (AUTO) 13.6 X 10^3 (1.8-7.8); NEUTROPHILS % (AUTO) 91 % (42-75); PLATELET COUNT 558 10^3/uL (130-400); RED BLOOD COUNT 3.22 10^6/uL (4.35-5.85); RED CELL DISTRIBUTION WIDTH 15.8 % (10.0-14.5)
[2016-11-02 04:45] LABS: CALCIUM 7.8 MG/DL (8.5-10.1); CREATININE SERUM 1.62 MG/DL (0.60-1.30); MAGNESIUM 2.4 MG/DL (1.8-2.4); POTASSIUM 4.1 MMOL/L (3.6-5.0)
[2016-11-02] MEDS: RT-BUDESONIDE NEBS 0.5 MG/2ML (PULMICORT) AMP INH SCH ×2 (06:11→18:16)
[2016-11-02] MEDS: LEVOTHYROXINE 125 MCG (LEVOTHROID) TABLET PO SCH (06:40)
[2016-11-02] MEDS: inSUlin (REGULAR) HUMAN 1 UNIT/0.01 ML (CHARGE PER UNIT) SC SCH ×4 (06:40→22:00)
[2016-11-02] MEDS: BETHANECHOL 25 MG (URECHOLINE) TAB PO SCH ×3 (06:40→22:01)
--- NOTE | 2016-11-02 07:47 | Progress Note (SOAP) ---
Subjective Subjective/Events-last exam patient feels they did not have a good day yesterday. Took off BiPAP 3 times yesterday and pulse ox went down to the 80s and couldn't breathe. White blood cell count 15,000 better. Chest x-ray yesterday cardiomegaly and moderate CHF, bilateral infiltrate left greater than right with left pleural effusion. GFR 40 better. Diagnosis pneumonia. Left hip fracture. Hypertension. Acute renal failure better. A. fib. Coronary artery disease Objective Exam Vital Signs Date Time Temp Pulse Resp B/P Pulse Ox O2 Delivery O2 Flow Rate FiO2 11/02/16 07:00 90 11/02/16 06:13 85 21 93 40.00 11/02/16 04:00 98.2 11/02/16 04:00 78 14 91/77 97 NIV Bilevel 40.00 11/02/16 03:56 80 18 95 40.00 11/02/16 02:19 84 24 96 40.00 11/02/16 01:00 81 11/02/16 00:17 76 34 95 40.00 11/02/16 00:00 81 101/67 95 NIV Bilevel 40.00 11/01/16 21:44 82 17 96 45.00 11/01/16 21:00 97.0 11/01/16 20:00 96.8 75 19 100/74 96 NIV Bilevel 45.00 11/01/16 19:00 89 19 96 50.00 11/01/16 19:00 81 11/01/16 17:06 95 19 91 50.00 11/01/16 14:49 96 25.00 80 11/01/16 14:27 93 15 97 50.00 11/01/16 13:00 90 11/01/16 12:47 88 26 99 60.00 11/01/16 12:00 96.4 100 20 108/66 99 NIV Bilevel 11/01/16 09:58 87 17 99 70.00 11/01/16 08:00 96.2 84 29 129/91 85 Vapotherm 75.00 20.00 11/01/16 07:54 85 24 91 70.00 I & O 11/02/16 07:00 Intake Total 1630 ml Output Total 1675 ml Balance -45 ml Capillary Refill : Less Than 3 Seconds General Appearance: No Apparent Distress WD/WN HEENT: Normal ENT Inspection Neck: Normal Inspection Respiratory: No Accessory Muscle Use No Respiratory Distress Other (lungs clear than yesterday) Cardiovascular: Irregularly Irregular Gastrointestinal: non tender soft Results Lab Laboratory Tests 11/02/16 04:04 Laboratory Tests 11/01/16 12:40: Glucometer 213H 11/01/16 16:58: Glucometer 222H 11/01/16 21:03: Glucometer 180H 11/02/16 04:04: Anion Gap 13, BUN/Creatinine Ratio 44, Basophils # (Auto) 0.0, Basophils (%) ( Auto) 0, Blood Urea Nitrogen 71H, Calcium Level 7.8L, Carbon Dioxide Level 23, Chloride Level 102, Creatinine 1.62H, Eosinophils # (Auto) 0.0, Eosinophils (%) (Auto) 0, Estimat Glomerular Filtration Rate 40, Glucose Level 206H, Hematocrit 31L, Hemoglobin 9.9L, Lymphocytes # (Auto) 0.4L, Lymphocytes (%) (Auto) 3L, Magnesium Level 2.4, Mean Corpuscular Hemoglobin 31, Mean Corpuscular Hemoglobin Concent 32, Mean Corpuscular Volume 97, Mean Platelet Volume 10.6H, Monocytes # (Auto) 1.0, Monocytes (%) (Auto) 7, Neutrophils # (Auto) 13.6H, Neutrophils (%) (Auto) 91H, Phosphorus Level 4.0, Platelet Count 558H, Potassium Level 4.1, Red Blood Count 3.22L, Red Cell Distribution Width 15.8H, Sodium Level 138, White Blood Count 15.0H Assessment/Plan Assessment/Plan Assess & Plan/Chief Complaint patient giving up. Pneumonia. Left hip fracture. Wound healed well have krystyna removed. Hypertension. Acute renal failure. Congestive heart failure. Coronary artery disease. A. fib. . Patient gets short of breath when off BiPAP yesterday. Renal failure improving. Congestive heart failure. Pneumonia. Left hip fracture. Coronary artery disease. Diagnosis/Problems: Clinical Quality Measures DVT/VTE Risk/Contraindication: Risk Factor Score Per Nursin RFS Level Per Nursing on Admit: 4+=Very High LUIS ALBERTO GALLO DO Nov 02, 2016 07:47
--- NOTE | 2016-11-02 09:00 | Diagnostic Imaging Report ---
INDICATION: Pneumonia. COMPARISON: 11/01/16. FINDINGS: There are bibasilar consolidations and bilateral pleural effusions. There is moderate congestive failure. There has been a previous median sternotomy and coronary bypass graft. There is no pneumothorax. IMPRESSION: Bibasilar consolidations and bilateral pleural effusions. Cardiomegaly and moderately severe congestive failure. Dictated by: Dictated on workstation # [id number]
[2016-11-02] MEDS: LEVOFLOXACIN 250 MG/50 ML IVPB 50 ML IV SCH (10:05)
[2016-11-02] MEDS: methylPREDNISolone 40 MG/ML (Solu-MEDROL) VIAL IV SCH ×2 (10:07→22:00)
[2016-11-02] MEDS: FUROSEMIDE 40 MG/4 ML INJ (LASIX) IVP SCH (10:07)
[2016-11-02] MEDS: ASPIRIN 81 MG CHEW (CHILDREN'S ASA) PO SCH (10:09)
[2016-11-02] MEDS: APIXABAN 2.5 MG (ELIQUIS) TABLET PO SCH ×2 (10:09→22:01)
[2016-11-02] MEDS: DILTIAZEM 120 MG (CARDIZEM CD) CAP PO SCH (10:10)
[2016-11-02] MEDS: SENNA W/DOCUSATE (SENOKOT S) TABLET PO SCH ×2 (10:10→22:00)
[2016-11-02] MEDS: NS IV 1000 ML 1,000 ML IV SCH ×2 (10:56→22:00)
[2016-11-02] MEDS: RT-ADVAIR HFA 115/21 MCG PER PUFF IH SCH ×2 (11:03→18:16)
[2016-11-02] MEDS: CEFEPIME INJECTION 2,000 MG in NS (IVPB) 50 ML IV SCH (13:41)
--- NOTE | 2016-11-02 15:07 | ECHOCARDIOGRAPHY REPORT ---
PROCEDURE PHYSICIAN: MILLY ANTONIO DATE OF PROCEDURE: 10/31/2016 TWO DIMENSIONAL ECHOCARDIOGRAM REPORT PRIMARY PHYSICIAN: ATTENDING PHYSICIAN: Dr. Weaver OTHER PHYSICIAN: REFERRING PHYSICIAN: ORDERING PHYSICIAN: Dr. Ortiz INDICATION FOR THE PROCEDURE: Pneumonia, shortness of breath. MEASUREMENTS DERIVED VALUES LV DIAMETER (LAX) NORMALS NORMALS Diastolic (3.6-5.2) Eject. Fract. (60%+/-6%) Systolic (2.3-3.9) Diastolic Vol. % Shortening (0.22-0.42) Systolic Vol. Aortic Root IVS THICKNESS Diastolic (0.6-1.1) LVPW THICKNESS Diastolic (0.6-1.1) LA DIAMETER Systolic (2.1-3.7) FINDINGS: 1. This is a technically difficult study since the patient was very short of breath and could not lie down. Therefore numerous views were not obtained. Also, the views that were obtained were suboptimal. 2. Sinus rhythm. 3. Left atrial dimensions are enlarged. Left atrial diameter is 4.3 cm. 4. Aortic root is normal. 5. Left ventricular systolic function is borderline normal. Ejection fraction is 50%. Mild concentric LVH is present. Diastolic intraventricular septal diameter is 1.5 cm. 6. We could not comment on wall motion abnormality. 7. Right ventricle was not adequately imaged. 8. There is no evidence of pericardial effusion. 9. IVC was not seen. VALVULAR STRUCTURE OF THE HEART: There is mitral annular calcification with mild mitral regurgitation. There is mild aortic insufficiency and mild tricuspid regurgitation. There is no significant pulmonic valve pathology. RVSP is normal. CONCLUSION: 1. This is very technically difficult study with numerous views that could not be obtained. The views that were obtained were also suboptimal. 2. LV function is probably borderline normal with an EF of 50%. 3. There is mild valvular heart disease. 4. We could not accurately comment on the RV as well as wall motion. Job ID: [id number] Dictated Date: 11/01/2016 17:05:13 Riding Teacher Date: 11/02/2016 15:00:03 / rosalind
[2016-11-02] MEDS: FAMOTIDINE 20MG/2ML IV (PEPCID) IVP SCH (22:00)
[2016-11-02] MEDS: ALFUZOSIN HCL 10 MG TAB (UROXATRAL) PO SCH (22:01)
[2016-11-03] VITALS: BP 110/72
[2016-11-03] MEDS: RT-ALBUTEROL/IPRATROPIUM 3 ML (DUONEB) VIAL INH SCH ×2 (01:46→06:42)
[2016-11-03 04:00] VITALS: BP 115/70
[2016-11-03 04:21] LABS: BASOPHILS % (AUTO) 0 % (0-10); EOSINOPHILS % (AUTO) 0 % (0-10); LYMPHOCYTES # (AUTO) 0.7 X 10^3 (1.0-4.0); LYMPHOCYTES % (AUTO) 5 % (12-44); MEAN CORPUSCULAR HEMOGLOBIN 30 PG (25-34); MEAN CORPUSCULAR HGB CONC 31 G/DL (32-36); MEAN CORPUSCULAR VOLUME 97 FL (80-99); MEAN PLATELET VOLUME 10.8 FL (7.4-10.4); MONOCYTES # (AUTO) 0.6 X 10^3 (0.0-1.0); MONOCYTES % (AUTO) 4 % (0-12); NEUTROPHILS # (AUTO) 13.3 X 10^3 (1.8-7.8); NEUTROPHILS % (AUTO) 91 % (42-75); PLATELET COUNT 495 10^3/uL (130-400); RED BLOOD COUNT 3.35 10^6/uL (4.35-5.85); RED CELL DISTRIBUTION WIDTH 15.9 % (10.0-14.5); WHITE BLOOD COUNT 14.6 10^3/uL (4.3-11.0)
[2016-11-03 04:43] LABS: CALCIUM 7.9 MG/DL (8.5-10.1); CREATININE SERUM 1.51 MG/DL (0.60-1.30); MAGNESIUM 2.4 MG/DL (1.8-2.4); PHOSPHORUS 3.7 MG/DL (2.3-4.7); POTASSIUM 3.9 MMOL/L (3.6-5.0)
[2016-11-03] MEDS: inSUlin (REGULAR) HUMAN 1 UNIT/0.01 ML (CHARGE PER UNIT) SC SCH ×4 (06:00→21:00)
--- NOTE | 2016-11-03 06:28 | Pulmonary Progress Note ---
Subjective Subjective/Events-last exam PT has been requiring BiPAP day and night since Thursday per RN. Exam Exam Vital Signs Date Time Temp Pulse Resp B/P Pulse Ox O2 Delivery O2 Flow Rate FiO2 11/03/16 04:10 81 16 95 40.00 11/03/16 01:46 81 19 94 40.00 11/03/16 01:00 65 11/02/16 23:57 81 25 93 40.00 11/02/16 21:25 88 23 93 40.00 11/02/16 19:55 86 22 93 40.00 11/02/16 19:00 84 11/02/16 18:16 82 19 93 11/02/16 17:43 97.5 84 20 108/64 94 NIV Bilevel 11/02/16 16:52 97.5 11/02/16 15:00 86 20 100/69 92 NIV Bilevel 11/02/16 14:57 85 20 95 11/02/16 13:00 87 17 97 NIV Bilevel 11/02/16 13:00 87 11/02/16 12:00 87 17 97 NIV Bilevel 11/02/16 11:04 80 18 96 40.00 11/02/16 11:00 87 20 115/69 95 NIV Bilevel 11/02/16 10:00 86 20 95 NIV Bilevel 11/02/16 09:34 87 22 95 40.00 11/02/16 09:00 76 20 95 NIV Bilevel 11/02/16 08:00 98.2 95 22 105/77 94 NIV Bilevel 40.00 11/02/16 07:00 90 I & O 11/03/16 07:00 Intake Total 1400 ml Output Total 1100 ml Balance 300 ml General Appearance: No Apparent Distress WD/WN HEENT: Normal ENT Inspection Neck: Normal Inspection Respiratory: No Accessory Muscle Use No Respiratory Distress Other (lungs clear than yesterday) Cardiovascular: Irregularly Irregular Capillary Refill: Less Than 3 Seconds Gastrointestinal: non tender soft Extremity: Normal Capillary Refill Pedal Edema Neurologic/Psychiatric: Alert Oriented x3 No Motor/Sensory Deficits Normal Mood/Affect Skin: Normal Color Lymphatic: No Adenopathy Results Lab Laboratory Tests 11/02/16 04:04 11/03/16 03:32 11/03/16 03:37 Assessment/Plan Assessment/Plan Dyspnea probably secondary to pulmonary edema -Will give 80mg IV x 1 - It will be helpful if pt is off BiPAP for thoracentesis. -Pt has been requiring BiPAP -Oxygen solumedrol - decrease to BID -SVNS Bilateral pleural effusion -Pt is on anticoagulation. -IVF were added 100cc/hr on Thursday and lasix decreased to 20mg daily -Pt is now requiring BiPAP 24hrs/day per RN -Will hold eliquis for possible thoracentesis Pneumonia -Continue Levaquin and cefepime Left hip fracture ARF -Monitor UPDATE: Pt has been made [employer] per family. I will sign off now. please call with any questions Clinical Quality Measures DVT/VTE Risk/Contraindication: Risk Factor Score Per Nursin RFS Level Per Nursing on Admit: 4+=Very High HEIDI LEHMAN DO Nov 03, 2016 06:28
[2016-11-03] MEDS ORDERED: FUROSEMIDE 40 MG/4 ML INJ (LASIX) IVP ONE (06:30)
[2016-11-03 06:42] VITALS: BP 108/64
[2016-11-03] MEDS: RT-BUDESONIDE NEBS 0.5 MG/2ML (PULMICORT) AMP INH SCH (06:42)
[2016-11-03] MEDS: LEVOTHYROXINE 125 MCG (LEVOTHROID) TABLET PO SCH (06:48)
--- NOTE | 2016-11-03 08:59 | Occ Therapy Progress Note ---
Therapy Progress Note 8:55 Family visiting with regulatory scientist. Reported taking BiPAP off today and making him comfortable. Verbal orders from Dr Weaver to [facility] OT and PT. YOLANDE LECHUGA OT Nov 03, 2016 08:59
[2016-11-03] MEDS: SENNA W/DOCUSATE (SENOKOT S) TABLET PO SCH ×2 (09:00→21:00)
--- NOTE | 2016-11-03 09:01 | Diagnostic Imaging Report ---
INDICATION: Dialysis, dyspnea. COMPARISON: 11/02/2016. FINDINGS: The 5 lobed airspace disease and bilateral pleural effusions, while still present, have improved from the prior exam. No pneumothorax. No adverse development. IMPRESSION: Reduction in the 5 lobed airspace disease and bilateral pleural fluid with no adverse change. Dictated by: Dictated on workstation # [id number]
[2016-11-03] MEDS ORDERED: ACETAMINOPHEN 650 MG SUPP (TYLENOL) PR PRN (09:30)
[2016-11-03] MEDS ORDERED: RT-ALBUTEROL/IPRATROPIUM 3 ML (DUONEB) VIAL INH PRN (09:30)
[2016-11-03] MEDS ORDERED: SALIVA STIMULANT MOUTH SPRAY (BIOTENE) 1.5 OZ MM PRN (09:30)
[2016-11-03] MEDS ORDERED: ARTIFICAL TEARS 0.4 ML UNIT DOSE (REFRESH PLUS) OU PRN (09:30)
[2016-11-03] MEDS ORDERED: BISACODYL 10 MG SUPP (DULCOLAX) PR PRN (09:30)
--- NOTE | 2016-11-03 09:37 | Progress Note (SOAP) ---
Subjective Subjective/Events-last exam PT HAD CONVERSATION WITH HIS FAMILY AND WITH HIS - HE HAS DECIDED UPON DISCONTINUATION OF CURRENT TREATMENT - PLANNING ON COMFORT CARE OF PATIENT - WANT TO INITIATE COMFORT CARE SOON FAMILY GETS UP TO ICU. Review of Systems General: Fatigue Malaise Pulmonary: Dyspnea Cardiovascular: No: Chest Pain Neurological: : Weakness Objective Exam Vital Signs Date Time Temp Pulse Resp B/P Pulse Ox O2 Delivery O2 Flow Rate FiO2 11/03/16 07:00 75 11/03/16 06:50 96 40 11/03/16 06:42 79 16 95 40.00 11/03/16 04:10 81 16 95 40.00 11/03/16 04:00 97.4 84 18 115/70 97 NIV Bilevel 40.00 11/03/16 01:46 81 19 94 40.00 11/03/16 01:00 65 11/03/16 00:00 97.4 90 22 110/72 94 NIV Bilevel 40.00 11/02/16 23:57 81 25 93 40.00 11/02/16 21:25 88 23 93 40.00 11/02/16 20:00 97 40 11/02/16 19:55 86 22 93 40.00 11/02/16 19:00 84 11/02/16 18:16 82 19 93 11/02/16 17:43 97.5 84 20 108/64 94 NIV Bilevel 11/02/16 16:52 97.5 11/02/16 15:00 86 20 100/69 92 NIV Bilevel 11/02/16 14:57 85 20 95 11/02/16 13:00 87 17 97 NIV Bilevel 11/02/16 13:00 87 11/02/16 12:00 87 17 97 NIV Bilevel 11/02/16 11:04 80 18 96 40.00 11/02/16 11:00 87 20 115/69 95 NIV Bilevel 11/02/16 10:00 86 20 95 NIV Bilevel I & O 11/03/16 07:00 Intake Total 2040 ml Output Total 2400 ml Balance -360 ml Capillary Refill : Less Than 3 Seconds General Appearance: Moderate Distress Neck: Supple Respiratory: Chest Non Tender Crackles Decreased Breath Sounds Cardiovascular: Irregularly Irregular Tachycardia Gastrointestinal: soft Extremity: Pedal Edema Neurologic/Psychiatric: Alert Results Lab Laboratory Tests 11/02/16 13:39: Glucometer 207H 11/02/16 16:43: Glucometer 192H 11/02/16 21:40: Glucometer 206H 11/03/16 03:32: Anion Gap 12, BUN/Creatinine Ratio 44, Blood Urea Nitrogen 66H, Calcium Level 7.9L, Carbon Dioxide Level 23, Chloride Level 104, Creatinine 1.51H, Estimat Glomerular Filtration Rate 44, Glucose Level 196H, Magnesium Level 2.4, Phosphorus Level 3.7, Potassium Level 3.9, Sodium Level 139 11/03/16 03:37: Basophils # (Auto) 0.0, Basophils (%) (Auto) 0, Eosinophils # (Auto) 0.0, Eosinophils (%) (Auto) 0, Hematocrit 33L, Hemoglobin 10.1L, Lymphocytes # (Auto ) 0.7L, Lymphocytes (%) (Auto) 5L, Mean Corpuscular Hemoglobin 30, Mean Corpuscular Hemoglobin Concent 31L, Mean Corpuscular Volume 97, Mean Platelet Volume 10.8H, Monocytes # (Auto) 0.6, Monocytes (%) (Auto) 4, Neutrophils # ( Auto) 13.3H, Neutrophils (%) (Auto) 91H, Platelet Count 495H, Red Blood Count 3.35L, Red Cell Distribution Width 15.9H, White Blood Count 14.6H Assessment/Plan Assessment/Plan Assess & Plan/Chief Complaint LEFT HIP FRACTURE - INTERTROCHANTERIC - POST-OP SURGICAL REPAIR WEAKNESS FATIGUE HYPERTENSION WITH ACUTE HYPOTENSION ACUTE RENAL FAILURE AFIB CHRONIC ANTICOAGULATION USE CORONARY ARTERY DISEASE HYPOTHYROID BPH ANEMIA CHF PT AND FAMILY HAVE DECIDED ON COMFORT CARE - STOP BIPAP, START ATIVAN AND MORPHINE FOR AIR HUNGER. Diagnosis/Problems: Clinical Quality Measures DVT/VTE Risk/Contraindication: Risk Factor Score Per Nursin RFS Level Per Nursing on Admit: 4+=Very High TARAS TITUS MD Nov 03, 2016 09:37 ANEMIA - STABLE ANXIETY - PT GIVEN LOW DOSE OF ATIVAN - PANIC EVENTS IMPROVED. DISCUSSED AGAIN WITH AND PT - WILL KEEP IN A STEP-DOWN STATUS WHEN PT ABLE TO BE DISCHARGED FROM ICU STATUS AND WILL CONSIDER SWING BED IN HOSPITAL FOR SHORT TIME BEFORE DECIDING ON ALF VERSUS REHAB Diagnosis/Problems: Clinical Quality Measures DVT/VTE Risk/Contraindication: Risk Factor Score Per Nursin RFS Level Per Nursing on Admit: 4+=Very High TARAS TITUS MD Nov 03, 2016 09:37
[2016-11-03 10:41] VITALS: BP 108/64
[2016-11-03] MEDS: morphine INJ 4 MG/ML 1 ML (VIAL/SYRINGE) IV PRN ×7 (11:02→23:22)
[2016-11-03] MEDS: LORazepam INJ 2 MG/ML (ATIVAN) VIAL IVP PRN ×5 (11:03→21:08)
[2016-11-03] MEDS ORDERED: CATHETER FLUSH 10 ML SYR IV PRN (12:45)
[2016-11-03] MEDS: GLYCOPYRROLATE 0.2 MG/ML (ROBINUL) 2 ML VIAL IV PRN ×3 (16:12→23:21)
--- NOTE | 2016-11-03 16:12 | Progress Note-Cardiology ---
Cardiology SOAP Progress Note Subjective: Report gen malaise and tiredness and weakness Has asked for comfort care only Objective: I&O/Vital Signs Vital Sign - Last 12Hours 11/03/16 11/03/16 11/03/16 11/03/16 04:10 06:42 06:50 07:00 Pulse 81 79 75 Resp 16 16 Pulse Ox 95 95 96 O2 Flow Rate 40.00 40.00 FiO2 40 11/03/16 11/03/16 08:00 10:41 Pulse 132 89 Resp 18 Pulse Ox 95 95 O2 Delivery NIV Bilevel O2 Flow Rate 40.00 40.00 Intake and Output 11/03/16 00:00 Intake Total 350 ml Output Total 1100 ml Balance -750 ml Weight (Pounds): 211 Weight (Ounces): 8.0 Weight (Calculated Kilograms): 95.259853 Constitutional: AAO x 3 well-developed well-nourished Respiratory: No accessory muscle use, other (Fair air entry, diminished at the bases, basal coarse and fine crackles) Cardiovascular: irregularly irregular S1 and S2 systolic murmur (soft ALLAN at card base) Gastrointestional: No tender, softNo guarding, No rebound, audible bowel sounds Extremities: swelling (mild bilat leg edema, more on L (post L hip surgery)) No clubbing, No cyanosis Neurologic/Psychiatric: grossly intact power is 5/5 both on sides Skin: No rash on exposed areas, No ulcerations on exposed areas Results/Procedures: Labs Laboratory Tests 11/02/16 16:43: Glucometer 192H 11/02/16 21:40: Glucometer 206H 11/03/16 03:32: Anion Gap 12, BUN/Creatinine Ratio 44, Blood Urea Nitrogen 66H, Calcium Level 7.9L, Carbon Dioxide Level 23, Chloride Level 104, Creatinine 1.51H, Estimat Glomerular Filtration Rate 44, Glucose Level 196H, Magnesium Level 2.4, Phosphorus Level 3.7, Potassium Level 3.9, Sodium Level 139 11/03/16 03:37: Basophils # (Auto) 0.0, Basophils (%) (Auto) 0, Eosinophils # (Auto) 0.0, Eosinophils (%) (Auto) 0, Hematocrit 33L, Hemoglobin 10.1L, Lymphocytes # (Auto ) 0.7L, Lymphocytes (%) (Auto) 5L, Mean Corpuscular Hemoglobin 30, Mean Corpuscular Hemoglobin Concent 31L, Mean Corpuscular Volume 97, Mean Platelet Volume 10.8H, Monocytes # (Auto) 0.6, Monocytes (%) (Auto) 4, Neutrophils # ( Auto) 13.3H, Neutrophils (%) (Auto) 91H, Platelet Count 495H, Red Blood Count 3.35L, Red Cell Distribution Width 15.9H, White Blood Count 14.6H Laboratory Tests 11/02/16 04:04 11/03/16 03:32 11/03/16 03:37 A/P: Assessment: Acute on chronic renal failure. Acute component likely due to vol depletion ( excessive diuresis) Multifactorial dyspnea (see below) Post-op pneumonia Bilateral pleural effusions A Fib with RVR (A Fib first diagnosed in early 2016) Ac diastolic CHF, currently clinically compensated S/p L hip surgery on 10/13/16 (after hip fracture after nonsyncopal fall) Coronary artery disease with history of coronary artery bypass surgery. Last cardiac catheterization was in September [address] Jhaveri and the patient had patent left internal mammary artery graft to left anterior descending, patent vein graft to a diagonal, patient vein graft to an obtuse marginal, and patent vein graft to the right coronary. Myocardial perfusion imaging carried out on February 2016 showed no evidence of ischemia or infarction Peripheral arterial disease. Angiography of August 2009 showed moderate disease of the right superficial femoral, moderately severe disease of the right knee femoral, two-vessel run off in the right leg, severe disease in the distal left leg with one-vessel run off. He is reporting bilateral claudication , more on right. This is being followed by Dr Nunez's office Aortic stenosis. Last echo of February 2016 showed LVEF 60%. Mod aortic stenosis with a peark pressure gradient across the aortic valve of approx 40mmHg and a calculated aortic valve area of approx 1.2 cm sq. Midl MR and TR. 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 He has had complete resolution of symptoms. History of sinus arrhythmia. He was seen by Dr. Sam of the Electrophysiology Service at [facility] after a Holter Monitor Study in 2007 showed brief ventricular asystolic pauses and brief runs of wide complex tachycardia. No further workup was advised. Last Holter Monitor was by Dr. Lilly in April 2008 and did not show any ventricular asystolic pauses. OAC with Eliquis for stroke prophylaxis Intolerance to beta blockers on account of marked bradycardia. Hyperlipidemia being treated with simvastatin. Hypertension under fair to good control. Apparently had had hypotension and amlodipine was reduced by Dr Lilly in January 2014 Degenerative joint disease. Mild carotid arterial disease being followed by Dr. Inman office. 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 Spontaneous left calf bleed in March 2015 for which he is followed with Dr. Main - this has resolved Depression Plan: * I discussed his case in detail with Dr Ortiz this am * I discussed his case also with him and his * He desires comfort care only. This is primarily being managed by KAJAL Urbina MD FACP [facility] Nov 03, 2016 16:12
[2016-11-03] MEDS: FAMOTIDINE 20MG/2ML IV (PEPCID) IVP SCH (21:00)
[2016-11-04] MEDS: LORazepam INJ 2 MG/ML (ATIVAN) VIAL IVP PRN ×6 (01:02→18:25)
[2016-11-04] MEDS: morphine INJ 4 MG/ML 1 ML (VIAL/SYRINGE) IV PRN ×8 (01:03→20:32)
[2016-11-04] MEDS: GLYCOPYRROLATE 0.2 MG/ML (ROBINUL) 2 ML VIAL IV PRN ×3 (03:59→20:32)
[2016-11-04] MEDS: inSUlin (REGULAR) HUMAN 1 UNIT/0.01 ML (CHARGE PER UNIT) SC SCH ×2 (06:00→11:00)
[2016-11-04] MEDS: SENNA W/DOCUSATE (SENOKOT S) TABLET PO SCH (08:58)
--- NOTE | 2016-11-04 09:34 | Progress Note (SOAP) ---
Subjective Subjective/Events-last exam FAMILY NOTES PT IS COMFORTABLE APPEARING - HAVING DEEP GASPING BREATHS AT TIMES FAMILY WITHOUT ANY SPECIFIC CONCERNS STATES THAT HE HAS NOT BEEN COMMUNICATIVE FOR AT LEAST 18 HOURS Review of Systems General: Fatigue Malaise OBTUNDED Objective Exam Vital Signs Date Time Temp Pulse Resp B/P Pulse Ox O2 Delivery O2 Flow Rate FiO2 11/03/16 10:41 89 18 95 40.00 I & O 11/04/16 07:00 Intake Total 100 ml Output Total 2500 ml Balance -2400 ml Capillary Refill : Less Than 3 Seconds General Appearance: Other (OBTUNDED) Respiratory: Decreased Breath Sounds Cardiovascular: Bradycardia Neurologic/Psychiatric: Other (OBTUNDED) Assessment/Plan Assessment/Plan Assess & Plan/Chief Complaint LEFT HIP FRACTURE - INTERTROCHANTERIC - POST-OP SURGICAL REPAIR WEAKNESS FATIGUE HYPERTENSION WITH ACUTE HYPOTENSION ACUTE RENAL FAILURE AFIB CHRONIC ANTICOAGULATION USE CORONARY ARTERY DISEASE HYPOTHYROID BPH ANEMIA CHF PT AND FAMILY HAVE DECIDED ON COMFORT CARE - STOPPED BIPAP, STARTED ATIVAN AND MORPHINE FOR AIR HUNGER. Diagnosis/Problems: Clinical Quality Measures DVT/VTE Risk/Contraindication: Risk Factor Score Per Nursin RFS Level Per Nursing on Admit: 4+=Very High TARAS TITUS MD Nov 04, 2016 09:34
[2016-11-04] MEDS: FAMOTIDINE 20MG/2ML IV (PEPCID) IVP SCH (21:00)
[2016-11-05] MEDS: morphine INJ 4 MG/ML 1 ML (VIAL/SYRINGE) IV PRN ×11 (01:43→21:05)
[2016-11-05] MEDS: GLYCOPYRROLATE 0.2 MG/ML (ROBINUL) 2 ML VIAL IV PRN ×5 (01:44→20:16)
--- NOTE | 2016-11-05 08:16 | Progress Note (SOAP) ---
Subjective Subjective/Events-last exam STAFF REPORTS DEEP GASPING BREATHING PATTERN Review of Systems OBTUNDED Objective Exam I & O 11/05/16 07:00 Intake Total 0 ml Output Total 1000 ml Balance -1000 ml Capillary Refill : Less Than 3 Seconds General Appearance: Moderate Distress Respiratory: Decreased Breath Sounds Cardiovascular: Irregularly Irregular Tachycardia Neurologic/Psychiatric: Other (obtunded) Assessment/Plan Assessment/Plan Assess & Plan/Chief Complaint LEFT HIP FRACTURE - INTERTROCHANTERIC - POST-OP SURGICAL REPAIR WEAKNESS FATIGUE HYPERTENSION WITH ACUTE HYPOTENSION ACUTE RENAL FAILURE AFIB CHRONIC ANTICOAGULATION USE CORONARY ARTERY DISEASE HYPOTHYROID BPH ANEMIA CHF PT AND FAMILY HAVE DECIDED ON COMFORT CARE - STOPPED BIPAP, STARTED ATIVAN AND MORPHINE FOR AIR HUNGER. ANTICIPATE PATIENT TO DECLINE IN THE NEXT 24-48 HOURS Diagnosis/Problems: Clinical Quality Measures DVT/VTE Risk/Contraindication: Risk Factor Score Per Nursin RFS Level Per Nursing on Admit: 4+=Very High TARAS TITUS MD Nov 05, 2016 08:16
[2016-11-05] MEDS: LORazepam INJ 2 MG/ML (ATIVAN) VIAL IVP PRN ×6 (08:25→21:04)
[2016-11-05] MEDS: FAMOTIDINE 20MG/2ML IV (PEPCID) IVP SCH (22:52)
[2016-11-05] MEDS ORDERED: NS IV 1000 ML 1,000 ML IV SCH (23:00)
[2016-11-05] MEDS: morphine PCA 30 MG/30 ML VIAL IV PRN (23:53)
[2016-11-06] MEDS: morphine PCA 30 MG/30 ML VIAL IV PRN (07:31)
--- NOTE | 2016-11-25 16:43 | Discharge Summary ---
Diagnosis/Chief Complaint Date of Admission Oct 27, 2016 at 22:14 Date of Discharge Nov 06, 2016 at 09:50 Admission Diagnosis Admission Diagnosis PNEUMONIA LEFT HIP FRACTURE - INTERTROCHANTERIC WEAKNESS FATIGUE HYPERTENSION WITH ACUTE HYPOTENSION ACUTE RENAL FAILURE AFIB CHRONIC ANTICOAGULATION USE CORONARY ARTERY DISEASE HYPOTHYROID BPH ANEMIA Discharge Diagnosis PNEUMONIA LEFT HIP FRACTURE - INTERTROCHANTERIC WEAKNESS FATIGUE HYPERTENSION WITH ACUTE HYPOTENSION ACUTE RENAL FAILURE AFIB CHRONIC ANTICOAGULATION USE CORONARY ARTERY DISEASE HYPOTHYROID BPH ANEMIA Reason Hospital Visit PT IS AN 89 Y/O MALE WHO IS KNOWN TO ME FROM CLINIC. HE PRESENTED TO THE HOSPITAL INITIALLY WITH LEFT HIP FRACTURE - HAD TREATMENT - SURGICALLY WITH DR. WING - HAD RESPIRATORY DISTRESS A FEW DAYS POST-OP AND CONTINUED TO HAVE SLOW IMPROVEMENT IN HIS SYMPTOMS - WAS TRANSFERRED TO INPATIENT REHAB AFTER BLOOD TRANSFUSION IMPROVED SYMPTOMS TREMENDOUSLY. THE PATIENT THEN HAD A ROUGH WEEKEND, WITH INCREASED DYSPNEA - AND LAST NIGHT HE WAS TRANSFERRED UP TO THE ICU DUE TO WORSENING RESPIRATORY DISTRESS. THIS MORNING, MR. MAX CONTINUES TO HAVE SHORTNESS OF BREATH, INCREASED WORK OF BREATHING - WAS TAKEN OFF OF BIPAP TO ALLOW HIM TO TAKE HIS MORNING MEDS, HE WILL BE TRANSITIONED OFF OF BIPAP THIS AFTERNOON TO VAPOTHERM. Discharge Summary Discharge Physical Examination Allergies: Coded Allergies: No Known Drug Allergies (Verified , 10/17/16) General Appearance: Other () Psych/Mental Status: Other () Hospital Course PNEUMONIA LEFT HIP FRACTURE - INTERTROCHANTERIC WEAKNESS FATIGUE HYPERTENSION WITH ACUTE HYPOTENSION ACUTE RENAL FAILURE AFIB CHRONIC ANTICOAGULATION USE CORONARY ARTERY DISEASE HYPOTHYROID BPH ANEMIA PT WITH PROGRESSIVE DECLINE, PNEUMONIA, UNABLE TO CLEAR INFECTION - PT DECIDED TO COME OFF OF BIPAP AND PLACED ON COMFORT CARE. Discharge Condition at discharge PT Instructions to patient/family PT Discharge Medications PT Clinical Quality Measures DVT/VTE Risk/Contraindication: Risk Factor Score Per Nursin RFS Level Per Nursing on Admit: 4+=Very High TARAS TITUS MD Nov 25, 2016 16:43
== END 2016-11-06 09:50 | disposition expired | DRG 193 ==
LOC: ICU 22:14
PROVIDERS: ADMIT Family Medicine; ATTEND Family Medicine
DX: J18.9 Pneumonia, unspecified organism (principal); R09.02 Hypoxemia; I50.31 Acute diastolic (congestive) heart failure; N17.9 Acute kidney failure, unspecified; I95.9 Hypotension, unspecified; I48.91 Unspecified atrial fibrillation; Z66 Do not resuscitate; N40.1 Benign prostatic hyperplasia with lower urinary tract symptoms; R33.9 Retention of urine, unspecified; S72.142D Displaced intertrochanteric fracture of left femur, subsequent encounter for closed fracture with routine healing; E03.9 Hypothyroidism, unspecified; I25.10 Atherosclerotic heart disease of native coronary artery without angina pectoris; D64.9 Anemia, unspecified; I08.3 Combined rheumatic disorders of mitral, aortic and tricuspid valves; F41.9 Anxiety disorder, unspecified; I73.9 Peripheral vascular disease, unspecified; Z79.01 Long term (current) use of anticoagulants; Z95.5 Presence of coronary angioplasty implant and graft; Z86.73 Personal history of transient ischemic attack (TIA), and cerebral infarction without residual deficits; W19.XXXD Unspecified fall, subsequent encounter; Y92.010 Kitchen of single-family (private) house as the place of occurrence of the external cause; Z95.1 Presence of aortocoronary bypass graft; Z51.5 Encounter for palliative care
CPT/HCPCS: 36415; 71010; 71250; 80048; 80053; 82962; 83735; 83880; 84100; 85007; 85025; 85027; 93005; 93306; 94640; 94660